=== PATIENT | male | born 1965 | race Caucasian/White ===

== ENCOUNTER 2020-06-03 08:31 | Outpatient (REF) | payer MEDICAID, SELFPAY | END 2020-06-03 08:32 | disposition home or self-care (01) | LOC: HO.LAB 08:31 | PROVIDERS: Visit Provider Internal Medicine | DX: Z20.828 Contact with and (suspected) exposure to other viral communicable diseases (principal) | CPT/HCPCS: C9803; U0003 ==

== ENCOUNTER 2020-11-20 07:56 | Emergency (ER) | payer MEDICAID, SELFPAY ==
--- NOTE | 2020-11-20 | ECG_ITS ---
Test Reason : SYNCOPE Blood Pressure : / mmHG Vent. Rate : 065 BPM Atrial Rate : 065 BPM P-R Int : 132 ms QRS Dur : 080 ms QT Int : 472 ms P-R-T Axes : 063 081 085 degrees QTc Int : 490 ms Normal sinus rhythm Marked T wave abnormality, consider anterior ischemia Prolonged QT Abnormal ECG When compared with ECG of 30-JAN-2020 13:49, ST no longer elevated in Anterior leads T wave amplitude has decreased in Inferior leads T wave inversion now evident in Anterior leads QT has lengthened Referred By: Xochitl Cohen Electronically Signed By:CHUYITA SON MD
[2020-11-20 08:07] VITALS: BP 145/87; BP 154/74; PULSE 69; PULSE 72; RESP 16; TEMP 36.9; O2SAT 97; BMI 19.0
[2020-11-20 08:13] LABS: Glucose, Whole Blood 79 mg/dL (60-115)
--- NOTE | 2020-11-20 08:13 | ED.GENADULT ---
HPI - General Adult General Chief complaint: General Medical Stated complaint: questionable consciousness Time Seen by Provider: 11/20/20 08:13 Source: patient and EMS Mode of arrival: EMS Limitations: other (patient refusing to answer) History of Present Illness HPI narrative: 55 y/o homeless male with unknown medical history presents to the ED via EMS after bystanders saw him fall with possible loss of consciousness. On EMS arrival, patient was awake and alert. He had no apparent injuries and had no complaints. On arrival to the ER he states he wants to leave. He provides a very limited history. He is soaking wet from the rain. He denies any pain. Spoke with Laney from patient's retirement at 10 am - she states he has been a long time resident of retirement and he has a history of schizophrenia and seizures. He often elopes his retirement during the weekend during the Spring and Summer, goes and uses crack cocaine and then comes back home Saturday or Saturday. He was last seen 11/18 at 9:30 am after he took his morning medications which include Dilantin 500 mg, Trileptal 150 mg BID and Haldol 15 mg QAM. Related Data Allergies Allergy/AdvReac Type Severity Reaction Status Date / Time No Known Allergies Allergy Mild NOT Verified 11/20/20 08:11 APPLICABLE Review of Systems Review of Systems: Yes Unobtainable due to mental condition and Unobtainable due to mental status FOR[facility]LY [facility] Past Medical History Medical History (Updated 11/20/20 @ 10:28 by DONTE Romero) No known health problems Social History Social History Smoking Status: Unknown if ever smoked Use of substances other than those prescribed or required for medical reasons: Unknown Advance Directives: No Advance Directives Information Provided: No Physical Exam Vital Signs: Vital Signs: Last Vital Signs Temp 98.5 F 11/20/20 08:07 Pulse 69 11/20/20 08:07 Resp 16 11/20/20 08:07 BP 154/74 H 11/20/20 08:07 Pulse Ox 97 11/20/20 08:07 Body Mass Index 19.0 Appearance: Alert. Oriented X2. Appears much older than stated age. Head: normocephalic, well healed scar to left temporal area Eyes: Pupils equal, round and reactive to light. EOMI, no nystagmus. ENT: Pharynx normal. Neck: Normal inspection. Neck supple. CVS: Normal heart rate and rhythm. Pulses normal. Respiratory: No respiratory distress. Breath sounds normal. Abdomen: Soft and nontender. +BS x4. Pelvis stable. Skin: Skin warm and dry. Normal skin color. Normal skin turgor. No rashes. Extremities: No lower extremity edema. Frail, thin. No signs of injury. Non-tender Neuro: Oriented X 2. Not fully cooperating with examination, spontaneously moves all 4 extremities. Refusing to answer most questions. Course Course Course Narrative: 55 y/o male presenting with altered mental status. Question of seizure. No signs of trauma. No obvious neuro deficits. Speech is clear, no smell of ETOH. Will get CT head, EKG, basic labs workup. Reevaluation(s) Reevaluation #1: Lactic acid 1.5, making tonic-clonic seizure less likely. His lab workup is unremarkable so far aside from mild leukocytosis, no signs of symptoms of infection at this time. Alk phos mildly elevated which appears to be chronic. Refusing CT head saying he just wants to go home. Reevaluation #2: Dilantin level critically low at 1.0 which is consistent with patient's known non-compliance over the weekend. He has a history of this several times in the past. He was given oral loading dose. He is stable for discharge back to retirement. Medical Decision Making Lab Data Result diagrams: 11/20/20 08:46 11/20/20 08:45 Labs: Lab Results 11/20/20 11/20/20 11/20/20 Range/Units 08:10 08:45 08:45 WBC (4.8-10.8) X10*3/uL RBC (4.60-5.80) X10*6/uL Hgb (14.0-18.0) g/dl Hct (42-52) % MCV (80-98) fL MCH (27.0-33.0) pg MCHC (31.0-36.0) g/dl RDW (11.0-16.0) % Plt Count (160-400) X10*3/uL MPV (9.4-12.4) fL Immature Gran % (Auto) (0.0-0.4) % Neut % (Auto) (45-73) % Lymph % (Auto) (20-40) % [place] % (Auto) (2-11) % Eos % (Auto) (0-4) % Baso % (Auto) (0-2) % Lymph # (Auto) (1.2-4.9) X10*3/uL [place] # (Auto) (0.1-1.2) X10*3/uL Eos # (Auto) (0.0-0.4) X10*3/uL Baso # (Auto) (0.0-0.2) X10*3/uL Abs Immat Gran (auto) (0.00-0.03) X10*3/uL Absolute Neuts (auto) (2.0-8.3) X10*3/uL Absolute Nucleated RBC (0.0-0.012) X10*3/uL Nucleated RBC % (auto) (0.0-0.2) /100WBC Hold Blue Top SEE NOTE Sodium 140 (135-145) mmol/L Potassium 4.4 (3.3-5.1) mmol/L Chloride 102 (96-108) mmol/L Carbon Dioxide 27 (22-29) mmol/L Anion Gap 15 (12-20) BUN 15 (9-16) mg/dL Creatinine 0.81 (0.5-1.4) mg/dL Estim Creat Clear Calc 65.0 Estimated GFR > 60 POC Glucose 79 (60-115) mg/dL Random Glucose 135 H (60-115) mg/dL Lactic Acid (0.5-2.0) mmol/L Calcium 9.6 (8.4-10.2) mg/dL Magnesium 2.4 (1.6-2.6) mg/dL Total Bilirubin 0.5 (0.0-1.0) mg/dL Direct Bilirubin 0.2 (0.0-0.5) mg/dL AST 21 (5-37) U/L ALT 32 (0-40) U/L Alkaline Phosphatase 168 H (39-117) U/L Total Protein 7.1 (6.5-8.0) g/dL Albumin 4.2 (3.5-5.0) g/dL Phenytoin (10.0-20.0) ug/mL Ethyl Alcohol mg/dL 11/20/20 11/20/20 11/20/20 Range/Units 08:45 08:45 08:45 WBC (4.8-10.8) X10*3/uL RBC (4.60-5.80) X10*6/uL Hgb (14.0-18.0) g/dl Hct (42-52) % MCV (80-98) fL MCH (27.0-33.0) pg MCHC (31.0-36.0) g/dl RDW (11.0-16.0) % Plt Count (160-400) X10*3/uL MPV (9.4-12.4) fL Immature Gran % (Auto) (0.0-0.4) % Neut % (Auto) (45-73) % Lymph % (Auto) (20-40) % [place] % (Auto) (2-11) % Eos % (Auto) (0-4) % Baso % (Auto) (0-2) % Lymph # (Auto) (1.2-4.9) X10*3/uL [place] # (Auto) (0.1-1.2) X10*3/uL Eos # (Auto) (0.0-0.4) X10*3/uL Baso # (Auto) (0.0-0.2) X10*3/uL Abs Immat Gran (auto) (0.00-0.03) X10*3/uL Absolute Neuts (auto) (2.0-8.3) X10*3/uL Absolute Nucleated RBC (0.0-0.012) X10*3/uL Nucleated RBC % (auto) (0.0-0.2) /100WBC Hold Blue Top Sodium (135-145) mmol/L Potassium (3.3-5.1) mmol/L Chloride (96-108) mmol/L Carbon Dioxide (22-29) mmol/L Anion Gap (12-20) BUN (9-16) mg/dL Creatinine (0.5-1.4) mg/dL Estim Creat Clear Calc Estimated GFR POC Glucose (60-115) mg/dL Random Glucose (60-115) mg/dL Lactic Acid 1.5 (0.5-2.0) mmol/L Calcium (8.4-10.2) mg/dL Magnesium (1.6-2.6) mg/dL Total Bilirubin (0.0-1.0) mg/dL Direct Bilirubin (0.0-0.5) mg/dL AST (5-37) U/L ALT (0-40) U/L Alkaline Phosphatase (39-117) U/L Total Protein (6.5-8.0) g/dL Albumin (3.5-5.0) g/dL Phenytoin 1.0 L* (10.0-20.0) ug/mL Ethyl Alcohol < 10 mg/dL 11/20/20 Range/Units 08:46 WBC 13.0 H (4.8-10.8) X10*3/uL RBC 5.10 (4.60-5.80) X10*6/uL Hgb 15.7 (14.0-18.0) g/dl Hct 47.1 (42-52) % MCV 92.4 (80-98) fL MCH 30.8 (27.0-33.0) pg MCHC 33.3 (31.0-36.0) g/dl RDW 13.7 (11.0-16.0) % Plt Count 443 H (160-400) X10*3/uL MPV 9.7 (9.4-12.4) fL Immature Gran % (Auto) 0.5 H (0.0-0.4) % Neut % (Auto) 81.3 H (45-73) % Lymph % (Auto) 10.1 L (20-40) % [place] % (Auto) 5.2 (2-11) % Eos % (Auto) 2.1 (0-4) % Baso % (Auto) 0.8 (0-2) % Lymph # (Auto) 1.3 (1.2-4.9) X10*3/uL [place] # (Auto) 0.7 (0.1-1.2) X10*3/uL Eos # (Auto) 0.3 (0.0-0.4) X10*3/uL Baso # (Auto) 0.1 (0.0-0.2) X10*3/uL Abs Immat Gran (auto) 0.07 H (0.00-0.03) X10*3/uL Absolute Neuts (auto) 10.6 H (2.0-8.3) X10*3/uL Absolute Nucleated RBC 0.000 (0.0-0.012) X10*3/uL Nucleated RBC % (auto) 0.0 (0.0-0.2) /100WBC Hold Blue Top Sodium (135-145) mmol/L Potassium (3.3-5.1) mmol/L Chloride (96-108) mmol/L Carbon Dioxide (22-29) mmol/L Anion Gap (12-20) BUN (9-16) mg/dL Creatinine (0.5-1.4) mg/dL Estim Creat Clear Calc Estimated GFR POC Glucose (60-115) mg/dL Random Glucose (60-115) mg/dL Lactic Acid (0.5-2.0) mmol/L Calcium (8.4-10.2) mg/dL Magnesium (1.6-2.6) mg/dL Total Bilirubin (0.0-1.0) mg/dL Direct Bilirubin (0.0-0.5) mg/dL AST (5-37) U/L ALT (0-40) U/L Alkaline Phosphatase (39-117) U/L Total Protein (6.5-8.0) g/dL Albumin (3.5-5.0) g/dL Phenytoin (10.0-20.0) ug/mL Ethyl Alcohol mg/dL Discharge Plan Discharge Clinical Impression: Noncompliance with medication regimen, Seizures Patient Disposition: Xfer SNF Transfer Details: senior living Instructions: Polysubstance Abuse (ED), Recurrent Seizures in Adults (ED) Additional Instructions: It is important that you take ALL of your medications as prescribed. You likely had a seizure today because you did not take your medications. DO NOT USE ILLICIT DRUGS, THIS INCLUDES CRACK COCAINE. Follow up with your doctor this week.
[2020-11-20 08:54] LABS: MANUAL DIFF FLAG NO
[2020-11-20 08:56] LABS: Basophils Absolute Auto 0.1 X10*3/uL (0.0-0.2); Basophils Percent Auto 0.8 % (0-2); Eosinophils Absolute Auto 0.3 X10*3/uL (0.0-0.4); Eosinophils Percent Auto 2.1 % (0-4); Hematocrit 47.1 % (42-52); Hemoglobin 15.7 g/dl (14.0-18.0); Imm Gran Abs Auto 0.07 X10*3/uL (0.00-0.03); Imm Gran Pct Auto 0.5 % (0.0-0.4); Lymphocytes Absolute Auto 1.3 X10*3/uL (1.2-4.9); Lymphocytes Percent Auto 10.1 % (20-40); Mean Corpuscular HGB Conc 33.3 g/dl (31.0-36.0); Mean Corpuscular Hemoglobin 30.8 pg (27.0-33.0); Mean Corpuscular Volume 92.4 fL (80-98); Mean Platelet Volume 9.7 fL (9.4-12.4); Monocytes Absolute Auto 0.7 X10*3/uL (0.1-1.2); Monocytes Percent Auto 5.2 % (2-11); Neutrophils Absolute Auto 10.6 X10*3/uL (2.0-8.3); Neutrophils Percent Auto 81.3 % (45-73); Platelet Count 443 X10*3/uL (160-400); Red Cell Distribution Width 13.7 % (11.0-16.0)
--- NOTE | 2020-11-20 09:00 | PC.NURSE ---
Pt arrives via ambulance, sl uncooperative but good agreeable to care with a lot of encouragement. Pt offers no history only replies leave me alone and I dont want anything PER EMS ? fall/?unconscious seen by bystanders. While in room pt noted shaking legs and arms and not verbally responding to this RN but able to track this RN during episode. UNK history as pt is poor historian. IV start to Left ac and blood obtained/sent. EKG completed. Off unit at this time for CT scan. Clothes in laundry as pt arrived with wet clothes. NSR on tele. Breathing effort normal. Skin lis, cool and dry. Pt appears to fall asleep easily with periods of outburst and agitation.
[2020-11-20 09:18] LABS: Lactic Acid 1.5 mmol/L (0.5-2.0)
[2020-11-20 09:24] LABS: Ethanol < 10 mg/dL
[2020-11-20 09:25] LABS: Alanine Aminotransferase 32 U/L (0-40); Albumin Level 4.2 g/dL (3.5-5.0); Alkaline Phosphatase 168 U/L (39-117); Anion Gap 15 (12-20); Aspartate Amino Transferase 21 U/L (5-37); Bilirubin Direct 0.2 mg/dL (0.0-0.5); Bilirubin Total 0.5 mg/dL (0.0-1.0); Blood Urea Nitrogen 15 mg/dL (9-16); Calcium 9.6 mg/dL (8.4-10.2); Carbon Dioxide 27 mmol/L (22-29); Chloride 102 mmol/L (96-108); Estimated Glomerular Filt Rate > 60; Glucose Random 135 mg/dL (60-115); Magnesium 2.4 mg/dL (1.6-2.6); Potassium 4.4 mmol/L (3.3-5.1); Sodium 140 mmol/L (135-145); Total Protein 7.1 g/dL (6.5-8.0)
--- NOTE | 2020-11-20 09:48 | PC.NURSE ---
This RN spoke to senior care staff Laney Carbajal who is now speaking to Xochitl KENT at this time. Staff reports pt does have history of seizures.
[2020-11-20] MEDS: Phenytoin Sodium Extended 100 MG CAPSULE 500 MG PO ×2 (10:11→10:32)
[2020-11-20] MEDS: OXcarbazepine 150 MG TABLET PO (10:11)
[2020-11-20] MEDS: HaloperidoL 5 MG TABLET 15 MG PO (10:32)
--- NOTE | 2020-11-20 10:39 | PC.NURSE ---
Pt now awake, agitated, continues to request to go home. Laney from [facility] called and will pick up worker pt. Aware of loading dose given and daily haldol dose. Pt now back to bed at this time.
== END 2020-11-20 11:25 | disposition skilled nursing facility (03) ==
PROVIDERS: Physician Assistant; Emergency Provider Emergency Medicine
DX: R56.9 Unspecified convulsions (principal); Z91.14 Patient's other noncompliance with medication regimen; F20.9 Schizophrenia, unspecified
CPT/HCPCS: 36415; 80048; 80076; 80185; 80320; 82947; 83605; 83735; 85025; 87040; 93005; 99284

== ENCOUNTER 2021-04-27 16:07 | Emergency (ER) | payer MEDICAID, SELFPAY ==
[2021-04-27 16:22] VITALS: BP 149/85; BP 157/82; PULSE 86; PULSE 94; RESP 18; TEMP 37.5; O2SAT 96; O2SAT 98; BMI 20.1
--- NOTE | 2021-04-27 16:34 | ED_ITS ---
HPI - Seizure General Chief Complaint: Seizure <DONTE Romero - Last Filed: 04/27/21 17:50> Stated Complaint: seizure <DONTE Romero - Last Filed: 04/27/21 17:50> Time Seen by Provider: 04/27/21 16:31 <DONTE Romero - Last Filed: 04/27/21 17:50> Source: patient, EMS, RN notes reviewed and old records reviewed <DONTE Romero - Last Filed: 04/27/21 17:50> Mode of arrival: EMS <DONTE Romero Last Filed: 04/27/21 17:50> Limitations: no limitations <DONTE Romero Last Filed: 04/27/21 17:50> History of Present Illness HPI Narrative: 55 y/o male with history of seizures, crack cocaine, and schizophrenia who presents to the ER via EMS with a witnessed seizure while at his senior care. His is uncooperative and cannot provide any history. Called and spoke with care home employee who witnessed the event. She reports after he ate dinner she heard Abhijit making loud weeping noises like he was crying. When she checked on his she reports he was awake but not responding to her. He kept making repetitive noises for about 1 minute. EMS was called and on their arrival he remained confused. He was verbal at that time but no recollection of the event. He thinks he took his Dilantin and Trileptal this morning. 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 He leaves the senior care every day and sometimes does not come back until 4 am. He occasionally misses doses of his meds when he does not return. <DONTE Romero - Last Filed: 04/27/21 17:50> MD complaint: seizure <DONTE Romero - Last Filed: 04/27/21 17:50> Onset (ago): minute(s) <DONTE Romero - Last Filed: 04/27/21 17:50> Description of Episode: post-event confusion and other (making strange repetative noises) <DONTE Romero Last Filed: 04/27/21 17:50> -: second(s) <DONTE Romero - Last Filed: 04/27/21 17:50> Witnessed: Yes - by Other <DONTE Romero - Last Filed: 04/27/21 17:50> Trauma: No <DONTE Romero - Last Filed: 04/27/21 17:50> Seizure History: Yes <DONTE Romero - Last Filed: 04/27/21 17:50> Place: Home <DONTE Romero - Last Filed: 04/27/21 17:50> Possible Precipitating Event: none <DONTE Romero - Last Filed: 04/27/21 17:50> Associated symptoms: denies other symptoms <DONTE Romero - Last Filed: 04/27/21 17:50> Treatments prior to arrival: none <DONTE Romero - Last Filed: 04/27/21 17:50> Related Data Allergies/Adverse Reactions: Allergies Allergy/AdvReac Type Severity Reaction Status Date / Time No Known Allergies Allergy Mild NOT Verified 11/20/20 08:11 APPLICABLE <DONTE Romero - Last Filed: 04/27/21 17:50> Review of Systems Review of Systems: uncoperative <DONTE Romero - Last Filed: 04/27/21 17:50> Yes Unobtainable due to mental condition and Unobtainable due to mental status <DONTE Romero - Last Filed: 04/27/21 17:50> [facility] Past Medical History Medical History: Medical History (Updated 04/27/21 @ 16:48 by DONTE Romero) No known health problems <DONTE Romero - Last Filed: 04/27/21 17:50> Social History Social History: Social History Alcohol intake: never Patient Tobacco Use Status: Never used Tobacco Use of substances other than those prescribed or required for medical reasons: Refusing to respond Advance Directives: No Advance Directives Information Provided: No <DONTE Romero - Last Filed: 04/27/21 17:50> Physical Exam Vital Signs: Vital Signs: Last Vital Signs Temp 99.5 F 04/27/21 16:22 Pulse 97 04/27/21 17:59 Resp 20 04/27/21 17:59 BP 117/69 04/27/21 17:59 Pulse Ox 99 04/27/21 17:59 Body Mass Index 20.1 <DONTE Romero - Last Filed: 04/27/21 17:50> Vital Signs: Last Vital Signs Temp 99.5 F 04/27/21 16:22 Pulse 97 04/27/21 17:59 Resp 20 04/27/21 17:59 BP 117/69 04/27/21 17:59 Pulse Ox 99 04/27/21 17:59 Body Mass Index 20.1 <Ari Mckeon MD - Last Filed: 04/27/21 18:53> Appearance: Alert, disheveled thin male, poor hygiene. Eyes: Pupils equal, round and reactive to light. ENT: Pharynx normal. Neck: Normal inspection. Neck supple. CVS: Normal heart rate and rhythm. Pulses normal. Respiratory: No respiratory distress. Breath sounds normal. Abdomen: Soft and nontender. +BS x4 Skin: Skin warm and dry. Normal skin color. Normal skin turgor. No rashes. Extremities: No lower extremity edema. Ambulates with a limp Neuro: Oriented X 2. Nonfocal. Moves all extremities, equal and symmetrical s trength throughout <DONTE Romero - Last Filed: 04/27/21 17:50> Course Course Course Narrative: 55 y/o male with known seizure disorder presenting with witnessed seizure at senior care. Not described as tonic-clonic. He is AAO but with poor memory. Will check basic labs and dilantin level. Hx noncompliance with mediations when he elopes from the senior care. <DONTE Romero - Last Filed: 04/27/21 17:50> Reevaluation(s) Reevaluation #1: Patient had a witnessed seizure with lip smacking, strange noises and some tonic clonic movements w/ rigidity. HR up to 120s, awake but not responding. He is protecting his airway at this time. IV Ativan & IV dilantin ordered. D/w Dr. Clarke. <DONTE Romero - Last Filed: 04/27/21 17:50> Time: 17:47 <DONTE Romero - Last Filed: 04/27/21 17:50> Reevaluation #2: Patient noncompliant to Dilantin substance abuse in for seizures workup showed Dilantin level of 8.7 urine tox on fentanyl cocaine marijuana positive plan to discharge patient back to senior care. Patient received 500 mg of Dilantin IV <Ari Mckeon MD - Last Filed: 04/27/21 18:53> Time: 18:52 <Ari Mckeon MD - Last Filed: 04/27/21 18:53> MDM - Seizure Lab Data Result diagrams: : 04/27/21 17:06 04/27/21 18:02 <DONTE Romero - Last Filed: 04/27/21 17:50> Labs: Lab Results 04/27/21 04/27/21 04/27/21 Range/Units 17:06 17:06 17:06 WBC 10.7 (4.8-10.8) X10*3/uL RBC 4.93 (4.60-5.80) X10*6/uL Hgb 15.8 (14.0-18.0) g/dl Hct 45.7 (42-52) % MCV 92.7 (80-98) fL MCH 32.0 (27.0-33.0) pg MCHC 34.6 (31.0-36.0) g/dl RDW 13.3 (11.0-16.0) % Plt Count 325 D (160-400) X10*3/uL MPV 9.6 (9.4-12.4) fL Immature Gran % (Auto) 0.3 (0.0-0.4) % Neut % (Auto) 78.6 H (45-73) % Lymph % (Auto) 14.0 L (20-40) % [place] % (Auto) 5.7 (2-11) % Eos % (Auto) 0.8 (0-4) % Baso % (Auto) 0.6 (0-2) % Lymph # (Auto) 1.5 (1.2-4.9) X10*3/uL [place] # (Auto) 0.6 (0.1-1.2) X10*3/uL Eos # (Auto) 0.1 (0.0-0.4) X10*3/uL Baso # (Auto) 0.1 (0.0-0.2) X10*3/uL Abs Immat Gran (auto) 0.03 (0.00-0.03) X10*3/uL Absolute Neuts (auto) 8.4 H (2.0-8.3) X10*3/uL Absolute Nucleated RBC 0.000 (0.0-0.012) X10*3/uL Nucleated RBC % (auto) 0.0 (0.0-0.2) /100WBC Sodium (135-145) mmol/L Potassium (3.3-5.1) mmol/L Chloride (96-108) mmol/L Carbon Dioxide (22-29) mmol/L Anion Gap (12-20) BUN (9-16) mg/dL Creatinine (0.5-1.4) mg/dL Estim Creat Clear Calc Estimated GFR Random Glucose (60-115) mg/dL Calcium (8.4-10.2) mg/dL Magnesium (1.6-2.6) mg/dL Total Bilirubin (0.0-1.0) mg/dL Direct Bilirubin (0.0-0.5) mg/dL AST (5-37) U/L ALT (0-40) U/L Alkaline Phosphatase (39-117) U/L Total Protein (6.5-8.0) g/dL Albumin (3.5-5.0) g/dL Urine Color Urine Appearance Urine pH (5.0-8.0) Ur Specific [place] (1.005-1.025) Urine Protein (NEG-TRACE) MG/DL Urine Glucose (UA) (NEG) MG/DL Urine Ketones (NEG) MG/DL Urine Blood (NEG) Urine Nitrite (NEG) Ur Leukocyte Esterase (NEG) Urine Opiates Screen (Not Detect) Urine Fentanyl Screen (Not Detect) Ur Barbiturates Screen (Not Detect) Phenytoin (10.0-20.0) ug/mL Ur Phencyclidine Scrn (Not Detect) Ur Amphetamines Screen (Not Detect) U Benzodiazepines Scrn (Not Detect) Urine Cocaine Screen (Not Detect) U Marijuana (THC) Screen (Not Detect) Ethyl Alcohol < 10 mg/dL COVID-19 (SUMMER) Negative (Negative) COVID-19 Clin Com See Note 09/30/21 09/30/21 09/30/21 Range/Units 17:06 17:12 17:12 WBC (4.8-10.8) X10*3/uL RBC (4.60-5.80) X10*6/uL Hgb (14.0-18.0) g/dl Hct (42-52) % MCV (80-98) fL MCH (27.0-33.0) pg MCHC (31.0-36.0) g/dl RDW (11.0-16.0) % Plt Count (160-400) X10*3/uL MPV (9.4-12.4) fL Immature Gran % (Auto) (0.0-0.4) % Neut % (Auto) (45-73) % Lymph % (Auto) (20-40) % [place] % (Auto) (2-11) % Eos % (Auto) (0-4) % Baso % (Auto) (0-2) % Lymph # (Auto) (1.2-4.9) X10*3/uL [place] # (Auto) (0.1-1.2) X10*3/uL Eos # (Auto) (0.0-0.4) X10*3/uL Baso # (Auto) (0.0-0.2) X10*3/uL Abs Immat Gran (auto) (0.00-0.03) X10*3/uL Absolute Neuts (auto) (2.0-8.3) X10*3/uL Absolute Nucleated RBC (0.0-0.012) X10*3/uL Nucleated RBC % (auto) (0.0-0.2) /100WBC Sodium (135-145) mmol/L Potassium (3.3-5.1) mmol/L Chloride (96-108) mmol/L Carbon Dioxide (22-29) mmol/L Anion Gap (12-20) BUN (9-16) mg/dL Creatinine (0.5-1.4) mg/dL Estim Creat Clear Calc Estimated GFR Random Glucose (60-115) mg/dL Calcium (8.4-10.2) mg/dL Magnesium (1.6-2.6) mg/dL Total Bilirubin (0.0-1.0) mg/dL Direct Bilirubin (0.0-0.5) mg/dL AST (5-37) U/L ALT (0-40) U/L Alkaline Phosphatase (39-117) U/L Total Protein (6.5-8.0) g/dL Albumin (3.5-5.0) g/dL Urine Color YELLOW Urine Appearance HAZY Urine pH 6.0 (5.0-8.0) Ur Specific [place] 1.025 (1.005-1.025) Urine Protein NEG (NEG-TRACE) MG/DL Urine Glucose (UA) NEG (NEG) MG/DL Urine Ketones NEG (NEG) MG/DL Urine Blood NEG (NEG) Urine Nitrite NEG (NEG) Ur Leukocyte Esterase NEG (NEG) Urine Opiates Screen Not Detected (Not Detect) Urine Fentanyl Screen POSITIVE H (Not Detect) Ur Barbiturates Screen Not Detected (Not Detect) Phenytoin 8.7 L (10.0-20.0) ug/mL Ur Phencyclidine Scrn Not Detected (Not Detect) Ur Amphetamines Screen Not Detected (Not Detect) U Benzodiazepines Scrn Not Detected (Not Detect) Urine Cocaine Screen POSITIVE H (Not Detect) U Marijuana (THC) Screen POSITIVE H (Not Detect) Ethyl Alcohol mg/dL COVID-19 (SUMMER) (Negative) COVID-19 Clin Com 04/27/21 Range/Units 18:02 WBC (4.8-10.8) X10*3/uL RBC (4.60-5.80) X10*6/uL Hgb (14.0-18.0) g/dl Hct (42-52) % MCV (80-98) fL MCH (27.0-33.0) pg MCHC (31.0-36.0) g/dl RDW (11.0-16.0) % Plt Count (160-400) X10*3/uL MPV (9.4-12.4) fL Immature Gran % (Auto) (0.0-0.4) % Neut % (Auto) (45-73) % Lymph % (Auto) (20-40) % [place] % (Auto) (2-11) % Eos % (Auto) (0-4) % Baso % (Auto) (0-2) % Lymph # (Auto) (1.2-4.9) X10*3/uL [place] # (Auto) (0.1-1.2) X10*3/uL Eos # (Auto) (0.0-0.4) X10*3/uL Baso # (Auto) (0.0-0.2) X10*3/uL Abs Immat Gran (auto) (0.00-0.03) X10*3/uL Absolute Neuts (auto) (2.0-8.3) X10*3/uL Absolute Nucleated RBC (0.0-0.012) X10*3/uL Nucleated RBC % (auto) (0.0-0.2) /100WBC Sodium 134 L (135-145) mmol/L Potassium 4.3 (3.3-5.1) mmol/L Chloride 101 (96-108) mmol/L Carbon Dioxide 26 (22-29) mmol/L Anion Gap 11 L (12-20) BUN 15 (9-16) mg/dL Creatinine 0.83 (0.5-1.4) mg/dL Estim Creat Clear Calc 71.8 Estimated GFR > 60 Random Glucose 100 (60-115) mg/dL Calcium 8.6 D (8.4-10.2) mg/dL Magnesium 1.9 (1.6-2.6) mg/dL Total Bilirubin 0.2 (0.0-1.0) mg/dL Direct Bilirubin < 0.2 (0.0-0.5) mg/dL AST 23 (5-37) U/L ALT 26 (0-40) U/L Alkaline Phosphatase 149 H (39-117) U/L Total Protein 6.5 (6.5-8.0) g/dL Albumin 3.9 (3.5-5.0) g/dL Urine Color Urine Appearance Urine pH (5.0-8.0) Ur Specific Commerce (1.005-1.025) Urine Protein (NEG-TRACE) MG/DL Urine Glucose (UA) (NEG) MG/DL Urine Ketones (NEG) MG/DL Urine Blood (NEG) Urine Nitrite (NEG) Ur Leukocyte Esterase (NEG) Urine Opiates Screen (Not Detect) Urine Fentanyl Screen (Not Detect) Ur Barbiturates Screen (Not Detect) Phenytoin (10.0-20.0) ug/mL Ur Phencyclidine Scrn (Not Detect) Ur Amphetamines Screen (Not Detect) U Benzodiazepines Scrn (Not Detect) Urine Cocaine Screen (Not Detect) U Marijuana (THC) Screen (Not Detect) Ethyl Alcohol mg/dL COVID-19 (SUMMER) (Negative) COVID-19 Clin Com <DONTE Romero - Last Filed: 04/27/21 17:50> Lab Results 04/27/21 04/27/21 04/27/21 Range/Units 17:06 17:06 17:06 WBC 10.7 (4.8-10.8) X10*3/uL RBC 4.93 (4.60-5.80) X10*6/uL Hgb 15.8 (14.0-18.0) g/dl Hct 45.7 (42-52) % MCV 92.7 (80-98) fL MCH 32.0 (27.0-33.0) pg MCHC 34.6 (31.0-36.0) g/dl RDW 13.3 (11.0-16.0) % Plt Count 325 D (160-400) X10*3/uL MPV 9.6 (9.4-12.4) fL Immature Gran % (Auto) 0.3 (0.0-0.4) % Neut % (Auto) 78.6 H (45-73) % Lymph % (Auto) 14.0 L (20-40) % [place] % (Auto) 5.7 (2-11) % Eos % (Auto) 0.8 (0-4) % Baso % (Auto) 0.6 (0-2) % Lymph # (Auto) 1.5 (1.2-4.9) X10*3/uL [place] # (Auto) 0.6 (0.1-1.2) X10*3/uL Eos # (Auto) 0.1 (0.0-0.4) X10*3/uL Baso # (Auto) 0.1 (0.0-0.2) X10*3/uL Abs Immat Gran (auto) 0.03 (0.00-0.03) X10*3/uL Absolute Neuts (auto) 8.4 H (2.0-8.3) X10*3/uL Absolute Nucleated RBC 0.000 (0.0-0.012) X10*3/uL Nucleated RBC % (auto) 0.0 (0.0-0.2) /100WBC Sodium (135-145) mmol/L Potassium (3.3-5.1) mmol/L Chloride (96-108) mmol/L Carbon Dioxide (22-29) mmol/L Anion Gap (12-20) BUN (9-16) mg/dL Creatinine (0.5-1.4) mg/dL Estim Creat Clear Calc Estimated GFR Random Glucose (60-115) mg/dL Calcium (8.4-10.2) mg/dL Magnesium (1.6-2.6) mg/dL Total Bilirubin (0.0-1.0) mg/dL Direct Bilirubin (0.0-0.5) mg/dL AST (5-37) U/L ALT (0-40) U/L Alkaline Phosphatase (39-117) U/L Total Protein (6.5-8.0) g/dL Albumin (3.5-5.0) g/dL Urine Color Urine Appearance Urine pH (5.0-8.0) Ur Specific [place] (1.005-1.025) Urine Protein (NEG-TRACE) MG/DL Urine Glucose (UA) (NEG) MG/DL Urine Ketones (NEG) MG/DL Urine Blood (NEG) Urine Nitrite (NEG) Ur Leukocyte Esterase (NEG) Urine Opiates Screen (Not Detect) Urine Fentanyl Screen (Not Detect) Ur Barbiturates Screen (Not Detect) Phenytoin (10.0-20.0) ug/mL Ur Phencyclidine Scrn (Not Detect) Ur Amphetamines Screen (Not Detect) U Benzodiazepines Scrn (Not Detect) Urine Cocaine Screen (Not Detect) U Marijuana (THC) Screen (Not Detect) Ethyl Alcohol < 10 mg/dL COVID-19 (SUMMER) Negative (Negative) COVID-19 Clin Com See Note 04/27/21 04/27/21 04/27/21 Range/Units 17:06 17:12 17:12 WBC (4.8-10.8) X10*3/uL RBC (4.60-5.80) X10*6/uL Hgb (14.0-18.0) g/dl Hct (42-52) % MCV (80-98) fL MCH (27.0-33.0) pg MCHC (31.0-36.0) g/dl RDW (11.0-16.0) % Plt Count (160-400) X10*3/uL MPV (9.4-12.4) fL Immature Gran % (Auto) (0.0-0.4) % Neut % (Auto) (45-73) % Lymph % (Auto) (20-40) % [place] % (Auto) (2-11) % Eos % (Auto) (0-4) % Baso % (Auto) (0-2) % Lymph # (Auto) (1.2-4.9) X10*3/uL [place] # (Auto) (0.1-1.2) X10*3/uL Eos # (Auto) (0.0-0.4) X10*3/uL Baso # (Auto) (0.0-0.2) X10*3/uL Abs Immat Gran (auto) (0.00-0.03) X10*3/uL Absolute Neuts (auto) (2.0-8.3) X10*3/uL Absolute Nucleated RBC (0.0-0.012) X10*3/uL Nucleated RBC % (auto) (0.0-0.2) /100WBC Sodium (135-145) mmol/L Potassium (3.3-5.1) mmol/L Chloride (96-108) mmol/L Carbon Dioxide (22-29) mmol/L Anion Gap (12-20) BUN (9-16) mg/dL Creatinine (0.5-1.4) mg/dL Estim Creat Clear Calc Estimated GFR Random Glucose (60-115) mg/dL Calcium (8.4-10.2) mg/dL Magnesium (1.6-2.6) mg/dL Total Bilirubin (0.0-1.0) mg/dL Direct Bilirubin (0.0-0.5) mg/dL AST (5-37) U/L ALT (0-40) U/L Alkaline Phosphatase (39-117) U/L Total Protein (6.5-8.0) g/dL Albumin (3.5-5.0) g/dL Urine Color YELLOW Urine Appearance HAZY Urine pH 6.0 (5.0-8.0) Ur Specific Commerce 1.025 (1.005-1.025) Urine Protein NEG (NEG-TRACE) MG/DL Urine Glucose (UA) NEG (NEG) MG/DL Urine Ketones NEG (NEG) MG/DL Urine Blood NEG (NEG) Urine Nitrite NEG (NEG) Ur Leukocyte Esterase NEG (NEG) Urine Opiates Screen Not Detected (Not Detect) Urine Fentanyl Screen POSITIVE H (Not Detect) Ur Barbiturates Screen Not Detected (Not Detect) Phenytoin 8.7 L (10.0-20.0) ug/mL Ur Phencyclidine Scrn Not Detected (Not Detect) Ur Amphetamines Screen Not Detected (Not Detect) U Benzodiazepines Scrn Not Detected (Not Detect) Urine Cocaine Screen POSITIVE H (Not Detect) U Marijuana (THC) Screen POSITIVE H (Not Detect) Ethyl Alcohol mg/dL COVID-19 (SUMMER) (Negative) COVID-19 Clin Com 04/27/21 Range/Units 18:02 WBC (4.8-10.8) X10*3/uL RBC (4.60-5.80) X10*6/uL Hgb (14.0-18.0) g/dl Hct (42-52) % MCV (80-98) fL MCH (27.0-33.0) pg MCHC (31.0-36.0) g/dl RDW (11.0-16.0) % Plt Count (160-400) X10*3/uL MPV (9.4-12.4) fL Immature Gran % (Auto) (0.0-0.4) % Neut % (Auto) (45-73) % Lymph % (Auto) (20-40) % [place] % (Auto) (2-11) % Eos % (Auto) (0-4) % Baso % (Auto) (0-2) % Lymph # (Auto) (1.2-4.9) X10*3/uL [place] # (Auto) (0.1-1.2) X10*3/uL Eos # (Auto) (0.0-0.4) X10*3/uL Baso # (Auto) (0.0-0.2) X10*3/uL Abs Immat Gran (auto) (0.00-0.03) X10*3/uL Absolute Neuts (auto) (2.0-8.3) X10*3/uL Absolute Nucleated RBC (0.0-0.012) X10*3/uL Nucleated RBC % (auto) (0.0-0.2) /100WBC Sodium 134 L (135-145) mmol/L Potassium 4.3 (3.3-5.1) mmol/L Chloride 101 (96-108) mmol/L Carbon Dioxide 26 (22-29) mmol/L Anion Gap 11 L (12-20) BUN 15 (9-16) mg/dL Creatinine 0.83 (0.5-1.4) mg/dL Estim Creat Clear Calc 71.8 Estimated GFR > 60 Random Glucose 100 (60-115) mg/dL Calcium 8.6 D (8.4-10.2) mg/dL Magnesium 1.9 (1.6-2.6) mg/dL Total Bilirubin 0.2 (0.0-1.0) mg/dL Direct Bilirubin < 0.2 (0.0-0.5) mg/dL AST 23 (5-37) U/L ALT 26 (0-40) U/L Alkaline Phosphatase 149 H (39-117) U/L Total Protein 6.5 (6.5-8.0) g/dL Albumin 3.9 (3.5-5.0) g/dL Urine Color Urine Appearance Urine pH (5.0-8.0) Ur Specific [place] (1.005-1.025) Urine Protein (NEG-TRACE) MG/DL Urine Glucose (UA) (NEG) MG/DL Urine Ketones (NEG) MG/DL Urine Blood (NEG) Urine Nitrite (NEG) Ur Leukocyte Esterase (NEG) Urine Opiates Screen (Not Detect) Urine Fentanyl Screen (Not Detect) Ur Barbiturates Screen (Not Detect) Phenytoin (10.0-20.0) ug/mL Ur Phencyclidine Scrn (Not Detect) Ur Amphetamines Screen (Not Detect) U Benzodiazepines Scrn (Not Detect) Urine Cocaine Screen (Not Detect) U Marijuana (THC) Screen (Not Detect) Ethyl Alcohol mg/dL COVID-19 (SUMMER) (Negative) COVID-19 Clin Com <Ari Anwer Linda, MD - Last Filed: 04/27/21 18:53> Critical Care Time Critical Care Time Critical Care Time: Yes <DONTE Romero - Last Filed: 04/27/21 17:50> Total Critical Care Time: 36 <DONTE Romero - Last Filed: 04/27/21 17:50> Attestation: I have personally provided critical care time exclusive of time spent on separately billable procedures. Time includes review of lab data, radiology results, treating acute seizure, and monitoring for potential decompensation. Intervention performed as documented. <DONTE Romero - Last Filed: 04/27/21 17:50> Discharge Plan Discharge Clinical Impression: Generalized seizure <DONTE Romero - Last Filed: 04/27/21 17:50>
[2021-04-27 17:13] LABS: Basophils Absolute Auto 0.1 X10*3/uL (0.0-0.2); Basophils Percent Auto 0.6 % (0-2); Eosinophils Absolute Auto 0.1 X10*3/uL (0.0-0.4); Eosinophils Percent Auto 0.8 % (0-4); Hematocrit 45.7 % (42-52); Hemoglobin 15.8 g/dl (14.0-18.0); Imm Gran Abs Auto 0.03 X10*3/uL (0.00-0.03); Imm Gran Pct Auto 0.3 % (0.0-0.4); Lymphocytes Absolute Auto 1.5 X10*3/uL (1.2-4.9); MANUAL DIFF FLAG NO; Mean Corpuscular HGB Conc 34.6 g/dl (31.0-36.0); Mean Corpuscular Volume 92.7 fL (80-98); Mean Platelet Volume 9.6 fL (9.4-12.4); Monocytes Absolute Auto 0.6 X10*3/uL (0.1-1.2); Monocytes Percent Auto 5.7 % (2-11); Neutrophils Absolute Auto 8.4 X10*3/uL (2.0-8.3); Neutrophils Percent Auto 78.6 % (45-73); Platelet Count 325 X10*3/uL (160-400); Red Blood Count 4.93 X10*6/uL (4.60-5.80); Red Cell Distribution Width 13.3 % (11.0-16.0); White Blood Count 10.7 X10*3/uL (4.8-10.8)
[2021-04-27 17:28] LABS: Appearance Urine HAZY; Color Urine YELLOW; Glucose Urine UA NEG (NEG); Leukocyte Esterase Urine NEG (NEG); Nitrite Urine NEG (NEG); Specific Gravity - Urine 1.025 (1.005-1.025); Urine Blood NEG (NEG); Urine Ketones NEG (NEG); Urine Protein NEG (NEG-TRACE)
[2021-04-27 17:43] LABS: Ethanol < 10 mg/dL
[2021-04-27 17:44] VITALS: BP 160/85; PULSE 102; RESP 22; O2SAT 99
[2021-04-27] MEDS: LORazepam 2 MG/ML VIAL IVPUSH (17:47)
[2021-04-27 17:50] LABS: Amphetamine Screen Urine Not Detected (Not Detect); Barbiturates, Urine Not Detected (Not Detect); Benzodiazepines Screen Urine Not Detected (Not Detect); Cannabinoid Screen Urine POSITIVE (Not Detect); Cocaine Screen Urine POSITIVE (Not Detect); Fentanyl, urine POSITIVE (Not Detect); Opiate Screen Urine Not Detected (Not Detect); Phencyclidine Screen Urine Not Detected (Not Detect)
[2021-04-27 17:51] LABS: COVID-19 Test Negative (Negative)
[2021-04-27 17:59] VITALS: BP 117/69; PULSE 97; RESP 20; O2SAT 99
[2021-04-27] MEDS: Phenytoin Sodium 100 MG/2 ML VIAL 300 MG IVPUSH (18:03)
[2021-04-27 18:04] LABS: Phenytoin Dilantin 8.7 ug/mL (10.0-20.0)
[2021-04-27 18:25] LABS: Alanine Aminotransferase 26 U/L (0-40); Albumin Level 3.9 g/dL (3.5-5.0); Alkaline Phosphatase 149 U/L (39-117); Anion Gap 11 (12-20); Aspartate Amino Transferase 23 U/L (5-37); Bilirubin Direct < 0.2 mg/dL (0.0-0.5); Bilirubin Total 0.2 mg/dL (0.0-1.0); Blood Urea Nitrogen 15 mg/dL (9-16); Calcium 8.6 mg/dL (8.4-10.2); Carbon Dioxide 26 mmol/L (22-29); Chloride 101 mmol/L (96-108); Creatinine Clr Calc Pharmacy 71.8; Estimated Glomerular Filt Rate > 60; Glucose Random 100 mg/dL (60-115); Magnesium 1.9 mg/dL (1.6-2.6); Potassium 4.3 mmol/L (3.3-5.1); Sodium 134 mmol/L (135-145); Total Protein 6.5 g/dL (6.5-8.0)
--- NOTE | 2021-04-27 19:04 | PC.NURSE ---
REPORT FROM SANDRINE AT 19:00. MD ALBARADO REPORTS THAT ONCE PT WAKES UP, HE IS READY FOR DISCHARGE. PT SLEEPING ON STRETCHER, GOOD RESPIRATORY RATE AND EFFORT. ONLY SZ ACTIVITY REPORTED FROM PREVIOUS RN WAS LIP SMACKING, PT RECEIVED ATIVAN.
--- NOTE | 2021-04-27 20:43 | PC.NURSE ---
PT AMBULATORY TO BATHROOM, UNSTEADY GAIT NORMAL FOR HIM. PT REQUESTED AND GIVEN COFFEE. PT FULLY AWAKE, RIDE ON WAY FROM [facility].
== END 2021-04-27 21:00 | disposition home or self-care (01) ==
PROVIDERS: Physician Assistant; Emergency Provider Internal Medicine
DX: R56.9 Unspecified convulsions (principal); F25.9 Schizoaffective disorder, unspecified; Z20.822 Contact with and (suspected) exposure to COVID-19; Z79.899 Other long term (current) drug therapy
CPT/HCPCS: 36415; 80048; 80076; 80185; 80307; 81003; 82077; 83735; 85025; 87635; 96374; 96375; 99284; 99291; J2060

== ENCOUNTER 2021-09-05 13:13 | Outpatient (REF) | payer MEDICAID, SELFPAY ==
[2021-09-05 13:39] LABS: MANUAL DIFF FLAG NO
[2021-09-05 14:42] LABS: Basophils Absolute Auto 0.1 X10*3/uL (0.0-0.2); Basophils Percent Auto 0.8 % (0-2); Eosinophils Absolute Auto 0.1 X10*3/uL (0.0-0.4); Eosinophils Percent Auto 1.6 % (0-4); Hemoglobin 13.9 g/dl (14.0-18.0); Imm Gran Abs Auto 0.03 X10*3/uL (0.00-0.03); Imm Gran Pct Auto 0.3 % (0.0-0.4); Lymphocytes Absolute Auto 1.9 X10*3/uL (1.2-4.9); Lymphocytes Percent Auto 21.7 % (20-40); Mean Corpuscular HGB Conc 33.1 g/dl (31.0-36.0); Mean Corpuscular Hemoglobin 31.7 pg (27.0-33.0); Mean Corpuscular Volume 95.7 fL (80.0-98.0); Mean Platelet Volume 10.4 fL (9.4-12.4); Monocytes Absolute Auto 0.9 X10*3/uL (0.1-1.2); Monocytes Percent Auto 10.1 % (2-11); Neutrophils Absolute Auto 5.7 x10*3/uL (2.0-8.3); Neutrophils Percent Auto 65.5 % (45-73); Platelet Count 300 X10*3/uL (160-400); Red Blood Count 4.39 X10*6/uL (4.60-5.80); Red Cell Distribution Width 13.5 % (11.0-16.0); White Blood Count 8.7 X10*3/uL (4.8-10.8)
[2021-09-05 15:13] LABS: Anion Gap 11 (12-20); Blood Urea Nitrogen 15 mg/dL (9-16); Carbon Dioxide 26 mmol/L (22-29); Chloride 106 mmol/L (96-108); Estimated Glomerular Filt Rate > 60; Glucose Random 77 mg/dL (60-115); Sodium 138 mmol/L (135-145)
[2021-09-05 15:37] LABS: Phenytoin Dilantin 19.4 ug/mL (10.0-20.0)
[2021-09-10 08:32] LABS: Oxcarbazepine 2.4 mcg/mL (8.0-35.0)
== END 2021-09-05 13:14 | disposition home or self-care (01) ==
LOC: HO.LAB 13:13
PROVIDERS: Visit Provider Psychiatry & Neurology Neurology
DX: G40.909 Epilepsy, unspecified, not intractable, without status epilepticus (principal)
CPT/HCPCS: 36415; 80048; 80185; 80339; 85025

== ENCOUNTER 2021-12-22 10:28 | Emergency (ER) | payer MEDICAID, SELFPAY ==
[2021-12-22 10:49] VITALS: BP 146/91; PULSE 91; RESP 16; TEMP 36.1; O2SAT 97; BMI 16.7
== END 2021-12-22 13:25 | disposition left against medical advice (07) ==
PROVIDERS: Emergency Provider Emergency Medicine
DX: M79.672 Pain in left foot (principal); L84 Corns and callosities
CPT/HCPCS: 99281

== ENCOUNTER 2022-04-13 08:16 | Emergency (ER) | payer MEDICAID, SELFPAY ==
--- NOTE | ~2022-04-13 | XR_ITS ---
EXAMINATION: XR RIBS, LEFT CLINICAL INFORMATION: History of fall and rib pain. COMPARISON: 01/24/2020 TECHNIQUE: 3 views of the left ribs. PA view of the chest. FINDINGS: Lungs are well expanded and clear. No pleural effusion or pneumothorax. Cardiac mediastinal silhouette has normal size and contour. Old, healed fracture of the mid third of the right clavicle. There appears to be an acute, nondisplaced fracture of the left lateral fifth rib. Equivocal finding of acute nondisplaced fracture of left lateral fourth rib. Old, healed fractures of left lateral seventh and eighth ribs. XR/XR ribs LT min 3V w CXR1V IMPRESSION: * No acute pulmonary disease. * Acute, nondisplaced fracture of left lateral fifth rib. Possible nondisplaced fracture of left lateral fourth rib. * Old healed fractures of left lateral seventh and eighth ribs. * Old healed fracture of the mid right clavicle.
[2022-04-13 08:20] VITALS: BP 155/78; PULSE 65; RESP 19; TEMP 36.6; O2SAT 96; BMI 18.3
--- NOTE | 2022-04-13 08:49 | ED_ITS ---
HPI - General Adult General Chief complaint: General Medical Stated complaint: possible broken bone/ upper L side ribs Time Seen by Provider: 04/13/22 08:35 Source: patient Mode of arrival: ambulatory Limitations: no limitations History of Present Illness HPI narrative: 56-year-old male who presents emergency department for evaluation of left-sided rib pain. Patient states that it was raining yesterday he was walking up stairs. The stairs were wet and slippery and he fell landing on his left chest. He denies any head injury. He states since the fall he has had a constant, left-sided chest pain. The pain is sharp, worse with movement worse with breathing and coughing. The pain is 8/10. He denied fever, chills, shortness of breath or dyspnea on exertion. He denies headache, neck pain COVID nausea, v omiting or abdominal pain. MD complaint: Left chest pain Onset (ago): day(s) (2) Location: chest Radiation: non-radiation Severity: severe Severity scale (1-10): 8 Quality: sharp Pain Consistency: constant Relieving factors: none Exacerbating factors: movement and other (Coughing, breathing) Treatments prior to arrival: none Related Data Previous Rx's Medication Instructions Recorded acetaminophen 500 mg tablet 500 mg PO Q6H PRN fever or pain 04/13/22 (Tylenol Extra Strength) #30 tabs ibuprofen 400 mg tablet 400 mg PO TID PRN fever or pain 04/13/22 #30 tabs Allergies Allergy/AdvReac Type Severity Reaction Status Date / Time No Known Allergies Allergy Mild NOT Verified 11/20/20 08:11 APPLICABLE Review of Systems Review of Systems: Yes all other systems are reviewed and are negative [facility] Past Medical History [facility] Narrative: Past medical history: Anemia. Past surgical history: None. Social history: Patient does smoke cigarettes, 1 pack per day times many years. Denies alcohol use. He smokes marijuana occasionally. Medical History (Updated 04/13/22 @ 09:57 by Saul Sosa MD) No known health problems Social History Social History Alcohol intake: never Patient Tobacco Use Status: Never used Tobacco Advance Directives: No Advance Directives Information Provided: No Physical Exam ED Vital Signs: Vital Signs - 24 hr 04/13/22 08:20 Temperature 98 F Pulse Rate 65 Respiratory Rate 19 Blood Pressure 155/78 H Pulse Oximetry 96 Oxygen Delivery Method Room Air BMI result Body Mass Index 18.3 Const Other: Awake, alert, male patient, does not appear to be in distress, is very thin with a BMI of 18.3 [facility] Head: Yes normal to inspection, Yes normocephalic and Yes atraumatic Ears: external ears normal General nose exam: Normal external nose present Face and sinus: Yes normal facial exam Mouth: Normal oral and palatal mucosa present Throat: Yes posterior oropharynx normal Eyes General: appearance normal, both eyes and all related structures Pupils: Equal, round and reactive pupils present Neck Neck: Yes normal visual inspection, Yes no lymphadenopathy, Yes trachea midline and Yes supple Chest Other: There is no ecchymosis or crepitus noted of the patient's left lateral chest wall, he does have very localize tenderness with palpation over the lateral 2nd 3rd and 4th ribs. Resp Effort & Inspection: normal respiratory effort and able to speak in complete sentences Auscultation: clear to auscultation bilaterally Cardio Rate: regular rate Rhythm: regular rhythm Heart sounds: S1 normal heart sound present, S2 normal heart sound present and no murmurs GI Inspection: Yes normal to inspection Palpation (GI): Soft to palpation, nontender and no guarding Auscultation: normal bowel sounds General: Yes no CVA tenderness Back/Spine/Pelvis Back: no CVA tenderness Skin General skin exam: no rashes or lesions noted Neuro Cranial nerves: Yes CN's II-XII intact bilaterally and Yes Equal, round and reactive pupils present Cognition (Neuro): normal cognition Motor exam (neuro): 5/5 motor strength present throughout Extrem General: Yes normal to inspection Psych Appearance: grossly normal Speech and movement: Normal speech and movement present Affect: normal affect Attitude: cooperative Course Course Course Narrative: 56-year-old male who presents emergency department for evaluation of injury to his left chest wall after falling on slippery stairs yesterday. Patient has tenderness with palpation of his left lateral chest wall with no ecchymosis or crepitus of the area. Patient's lung sounds are symmetric bilaterally. I did order a chest x-ray with left rib series, ibuprofen 600 mg orally and Tylenol 975 mg orally. 0953: Radiology evaluation: Radiology reading is as follows: I did discuss this finding with the patient. He was wrapped in a 6 in Donnell wrap inverted in a rib belt. IMPRESSION: *? No acute pulmonary disease. *? Acute, nondisplaced fracture of left lateral fifth rib. Possible nondisplaced fracture of left lateral fourth rib. *? Old healed fractures of left lateral seventh and eighth ribs. *? Old healed fracture of the mid right clavicle. Dictated By: Souleymane García MD He was prescribed ibuprofen 400 mg 3 times a day and acetaminophen 500 mg 3 times a day. He was given printed and verbal instructions and discharged home. Discharge Plan Discharge Clinical Impression: Fall Qualifiers: Encounter type: initial encounter Qualified Code(s): W19.XXXA - Unspecified fall, initial encounter Fracture, ribs Qualifiers: Encounter type: initial encounter Fracture type: closed Laterality: left Qualified Code(s): S22.42XA - Multiple fractures of ribs, left side, initial encounter for closed fracture Patient Disposition: Home, Self-Care Instructions: Rib Fracture (ED) Additional Instructions: You have 2 nondisplaced rib fractures on the left side of your chest, you broke a rib 4 and rib 5. Wear the Donnell wrap as needed for pain. If you think the Donnell wrap is not helping or is making your pace worse then you can remove it. Take ibuprofen 200 mg pills, 2 pills every 6 hours as needed for pain. Take Tylenol (acetaminophen) 500 mg pills, 1 pills every 4 to 6 hours as needed for pain. Follow-up with your doctor in 2 days. Please return to the emergency department if your symptoms get worse or if you develop any symptoms that are concerning to you. Follow the rib fracture instructions. Prescriptions: New acetaminophen [Tylenol Extra Strength] 500 mg tablet 500 mg PO Q6H PRN (Reason: fever or pain) Qty: 30 0RF ibuprofen 400 mg tablet 400 mg PO TID PRN (Reason: fever or pain) Qty: 30 0RF
[2022-04-13] MEDS: Ibuprofen 600 MG TABLET PO (09:14)
[2022-04-13] MEDS: Acetaminophen 325 MG TABLET 975 MG PO (09:14)
== END 2022-04-13 10:27 | disposition home or self-care (01) ==
PROVIDERS: Emergency Provider Emergency Medicine Emergency Medical Services
DX: S22.42XA Multiple fractures of ribs, left side, initial encounter for closed fracture (principal); W17.89XA Other fall from one level to another, initial encounter; Y93.89 Activity, other specified; Y92.018 Other place in single-family (private) house as the place of occurrence of the external cause; Y99.9 Unspecified external cause status
CPT/HCPCS: 71101; 99283

== ENCOUNTER 2022-05-13 13:04 | Emergency (ER) | payer MEDICAID, SELFPAY ==
[2022-05-13 13:06] VITALS: RESP 18; BMI 22.4
--- NOTE | 2022-05-13 15:09 | ED_ITS ---
HPI - Skin/Abscess/Foreign Bdy General Chief complaint: Skin/Abscess/Foreign Body Stated complaint: corn on bottom of feet diff walking Time Seen by Provider: 05/13/22 14:29 Source: patient Mode of arrival: ambulatory Limitations: no limitations History of Present Illness HPI narrative: This is a 56-year-old male who presents with a corn to the bottom of his foot which is causing pain with ambulation which he tells me he has for a while. Related Data Previous Rx's Medication Instructions Recorded acetaminophen 500 mg tablet 500 mg PO Q6H PRN fever or pain 04/13/22 (Tylenol Extra Strength) #30 tabs ibuprofen 400 mg tablet 400 mg PO TID PRN fever or pain 04/13/22 #30 tabs Allergies Allergy/AdvReac Type Severity Reaction Status Date / Time No Known Allergies Allergy Mild NOT Verified 11/20/20 08:11 APPLICABLE Review of Systems Review of Systems: Yes all other systems are reviewed and are negative Constitutional: Constitutional: Reports no additional constitutional complaints, Denies body ache(s), Denies chills, Denies fever(s), Denies headache(s) and Denies weakness Eyes: Eyes: Reports no additional eye complaints and Denies change in vision ENT: Reports system reviewed and no additional complaints, except as documented, Denies dizziness, Denies headache(s), Denies nasal congestion, Denies nasal discharge and Denies neck pain Cardiovascular: Cardiovascular: Reports no additional cardiovascular complaints, Denies chest pain, Denies leg edema and Denies dyspnea Respiratory: Respiratory: Reports no additional respiratory complaints, Denies cough and Denies dyspnea Gastrointestinal: Gastrointestinal: Reports no additional gastrointestinal complaints, Denies abdominal pain, Denies diarrhea, Denies nausea and Denies vomiting Genitourinary: Genitourinary: Denies urinary incontinence Musculoskeletal: Musculoskeletal: Reports no additional musculoskeletal complaints, Denies back pain, Denies arthralgias, Denies joint swelling, Denies neck pain, Denies numbness and Denies tingling Integumentary/Breasts: Skin/Breast: Reports system reviewed and no additional complaints, except as docu and Denies rash Neurologic: Reports system reviewed and no additional complaints, except as documented, Denies Abnormal speech present, Denies dizziness, Denies headache(s), Denies numbness, Denies tingling and Denies weakness PMFSH Past Medical History Attestation statement: The following information was validated with the patient. Source: old records reviewed and nursing notes reviewed Medical History No known health problems Social History Social History Alcohol intake: never Patient Tobacco Use Status: Never used Tobacco Advance Directives: No Advance Directives Information Provided: No Physical Exam Vital Signs: Vital Signs: Last Vital Signs Resp 18 05/13/22 13:06 BMI result Body Mass Index 22.4 Const: General: cooperative, healthy appearing, comfortable and no acute distress Orientation/consciousness: patient oriented x3 Limitations: no limitations HEENT: Head: Yes normal to inspection Ears: hearing grossly normal bilaterally General nose exam: Normal external nose present Face and sinus: Yes normal facial exam Mouth: Normal oral and palatal mucosa present Throat: Yes posterior oropharynx normal Eyes: General: appearance normal, both eyes and all related structures Pupils: Equal, round and reactive pupils present Neck: Neck: Yes normal visual inspection Chest: Chest palpation & inspection: normal inspection of the chest Resp: Effort & Inspection: normal respiratory effort Auscultation: clear to auscultation bilaterally Cardio: Rate: regular rate Rhythm: regular rhythm Peripheral pulses: Peripheral pulses 2+ throughout GI: Inspection: Yes normal to inspection Palpation (GI): Soft to palpation and nontender Auscultation: normal bowel sounds Back/Spine/Pelvis: Thoracic/Lumbar Spine: thoracic and lumbar spine normal to inspection Skin: General skin exam: no rashes or lesions noted Neuro: General: patient oriented x3, no focal motor deficits and normal sensation to monofilament Cranial nerves: Yes Equal, round and reactive pupils present Cognition (Neuro): normal cognition Speech: No Abnormal speech present Gait exam (Neuro): Normal gait present Motor exam (neuro): 5/5 motor strength present throughout Extrem: General: Yes normal to inspection Ankle/foot/toe images: 1. Pearcy to foot. No signs of infection MDM - Skin/Abscess/Foreign Bdy MDM Narrative Medical decision making narrative: 56-year-old male here with corn to the sole of the left foot which he has had for quite some time. No signs of infection. We reviewed using cushion at home, Motrin or Tylenol for pain and that he may follow-up with podiatry as desired for removal Medical Records Attestation: I reviewed the patient's medical records. Lab Data Attestation: I reviewed the patient's lab results. Discharge Plan Discharge Clinical Impression: Pearcy of foot Patient Disposition: Home, Self-Care Instructions: Sergei (ED) Additional Instructions: You have a corn on the bottom of your foot. We do not remove these in the emergency department You should use cushion or padding on the bottom of your foot to alleviate pain when walking Follow-up with podiatry for removal if desired. Prescriptions: No Action acetaminophen [Tylenol Extra Strength] 500 mg tablet 500 mg PO Q6H PRN (Reason: fever or pain) Qty: 30 0RF ibuprofen 400 mg tablet 400 mg PO TID PRN (Reason: fever or pain) Qty: 30 0RF Referrals: Jong Morris [Physician] - 10 days Interventions: ED Discharge Assessment Last Done: 05/13/22 15:28 Discharge Date/Time: 05/13/22 15:29
== END 2022-05-13 15:29 | disposition home or self-care (01) ==
PROVIDERS: Emergency Provider Emergency Medicine
DX: L84 Corns and callosities (principal)
CPT/HCPCS: 99282; 99283

== ENCOUNTER 2022-08-13 12:31 | Emergency (ER) | payer MEDICAID, SELFPAY ==
[2022-08-13 12:48] VITALS: RESP 18; BMI 23.6
--- NOTE | 2022-08-13 13:00 | ED_ITS ---
HPI - General Adult General Chief complaint: General Medical Stated complaint: FALL IN BR @ [facility],NOT COOP PER EMS Time Seen by Provider: 08/13/22 12:59 Source: patient and EMS Mode of arrival: EMS Limitations: other (Uncooperative) History of Present Illness HPI narrative: 57-year-old male who presents emergency department for evaluation of being found on a bathroom floor. I did review the triage note which was obtained from EMS. Patient was found of bathroom floor, he was on willing to explain if he fell or how he got there. Patient had no obvious deformities during the planning aide exam. His clothes are very wet and currently the weather is wet snow. Patient is fully dressed and wearing a winter jacket. Patient was unwilling to remove his clothes and he was not willing to cooperate with examination. Patient has had several emergency department visits in 2020 and 2021. He was also seen on 04/13/2022 for a fall that time he did have rib fractures. He was seen on 04/27/2021 for possible seizure at his long term, patient did have a witnessed tonic clonic seizure while he was in the emergency department. In that record and states that he is noncompliant with his seizure medications sec ondary to substance use disorder. He was also seen on 11/20/2020 for altered mental status and while he was in the emergency department he had a witnessed tonic clonic seizure. In that note his Dilantin level was 1.0, the patient was noncompliant with medications and also states that he may have been using crack cocaine. Related Data Previous Rx's Medication Instructions Recorded acetaminophen 500 mg tablet 500 mg PO Q6H PRN fever or pain 04/13/22 (Tylenol Extra Strength) #30 tabs ibuprofen 400 mg tablet 400 mg PO TID PRN fever or pain 04/13/22 #30 tabs Allergies Allergy/AdvReac Type Severity Reaction Status Date / Time No Known Allergies Allergy Mild NOT Verified 11/20/20 08:11 APPLICABLE Review of Systems Review of Systems: Yes Other (Unobtainable since the patient is uncooperative) [facility] Past Medical History [facility] Narrative: Past medical history: Seizure disorder, alcohol use disorder, cocaine use diso rder, anemia, rib fractures, noncompliance with medications Medical History No known health problems Social History Social History Alcohol intake: never Patient Tobacco Use Status: Never used Tobacco Advance Directives: No Advance Directives Information Provided: No Physical Exam ED Vital Signs: Vital Signs - 24 hr 08/13/22 12:48 Respiratory Rate 18 BMI result Body Mass Index 23.6 Patient refused vital signs General: The patient is awake, he is fully clothed and is wearing a winter jacket, his clothes are wet consistent with being outside in the wet snow that is falling today. In general, the patient was all his extremities, he will not answer questions and states that he wants to be left alone. Does not appear to be in respiratory distress. He does move all his extremities symmetrically. Medical Decision Making Medical Decision Making [facility] Narrative: 57-year-old male who is brought to emergency department by ambulance for being found on a bathroom floor, the patient is fully clothed and is wearing his winter coat, his clothes are wet suggests that he had been outside, the patient has had several presentations similar to this event in the past and was felt to be secondary to seizures. The patient does have a history of alcohol use disorder and cocaine use disorder and is noncompliant with his medications including his anti seizure medications. At the time my evaluation the patient is uncooperative is refusing care. My plan is to keep him in the emergency department to observe him and when he is more cooperative who will try to feed him and discharged back to his long term. 1555: Patient is awake alert and is requesting to be discharged home. He is still refusing evaluation therefore he be discharged home Differential Diagnosis Differential diagnosis includes but is not limited to seizure,, postictal, alcohol intoxication, cocaine intoxication, Discharge Plan Discharge Clinical Impression: Altered mental status, Seizure disorder, Polysubstance use disorder Patient Disposition: Home, Self-Care Additional Instructions: You refused any testing, but I suspect that you may have had a seizure today It is important that you take all of your medications as prescribed by your providers. Follow-up with your doctor in 2 days. Please return to the emergency department if your symptoms get worse or if you develop any symptoms that are concerning to you. Prescriptions: No Action acetaminophen [Tylenol Extra Strength] 500 mg tablet 500 mg PO Q6H PRN (Reason: fever or pain) Qty: 30 0RF ibuprofen 400 mg tablet 400 mg PO TID PRN (Reason: fever or pain) Qty: 30 0RF
== END 2022-08-13 16:25 | disposition home or self-care (01) ==
PROVIDERS: Emergency Provider Emergency Medicine Emergency Medical Services
DX: R41.82 Altered mental status, unspecified (principal); F19.99 Other psychoactive substance use, unspecified with unspecified psychoactive substance-induced disorder; G40.409 Other generalized epilepsy and epileptic syndromes, not intractable, without status epilepticus; Z91.14 Patient's other noncompliance with medication regimen
CPT/HCPCS: 99282; 99284

== ENCOUNTER 2022-08-16 12:25 | Emergency (ER) | payer MEDICAID, SELFPAY ==
[2022-08-16 12:30] VITALS: BP 120/80; PULSE 98; O2SAT 99
--- NOTE | 2022-08-16 12:39 | PC.NURSE ---
PT UNCOOPERATIVE AT THIS TIME. YELLING. SECURITY WITH PT
[2022-08-16 12:50] VITALS: BP 165/91; PULSE 99; RESP 22; TEMP 37.4; O2SAT 92; BMI 20.5
[2022-08-16 14:32] LABS: Amphetamine Screen Urine Not Detected (Not Detect); Barbiturates, Urine Not Detected (Not Detect); Benzodiazepines Screen Urine Not Detected (Not Detect); Cannabinoid Screen Urine POSITIVE (Not Detect); Cocaine Screen Urine POSITIVE (Not Detect); Fentanyl, urine Not Detected (Not Detect); Opiate Screen Urine Not Detected (Not Detect); Phencyclidine Screen Urine Not Detected (Not Detect)
--- NOTE | 2022-08-16 14:43 | PC.NURSE ---
PT OUT TO NURSE'S STATION. YELLED 'FUCK YOU' AND SPIT ON PLEXIGLASS
--- NOTE | 2022-08-16 16:57 | PC.NURSE ---
Patient came out wanting to talk to the the doctor, Alayna KENT spoke to him, he insisted she is not the doctor and sent her away. Patient came out shortly after she left and requested to speak to the doctor. Called security patient getting aggressive banging on soria, slammed the remote on floor, yelling why is he here !
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
[2022-08-16 19:33] LABS: MANUAL DIFF FLAG NO
[2022-08-16 19:35] LABS: Basophils Absolute Auto 0.1 X10*3/uL (0.0-0.2); Basophils Percent Auto 0.6 % (0-2); Eosinophils Absolute Auto 0.1 X10*3/uL (0.0-0.4); Eosinophils Percent Auto 1.1 % (0-4); Hematocrit 43.5 % (42.0-52.0); Imm Gran Abs Auto 0.06 X10*3/uL (0.00-0.03); Imm Gran Pct Auto 0.5 % (0.0-0.4); Lymphocytes Absolute Auto 2.3 X10*3/uL (1.2-4.9); Mean Corpuscular HGB Conc 34.5 g/dl (31.0-36.0); Mean Corpuscular Hemoglobin 31.1 pg (27.0-33.0); Mean Corpuscular Volume 90.2 fL (80.0-98.0); Mean Platelet Volume 9.6 fL (9.4-12.4); Monocytes Absolute Auto 0.9 X10*3/uL (0.1-1.2); Monocytes Percent Auto 7.3 % (2-11); Neutrophils Absolute Auto 9.2 x10*3/uL (2.0-8.3); Neutrophils Percent Auto 72.5 % (45-73); Platelet Count 335 X10*3/uL (160-400); Red Blood Count 4.82 X10*6/uL (4.60-5.80); Red Cell Distribution Width 13.2 % (11.0-16.0); White Blood Count 12.7 X10*3/uL (4.8-10.8)
[2022-08-16 19:39] LABS: Appearance Urine Clear; Color Urine Yellow; Glucose Urine UA Negative (Negative); Leukocyte Esterase Urine Negative (Negative); Nitrite Urine Negative (Negative); PH 7.5 (5.0-9.0); Specific Gravity - Urine 1.015 (1.005-1.025); Urine Blood Negative (Negative); Urine Ketones Negative (Negative); Urine Protein Negative (Neg-Trace)
[2022-08-16 19:51] LABS: Acetaminophen LAB < 17 mcg/mL (<30); Alanine Aminotransferase 32 U/L (0-40); Albumin Level 4.3 g/dL (3.5-5.0); Alkaline Phosphatase 138 U/L (39-117); Anion Gap 15 (12-20); Aspartate Amino Transferase 25 U/L (5-37); Bilirubin Direct < 0.2 mg/dL (0.0-0.5); Bilirubin Total 0.2 mg/dL (0.0-1.0); Blood Urea Nitrogen 21 mg/dL (9-16); Carbon Dioxide 24 mmol/L (22-29); Chloride 101 mmol/L (96-108); Creatinine Clr Calc Pharmacy 40.2; Estimated Glomerular Filt Rate 53; Ethanol < 10 mg/dL; Glucose Random 108 mg/dL (60-115); Magnesium 1.9 mg/dL (1.6-2.6); Phenytoin Dilantin 19.2 ug/mL (10.0-20.0); Potassium 4.8 mmol/L (3.3-5.1); Salicylate < 5.0 mg/dL (15-30); Sodium 135 mmol/L (135-145); Total Protein 6.9 g/dL (6.5-8.0)
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
--- NOTE | 2022-08-17 05:18 | PC.NURSE ---
Patient slept though the night, refused to sleep in his bed, behavior loud and disruptive at time but re-directable, med rec completed/pending provider's approval, patient is not crises patient however awaiting care team touch base assessment for discharge per provider, KATY, will continue to monitor.
[2022-08-17 05:47] VITALS: BP 137/91; PULSE 68; RESP 16; TEMP 37.1; O2SAT 99
--- NOTE | 2022-08-17 09:12 | PC.NURSE ---
Care team at bedside for reeval.
--- NOTE | 2022-08-17 10:37 | MHC.RECOVRN ---
This writer producer met w/ patient, patient laying in bed, awake to verbal stimuli. Patient reports smoking crack. Harm reduction reviewed, importance of eating more regularly and working on sleep habits. Reviewed signs and symptoms of overamping from stimulants. Patient verbalized understanding states, when I'm starting to feel that way i'm going to stop and use less . This writers contact information provided. 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 CM aware.
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
[2022-08-22 10:14] LABS: Haloperidol 2 ng/mL (5-15)
== END 2022-08-17 11:03 | disposition home or self-care (01) ==
PROVIDERS: Physician Assistant; Emergency Provider Internal Medicine
DX: F33.1 Major depressive disorder, recurrent, moderate (principal); F14.10 Cocaine abuse, uncomplicated; Z91.14 Patient's other noncompliance with medication regimen; Z79.899 Other long term (current) drug therapy
CPT/HCPCS: 36415; 80048; 80076; 80143; 80173; 80179; 80185; 80307; 81003; 82077; 82550; 83735; 85025; 87635; 99285

== ENCOUNTER 2023-10-18 09:57 | Emergency (ER) | payer MEDICAID, SELFPAY ==
[2023-10-18] MEDS: LORazepam 2 MG/ML VIAL IM (10:06)
[2023-10-18 10:15] VITALS: BP 122/74; PULSE 100; RESP 18; O2SAT 94; BMI 20.5
--- NOTE | 2023-10-18 10:37 | PC.NURSE ---
patient is uncooperative, will not allow vital signs/lab work. per report patient gets this way when he is post ictal, patient resp 18 equal and unlabord.
--- NOTE | 2023-10-18 10:39 | ED.SEIZURE ---
HPI - Seizure General Chief Complaint: Seizure Stated Complaint: SEIZURE Time Seen by Provider: 10/18/23 10:00 Source: patient and old records reviewed Mode of arrival: EMS Limitations: other (postictal) History of Present Illness HPI Narrative: 58 yo male hx of substance abuse, seizures does not take AEDs regularly witnessed 30 second [facility] seizure at jail no trauma was on couch. Postictal and combative with EMS. 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) Description of Episode: loss of consciousness Duration of episode: 30 -: second(s) Witnessed: Yes - by Bystander Trauma: No Seizure History: Yes Place: Home Possible Precipitating Event: medication Associated symptoms: denies other symptoms Treatments prior to arrival: none Related Data Home Medications Medication Instructions Recorded Confirmed Colace 100 mg PO DAILY PRN Constipation 08/16/22 08/16/22 folic acid 1 mg tablet 1 tab PO DAILY 08/16/22 08/16/22 haloperidol 10 mg tablet 1 tab PO QAM 08/16/22 08/16/22 haloperidol 5 mg tablet 1 tab PO QAM 08/16/22 08/16/22 omeprazole 20 mg capsule,delayed 1 cap PO DAILY PRN Acid Reflux 08/16/22 08/16/22 release oxcarbazepine 150 mg tablet 1 tab PO BID 08/16/22 08/16/22 phenytoin sodium extended 100 mg 5 cap PO QAM 08/16/22 08/16/22 capsule Allergies Allergy/AdvReac Type Severity Reaction Status Date / Time No Known Allergies Allergy Mild NOT Verified 11/20/20 08:11 APPLICABLE Review of Systems Review of Systems: ROS unable to be obtained due to postictal state [facility] Past Medical History Attestation statement: The following information was validated with the patient. Source: old records reviewed Medical History No known health problems Social History Social History Alcohol intake: never Patient Tobacco Use Status: Never used Tobacco Substance Use Type: Crack/Cocaine Physical Exam Vital Signs: Vital Signs: Last Vital Signs Temp 99.7 F 10/18/23 14:12 Pulse 84 10/18/23 14:12 Resp 20 10/18/23 14:12 BP 104/66 10/18/23 14:12 Pulse Ox 94 10/18/23 14:12 O2 Del Method Room Air 10/18/23 14:12 BMI result Body Mass Index 20.5 Appearance: Alert. postictal agitated mild acute distress. Eyes: Pupils equal, round and reactive to light. ENT: Pharynx normal. atraumatic Neck: Normal inspection. Neck supple. CVS: Normal heart rate and rhythm. Pulses normal. Respiratory: No respiratory distress. Breath sounds normal. Abdomen: Soft and non-tender. Skin: Skin warm and dry. Normal skin color. Normal skin turgor. Extremities: No lower extremity edema. No calf ttp Neuro: confused. No motor deficit. No sensory deficit. Course Course Course Narrative: observation started at 134pm still pending return to baseline and recovery from ativan Reevaluation(s) Reevaluation #1: improving eating anticipate DC soon after he eats awake alert and oriented Medications Administered Discontinued Medications Generic Name Dose Route Start Last Admin Trade Name Freq PRN Reason Stop Dose Admin Lorazepam 2 mg 10/18/23 10:06 10/18/23 10:06 Lorazepam 2 Mg/Ml Vial IM 10/18/23 10:07 2 mg STAT STA Administration Medical Decision Making Medical Decision Making [facility] Narrative: 58 yo male hx of substance abuse, seizures well known to us he is not compliant at this time he is postictal and agitated no trauma reported it was witnessed by jail staff he has no signs of head trauma will obtain basic labs and give IM ativan. Will observe until he is back to baseline. Differential Diagnosis Differential Diagnoses: The differential diagnosis associated with the presentation includes seizures, non compliance Admission/Observation Consideration of admission/observation: Escalation of care including admission/observation considered Lab Data [facility] Lab Attestation statement: I reviewed the patient's lab results. 10/18/23 12:19 10/18/23 12:19 Labs: Lab Results 10/18/23 10/18/23 Range/Units 12:11 12:19 WBC 9.7 (4.8-10.8) X10*3/uL RBC 4.65 (4.60-5.80) X10*6/uL Hgb 14.7 (14.0-18.0) g/dl Hct 42.1 (42.0-52.0) % MCV 90.5 (80.0-98.0) fL MCH 31.6 (27.0-33.0) pg MCHC 34.9 (31.0-36.0) g/dl RDW 13.1 (11.0-16.0) % Plt Count 258 (160-400) X10*3/uL MPV 9.7 (9.4-12.4) fL Immature Gran % (Auto) 0.4 (0.0-0.4) % Neut % (Auto) 77.2 H (45-73) % Lymph % (Auto) 14.6 L (20-40) % [place] % (Auto) 6.3 (2-11) % Eos % (Auto) 0.9 (0-4) % Baso % (Auto) 0.6 (0-2) % Lymph # (Auto) 1.4 (1.2-4.9) X10*3/uL [place] # (Auto) 0.6 (0.1-1.2) X10*3/uL Eos # (Auto) 0.1 (0.0-0.4) X10*3/uL Baso # (Auto) 0.1 (0.0-0.2) X10*3/uL Abs Immat Gran (auto) 0.04 H (0.00-0.03) X10*3/uL Absolute Neuts (auto) 7.5 (2.0-8.3) x10*3/uL Absolute Nucleated RBC 0.000 (0.0-0.012) X10*3/uL Nucleated RBC % (auto) 0.0 (0.0-0.2) /100WBC Sodium 136 (135-145) mmol/L Potassium 4.6 (3.3-5.1) mmol/L Chloride 105 (96-108) mmol/L Carbon Dioxide 24 (22-29) mmol/L Anion Gap 12 (12-20) BUN 26 H (9-16) mg/dL Creatinine 0.79 (0.5-1.4) mg/dL Estim Creat Clear Calc 69.4 Estimated GFR > 60 Random Glucose 110 (60-115) mg/dL Calcium 8.5 (8.4-10.2) mg/dL Magnesium 2.0 (1.6-2.6) mg/dL Total Bilirubin 0.3 (0.0-1.0) mg/dL Direct Bilirubin 0.1 (0.0-0.5) mg/dL AST 32 (5-37) U/L ALT 31 (0-40) U/L Alkaline Phosphatase 121 H (39-117) U/L Total Protein 6.1 L (6.5-8.0) g/dL Albumin 3.5 (3.5-5.0) g/dL Ethyl Alcohol < 10 mg/dL Influenza Type A (PCR) NEGATIVE (Negative) Influenza Type B (PCR) NEGATIVE (Negative) RSV RNA Qual (PCR) NEGATIVE (Negative) SARS-CoV-2 RNA (RT-PCR) NEGATIVE (Negative) Independent Historian Clinical information obtained from an independent historian. History obtained from or confirmed by: EMS External Record Review External record reviewed: Inpatient record and Outpatient record Discharge Plan Discharge Clinical Impression: Epileptic seizure Patient Disposition: Home, Self-Care Instructions: Epilepsy (ED) Additional Instructions: you need to take your seizure medications. return for any worsening symptoms, fevers, confusion, severe headaches or any other concerns. Prescriptions: No Action oxcarbazepine 150 mg tablet 1 tab PO BID haloperidol 5 mg tablet 1 tab PO QAM phenytoin sodium extended 100 mg capsule 5 cap PO QAM haloperidol 10 mg tablet 1 tab PO QAM omeprazole 20 mg capsule,delayed release(DR/EC) 1 cap PO DAILY PRN (Reason: Acid Reflux) folic acid 1 mg tablet 1 tab PO DAILY Colace 100 mg PO DAILY PRN (Reason: Constipation)
[2023-10-18 10:42] VITALS: BP 107/68; PULSE 92; RESP 18; TEMP 37.2; O2SAT 92
[2023-10-18 12:23] LABS: MANUAL DIFF FLAG NO
[2023-10-18 12:26] LABS: Basophils Absolute Auto 0.1 X10*3/uL (0.0-0.2); Basophils Percent Auto 0.6 % (0-2); Eosinophils Absolute Auto 0.1 X10*3/uL (0.0-0.4); Eosinophils Percent Auto 0.9 % (0-4); Hematocrit 42.1 % (42.0-52.0); Hemoglobin 14.7 g/dl (14.0-18.0); Imm Gran Abs Auto 0.04 X10*3/uL (0.00-0.03); Imm Gran Pct Auto 0.4 % (0.0-0.4); Lymphocytes Absolute Auto 1.4 X10*3/uL (1.2-4.9); Lymphocytes Percent Auto 14.6 % (20-40); Mean Corpuscular HGB Conc 34.9 g/dl (31.0-36.0); Mean Corpuscular Hemoglobin 31.6 pg (27.0-33.0); Mean Corpuscular Volume 90.5 fL (80.0-98.0); Mean Platelet Volume 9.7 fL (9.4-12.4); Monocytes Absolute Auto 0.6 X10*3/uL (0.1-1.2); Monocytes Percent Auto 6.3 % (2-11); Neutrophils Absolute Auto 7.5 x10*3/uL (2.0-8.3); Neutrophils Percent Auto 77.2 % (45-73); Platelet Count 258 X10*3/uL (160-400); Red Blood Count 4.65 X10*6/uL (4.60-5.80); Red Cell Distribution Width 13.1 % (11.0-16.0); White Blood Count 9.7 X10*3/uL (4.8-10.8)
[2023-10-18 12:50] LABS: Alanine Aminotransferase 31 U/L (0-40); Albumin Level 3.5 g/dL (3.5-5.0); Alkaline Phosphatase 121 U/L (39-117); Anion Gap 12 (12-20); Aspartate Amino Transferase 32 U/L (5-37); Bilirubin Direct 0.1 mg/dL (0.0-0.5); Bilirubin Total 0.3 mg/dL (0.0-1.0); Blood Urea Nitrogen 26 mg/dL (9-16); Calcium 8.5 mg/dL (8.4-10.2); Carbon Dioxide 24 mmol/L (22-29); Chloride 105 mmol/L (96-108); Creatinine Clr Calc Pharmacy 69.4; Estimated Glomerular Filt Rate > 60; Ethanol < 10 mg/dL; Glucose Random 110 mg/dL (60-115); Potassium 4.6 mmol/L (3.3-5.1); Sodium 136 mmol/L (135-145); Total Protein 6.1 g/dL (6.5-8.0)
[2023-10-18 13:21] LABS: Influenza A PCR NEGATIVE (Negative); Influenza B PCR NEGATIVE (Negative); Resp Syncy Virus RNA Qual PCR NEGATIVE (Negative); SARS COV2 PCR INHOUSE NEGATIVE (Negative)
[2023-10-18 13:55] VITALS: BP 120/68; PULSE 76; RESP 16; O2SAT 93
--- NOTE | 2023-10-18 13:56 | PC.NURSE ---
patient appears to be asleep, respirations equal and unlabored, skin dry and intact, VSS.
[2023-10-18 14:12] VITALS: BP 104/66; PULSE 84; RESP 20; TEMP 37.6; O2SAT 94
--- NOTE | 2023-10-18 15:43 | PC.NURSE ---
patient awake, eating sandwich, pudding and drinking apple juice.
--- NOTE | 2023-10-18 18:02 | PC.NURSE ---
patient d/c with group counselor/ ambulates with limp but steady gait
[2023-10-19 22:49] LABS: Phenytoin, Free/Unbound 0.9 mg/L (1.0-2.0)
[2023-10-23 09:18] LABS: Oxcarbazepine <1.0 mcg/mL (8.0-35.0)
== END 2023-10-18 18:02 | disposition home or self-care (01) ==
PROVIDERS: Emergency Provider Emergency Medicine
DX: G40.909 Epilepsy, unspecified, not intractable, without status epilepticus (principal); Z11.52 Encounter for screening for COVID-19; Z20.828 Contact with and (suspected) exposure to other viral communicable diseases
CPT/HCPCS: 0241U; 36415; 80048; 80076; 80186; 80307; 80339; 83735; 85025; 96372; 99283; 99284; J2060

== ENCOUNTER 2023-11-06 11:22 | Emergency (ER) | payer MEDICAID, SELFPAY ==
[2023-11-06 11:33] VITALS: BP 177/80; PULSE 88; O2SAT 96; BMI 19.7
--- NOTE | 2023-11-06 11:38 | PC.NURSE ---
pt refusing to be changed over/for vitals to be obtained. pt resting comfortably in stretched in no apparent distress. no sob/wob noted. respirations even and unlabored. seizure pads in place for safety precautions. plan of care ongoing.
[2023-11-06 11:39] VITALS: RESP 14
--- NOTE | 2023-11-06 13:06 | PC.NURSE ---
pt refusing for labs/urine to be obtained. ED provider notified/aware.
--- NOTE | 2023-11-06 15:15 | ED.GENADULT ---
HPI - General Adult General Chief complaint: Seizure Stated complaint: SZ,POST ICTAL, MISSED MED DOSE,DRUG USE PER EMS Time Seen by Provider: 11/06/23 12:18 Source: patient and EMS Mode of arrival: EMS History of Present Illness HPI narrative: 58-year-old male brought in by EMS with reportedly unwitnessed seizure, patient is missing for 2 days in missed Dilantin. Related Data Home Medications ?Medication ?Instructions ?Recorded ?Confirmed Colace 100 mg PO DAILY PRN Constipation 08/16/22 08/16/22 folic acid 1 mg tablet 1 tab PO DAILY 08/16/22 08/16/22 haloperidol 10 mg tablet 1 tab PO QAM 08/16/22 08/16/22 haloperidol 5 mg tablet 1 tab PO QAM 08/16/22 08/16/22 omeprazole 20 mg capsule,delayed 1 cap PO DAILY PRN Acid Reflux 08/16/22 08/16/22 release oxcarbazepine 150 mg tablet 1 tab PO BID 08/16/22 08/16/22 phenytoin sodium extended 100 mg 5 cap PO QAM 08/16/22 08/16/22 capsule Allergies Allergy/AdvReac Type Severity Reaction Status Date / Time No Known Allergies Allergy Mild NOT Verified 11/06/23 11:38 APPLICABLE Review of Systems Review of Systems: Pertinent positives and negatives as stated in HPI [facility] Past Medical History Source: nursing notes reviewed Medical History No known health problems Social History Social History Alcohol intake: never Patient Tobacco Use Status: Never used Tobacco Substance Use Type: Crack/Cocaine Advance Directives: No Physical Exam ED Vital Signs: Vital Signs - 24 hr 11/06/23 11:39 11/06/23 16:16 Temperature 0 F L Pulse Rate 0 L Respiratory Rate 14 0 L Blood Pressure 00/00 L Pulse Oximetry 0 L Oxygen Delivery Method Room Air BMI result Body Mass Index 19.7 VITAL SIGNS: Reviewed. GENERAL: Poor hygiene, in no acute distress. HEAD: Normocephalic/atraumatic EYES: PERRLA, EOMI LUNGS: Normal breath sounds. No adventitious sounds or accessory muscle use. CARDIOVASCULAR: Regular rate and rhythm without noted murmurs ABDOMEN: Soft, non-tender, non-distended with bowel sounds. MUSCULOSKELETAL: No tenderness, deformities, or effusions noted on gross inspection. EXTREMITIES: No cyanosis, clubbing or edema. SKIN: Inspection of the skin reveals no rashes NEUROLOGIC: Alert and oriented x 3. Strength and sensation to light touch were grossly intact x 4. Medical Decision Making Medical Decision Making MDM Narrative: 58-year-old male who is declining all investigations, no seizure activity noted here in the emergency room and patient wishes to leave. Patient otherwise discharge. Discharge Plan Discharge Clinical Impression: Epileptic seizure Patient Disposition: Home, Self-Care Instructions: Epilepsy (ED) Additional Instructions: 1. Please resume all home medications as prescribed. 2. Please follow-up with your primary care doctor. Prescriptions: No Action oxcarbazepine 150 mg tablet 1 tab PO BID haloperidol 5 mg tablet 1 tab PO QAM phenytoin sodium extended 100 mg capsule 5 cap PO QAM haloperidol 10 mg tablet 1 tab PO QAM omeprazole 20 mg capsule,delayed release(DR/EC) 1 cap PO DAILY PRN (Reason: Acid Reflux) folic acid 1 mg tablet 1 tab PO DAILY Colace 100 mg PO DAILY PRN (Reason: Constipation) Interventions: ED Discharge Assessment Last Done: 11/06/23 16:16 Discharge Date/Time: 11/06/23 16:17 Print Language: Persian
[2023-11-06 16:16] VITALS: BP 00/00; PULSE 0; RESP 0; TEMP -17.7; TEMP 0; O2SAT 0
--- NOTE | 2023-11-06 16:16 | PC.NURSE ---
pt refused for all care in ED. pt left w/o signing papers.
== END 2023-11-06 16:17 | disposition home or self-care (01) ==
PROVIDERS: Emergency Provider Student in an Organized Health Care Education/Training Program
DX: G40.909 Epilepsy, unspecified, not intractable, without status epilepticus (principal)
CPT/HCPCS: 99282

== ENCOUNTER 2023-11-10 11:00 | Emergency (ER) | payer MEDICAID, SELFPAY ==
--- NOTE | ~2023-11-10 | XR_ITS ---
EXAMINATION: XR SHOULDER, RIGHT CLINICAL INFORMATION: Pain COMPARISON: Previous x-ray from 2016 TECHNIQUE: 3 views of the right shoulder. FINDINGS: No acute fracture or dislocation. Old healed right clavicle fracture unchanged. There is severe arthritis at the glenohumeral joint with joint space narrowing and osteophyte formation. The acromioclavicular joint is normal. There are several calcifications in the soft tissues adjacent to the humeral neck measuring approximately 1 x 2 cm and adjacent to the proximal humeral shaft measuring 2 x 4 mm, both unchanged from 2016. XR/XR shoulder RT min 2V IMPRESSION: Severe arthritis at the glenohumeral joint. Old healed right clavicle fracture unchanged.
[2023-11-10 11:03] VITALS: BP 156/93; PULSE 94; RESP 16; TEMP 36.6; O2SAT 98; BMI 20.5
--- NOTE | 2023-11-10 11:03 | ED_ITS ---
HPI - Back Pain/Injury General Chief Complaint: General Medical Stated Complaint: Back pain Time Seen by Provider: 11/10/23 11:07 Source: patient Mode of arrival: ambulatory Limitations: no limitations History of Present Illness HPI Narrative: Patient is a 58-year-old male coming from a half-way who presents emergency department for evaluation of right posterior shoulder/scapular pain. Reports onset yesterday. When asked whether he had any injury he states he may have injured it while having a seizure, but does not recall. Pain is made worse with movement of the arm. Denies fevers, chills, neck pain, chest pain, shortness of breath, nausea, vomiting, ABD p[ain, numbnesso r tingling of the extremity. Related Data Home Medications ?Medication ?Instructions ?Recorded ?Confirmed Colace 100 mg PO DAILY PRN Constipation 08/16/22 08/16/22 folic acid 1 mg tablet 1 tab PO DAILY 08/16/22 08/16/22 haloperidol 10 mg tablet 1 tab PO QAM 08/16/22 08/16/22 haloperidol 5 mg tablet 1 tab PO QAM 08/16/22 08/16/22 omeprazole 20 mg capsule,delayed 1 cap PO DAILY PRN Acid Reflux 08/16/22 08/16/22 release oxcarbazepine 150 mg tablet 1 tab PO BID 08/16/22 08/16/22 phenytoin sodium extended 100 mg 5 cap PO QAM 08/16/22 08/16/22 capsule Allergies Allergy/AdvReac Type Severity Reaction Status Date / Time No Known Allergies Allergy Mild NOT Verified 11/10/23 11:04 APPLICABLE Review of Systems Review of Systems: Yes all other systems are reviewed and are negative [facility] Past Medical History Attestation statement: The following information was validated with the patient. Source: old records reviewed Medical History No known health problems Social History Social History Alcohol intake: never Patient Tobacco Use Status: Never used Tobacco Substance Use Type: Crack/Cocaine Advance Directives: No Advance Directives Information Provided: Yes Physical Exam Vital Signs: Vital Signs: Last Vital Signs Temp 98 F 11/10/23 11:03 Pulse 94 11/10/23 11:03 Resp 16 11/10/23 11:03 BP 156/93 H 11/10/23 11:03 Pulse Ox 98 11/10/23 11:03 O2 Del Method Room Air 11/10/23 11:03 BMI result Body Mass Index 20.5 Appearance: Alert.?Oriented to person, place and time. No acute distress.?Normal affect. Neck: Normal inspection.? Neck supple.?? CVS: Heart sounds normal. Normal heart rate and rhythm.? Pulses normal.?? Respiratory: No respiratory distress.? Lung sounds clear to auscultation bilaterally?? Abdomen: Soft and non-tender. Normoactive bowel sounds. ? Skin: Skin warm and dry.? Normal skin color.? Extremities: No lower extremity edema.? No calf ttp. Full AROM to right shoulder. TTP posterior ? Neuro: Moves all extremities spontaneously. Sensation intact bilaterally. Ambulates with normal steady gait. Medications Administered Discontinued Medications Generic Name Dose Route Start Last Admin Trade Name Freq PRN Reason Stop Dose Admin Acetaminophen 975 mg 11/10/23 11:07 11/10/23 11:19 Acetaminophen 325 Mg Tablet PO 11/10/23 11:08 975 mg ONCE ONE Administration Medical Decision Making Medical Decision Making [facility] Narrative: Patient is a 58-year-old male with past medical history of seizure disorder, polysubstance use disorder presenting to emergency department for evaluation of posterior right shoulder pain as per HPI. He is full AROM to the shoulder, though does have tenderness upon palpation. Expresses concern that he may have injured it or fallen onto it during a recent seizure. The extremity is neurovascularly intact distally. He has no accompanying symptoms. His abdominal examination is benign, I have a low suspicion for referred pain from cholecystitis or cholelithiasis. Has no associated chest pain to suggest ACS. No associated neck pain. Concern for fracture versus muscular pain. XR image was obtained and is without evidence of fracture dislocation, there is however notation of severe arthritic changes. Patient was made aware of this. Advised acetaminophen/ibuprofen for pain management. Worrisome signs and symptoms that would warrant re-evaluation. All questions answered. Stable for discharge Differential Diagnosis Differential Diagnoses: The differential diagnosis associated with the presentation includes (See narrative above) Independent Interpretation I performed an independent interpretation of an: Plain X-Ray (No fracture/ dislocation) Radiology Impression Discussion of test interpretation with radiology: I have reviewed the radiologist's reading. Radiologist Impression: XR/XR shoulder RT min 2V IMPRESSION: Severe arthritis at the glenohumeral joint. Old healed right clavicle fracture unchanged. Prescription Management I considered prescription management with: Pain Medication (Acetaminophen/ibuprofen) Discharge Plan Discharge Clinical Impression: Osteoarthritis Qualifiers: Osteoarthritis location: shoulder Laterality: right Patient Disposition: Home, Self-Care Instructions: Osteoarthritis (ED) Additional Instructions: You can take ibuprofen 200 mg, 3 tablets (600mg) every 6-8 hours as needed for pain, in addition to Tylenol 500 mg, 2 tablets (1,000mg) every 4-6 hours as needed for pain, but not to exceed 3 doses daily (3,000mg).? Follow-up with your primary care provider. Prescriptions: No Action oxcarbazepine 150 mg tablet 1 tab PO BID haloperidol 5 mg tablet 1 tab PO QAM phenytoin sodium extended 100 mg capsule 5 cap PO QAM haloperidol 10 mg tablet 1 tab PO QAM omeprazole 20 mg capsule,delayed release(DR/EC) 1 cap PO DAILY PRN (Reason: Acid Reflux) folic acid 1 mg tablet 1 tab PO DAILY Colace 100 mg PO DAILY PRN (Reason: Constipation) Referrals: Roya Horton MD [Primary Care Provider] - Print Language: Mongolian
[2023-11-10] MEDS: Acetaminophen 325 MG TABLET 975 MG PO (11:19)
[2023-11-10 12:17] VITALS: BP 149/74; PULSE 83; RESP 16; TEMP 36.6; O2SAT 97
--- NOTE | 2023-11-10 12:17 | PC.NURSE ---
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
== END 2023-11-10 12:18 | disposition home or self-care (01) ==
PROVIDERS: Emergency Provider Student in an Organized Health Care Education/Training Program; PCP Family Medicine
DX: M17.11 Unilateral primary osteoarthritis, right knee (principal); G40.909 Epilepsy, unspecified, not intractable, without status epilepticus
CPT/HCPCS: 73030; 99283

== ENCOUNTER 2024-04-10 13:34 | Emergency (ER) | payer MEDICAID, SELFPAY ==
[2024-04-10] MEDS: LORazepam 2 MG/ML VIAL IM (13:57)
[2024-04-10 14:00] VITALS: BP 170/104; BP 198/103; PULSE 118; PULSE 98; RESP 18; TEMP 37.6; O2SAT 96; O2SAT 98; BMI 20.5
[2024-04-10 14:13] VITALS: BP 196/113; PULSE 92; RESP 18; O2SAT 97
--- NOTE | 2024-04-10 14:15 | ED.SEIZURE ---
HPI - Seizure General Chief Complaint: Seizure Stated Complaint: combtive coming from care home Time Seen by Provider: 04/10/24 13:35 Source: EMS and old records reviewed Mode of arrival: EMS Limitations: other (postictal) History of Present Illness ED Provider: NIDIA HPI Narrative: 58 yo male with PMH of drug abuse, seizure disorder not compliant with medications left his care home for 3 days hx of same in past generally goes out and uses drugs came back today sitting in chair had GTC seizure in front of staff and then became his usual postictal and agitated. On arrival to the ED he is aggressive and upset. IM ativan 2mg ordered on arrival to ED given postictal state. Patient cannot provide history. 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) Description of Episode: loss of consciousness and tonic-clonic movement Witnessed: Yes - by Bystander Trauma: No Seizure History: Yes Possible Precipitating Event: drug use and other (has not taken his meds in 3 days) Associated symptoms: denies other symptoms Treatments prior to arrival: none Related Data Home Medications ?Medication ?Instructions ?Recorded ?Confirmed Colace 100 mg PO DAILY PRN Constipation 08/16/22 08/16/22 folic acid 1 mg tablet 1 tab PO DAILY 08/16/22 08/16/22 haloperidol 10 mg tablet 1 tab PO QAM 08/16/22 08/16/22 haloperidol 5 mg tablet 1 tab PO QAM 08/16/22 08/16/22 omeprazole 20 mg capsule,delayed 1 cap PO DAILY PRN Acid Reflux 08/16/22 08/16/22 release oxcarbazepine 150 mg tablet 1 tab PO BID 08/16/22 08/16/22 phenytoin sodium extended 100 mg 5 cap PO QAM 08/16/22 08/16/22 capsule Allergies Allergy/AdvReac Type Severity Reaction Status Date / Time No Known Allergies Allergy Mild NOT Verified 04/10/24 14:04 APPLICABLE Review of Systems Review of Systems: ROS unable to be obtained due to agitation and postictal PMFSH Past Medical History Source: old records reviewed Medical History Noncompliance with medication regimen Generalized seizure Polysubstance use disorder Social History Social History Alcohol intake: never Patient Tobacco Use Status: Never used Tobacco Smoked in Last 30 Days: No Substance Use Type: Crack/Cocaine Advance Directives: No Advance Directives Information Provided: No Physical Exam Vital Signs: Vital Signs: Last Vital Signs Temp 97.8 F 04/10/24 21:23 Pulse 70 04/10/24 21:23 Resp 20 04/10/24 21:23 BP 129/81 04/10/24 21:23 Pulse Ox 93 04/10/24 21:23 O2 Del Method Room Air 04/10/24 21:23 BMI result Body Mass Index 17.6 Appearance: Alert. Oriented to self and place, postictal angry mild acute distress. unkempt disheveled Eyes: Pupils equal, round and reactive to light. ENT: Pharynx normal. atraumatic Neck: Normal inspection. Neck supple. CVS: Normal heart rate and rhythm. Pulses normal. Respiratory: No respiratory distress. Breath sounds normal. Abdomen: Soft and nontender. Skin: Skin warm and dry. Normal skin color. Normal skin turgor. Extremities: No lower extremity edema. No calf ttp Neuro: Oriented X 2. No motor deficit. No sensory deficit. Course Course Course Narrative: postictal and agitated repeat IV ativan ordered 04/10/2024 at 22:47 hours I assumed care of this patient from my colleague, Dr. Casey at 16:00 hours. The patient was had no further seizures while he has been here in the emergency department. Patient's laboratory evaluation was significant for subtherapeutic phenytoin level of 3.9. CMP and CBC were otherwise unremarkable. Patient was given Dilantin (phenytoin) 400 mg IV over 30 minutes while on gambling monitor. The patient will be transferred back to his nursing facility. Medications Administered Discontinued Medications Generic Name Dose Route Start Last Admin Trade Name Freq PRN Reason Stop Dose Admin Sodium Chloride 1,000 mls @ 999 mls/hr 04/10/24 16:03 04/10/24 19:08 Ns IV 04/10/24 17:03 Infused .Q1H1M ONE Infusion Phenytoin Sodium 400 mg/ 108 mls @ 110 mls/hr 04/10/24 20:15 04/10/24 22:11 Sodium Chloride IV 04/10/24 21:13 Infused ONCE ONE Infusion Lorazepam 2 mg 04/10/24 13:38 04/10/24 13:57 Lorazepam 2 Mg/Ml Vial IM 04/10/24 13:39 2 mg STAT STA Administration Lorazepam 2 mg 04/10/24 14:59 04/10/24 15:09 Lorazepam 2 Mg/Ml Vial IM 04/10/24 15:00 Not Given STAT STA Lorazepam 2 mg 04/10/24 15:00 04/10/24 15:10 Lorazepam 2 Mg/Ml Vial IVPUSH 04/10/24 15:01 2 mg STAT STA Administration Ondansetron HCl 4 mg 04/10/24 15:00 04/10/24 15:11 Ondansetron Hcl 4 Mg/2 Ml Vial IVPUSH 04/10/24 15:01 4 mg ONCE ONE Administration Medical Decision Making Medical Decision Making [facility] Narrative: 58 yo male with PMH of drug abuse, seizure disorder not compliant with medications here with c/o seizure after not taking his medications for 3 days after leaving care home. At this time on arrival postictal and angry will give IM ativan and obtain labs he has hx of the same in past. No head injury noted and it was witnessed by staff. Differential Diagnosis Differential Diagnoses: The differential diagnosis associated with the presentation includes seizure, noncompliance Admission/Observation Consideration of admission/observation: Escalation of care including admission/observation considered signed out to Dr. Sosa pending work up and clearance. Lab Data [facility] Lab Attestation statement: I reviewed the patient's lab results. 04/10/24 15:29 04/10/24 15:29 Labs: Lab Results 04/10/24 04/10/24 Range/Units 15:29 15:29 WBC 13.1 H (4.8-10.8) X10*3/uL RBC 4.63 (4.60-5.80) X10*6/uL Hgb 14.9 (14.0-18.0) g/dl Hct 41.6 L (42.0-52.0) % MCV 89.8 (80.0-98.0) fL MCH 32.2 (27.0-33.0) pg MCHC 35.8 (31.0-36.0) g/dl RDW 13.0 (11.0-16.0) % Plt Count 278 (160-400) X10*3/uL MPV 9.6 (9.4-12.4) fL Immature Gran % (Auto) 0.3 (0.0-0.4) % Neut % (Auto) 84.3 H (45-73) % Lymph % (Auto) 8.3 L (20-40) % [place] % (Auto) 6.4 (2-11) % Eos % (Auto) 0.2 (0-4) % Baso % (Auto) 0.5 (0-2) % Lymph # (Auto) 1.1 L (1.2-4.9) X10*3/uL [place] # (Auto) 0.8 (0.1-1.2) X10*3/uL Eos # (Auto) 0.0 (0.0-0.4) X10*3/uL Baso # (Auto) 0.1 (0.0-0.2) X10*3/uL Abs Immat Gran (auto) 0.04 H (0.00-0.03) X10*3/uL Absolute Neuts (auto) 11.1 H (2.0-8.3) x10*3/uL Absolute Nucleated RBC 0.000 (0.0-0.012) X10*3/uL Nucleated RBC % (auto) 0.0 (0.0-0.2) /100WBC Sodium 133 L (135-145) mmol/L Potassium 4.1 (3.3-5.1) mmol/L Chloride 99 (96-108) mmol/L Carbon Dioxide 28 (22-29) mmol/L Anion Gap 10 L (12-20) BUN 17 H (9-16) mg/dL Creatinine 0.71 (0.5-1.4) mg/dL Estim Creat Clear Calc 77.3 Estimated GFR > 60 Random Glucose 89 (60-115) mg/dL Calcium 9.1 D (8.4-10.2) mg/dL Magnesium 1.9 (1.6-2.6) mg/dL Total Bilirubin 0.3 (0.0-1.0) mg/dL Direct Bilirubin 0.1 (0.0-0.5) mg/dL AST 28 (5-37) U/L ALT 38 (0-40) U/L Alkaline Phosphatase 120 H (39-117) U/L Total Protein 6.7 (6.5-8.0) g/dL Albumin 4.0 (3.5-5.0) g/dL Phenytoin 3.9 L* (10.0-20.0) ug/mL Ethyl Alcohol < 10 Cancelled mg/dL Independent Historian Clinical information obtained from an independent historian. History obtained from or confirmed by: EMS External Record Review External record reviewed: Inpatient record Critical Care Time Critical Care Time Critical Care Time: Yes Total Critical Care Time: 60 Attestation: repeat IV ativan for postictal state, review of records, IVF x 2L I attest to this time spent taking care of the patient Discharge Plan Discharge Clinical Impression: Generalized seizure, Subtherapeutic serum dilantin level Patient Disposition: Home, Self-Care Instructions: Recurrent Seizures in Adults (ED) Additional Instructions: Your blood work did reveal a subtherapeutic Dilantin (phenytoin) level of 3.9. The therapeutic range is 10-20. It is very important that you take this medication as prescribed by your providers You lorazepam 2 mg IM x 2 and Ativan 2 mg IV x1 dose, Zofran 4 mg IV. Your were given Dilantin (phenytoin) 400 mg IV here in the emergency department to get your Dilantin into a therapeutic range. Take your normal dose of Dilantin (phenytoin) tomorrow as scheduled. Follow-up with your doctor in 2 days. Please return to the emergency department if your symptoms get worse or if you develop any symptoms that are concerning to you. Prescriptions: No Action oxcarbazepine 150 mg tablet 1 tab PO BID haloperidol 5 mg tablet 1 tab PO QAM phenytoin sodium extended 100 mg capsule 5 cap PO QAM haloperidol 10 mg tablet 1 tab PO QAM omeprazole 20 mg capsule,delayed release(DR/EC) 1 cap PO DAILY PRN (Reason: Acid Reflux) folic acid 1 mg tablet 1 tab PO DAILY Colace 100 mg PO DAILY PRN (Reason: Constipation) Print Language: Liberian
--- NOTE | 2024-04-10 14:15 | PC.NURSE ---
refusingto undress at the moment. will attempt after patient calms
[2024-04-10 15:07] VITALS: BP 140/77; PULSE 77; RESP 18; O2SAT 99
--- NOTE | 2024-04-10 15:08 | PC.NURSE ---
continues to be diff to manage, drooling, clibing out of bed on all fours. repositioned in bed and calming after ativan. no sz activity noted
[2024-04-10] MEDS: LORazepam 2 MG/ML VIAL IVPUSH (15:10)
[2024-04-10] MEDS: ondansetron HCL 4 MG/2 ML VIAL IVPUSH (15:11)
[2024-04-10 15:36] LABS: Basophils Absolute Auto 0.1 X10*3/uL (0.0-0.2); Basophils Percent Auto 0.5 % (0-2); Eosinophils Percent Auto 0.2 % (0-4); Hematocrit 41.6 % (42.0-52.0); Hemoglobin 14.9 g/dl (14.0-18.0); Imm Gran Abs Auto 0.04 X10*3/uL (0.00-0.03); Imm Gran Pct Auto 0.3 % (0.0-0.4); Lymphocytes Absolute Auto 1.1 X10*3/uL (1.2-4.9); Lymphocytes Percent Auto 8.3 % (20-40); MANUAL DIFF FLAG NO; Mean Corpuscular HGB Conc 35.8 g/dl (31.0-36.0); Mean Corpuscular Hemoglobin 32.2 pg (27.0-33.0); Mean Corpuscular Volume 89.8 fL (80.0-98.0); Mean Platelet Volume 9.6 fL (9.4-12.4); Monocytes Absolute Auto 0.8 X10*3/uL (0.1-1.2); Monocytes Percent Auto 6.4 % (2-11); Neutrophils Absolute Auto 11.1 x10*3/uL (2.0-8.3); Neutrophils Percent Auto 84.3 % (45-73); Platelet Count 278 X10*3/uL (160-400); Red Blood Count 4.63 X10*6/uL (4.60-5.80); White Blood Count 13.1 X10*3/uL (4.8-10.8)
[2024-04-10 16:05] LABS: Alanine Aminotransferase 38 U/L (0-40); Alkaline Phosphatase 120 U/L (39-117); Anion Gap 10 (12-20); Aspartate Amino Transferase 28 U/L (5-37); Bilirubin Direct 0.1 mg/dL (0.0-0.5); Bilirubin Total 0.3 mg/dL (0.0-1.0); Blood Urea Nitrogen 17 mg/dL (9-16); Calcium 9.1 mg/dL (8.4-10.2); Carbon Dioxide 28 mmol/L (22-29); Chloride 99 mmol/L (96-108); Creatinine Clr Calc Pharmacy 77.3; Estimated Glomerular Filt Rate > 60; Ethanol < 10 mg/dL; Glucose Random 89 mg/dL (60-115); Magnesium 1.9 mg/dL (1.6-2.6); Potassium 4.1 mmol/L (3.3-5.1); Sodium 133 mmol/L (135-145); Total Protein 6.7 g/dL (6.5-8.0)
[2024-04-10] MEDS: 0.9 % Sodium Chloride 1,000 ML 999 ML IV (16:43)
[2024-04-10 16:58] LABS: Phenytoin Dilantin 3.9 ug/mL (10.0-20.0)
[2024-04-10 18:20] VITALS: BP 174/111; PULSE 70; RESP 16; TEMP 37.3; O2SAT 97
--- NOTE | 2024-04-10 19:08 | PC.NURSE ---
Addendum entered by Maricel Tony 04/10/24 20:07: previous staff notified pt unsteady gait and attempts to get oob. placed in hospital bed with bed alarm on. pt became agitated upon transferring, requested to use urinal, urinal given however pt peed on floor. assisted back to bed. seizure precautions in place. pt on continous heart, o2 and bp monitoring. awaiting further orders. Original Note: assumed care of pt at this time upon entering room ivf infused unsure of end time.
[2024-04-10 20:06] VITALS: BMI 17.6
--- NOTE | 2024-04-10 20:10 | PC.NURSE ---
per iv dilantin ordered pharmacy called to inquire about administration. per pharmacy to hold off on administration at this time and will notify and RN.
--- NOTE | 2024-04-10 21:17 | PC.NURSE ---
iv dilantin infusing per mar. pt used urinal assisted back to bed. bed alarm on.
[2024-04-10 21:23] VITALS: BP 129/81; PULSE 70; RESP 20; TEMP 36.6; O2SAT 93
--- NOTE | 2024-04-10 22:12 | PC.NURSE ---
pt ripped out iv. dilantin infused as per richard wasted approx 50mg of medication aware.
--- NOTE | 2024-04-10 22:55 | PC.NURSE ---
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 pt calmed down and resting in bed, po ativan not given MD aware. no seizure activity during stay.
[2024-04-10 23:13] VITALS: BP 129/81; PULSE 70; RESP 20; TEMP 36.6; O2SAT 93
== END 2024-04-10 23:13 | disposition home or self-care (01) ==
PROVIDERS: Emergency Medicine; Emergency Provider Emergency Medicine Emergency Medical Services; PCP Family Medicine
DX: G40.409 Other generalized epilepsy and epileptic syndromes, not intractable, without status epilepticus (principal); Z91.148 Patient's other noncompliance with medication regimen for other reason; R45.1 Restlessness and agitation; F19.10 Other psychoactive substance abuse, uncomplicated
CPT/HCPCS: 36415; 80048; 80076; 80185; 80307; 83735; 85025; 96361; 96365; 96372; 96375; 99284; 99285; J1165; J2060; J2405

== ENCOUNTER 2024-06-26 11:33 | Emergency (ER) | payer MEDICAID, SELFPAY ==
--- NOTE | 2024-06-26 11:42 | ED_ITS ---
HPI - Fall General Stated Complaint: seizure Time Seen by Provider: 06/26/24 11:39 Source: patient and EMS Mode of arrival: EMS Limitations: no limitations History of Present Illness ED Provider: NIDIA MARTINEZ Narrative: 59 yo male with PMH of drug abuse, seizures on dilantin, GERD, mood disorder who EMS brought in as a seizure but they noted no trauma, not postictal with EMS so they questioned a seizure. He states he didn't have a seizure he tripped and fell no headstrike or LOC but then staff told him to stay on the ground and get checked out. He is normally agitated and drooling after his seizures which he is not right now. He denies CP/SOB, dizziness, n/v/d. 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) Fall from: standing Fall witnessed: no Place fall occurred: home Loss of consciousness: none Prolonged down time: no Symptoms prior to fall: none Context: tripped/slipped Severity: mild Associated symptoms (after fall): denies Related Data Home Medications ?Medication ?Instructions ?Recorded ?Confirmed Colace 100 mg PO DAILY PRN Constipation 08/16/22 08/16/22 folic acid 1 mg tablet 1 tab PO DAILY 08/16/22 08/16/22 haloperidol 10 mg tablet 1 tab PO QAM 08/16/22 08/16/22 haloperidol 5 mg tablet 1 tab PO QAM 08/16/22 08/16/22 omeprazole 20 mg capsule,delayed 1 cap PO DAILY PRN Acid Reflux 08/16/22 08/16/22 release oxcarbazepine 150 mg tablet 1 tab PO BID 08/16/22 08/16/22 phenytoin sodium extended 100 mg 5 cap PO QAM 08/16/22 08/16/22 capsule Allergies Allergy/AdvReac Type Severity Reaction Status Date / Time No Known Allergies Allergy Mild NOT Verified 06/26/24 11:50 APPLICABLE Review of Systems Review of Systems: Constitutional : No Fever, No Chills, No Fatigue ENT/Mouth : No sore throat, No Rhinorrhea Eyes: No Eye Pain, No Swelling, No Redness Cardiovascular : No Chest Pain, No SOB, No Dyspnea on Exertion Respiratory : No Cough, No Sputum Gastrointestinal : No Nausea, No Vomiting, No Diarrhea, No abdominal Pain Genitourinary : No Dysuria, No Urinary Frequency, No Hematuria, Musculoskeletal : No joint pain, No Myalgias, No Joint Swelling Skin : No Skin Lesions, No rash Neuro : No Weakness, No Numbness, No Dizziness, no Headache Psych : No Anxiety/Panic, No Depression Heme/Lymph: No Bruising, No Bleeding,No Lymphadenopathy Endocrine : No Polyuria, No Polydipsia All other systems reviewed and are negative [facility] Past Medical History Attestation statement: The following information was validated with the patient. Source: old records reviewed Medical History Noncompliance with medication regimen Generalized seizure Polysubstance use disorder Social History Social History Alcohol intake: never Patient Tobacco Use Status: Never used Tobacco Substance Use Type: Crack/Cocaine Physical Exam Vital Signs: Appearance: Alert. Oriented X3. No acute distress. Eyes: Pupils equal, round and reactive to light. ENT: Pharynx normal. atraumatic, no tongue biting Neck: Normal inspection. Neck supple. CVS: Normal heart rate and rhythm. Pulses normal. Respiratory: No respiratory distress. Breath sounds normal. Abdomen: Soft and nontender. no incontinence Skin: Skin warm and dry. Normal skin color. Normal skin turgor. Extremities: No lower extremity edema. No calf ttp Neuro: Oriented X 3. No motor deficit. No sensory deficit. Medical Decision Making Medical Decision Making [facility] Narrative: 59 yo male with PMH of drug abuse, seizures on dilantin, GERD, mood disorder well known to us I have cared for him multiple times after his seizures he is us ally tired, agitated, and drooling. He has none of that today. He states he was told he had to come here. I see no head trauma, he is GCS 15. He states the staff told him he had to come and he adamantly denies seizure, illness, trauma. He does not want to be here. EMS also note he is not postical. Differential Diagnosis Differential Diagnoses: The differential diagnosis associated with the presentation includes fall Admission/Observation Consideration of admission/observation: Escalation of care including admission/observation considered does not want work up wants ride home GCS 15 Independent Historian Clinical information obtained from an independent historian. History obtained from or confirmed by: EMS External Record Review External record reviewed: Inpatient record and Outpatient record Discharge Plan Discharge Clinical Impression: Fall Patient Disposition: Home, Self-Care Instructions: Fall Prevention (ED) Additional Instructions: return for any worsening symptoms or concerns continue your medications Prescriptions: No Action oxcarbazepine 150 mg tablet 1 tab PO BID haloperidol 5 mg tablet 1 tab PO QAM phenytoin sodium extended 100 mg capsule 5 cap PO QAM haloperidol 10 mg tablet 1 tab PO QAM omeprazole 20 mg capsule,delayed release(DR/EC) 1 cap PO DAILY PRN (Reason: Acid Reflux) folic acid 1 mg tablet 1 tab PO DAILY Colace 100 mg PO DAILY PRN (Reason: Constipation) Print Language: Guatemalan
[2024-06-26 11:49] VITALS: BP 160/95; BP 171/101; PULSE 65; PULSE 75; RESP 20; TEMP 36.9; O2SAT 95; BMI 17.2
[2024-06-26 12:08] VITALS: BP 160/95; PULSE 65; RESP 20; TEMP 36.9; O2SAT 95
== END 2024-06-26 12:10 | disposition home or self-care (01) ==
LOC: HO.ED 12:03
PROVIDERS: Emergency Provider Emergency Medicine
DX: S09.90XA Unspecified injury of head, initial encounter (principal); R56.9 Unspecified convulsions; W01.0XXA Fall on same level from slipping, tripping and stumbling without subsequent striking against object, initial encounter; Y93.89 Activity, other specified; Y92.89 Other specified places as the place of occurrence of the external cause; Y99.8 Other external cause status; Z79.899 Other long term (current) drug therapy
CPT/HCPCS: 99282

== ENCOUNTER 2024-08-24 04:07 | Emergency (ER) | payer MEDICAID, SELFPAY ==
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
[2024-08-24 04:27] VITALS: BP 160/90; PULSE 61; O2SAT 93
[2024-08-24 04:35] VITALS: BP 181/83; PULSE 60; RESP 15; TEMP 36.6; O2SAT 94; BMI 20.5
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
[2024-08-24] MEDS: Bacitracin Oint 0.9 GM PACKET 1 APPL TOPICAL (05:55)
[2024-08-24] MEDS: Lidocaine HCl 1%/Epi 1:100,000 10 ML VIAL INFILTRATI (05:55)
[2024-08-24 06:33] VITALS: BP 176/86; PULSE 54; RESP 17; TEMP 36.2; O2SAT 93
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
--- NOTE | 2024-08-24 07:33 | PC.NURSE ---
left eye dilated pupil fixed and round. and right is reactive and round.
--- NOTE | 2024-08-24 09:28 | MHC.CM.ED ---
Received case management consult from Dr Finley. Patient came to the ER and found to have a lens detachment. Dr Finley attempted to transfer patient to [facility] ER. Eye doctor did not feel transfer was necessary and recommended follow up with Dr Eason's office outpatient. Spoke with [facility]. They can see patient at 11am. Spoke with patient's guardian, Stephanie Chawla, via telephone at [phone]. Stephanie aware and agreeable to transfer and treatment at [facility]. Dr Finley is concerned about patient not cooperating at appointment and requesting someone from senior living be with patient. T/W spoke with Cristhian of senior living via telephone at [phone]. He will pick patient up from ER at 1030am and bring him to the appointment. Patient, Maranda NAVARRO and Dr Finley aware. Continue to monitor for d/c needs.
[2024-08-24 10:41] VITALS: BP 162/82; PULSE 70; RESP 16; TEMP 37.6; O2SAT 93
== END 2024-08-24 11:15 | disposition home or self-care (01) ==
PROVIDERS: Emergency Provider Emergency Medicine; PCP Family Medicine
DX: S01.81XA Laceration without foreign body of other part of head, initial encounter (principal); S05.8X2A Other injuries of left eye and orbit, initial encounter; Y00.XXXA Assault by blunt object, initial encounter; H27.112 Subluxation of lens, left eye; F19.10 Other psychoactive substance abuse, uncomplicated; F17.210 Nicotine dependence, cigarettes, uncomplicated; Y93.9 Activity, unspecified; Y92.9 Unspecified place or not applicable; Y99.9 Unspecified external cause status
CPT/HCPCS: 12013; 70450; 70486; 72125; 99284; 99285; J2004

== ENCOUNTER → 2024-08-24 04:25 | Outpatient (BNV) | payer MEDICAID, SELFPAY | PROVIDERS: Emergency Provider Internal Medicine; PCP Family Medicine; Visit Provider Radiology Diagnostic Radiology | DX: M47.892 Other spondylosis, cervical region (principal); T85.22XA Displacement of intraocular lens, initial encounter; H05.222 Edema of left orbit | CPT/HCPCS: 70450; 70486; 72125 ==

== ENCOUNTER 2024-09-17 11:00 | Inpatient (IN) | payer MEDICAID, SELFPAY ==
--- NOTE | ~2024-09-17 | XR_ITS ---
EXAMINATION: XR CHEST CLINICAL INFORMATION: ?pneumonia, white count COMPARISON: April 13, 2022. TECHNIQUE: 2 views of the chest were obtained. FINDINGS: There is an irregular shaped opacity left upper hemithorax resulting in lung volume loss. There is a meniscal shaped opacity in the left lower hemithorax. No pneumothorax. Cardiomediastinal silhouette size is normal. The right lung is aerated. Multilevel thoracic stenosis. Old traumatic deformity, right clavicle and likely right humeral head and neck. XR/XR chest 2V IMPRESSION: Acute airspace disease versus neoplasm, left upper lung lobe with a left-sided pleural effusion, moderate volume versus pleural thickening. Left phrenic paralysis versus paresis. Electronically signed by: Kash Tinsley MD 09/18/2024 08:08 AM OFELIA
--- NOTE | ~2024-09-17 | US_ITS ---
EXAMINATION: US ABDOMEN LIMITED CLINICAL INFORMATION: Jaundice. Abdominal pain. Nausea and vomiting. Hyperbilirubinemia.. COMPARISON: None available. TECHNIQUE: Real-time imaging of the right upper quadrant abdominal viscera. FINDINGS: PANCREAS: No peripancreatic fluid collections. Questionable punctate calcifications. LIVER: Liver measures 16 cm. There is a 1.6 cm hyperechoic lesion in the periphery of the left hepatic lobe. No intrahepatic biliary ductal dilatation. Main portal vein is patent with normal hepatopedal flow direction. GALLBLADDER: Contracted./Absent COMMON BILE DUCT: 5 mm.. FREE FLUID: None. US/US abdomen limited IMPRESSION: No biliary ductal dilatation. Hepatomegaly, mild. Probable hemangioma, left hepatic lobe. No ascites. Electronically signed by: Kash Tinsley MD 09/17/2024 02:30 PM OFELIA
--- NOTE | ~2024-09-17 | CT_ITS ---
EXAMINATION: CT HEAD WITHOUT CONTRAST (STROKE PROTOCOL) CLINICAL INFORMATION: Stroke protocol. Blown left pupil. COMPARISON: August 24, 2024. TECHNIQUE: Contiguous axial imaging was performed from the skull base to vertex without intravenous administration of contrast. This CT examination was performed using dose optimization techniques as appropriate, variously including the following: *Automated exposure control *Adjustment of mA and/or kV according to patient size (this includes techniques or standardized protocols for targeted exams where dose is matched to indication/reason for exam; i.e. extremities or head) *Use of iterative reconstruction technique DLP: 552 mGy centimeter. FINDINGS: No acute intracranial hemorrhage, mass effect, midline shift, hydrocephalus or herniation. King-white matter differentiation is normal. Bilateral multifocal patchy deep periventricular white matter hypodensities involving centrum semiovale and thorne radiata. Posterior cranial fossa contents demonstrated no acute intracranial hemorrhage or mass effect. Sellar/suprasellar region demonstrated a bulky appearance of the chiasm/prechiasmatic segment right optic nerve. Craniocervical junction is intact. The intraocular lens is an independent portion of the posterior aspect of the left eyeball. The right lens is in normal position. Old traumatic deformity of the left and to a lesser extent right lamina papyracea with the extraconal herniated fat and no gross entrapment. Mucosal thickening and secretions in the left maxillary sinus. Mucosal thickening right maxillary sinus. For pneumatization of the mastoid air cells. Tympanic cavities are aerated. Old traumatic deformity in the nasal bones and the left second metacarpal. Focal sobeida hole left temporal parietal bone. CT/CT head for STROKE IMPRESSION: No acute intracranial hemorrhage. Dislodged intraocular lens, left eyeball. Old traumatic deformities, lamina papyracea both orbits and nasal bones. This critical result was discussed with emergency physician assistant professor of art . Mayte Leiva at 1256 hours on 09/17/2024. It was ascertained that the content and urgency of the report was understood at the time of direct communication. Electronically signed by: Kash Tinsley MD 09/17/2024 01:08 PM OFELIA
--- NOTE | ~2024-09-17 | CT_ITS ---
EXAMINATION: CT ABDOMEN AND PELVIS WITHOUT CONTRAST CLINICAL INFORMATION: Jaundice, elevated white count. COMPARISON: None available. TECHNIQUE: Multidetector volumetric imaging was performed from the superior aspect of the liver through the pubic symphysis. Sagittal and coronal reformatted images were obtained on the technologist's workstation. This CT examination was performed using dose optimization techniques as appropriate, variously including the following: *Automated exposure control *Adjustment of mA and/or kV according to patient size (this includes techniques or standardized protocols for targeted exams where dose is matched to indication/reason for exam; i.e. extremities or head) *Use of iterative reconstruction technique FINDINGS: Attempted CTA canceled after IV malfunction. Contrast enhancement is an excretory phase, limiting evaluation of solid viscera and bowel. This is especially significant in the light of mild anasarca, limiting discrimination between soft tissue and fluid. In addition there is motion artifact in the mid aspect of the scan, further limiting evaluation. LUNG BASES: On the localizer sequence for the CTA, and on the tissue technician, there is dense consolidation in the left upper lobe. There are no effusions. Heart size is normal. There is emphysema. LIVER, GALLBLADDER, AND BILIARY TREE: The unenhanced liver is normal in size, shape, and attenuation. No focal hepatic lesion or definitive biliary ductal dilatation is present. The gallbladder is not well seen. The common bile duct is normal in caliber. PANCREAS: Unremarkable. SPLEEN: Unenhanced spleen is normal. ADRENAL GLANDS: There is left hyperplasia. The right is normal. KIDNEYS AND URETERS: Excretory phase of contrast enhancement, limiting evaluation. Normal shape and size. No gross masses. No hydronephrosis. Ureters are nondilated. BLADDER: Distended, with layering contrast. No focal abnormality. GASTROINTESTINAL TRACT: No acute bowel pathology evident. Limited evaluation. Moderate fecal residue seen throughout the colon. Small bowel is nondilated. There is mild edema is seen throughout the small bowel mesentery likely related to anasarca. No gross ascites. ABDOMINAL WALL: No significant hernia is appreciated. LYMPH NODES: None enlarged. VASCULAR: Mild atheromatous vascular calcification. No aneurysm. PELVIC VISCERA: Unremarkable. OSSEOUS STRUCTURES: No acute abnormality. No fractures. Mild right convex thoracolumbar scoliosis. Healed fracture of the left iliac wing. Grade 2 spondylolisthesis L5 on S1. CT/CT abdomen pelvis wo IV con IMPRESSION: 1. Limited examination due to excretory phase of contrast enhancement. This significantly limits evaluation of solid viscera and bowel. Exam also limited by motion artifact in the mid aspect. 2. On the localizer sequence for the attempted CTA, and on the tissue technician, there is left upper lobe opacity and consolidation consistent with lobar pneumonia. Given the appearance on the localizer image, associated tumor is not excluded in the left upper lobe. Recommend follow-up imaging after treatment. 3. There is grossly no liver abnormality or biliary dilatation. Gallbladder is not seen. 4. There is mild diffuse anasarca. 5. Distention of the urinary bladder, which otherwise appears normal. 6. Grade 2 spondylolisthesis L5 on S1. Electronically signed by: Leo Rosales MD 09/17/2024 02:17 PM OFELIA
--- NOTE | ~2024-09-17 | CT_ITS ---
CLINICAL HISTORY: persistent wbc r o obstructive pna tumor CT chest with and without contrast Comparison: None Findings: Severe consolidation of the left upper lobe with relative sparing of the lingula. With superior cystic changes and/or bronchiectasis. Differential considerations include pneumonia, postobstructive pneumonia, cavitary pneumonia. Atypical infection is not excluded given these findings. Additional bilateral ground-glass of the both lungs nonspecific and may be due to mild edema or pneumonitis. No pneumothorax or pleural effusion. Left pre-vascular adenopathy measures 1.2 cm short axis (image number 22 of series 3) vascular calcifications noted including coronary arteries. Small pericardial effusion. Imaged upper abdomen is unremarkable. Mild left lateral rib fractures appear old chronic. Fusion of the sternum and manubrium in the lower thoracic vertebrae. Degenerative changes include imaged right shoulder and spine. Old ossicles are old fragments about the partially imaged right shoulder. IMPRESSION: Masslike consolidation in the left upper lobe concerning for pneumonia and postobstructive pneumonia. Lucent centered tissue sampling or additional diagnostics given concern for lung neoplasm. This document has been electronically signed by: Lb Mesa MD on 09/21/2024 20:39:52
--- NOTE | 2024-09-17 11:16 | ED_ITS ---
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 biliary ductal dilatation. Main portal vein is patent with normal hepatopedal flow direction. GALLBLADDER: Contracted./Absent COMMON BILE DUCT: 5 mm.. FREE FLUID: None. US/US abdomen limited IMPRESSION: No biliary ductal dilatation. Hepatomegaly, mild. Probable hemangioma, left hepatic lobe. No ascites. Electronically signed by: Kash Tinsley MD 09/17/2024 02:30 PM EST RP Procedure(s): CT head for STROKE Accession Number(s): [id number] cc: [facility]; Mayte Katz~ Report Number: [id number]: Total DLP = 552.00 mGy-cm EXAMINATION: CT HEAD WITHOUT CONTRAST (STROKE PROTOCOL) CLINICAL INFORMATION: Stroke protocol. Blown left pupil. COMPARISON: August 24, 2024. TECHNIQUE: Contiguous axial imaging was performed from the skull base to vertex without intravenous administration of contrast. This CT examination was performed using dose optimization techniques as appropriate, variously including the following: *Automated exposure control *Adjustment of mA and/or kV according to patient size (this includes techniques or standardized protocols for targeted exams where dose is matched to indication/reason for exam; i.e. extremities or head) *Use of iterative reconstruction technique DLP: 552 mGy centimeter. FINDINGS: No acute intracranial hemorrhage, mass effect, midline shift, hydrocephalus or herniation. King-white matter differentiation is normal. Bilateral multifocal patchy deep periventricular white matter hypodensities involving centrum semiovale and thorne radiata. Posterior cranial fossa contents demonstrated no acute intracranial hemorrhage or mass effect. Sellar/suprasellar region demonstrated a bulky appearance of the chiasm/prechiasmatic segment right optic nerve. Craniocervical junction is intact. The intraocular lens is an independent portion of the posterior aspect of the left eyeball. The right lens is in normal position. Old traumatic deformity of the left and to a lesser extent right lamina papyracea with the extraconal herniated fat and no gross entrapment. Mucosal thickening and secretions in the left maxillary sinus. Mucosal thickening right maxillary sinus. For pneumatization of the mastoid air cells. Tympanic cavities are aerated. Old traumatic deformity in the nasal bones and the left second metacarpal. Focal sobeida hole left temporal parietal bone. CT/CT head for STROKE IMPRESSION: No acute intracranial hemorrhage. Dislodged intraocular lens, left eyeball. Old traumatic deformities, lamina papyracea both orbits and nasal bones. This critical result was discussed with emergency physician scheduling assistant . Mayte Leiva at 1256 hours on 09/17/2024. It was ascertained that the content and urgency of the report was understood at the time of direct communication. Electronically signed by: Kash Tinsley MD 09/17/2024 01:08 PM [facility] Procedure(s): XR chest 2V Accession Number(s): [id number] cc: [facility]; Mayte Katz~ EXAMINATION: XR CHEST CLINICAL INFORMATION: ?pneumonia, white count COMPARISON: April 13, 2022. TECHNIQUE: 2 views of the chest were obtained. FINDINGS: There is an irregular shaped opacity left upper hemithorax resulting in lung volume loss. There is a meniscal shaped opacity in the left lower hemithorax. No pneumothorax. Cardiomediastinal silhouette size is normal. The right lung is aerated. Multilevel thoracic stenosis. Old traumatic deformity, right clavicle and likely right humeral head and neck. XR/XR chest 2V IMPRESSION: Acute airspace disease versus neoplasm, left upper lung lobe with a left-sided pleural effusion, moderate volume versus pleural thickening. Left phrenic paralysis versus paresis. Electronically signed by: Kash Tinsley MD 09/18/2024 08:08 AM EST Social Determinants Patient?s care significantly limited by Social Determinants of Health including: Other Social Determinant of Health Discharge Plan Discharge Clinical Impression: Hepatic lesion, Jaundice, Aspiration pneumonia, Hyponatremia Patient Disposition: Admitted As Inpatient
[2024-09-17 11:27] VITALS: BP 100/68; BP 107/61; PULSE 95; PULSE 98; RESP 14; TEMP 36.6; O2SAT 97; O2SAT 98; BMI 17.2
--- NOTE | 2024-09-17 11:37 | PC.NURSE ---
Pt refusing to state any complaints stating that [facility]D is not telling the truth, pt is not stating coherent sentences, refusing to answer questions. Pt changed over, secuirty at bedside to go through belongings and parafernalia removed. Belongings now in SP#3. Pt on monitor at this time. Call porter within reach, provider at bedside
[2024-09-17 12:08] LABS: MANUAL DIFF FLAG NO
[2024-09-17 12:11] LABS: Basophils Absolute Auto 0.1 X10*3/uL (0.0-0.2); Basophils Percent Auto 0.4 % (0-2); Eosinophils Percent Auto 0.1 % (0-4); Hematocrit 30.1 % (42.0-52.0); Imm Gran Abs Auto 0.87 X10*3/uL (0.00-0.03); Imm Gran Pct Auto 4.3 % (0.0-0.4); Lymphocytes Absolute Auto 1.5 X10*3/uL (1.2-4.9); Lymphocytes Percent Auto 7.2 % (20-40); Mean Corpuscular HGB Conc 36.5 g/dl (31.0-36.0); Mean Corpuscular Hemoglobin 31.1 pg (27.0-33.0); Mean Platelet Volume 10.3 fL (9.4-12.4); Monocytes Absolute Auto 1.4 X10*3/uL (0.1-1.2); Monocytes Percent Auto 6.8 % (2-11); Neutrophils Absolute Auto 16.4 x10*3/uL (2.0-8.3); Neutrophils Percent Auto 81.2 % (45-73); Platelet Count 540 X10*3/uL (160-400); Red Blood Count 3.54 X10*6/uL (4.60-5.80); Red Cell Distribution Width 13.8 % (11.0-16.0); White Blood Count 20.2 X10*3/uL (4.8-10.8)
[2024-09-17 12:24] LABS: Ethanol < 10 mg/dL
[2024-09-17 12:28] LABS: Alanine Aminotransferase 39 U/L (0-40); Albumin Level 2.4 g/dL (3.5-5.0); Alkaline Phosphatase 193 U/L (39-117); Anion Gap 11 (12-20); Aspartate Amino Transferase 48 U/L (5-37); Bilirubin Total 3.8 mg/dL (0.0-1.0); Blood Urea Nitrogen 15 mg/dL (9-16); Calcium 7.9 mg/dL (8.4-10.2); Carbon Dioxide 20 mmol/L (22-29); Chloride 100 mmol/L (96-108); Creatinine Clr Calc Pharmacy 95.6; Estimated Glomerular Filt Rate > 60; Glucose Random 121 mg/dL (60-115); Lipase 14 U/L (8-78); Magnesium 1.8 mg/dL (1.6-2.6); Potassium 3.6 mmol/L (3.3-5.1); Sodium 127 mmol/L (135-145); Total Protein 5.8 g/dL (6.5-8.0)
--- NOTE | 2024-09-17 12:37 | ECG_ITS ---
Test Reason : STROKE PROTOCOL Blood Pressure : */* mmHG Vent. Rate : 82 BPM Atrial Rate : 82 BPM P-R Int : 152 ms QRS Dur : 90 ms QT Int : 384 ms P-R-T Axes : 84 87 84 degrees QTcB Int : 448 ms Normal sinus rhythm Early repolarization Normal ECG When compared with ECG of 20-Nov-2020 08:28, T wave inversion no longer evident in Anterior leads Referred By: Mayte Katz Electronically Signed By: DANISHA SWEET
[2024-09-17 12:47] LABS: Influenza A PCR NEGATIVE (Negative); Influenza B PCR NEGATIVE (Negative); Resp Syncy Virus RNA Qual PCR NEGATIVE (Negative); SARS COV2 PCR INHOUSE NEGATIVE (Negative)
--- OUTSIDE RECORDS SUMMARY | 2024-09-17 13:18 | XMS_ITS | Encounter Summary ---
Author Organization [employer] Address [address] [facility] [address] [place] [address] Care Team Providers Care Helicopter Technician Name Role Phone Mary Perrin MD Primary Care Provider + Reason for Visit * Reason Comments Med Refill Encounter Details Date Type Department Care Team ([facility] st Contact Info) Description 07/24/2023 Refill [facility] MED & PEDS [address] [place] [address] La Bower MD [address] [place] [address] Seizure disorder (CMS/HCC) Social History Tobacco Use Types Packs/Day Years Used Date Smoking Tobacco: Every Day Cigarettes Smokeless Tobacco: Never Alcohol Use Standard Drinks/Week Comments Never 0 (1 standard drink = 0.6 oz pur e alcohol) Housing Stability Answer Date Recorded What is your housing situation today? I have ashli estrada 05/22/[address] you li ve. Do you have problems with any of the following? None of the above 05/22/2023 Food Insecurity Answer Date Recorded Within the past 12 months, y ou worried that your food would run out before you got money to buy more: Never True 05/22/2023 Within the past 12 months,th e food you bought just didn't last and you didn't have enough money to get more: Never True Transportation Answer Date Recorded In the past 12 months, has l ack of transportation kept you from medical appts, meetings, work or from getting things needed for daily living? No 05/22/2023 Utilities Answer Date Recorded In the past 12 months, has t he electric, gas, oil or water company threatened to shut off services in your home? No 05/22/2023 Depression Answer Date Recorded Patient Health Questionnaire-2 Score 0 09/14/2022 Sex and Gender Information Value Date Recorded Sex Assigned at Male 05/28/2022 10:16 AM EDT Legal Sex Male 10:16 AM EDT Gender Identity Male 05/28/2022 10:16 AM EDT Sexual Orientation Choose not to disclose 2021 10:16 AM EDT documented as of this encounter Plan of Treatment Not on file documented as of this encounter Visit Diagnoses Diagnosis Seizure disorder (CMS/HCC) Unspecified epilepsy without mention of intractable epilepsy documented in this encounter Care Teams Helicopter Technician Relationship Specialty Start Date End Date Mary Perrin MD [address] [place] [phone] PCP - General Family Medicine 04/07/18 documented as of this encounter
--- OUTSIDE RECORDS SUMMARY | 2024-09-17 13:18 | XMS_ITS | Encounter Summary ---
Author Organization [employer] Address [address] [facility] 7t [place] [address] Care Team Providers Care Manager Program Management Name Role Phone Mary Perrin MD Primary Care Provider + Reason for Visit * Reason Comments Care Coordination CM/CHW outreach Encounter Details Date Type Department Care Team (Latest Contact Info) Description 08/25/2024 Patient Outreach [facility] MEDICINE [address] [place] [address] Mary Perrin MD [address] [place] [address] Care Coordination (CM/CHW outreach) Social History Tobacco Use Types Packs/Day Years Used Date Smoking Tobacco: Every Day Cigarettes Smokeless Tobacco: Never Alcohol Use Standard Drinks/Week Comments Never 0 (1 standard drink = 0.6 oz pur e alcohol) Housing Stability Answer Date Recorded What is your housing situation today? I have ashli estrada 02/03/[address] you li ve. Do you have problems with any of the following? None of the above 02/03/2024 Food Insecurity Answer Date Recorded Within the past 12 months, y ou worried that your food would run out before you got money to buy more: Never True 02/03/2024 Within the past 12 months,th e food you bought just didn't last and you didn't have enough money to get more: Never True 02/2024 Transportation Answer Date Recorded In the past 12 months, has l ack of transportation kept you from medical appts, meetings, work or from getting things needed for daily living? No 02/03/2024 Utilities Answer Date Recorded In the past 12 months, has t he electric, gas, oil or water company threatened to shut off services in your home? No 02/03/2024 Depression Answer Date Recorded Patient Health Questionnaire-2 Score 0 09/14/2022 Internet Access Answer Date Recorded Internet Access Q1 Yes 03/30/2024 Internet Access Q2 Not on file 03/30/2024 Sex and Gender Information Value Date Recorded Sex Assigned at Male 05/28/2022 10:16 AM EDT Legal Sex Male 10:16 AM EDT Gender Identity Male 05/28/2022 10:16 AM EDT Sexual Orientation Choose not to disclose 2021 10:16 AM EDT documented as of this encounter Progress Notes * Mariana Rothman - 08/25/2024 8:58 AM EST CHW Mariana Rothman, placed outbound call to patient in regards to offer Adult Complex Care Program and SDOH services. No answer at this time. CHW LVM introducing herself from [facility] CMDepartment with CHW's name, department and direct contact number requesting call back. Will re-attempt to contact within 5 days. and address not confirmed. documented in this encounter Plan of Treatment Not on file documented as of this encounter Visit Diagnoses Not on filedocumented in this encounter Care Teams Manager Program Management Relationship Specialty Start Date End Date Mary Perrin MD [address] [place] [phone] PCP - General Family Medicine 04/07/18 documented as of this encounter
--- OUTSIDE RECORDS SUMMARY | 2024-09-17 13:18 | XMS_ITS | Encounter Summary ---
Author Organization [employer] Address [address] [facility] 7[address] [place] [address] Care Team Providers Care Central Supply Clerk Name Role Phone Mary Perrin MD Primary Care Provider + Reason for Visit * Reason Comments Med Refill Encounter Details Date Type Department Care Team ([facility] st Contact Info) Description 09/13/2023 Refill [facility] CHC MED & PEDS [address] [place] [address] La Bower MD [address] [place] [address] Seizure disorder (CMS/HCC) Social History Tobacco Use [...] epilepsy documented in this encounter Care Teams Central Supply Clerk Relationship Specialty Start Date End Date Mary Perrin MD [address] [place] [id number] PCP - General Family Medicine 04/07/18 documented as of this encounter
--- OUTSIDE RECORDS SUMMARY | 2024-09-17 13:18 | XMS_ITS | Encounter Summary ---
Author Organization [employer] Address [address] [facility] [address] [place] [address] Care Team Providers Care Retail Support Specialist Name Role Phone Mary Perrin MD Primary Care Provider + Reason for Visit * Reason Onset Date Comments Care Management 08/25/2024 [facility]- chart revi ew Encounter Details Date Type Department Care Team ([facility] st Contact Info) Description 08/25/2024 Telephone [facility] MEDICINE [address] [place] [address] Alejandro Navarro RN [address] [place] [address] Care Management ([facility]- chart review) Social History Tobacco Use Types Packs/Day Years [...] AM EDT documented as of this encounter Miscellaneous Notes * Telephone Encounter - Alejandro Navarro RN - 08/25/2024 8:05 AM EST JONE Navarro RN, performed chart review, in anticipation of initial assessment with patient, as patient has stratified for C3 Adult Complex Care through the ADT feed. History significant for seizure disorder, chronic cough, elevated BP reading, GERD, hip pain, underweight, cocaine dependence, s chizophrenia, tobacco dependence syndrome, and visual impairment. Specialists include Orthopedic Surgery, Podiatry, [facility] Dental, and [facility] Optometry. ED visits within the last 12 months include [facility] ED 08/24/24. Last appointment in PCP office on 02/10/24. Patient no showed f/u with PCP on 08/18/24. Patient also no showed visit with [facility] Optometry on 06/29/24. No future appointments scheduled at this time. documented in this encounter Plan of Treatment Not on file documented as of this encounter Visit Diagnoses Not on filedocumented in this encounter Care Teams Retail Support Specialist Relationship Specialty Start Date End Date Mary Perrin MD [address] [place] [id number] PCP - General Family Medicine 04/07/18 documented as of this encounter
--- OUTSIDE RECORDS SUMMARY | 2024-09-17 13:18 | XMS_ITS | Clinical Summary ---
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 being provided for informational/ educational purposes only.) 09/14/2022 11:1 1 AM EST 09/14/2022 11:12 AM EST Narrative [facility] - 09/19/2022 11:02 PM EST FASTING:UNKNOWN COLLECTION KIT GIVEN TO PATIENT. PATIENT ADVISED TO RETURN. FASTING: UNKNOWN us Mary Perrin MD LAB BLOOD ORDERABLES Fin al Result [facility] [address] [facility], [facility], [place] [address] [facility] [place] [employer] [address] [facility], ([address]) [place] [address] * HIV-1/2 Antigen and Antibodies, Fourth Generation, with Reflexes (09/14/2022 11:11 AM EST) HIV Antigen/Antibody, 4th Generation NON-REAC TIVE NON-REAC TIVE [facility] [place] [employer] Comment: HIV-1 antigen and HIV-1/HIV-2 antibodies were not detected. There is no laboratory evidence of HIV infection. PLEASE NOTE: This information has been disclosed to you from records whose confidentiality may be protected by state law. ??If your state requires such protection, then the state law prohibits you from making any further disclosure of the information without the specific written consent of the person to whom it pertains, or as otherwise permitted by law. A general authorization for the release of medical or other information is NOT sufficient for this purpose. ?? For additional information please refer to http://education.Transifex/faq/SIZ093 (This link is being provided for informational/ educational purposes only.) The performance of this assay has not been clinically validated in patients less than 2 years old. Blood Venous blood specimen / Unknown 09/14/2022 11:11 AM EST 09/14/2022 11:12 AM EST Narrative [facility] - 09/19/2022 11:02 PM EST FASTING:UNKNOWN COLLECTION KIT GIVEN TO PATIENT. PATIENT ADVISED TO RETURN. FASTING: UNKNOWN Mary Perrin MD LAB BLOOD ORDERABLES Fin al Result [facility] [address], [place] [address] [facility] [address] [facility], ([address]) [place] [address] from Last 3 Months or Most Recently Relevant to Health Maintenance [facility] STAND ADULT Care Teams Gerentological Physiotherapist Relationship Specialty Start Date End Date Mary Perrin MD [address] [place] [phone] PCP - General Family Medicine 04/07/18
--- OUTSIDE RECORDS SUMMARY | 2024-09-17 13:18 | XMS_ITS | Encounter Summary ---
Author Organization [employer] Address [address] [facility] 7t [place] [address] Care Team Providers Care Senior Service Aide Name Role Phone Mary Perrin MD Primary Care Provider + Encounter Details Date Type Department Care Team (Latest Contact Info) Description 05/22/2023 Research Encounter [facility] [address] [place] [address] Mary Perrin MD [address] [place] [address] ERRONEOUS ENCOUNTER--DISREGARD Social History Tobacco Use Types Packs/Day Years [...] as of this encounter Visit Diagnoses Diagnosis ERRONEOUS ENCOUNTER--DISREGARD documented in this encounter Care Teams Senior Service Aide Relationship Specialty Start Date End Date Mary Perrin MD [address] [place] [address] PCP - General Family Medicine 04/07/18 documented as of this encounter
--- OUTSIDE RECORDS SUMMARY | 2024-09-17 13:18 | XMS_ITS | Encounter Summary ---
Author Organization [employer] Address [address] [facility] 7t [place] [address] Care Team Providers Care Tire Duster Name Role Phone Mary Perrin MD Primary Care Provider + Encounter Details Date Type Department Care Team ([facility] Contact Info) Description 09/17/2024 Orders Only [facility] External Provider, [facility] Social History Tobacco Use Types Packs/Day Years [...] on file documented as of this encounter Procedures Procedure Name Priority Date/Time Associated Diagnosis Comments CT HEAD STROKE WO CONTRAST Routine 09/17/2024 12:37 PM EST documented in this encounter Results * CT Head Stroke w/o Contrast (09/17/2024 12:37 PM EST) Anatomical Region Laterality Modality Computed Tomogra phy 09/17/2024 12:3 7 PM EST Narrative 09/17/2024 1:11 PM EST ? [facility] ?[address] ?[place] [address] ? CT Scan Report ? Signed ? Patient: Adriana,Abhijit ?MR#: [id number] ? : 1965 ?Acct:[id number] ? Age/Sex: 59 / M ?ADM Date: 09/17/24 ? Loc: HO.ED ? Attending Dr: ? Ordering Physician: Mayte Katz ?? Date of Service: 09/17/24 ?? Procedure(s): CT head for STROKE ?? Accession Number(s): [id number] ? cc: [facility]; Mayte Katz ? Report Number: ?? [id number]: Total DLP = ??552.00 mGy-cm ?? EXAMINATION: [...] critical result was discussed with emergency physician acute care assistant . ?? Mayte Leiva at 1256 hours on 09/17/2024. It was ascertained that the ?? content and urgency of the report was understood at the time of direct ?? communication. ? Electronically signed by: ??Kash Tinsley MD ??09/17/2024 01:08 PM ?? EST RP ? Dictated By: ?Kash Rutledge MD ? Signed By: ?<Electronically signed by Kash Vigil MD in OV> ? 09/17/24 1308 ? DD/ 1237 ? TD/TT: 09/17/24 1252 ? Home School Teacher: ? Procedure Note Andrew, Image - 09/17/2024 [place] [address] [place] [address] CT Scan Report Signed Patient: Abhijit WrightMR#: [id number] : 1965Acct:[id number] Age/Sex: 59 / MADM Date: 09/17/24 Loc: HO.ED Attending Dr: Ordering Physician: Mayte Katz Date of Service: 09/17/24 Procedure(s): CT head for STROKE Accession Number(s): [id number] cc: [facility]; Mayte Katz Report Number: [id number]: Total DLP = 552.00 mGy-cm EXAMINATION: CT [...] critical result was discussed with emergency physician acute care assistant . Mayte Leiva at 1256 hours on 09/17/2024. It was ascertained that the content and urgency of the report was understood at the time of direct communication. Electronically signed by: Kash Tinsley MD 09/17/2024 01:08 PM [facility] Dictated By: Kash Rutledge MD Signed By: <Electronically signed by Kash Vigil MDin OV> 09/17/24 1308 DD/ 1237 TD/TT: 09/17/24 1252 Home School Teacher: [facility] External Provider IMG CT PROCEDURES Final Result documented in this encounter Visit Diagnoses Not on filedocumented in this encounter Care Teams Tire Duster Relationship Specialty Start Date End Date Mary Perrin MD [address] [place] [address] PCP - General Family Medicine 04/07/18 documented as of this encounter
--- OUTSIDE RECORDS SUMMARY | 2024-09-17 13:18 | XMS_ITS | Encounter Summary ---
Author Organization [employer] Address 75 [facility] 7t [place] [address] Care Team Providers Care Production Weigher Name Role Phone Mary Perrin MD Primary Care Provider + Reason for Visit * Reason Comments Care Coordination CM/CHW outreach Encounter Details Date Type Department Care Team (Latest Contact Info) Description 09/01/2024 Patient Outreach [facility] MEDICINE [address] [place] [address] Mary Perrin MD [address] [place] [address] Care Coordination (CM/CHW outreach) Social History Tobacco [...] encounter Progress Notes * Mariana Rothman - 09/01/2024 3:09 PM EST CHW Mariana Rothman called patient to introduce Adult Complex Care Program. Patient's name, and Address was confirmed. Program information was provided to the patient. Patient declined to participate in program. Provided patient with direct contact information for future reference. Patient states he lives in a snf and has a coordinator that helps with medical needs. documented in this encounter Plan of Treatment Not on file documented as of this encounter Visit Diagnoses Not on filedocumented in this encounter Care Teams Production Weigher Relationship Specialty Start Date End Date Mary Perrin MD [address] [place] [address] PCP - General Family Medicine 04/07/18 documented as of this encounter
--- OUTSIDE RECORDS SUMMARY | 2024-09-17 13:18 | XMS_ITS | Encounter Summary ---
Author Organization [employer] Address 75 [facility] 7t [place] [address] Care Team Providers Care Cooking Teacher Name Role Phone Mary Perrin MD Primary Care Provider + Reason for Visit * Reason Comments Care Coordination CM/CHW outreach Encounter Details Date Type Department Care Team (Latest Contact Info) Description 08/27/2024 Patient Outreach [facility] MEDICINE [address] [place] [address] Mary Perrin MD [address] [place] [address] Care Coordination (CM/CHW outreach) Social History Tobacco [...] encounter Progress Notes * Mariana Rothman - 08/27/2024 8:50 AM EST CHW Mariana Rothman placed call to patient to introduce Complex CM program, spoke to patient's selvage machine operator Orval who stated he was not with the patient at the moment but will have the patient call me toschedule an assessment. If no call back will reattempt within 5 days. documented in this encounter Plan of Treatment Not on file documented as of this encounter Visit Diagnoses Not on filedocumented in this encounter Care Teams Cooking Teacher Relationship Specialty Start Date End Date Mary Perrin MD [address] [place] [address] PCP - General Family Medicine 04/07/18 documented as of this encounter
--- OUTSIDE RECORDS SUMMARY | 2024-09-17 13:18 | XMS_ITS | Encounter Summary ---
Author Organization [employer] Address [address] [facility] 7t [place] [address] Care Team Providers Care Finance Controller Name Role Phone Mary Perrin MD Primary Care Provider + Reason for Visit * Reason Onset Date Comments Nurse Triage 09/16/2024 Encounter Details Date Type Department Care Team ([facility] st Contact Info) Description 09/16/2024 Telephone [facility] MEDICINE [address] [place] [address] Mary Perrin MD [address] [place] [address] Nurse Triage Social History Tobacco Use Types Packs/Day Years [...] encounter Miscellaneous Notes * Telephone Encounter - Monik Delatorre RN - 09/16/2024 4:33 PM EST Triage call to [facility]. Yara, staff member, answered call. Pt is looking very pale, is vomiting at night time and sleeping most of day. Poor liquid intake and very lethargic. Pt is sounding like out of breath while talking and SOB while at rest. Unknown how many times vomited because Pt has atowel at bedside and usually vomits at night time. Unknown if fever Pt will not allow thermometer to be used. Pt has not been compliant with encouraged liquids. Staff is advised to bring Pt to ED forevaluation and then call for follow up when needed. Staff agrees with disposition. Protocol Used: Weakness (Generalized) and Fatigue (Adult) Protocol-Based Disposition: Go to ED/UCC Now (or to Office with PCP Approval) Positive Triage Questions: * Moderate weakness or fatigue from poor fluid intake with no improvement after 2 hours of rest andfluids * Drinking very little and dehydration suspected (e.g., no urine > 12 hours, very dry mouth, very lightheaded) * Patient sounds very sick or weak to the triager * All higher-acuity triage questions were negative * Telephone Encounter - aKvya Abelino - 09/16/2024 3:54 PM EST Symptoms: Lethargic (Tired), Vomiting, Breathing Trouble Outcome: Schedule an urgent appointment (within 1 hour) or talk to a nurse or provider soon Reason: Caller denied all higher acuity questions The caller accepted this outcome. documented in this encounter Plan of Treatment Not on file documented as of this encounter Visit Diagnoses Not on filedocumented in this encounter Care Teams Finance Controller Relationship Specialty Start Date End Date Mary Perrin MD [address] [place] [phone] PCP - General Family Medicine 04/07/18 documented as of this encounter
--- OUTSIDE RECORDS SUMMARY | 2024-09-17 13:19 | XMS_ITS | Encounter Summary ---
Author Organization [employer] Address 75 [facility] 7t [place] [address] Care Team Providers Care Consulting Sales Executive Name Role Phone Mary Perrin MD Primary Care Provider + Encounter Details Date Type Department Care Team ([facility] st Contact Info) Description 10/23/2023 Telephone [facility] MEDICINE [address] [place] [address] Mary Perrin MD [address] [place] [address] Social History Tobacco Use Types Packs/Day Years [...] on filedocumented in this encounter Care Teams Consulting Sales Executive Relationship Specialty Start Date End Date Mary Perrin MD [address] [place] [phone] PCP - General Family Medicine 04/07/18 documented as of this encounter
--- OUTSIDE RECORDS SUMMARY | 2024-09-17 13:19 | XMS_ITS | Clinical Summary ---
Author Organization [address] [facility] Address [address] [place] [address] Phone Care Team Providers Care Drop Board Man Name Role Phone Maxine Rodas [facility] Primary Care Provider [phone] Allergies No known active allergies Medications acetaminophen (TYLENOL 8 HOUR) 650 mg 8 hr tablet Take by mouth. Do not crush, chew, or split. Active diclofenac (VOLTAREN) 75 mg EC tablet Take 1 tablet (75 mg total) by mouth 2 (two) times a day. Do not crush, chew, or split. Active docusate sodium (COLACE) 100 mg capsule Take 1 capsule (100 mg total) by mouth 2 (two) times a day. Active folic acid (FOLVITE) 1 mg tablet Take 1 tablet (1 mg total) by mouth 1 (one) time each day. Active haloperidoL (HALDOL) 10 mg tablet Take 1 tablet (10 mg total) by mouth 4 (four) times a day. Active haloperidoL (HALDOL) 5 mg tablet Take 1 tablet (5 mg total) by mouth 4 (four) times a day. Active omeprazole (PriLOSEC) [address] capsule Take 1 capsule (20 mg total) by mouth 1 (one) time each day. Do not crush or chew. Active OXcarbazepine (TRILEPTAL) 300 mg tablet Take 1 tablet (300 mg total) by mouth 2 (two) times a day. Active phenytoin (DILANTIN) 100 mg ER capsule Take 1 capsule (100 mg total) by mouth 3 (three) times a day. Active Social History Tobacco Use Types Packs/Day Years Used Date Smoking Tobacco: Never Assessed Sex and Gender Information Value Date Recorded Sex Assigned at Not on file Legal Sex Male 4:39 AM EST Gender Identity Not on file Sexual Orientation Not on file Plan of Treatment Upcoming Encounters Date Type Department Care Team (Late st Contact Info) Description 09/22/2024 1:15 PM EST Consult Orthopedic Surgery [facility] [place] [address] [phone] Chidi Jurado, DPM [address] [address] Health Maintenance Due Date Last Done Comments DTaP,Tdap,and Td Vaccines (1 - Tdap) 1985 Hepatitis B Vaccines (1 of 3 - 19+ 3-dose series) 1985 Pneumococcal Vaccine: 50+ Ye ars (1 of 1 - PCV) 2016 Zoster Vaccines (1 of 2) 2016 COVID-19 Vaccine ( - 2023-2 5 season) 2024 Influenza Vaccine (#1) 2024 Cholesterol Screening (Lipid Panel) 07/20/2024 Colorectal Cancer Screening: Colonoscopy 07/20/2024 Depression Screening 07/20/2024 HIV Screening 07/20/2024 Hepatitis C Screening 07/20/2024 Social Influencers of Health Screening 07/20/2024 HIB Vaccines Aged Out No longer eligi ble based on patient's age to complete this topic HPV Vaccines Aged Out No longer eligi ble based on patient's age to complete this topic Hepatitis A Vaccines Aged Out No long er eligible based on patient's age to complete this topic IPV Vaccines Aged Out No longer eligi ble based on patient's age to complete this topic MMR Vaccines Aged Out No longer eligi ble based on patient's age to complete this topic Meningococcal ACWY Vaccine Aged Out N o longer eligible based on patient's age to complete this topic Meningococcal B Vacine Aged Out No lo nger eligible based on patient's age to complete this topic Pneumococcal Vaccine: Pediat rics (0 to 5 Years) and At-Risk Patients (6 to 64 Years) Aged Out No longer eligible b ased on patient's age to complete this topic RSV Immunization Patients Un kellie 20 months Aged Out No longer eligible b ased on patient's age to complete this topic Varicella Vaccines Aged Out No longer eligible based on patient's age to complete this topic Insurance MEDICAID - [place] Care Teams Drop Board Man Relationship Specialty Start Date End Date Maxine Rod[place] [address] [place] [address] PCP - General Family Medicine 07/20/24
[2024-09-17 13:27] LABS: Glucose, Whole Blood 93 mg/dL (60-115)
[2024-09-17 14:31] LABS: Troponin-I High Sensitivity < 2.7 ng/L (<3.5-35.0)
[2024-09-17 15:06] LABS: INTERNATIONAL NORM RATIO 1.2 (0.9-1.1); Prothrombin Time 14.3 SEC (10.9-12.4)
[2024-09-17 15:08] LABS: Partial Thromboplastin Time 26.4 SEC (26.0-36.8)
[2024-09-17 15:20] LABS: Stroke Lab Use COMPLETE
--- NOTE | 2024-09-17 15:23 | PC.NURSE ---
Addendum entered by Corinna Calix RN 09/17/24 15:25: This RN also spoke with case management from [facility], they are requesting a PSAR to be done as they feel the pt needs a higher level of care at this time. PA aware, once medically cleared will continue to assess for careteam Original Note: Back documentation, multiple nurses attempted IV placement for CT, ot had an infiltration of the cpntrast dye during CT. PA aware, Stroke protocol canceled prior to this, no need for CT with contrast needed. Unable to obtain another IV for IVF, PA made aware, at this time there is not a plan in place for going forward to do with IV and IVF. Awaiting further orders from PA. Pt given to another RN, this RN is aware of plan at this time.
[2024-09-17 15:38] LABS: Appearance Urine Clear; Color Urine Dark Yellow; Glucose Urine UA 100 mg/dL (Negative); Leukocyte Esterase Urine Negative (Negative); Nitrite Urine Negative (Negative); PH 5.5 (5.0-9.0); Specific Gravity - Urine >= 1.030 (1.005-1.025); Urine Blood Negative (Negative); Urine Ketones Negative (Negative); Urine Protein Trace mg/dL (Neg-Trace)
[2024-09-17 15:44] LABS: Amphetamine Screen Urine Not Detected (Not Detect); Barbiturates, Urine Not Detected (Not Detect); Benzodiazepines Screen Urine Not Detected (Not Detect); Buprenorphine Scr Not Detected (Not Detect); Cannabinoid Screen Urine Not Detected (Not Detect); Cocaine Screen Urine POSITIVE (Not Detect); Fentanyl, urine Not Detected (Not Detect); Methadone Screen, Urine Not Detected (Not Detect); Opiate Screen Urine Not Detected (Not Detect); Oxycodone Screen Urine Not Detected (Not Detect); Phencyclidine Screen Urine Not Detected (Not Detect)
--- NOTE | 2024-09-17 16:34 | PM.CNNEP ---
History of Present Illness Reason for Consult Consult date: 09/17/24 Chief Complaint Chief complaint: N/V/D History of Present Illness Narrative: 59 year old male with pmhx significant for drug abuse, seizures on dilantin, GERD, mood disorder presents to the ED today from senior living today for evaluation of N/V/D and abdominal pain x days. Per senior living staff, patient has been complaining of abdominal pain, N/V/D for multiple days. He has been refusing [facility]. Due to refusal of care, they contacted EMS for patient to be further evaluated in ED. On arrival to ED, he is clearly jaundiced with scleral icterus which senior living states is new. Patient has a hx of drug abuse and hep B. He is not compliant with medications. He has the authority to leave his senior living during the day and it is suspected that he uses drugs while out. He was found with crack pipe on arrival to ED. Na was 127 h/o Chronic hyponatremia Review of Systems Review of Systems Yes Unobtainable due to mental status PMFSH Past Medical History Medical History Noncompliance with medication regimen Generalized seizure Polysubstance use disorder Social History Social History Unable to assess alcohol history related to: Refusing to respond Alcohol intake: never Patient Tobacco Use Status: Never used Tobacco Smoked in Last 30 Days: Yes Use of substances other than those prescribed or required for medical reasons: Yes Substance Use Type: Marijuana Substance Use Frequency: Chronic Longstanding Last Used Substance: Just Prior to Admission Any prior treatment program specific to substance use: No Advance Directives: Yes Advance Directives on File: Yes Advance Directives Date on File: 08/24/24 Meds Allergies Allergy/AdvReac Type Severity Reaction Status Date / Time No Known Allergies Allergy Mild NOT Verified 09/17/24 11:32 APPLICABLE Home Medications ?Medication ?Instructions ?Recorded ?Confirmed ?Last Taken ?Type Colace 100 mg PO DAILY PRN Constipation 08/16/22 08/16/22 Unknown History folic acid 1 mg tablet 1 tab PO DAILY 08/16/22 08/16/22 Unknown History haloperidol 10 mg tablet 1 tab PO QAM 08/16/22 08/16/22 Unknown History haloperidol 5 mg tablet 1 tab PO QAM 08/16/22 08/16/22 Unknown History omeprazole 20 mg capsule,delayed 1 cap PO DAILY PRN Acid Reflux 08/16/22 08/16/22 Unknown History release oxcarbazepine 150 mg tablet 1 tab PO BID 08/16/22 08/16/22 Unknown History phenytoin sodium extended 100 mg 5 cap PO QAM 08/16/22 08/16/22 Unknown History capsule Physical Exam Vital Signs: Last Vital Signs Temp 98 F 09/17/24 11:27 Pulse 95 09/17/24 11:27 Resp 14 09/17/24 11:27 BP 107/61 09/17/24 11:27 Pulse Ox 98 09/17/24 11:27 O2 Del Method Room Air 09/17/24 11:27 BMI result Body Mass Index 17.2 Awake. Comfortable. Cachectic Neck is supple. Mucosa moist. Lungs bilateral scattered rhonchi. Heart S1-S2 heard no gallop. Abdomen soft. Extremities no edema. No involuntary movements. No myoclonus. Results Lab Results 09/17/24 12:03 09/17/24 12:03 Lab results: Chemistry 09/17/24 12:03 Sodium 127 L Potassium 3.6 Carbon Dioxide 20 L BUN 15 Creatinine 0.54 Calcium 7.9 L D Hematology 09/17/24 12:03 WBC 20.2 H Hgb 11.0 L D Plt Count 540 H D Urinalysis 09/17/24 15:29 Urine Color Dark Yellow Urine Appearance Clear Urine pH 5.5 Ur Specific Louise >= 1.030 H Urine Protein Trace Urine Glucose (UA) 100 H Urine Ketones Negative Urine Blood Negative Urine Nitrite Negative Ur Leukocyte Esterase Negative Assessment and Plan (1) Hyponatremia: Status: Acute Plan Hyponatremia due to decreased free water excretion High urine concentration is suggestive of hypovolemia vs inappropriate ADH release carbamazepine could decrease free water clearance Nausea/Vomiting can be a stimuli for non osmotic ADH release leading to decrease free water clearance Suggest IV hydration with NS at 75 cc/hr x 1 L Goal to correct Na at a rate of 0.5 to 1 mmol/hr or 8-10 mmol per 24 hrs No need for 3% NaCl Monitoe serum sodium ` 4 hrs Shall follow along Procedures Date of Service Date of Service: 09/17/24
[2024-09-17] MEDS: 0.9 % Sodium Chloride 1,000 ML 500 ML IV (17:21)
[2024-09-17 17:49] LABS: Osmolality Urine 548 mosm/kg (373-1093)
[2024-09-17 17:59] LABS: Creatinine Urine 65.46 mg/dL; Sodium Urine Random < 20.0 mmol/L
[2024-09-17] MEDS: cefTRIAXone sodium 1 GM VIAL IVPUSH (19:18)
[2024-09-17] MEDS: Azithromycin 500 MG in 0.9 % Sodium Chloride 250 ML 125 MG IV (19:18)
--- NOTE | 2024-09-17 20:42 | PC.NURSE ---
this rn assumed care of pt, pt resting in stretcher, no acute distress noted. per provider, okay to give antibiotics without blood cultures.
--- NOTE | 2024-09-17 21:25 | P.HPHOSP_ITS ---
History of Present Illness Date of Service: 09/17/24 Chief Complaint: Nausea, vomitting and jaundice The patient is a 59-year-old male with a history of schizophrenia, hepatitis B, seizures (on Dilantin and Oxcarbazepine), and polysubstance use (reports marijuana use only, denies alcohol use).He resides in a alf, where it has been reported that he has been experiencing abdominal pain, nausea, and diarrhea for several days while also refusing care from [facility] and being non-compliant with medications. ED Findings: * LFTs: Elevated, AST 48, ALT 39, and Tbili 3.8, direct bili 3, with new-onset jaundice. * Ultrasound: Mild hepatomegaly and hemangioma of the left hepatic lobe. * CT Abdomen/Pelvis: No gross liver or biliary abnormalities, but left upper lobe pneumonia was noted. * WBC: 20K. * Sodiume 127 Treatment in ED: Ceftriaxone and Azithromycin were started for pneumonia. Review of Systems 2 Review of Systems: Gen: no fever Resp: no sob, + cough CV: no chest, no RODRIGUEZ, no leg edema GI: + n/v, no abd pain Neuro: some confusion Yes all other systems are reviewed and are negative [facility] Medical History Noncompliance with medication regimen Generalized seizure Polysubstance use disorder Social History Housing: Other Housing Other:: [facility] Unable to assess alcohol history related to: Refusing to respond Alcohol intake: never Patient Tobacco Use Status: Current everyday Tobacco user Tobacco use type: Cigarette Cigarettes Per Day: 5 Substance Use Type: Marijuana Advance Directives Date on File: 08/24/24 service: No Meds Allergies Allergy/AdvReac Type Severity Reaction Status Date / Time No Known Allergies Allergy Mild NOT Verified 09/17/24 11:32 APPLICABLE Home Medications ?Medication ?Instructions ?Recorded ?Confirmed ?Last Taken ?Type Colace 100 mg PO DAILY PRN Constipation 08/16/22 09/18/24 09/17/24 09:00 History folic acid 1 mg tablet 1 tab PO DAILY 08/16/22 09/18/24 09/17/24 09:00 History haloperidol 10 mg tablet 10 mg PO DAILY 0109/18/24 09/17/24 09:00 History haloperidol 5 mg tablet 5 mg PO DAILY 08/16/22 09/18/24 09/17/24 09:00 History omeprazole 20 mg capsule,delayed 1 cap PO DAILY PRN Acid Reflux 08/16/22 09/18/24 09/17/24 09:00 History release oxcarbazepine 150 mg tablet 150 mg PO BID 08/16/22 09/18/24 09/17/24 09:00 History phenytoin sodium extended 100 mg 500 mg PO DAILY 08/16/22 09/18/24 09/17/24 09:00 History capsule acetaminophen 325 mg tablet 650 mg PO Q4H PRN Pain 09/18/24 09/18/24 09/17/24 09:00 History albuterol sulfate 90 mcg/actuation 1 inh inhalation QID PRN Wheezing 09/18/24 09/18/24 09/17/24 09:00 History aerosol inhaler aripiprazole 10 mg tablet 10 mg PO DAILY 09/18/24 09/18/24 09/17/24 09:00 History Physical Exam 2 Vital Signs and Narrative: Vital Signs: Last Vital Signs Temp 98 F 09/17/24 11:27 Pulse 95 09/17/24 11:27 Resp 14 09/17/24 11:27 BP 107/61 09/17/24 11:27 Pulse Ox 98 09/17/24 11:27 O2 Del Method Room Air 09/17/24 11:27 BMI result Body Mass Index 17.2 General: oriented to self, place. No distress, emaciated HEENT: mild scleara icteris Resp: CTA bilateral CVS: S1,S2,RRR GI: +BS, NT, no distention Skin: No rash Neuro: motor grossly intact Psych: appropriate affect Results Labs 09/19/24 06:23 09/19/24 06:22 Labs: Laboratory Results - last 24 hr 09/17/24 09/17/24 09/17/24 12:02 12:03 13:24 MCV 85.0 MCH 31.1 MCHC 36.5 H RDW 13.8 Plt Count 540 H D MPV 10.3 Immature Gran % (Auto) 4.3 H Neut % (Auto) 81.2 H Lymph % (Auto) 7.2 L [place] % (Auto) 6.8 Eos % (Auto) 0.1 Baso % (Auto) 0.4 Lymph # (Auto) 1.5 [place] # (Auto) 1.4 H Eos # (Auto) 0.0 Baso # (Auto) 0.1 Abs Immat Gran (auto) 0.87 H Absolute Neuts (auto) 16.4 H Absolute Nucleated RBC 0.000 Nucleated RBC % (auto) 0.0 PT INR APTT Anion Gap 11 L Estim Creat Clear Calc 95.6 Estimated GFR > 60 POC Glucose 93 Random Glucose 121 H Calcium 7.9 L D Magnesium 1.8 Total Bilirubin 3.8 H Direct Bilirubin 3.0 H AST 48 H ALT 39 Alkaline Phosphatase 193 H Total Protein 5.8 L Albumin 2.4 L Lipase 14 Urine Color Urine Appearance Urine pH Ur Specific [place] Urine Protein Urine Glucose (UA) Urine Ketones Urine Blood Urine Nitrite Ur Leukocyte Esterase Urine Osmolality Ur Random Sodium Urine Creatinine Urine Opiates Screen Ur Buprenorphine Scrn Ur Oxycodone Screen Urine Methadone Screen Urine Fentanyl Screen Ur Barbiturates Screen Ur Phencyclidine Scrn Ur Amphetamines Screen U Benzodiazepines Scrn Urine Cocaine Screen U Marijuana (THC) Screen Ethyl Alcohol < 10 Influenza Type A (PCR) NEGATIVE Influenza Type B (PCR) NEGATIVE RSV RNA Qual (PCR) NEGATIVE SARS-CoV-2 RNA (RT-PCR) NEGATIVE 09/17/24 09/17/24 09/17/24 14:55 15:29 17:33 MCV MCH MCHC RDW Plt Count MPV Immature Gran % (Auto) Neut % (Auto) Lymph % (Auto) [place] % (Auto) Eos % (Auto) Baso % (Auto) Lymph # (Auto) [place] # (Auto) Eos # (Auto) Baso # (Auto) Abs Immat Gran (auto) Absolute Neuts (auto) Absolute Nucleated RBC Nucleated RBC % (auto) PT 14.3 H INR 1.2 H APTT 26.4 Anion Gap Estim Creat Clear Calc Estimated GFR POC Glucose Random Glucose Calcium Magnesium Total Bilirubin Direct Bilirubin AST ALT Alkaline Phosphatase Total Protein Albumin Lipase Urine Color Dark Yellow Urine Appearance Clear Urine pH 5.5 Ur Specific [place] >= 1.030 H Urine Protein Trace Urine Glucose (UA) 100 H Urine Ketones Negative Urine Blood Negative Urine Nitrite Negative Ur Leukocyte Esterase Negative Urine Osmolality 548 Ur Random Sodium < 20.0 Urine Creatinine 65.46 Urine Opiates Screen Not Detected Ur Buprenorphine Scrn Not Detected Ur Oxycodone Screen Not Detected Urine Methadone Screen Not Detected Urine Fentanyl Screen Not Detected Ur Barbiturates Screen Not Detected Ur Phencyclidine Scrn Not Detected Ur Amphetamines Screen Not Detected U Benzodiazepines Scrn Not Detected Urine Cocaine Screen POSITIVE H U Marijuana (THC) Screen Not Detected Ethyl Alcohol Influenza Type A (PCR) Influenza Type B (PCR) RSV RNA Qual (PCR) SARS-CoV-2 RNA (RT-PCR) Imaging Radiologist's Impressions: Impressions Head CT 09/17/24 12:37 IMPRESSION: No acute intracranial hemorrhage. Dislodged intraocular lens, left eyeball. Old traumatic deformities, lamina papyracea both orbits and nasal bones. This critical result was discussed with emergency physician human resources assistant manager . Mayte Leiva at 1256 hours on 09/17/2024. It was ascertained that the content and urgency of the report was understood at the time of direct communication. Electronically signed by: Kash Tinsley MD 09/17/2024 01:08 PM EST RP Abdomen/Pelvis CT 09/17/24 12:51 IMPRESSION: 1. Limited examination due to excretory phase of contrast enhancement. This significantly limits evaluation of solid viscera and bowel. Exam also limited by motion artifact in the mid aspect. 2. On the localizer sequence for the attempted CTA, and on the boring mill operator for metal, there is left upper lobe opacity and consolidation consistent with lobar pneumonia. Given the appearance on the localizer image, associated tumor is not excluded in the left upper lobe. Recommend follow-up imaging after treatment. 3. There is grossly no liver abnormality or biliary dilatation. Gallbladder is not seen. 4. There is mild diffuse anasarca. 5. Distention of the urinary bladder, which otherwise appears normal. 6. Grade 2 spondylolisthesis L5 on S1. Electronically signed by: Leo Rosales MD 09/17/2024 02:17 PM EST RP Abdomen Ultrasound 09/17/24 13:49 IMPRESSION: No biliary ductal dilatation. Hepatomegaly, mild. Probable hemangioma, left hepatic lobe. No ascites. Electronically signed by: Kash Tinsley MD 09/17/2024 02:30 PM EST RP Assessment and Plan (1) Jaundice: Status: Acute Plan 59-year-old male with a history of schizophrenia, hepatitis B, seizures (on Dilantin and Oxcarbazepine), and polysubstance use (reports marijuana use only, denies alcohol use) presenting with new-onset jaundice and pneumonia. painless Jaundice etiology not known, could be med (dilatin and trileptal) viral hep serology follow LFTS MRCP if not improving and consider gi consult Pneumonia, concern of aspiration give n/v given Ceftriaxone and azithro in ED add Zosyn for aspiration pneumonia follow WBC Hyponatremia 127, mild Hydration and repeat Ed consulted Nephro Mild metabolic acidosis, likely starvation relatged IV and repeat in am Seizure disorder not sure if taking dilantin and trileptal--both metabolized in liver check dilatin level, ammonia level suggest adding Keppra, safe for liver diseae and consider Neuro consult h/o shcizophrenia resume meds once med rec confirmed. DVT prophylaxis: Lovenox Quality Stroke Does the patient have a stroke diagnosis?: No VTE Prior VTE?: No VTE Risk Level:: Medical - moderate - high VTE Device Contraindication: Treatment Not Indicated VTE Drug Contraindication: N/A - Med Ordered
--- NOTE | 2024-09-17 21:26 | PC.NURSE ---
hospitalist at bedside speaking with pt, pt not offering any information to provider at this time, pt continues to place blanket over head.
[2024-09-17 22:35] VITALS: BP 123/65; PULSE 94; RESP 20; TEMP 37.2; O2SAT 99
[2024-09-17] MEDS: Acetaminophen 325 MG TABLET 650 MG PO (22:37)
[2024-09-17] MEDS: levETIRAcetam 500 MG TABLET PO (22:37)
[2024-09-17] MEDS: Lactated Ringers 1,000 ML 100 ML IVCONT (22:37)
[2024-09-17] MEDS: Piperacillin Sodium/Tazobactam 4.5 GM in 0.9 % Sodium Chloride 100 ML IV (22:41)
--- NOTE | 2024-09-17 23:06 | PC.NURSE ---
pt medicated per mar, tolerated whole well with water, vss.
[2024-09-17 23:39] LABS: Ammonia 46 umol/L (13-55)
[2024-09-17 23:46] LABS: Phenytoin Dilantin 1.9 ug/mL (10.0-20.0)
[2024-09-18 01:24] VITALS: BP 116/53; PULSE 84; RESP 20; TEMP 36.6; O2SAT 98
[2024-09-18 04:35] VITALS: BP 109/64; PULSE 67; RESP 14; TEMP 36.7; O2SAT 96
[2024-09-18 05:06] LABS: Osmolality, Serum 271 mosm/kg (281-305)
[2024-09-18 05:08] LABS: Alanine Aminotransferase 36 U/L (0-40); Albumin Level 2.2 g/dL (3.5-5.0); Alkaline Phosphatase 203 U/L (39-117); Anion Gap 13 (12-20); Aspartate Amino Transferase 44 U/L (5-37); Bilirubin Direct 2.4 mg/dL (0.0-0.5); Blood Urea Nitrogen 12 mg/dL (9-16); Calcium 7.9 mg/dL (8.4-10.2); Carbon Dioxide 18 mmol/L (22-29); Chloride 104 mmol/L (96-108); Creatinine Clr Calc Pharmacy 112.3; Estimated Glomerular Filt Rate > 60; Glucose Random 96 mg/dL (60-115); Potassium 3.8 mmol/L (3.3-5.1); Sodium 131 mmol/L (135-145); Total Protein 5.5 g/dL (6.5-8.0)
[2024-09-18] MEDS: Piperacillin Sodium/Tazobactam 4.5 GM in 0.9 % Sodium Chloride 100 ML IV ×3 (05:26→17:12)
[2024-09-18 08:18] LABS: HBS Num1 344.53 mIU/mL (0-7.99); HBc Num1 0.11 S/CO (0.00-0.79); HBsAGNum1 0.33 S/CO (0.00-0.99); Hepatitis A Antibody IgM 0.12 Index (0-0.79); Hepatitis B Core Antibody Nonreactive (Nonreactive); Hepatitis B Surface Antigen Negative (Negative); ~HepC Num1 0.05 S/CO (0.00-0.79); ~Hepatitis A Antibody IgM Nonreactive (Nonreactive); ~Hepatitis B Surface Antibody REACTIVE (Nonreactive); ~Hepatitis C Antibody Nonreactive (Nonreactive)
[2024-09-18] MEDS: Lactated Ringers 1,000 ML 100 ML IVCONT ×2 (08:27→21:31)
--- NOTE | 2024-09-18 09:08 | PC.NURSE ---
[facility] [phone]
[2024-09-18] MEDS: ondansetron HCL 4 MG/2 ML VIAL IVPUSH (09:37)
[2024-09-18] MEDS: levETIRAcetam 500 MG TABLET PO ×2 (10:31→21:32)
--- NOTE | 2024-09-18 12:23 | PHA.MEDREC ---
Pharmacy Consult ? Medication Reconciliation Pharmacy has completed the medication reconciliation. Utilized med list and made contact with retirement in order to confirm doses and last admin time. They states he is still taking Aripiprazole as well as Haloperidol.
--- NOTE | 2024-09-18 13:40 | HO.PM.IMPN ---
Subjective Subjective Date of Service: 09/18/24 Interval History: Being followed for jaundice/aspiration pneumonia Patient denies abdominal pain, denies shortness of breath, complaining of cough occasionally productive of yellow phlegm, denies fever, no chills. Smokes half pack per day. Review of Systems All other system are reviewed and are negative Physical Exam Vital Signs: Vital Signs: Last Vital Signs Temp 98.1 F 09/18/24 04:35 Pulse 67 09/18/24 04:35 Resp 14 09/18/24 04:35 BP 109/64 09/18/24 04:35 Pulse Ox 96 09/18/24 04:35 O2 Del Method Room Air 09/18/24 04:35 BMI result Body Mass Index 17.2 Const: Other: General resting comfortably, in no acute distress, emaciated. Icteric sclera Neck no JVD. CVS regular rate rhythm, Respiratory lungs coarse breath sounds, diminished, no respiratory distress Gastrointestinal abdomen soft, non tender, bowel sounds audible Extremities no edema. Neuro non focal . Skin no rash Appropriate affect Objective Data Active Medications Acetaminophen (Acetaminophen 325 Mg Tablet) 650 mg PO Q6H PRN PRN Reason: Pain, Mild 1-3,fever,headache Last Admin: 09/17/24 22:37 Dose: 650 mg Documented By: SEAN Al Hydroxide/Mg Hydroxide (Magnesium Hydrox/Alum Hydrox 30 Ml Oral.Susp) 30 ml PO Q4H PRN PRN Reason: Heartburn Calcium Carbonate (Calcium Carbonate 750 Mg Tab.Chew) 750 mg PO Q4H PRN PRN Reason: Heartburn Enoxaparin Sodium (Enoxaparin Sodium 40 Mg/0.4 Ml Syringe) 40 mg SUBCUT Q24H [facility] Last Admin: 09/17/24 22:37 Dose: Not Given Documented By: SEAN Non-Admin Reason: Patient Refused Lactated Ringer's (Lr) 1,000 mls @ 100 mls/hr IVCONT .Q10H [facility] Last Admin: 09/18/24 08:27 Dose: 100 mls/hr Documented By: JULIO Piperacillin Sod/Tazobactam (Sod 4.5 gm/ Sodium Chloride) 100 mls @ 200 mls/hr IV Q6H [facility] Last Admin: 09/18/24 10:31 Dose: 200 mls/hr Documented By: JULIO Levetiracetam (Levetiracetam 500 Mg Tablet) 500 mg PO BID [facility] Last Admin: 09/18/24 10:31 Dose: 500 mg Documented By: JULIO Magnesium Hydroxide (Milk Of Magnesia 30 Ml Oral.Susp) 30 ml PO DAILY PRN PRN Reason: Constipation Melatonin (Melatonin 3 Mg Tablet) 6 mg PO BEDTIME PRN PRN Reason: Insomnia Ondansetron HCl (Ondansetron Hcl 4 Mg/2 Ml Vial) 4 mg IVPUSH Q8H PRN PRN Reason: Nausea and Vomiting Last Admin: 09/18/24 09:37 Dose: 4 mg Documented By: JULIO Sodium Chloride (0.9 % Sodium Chloride Flush 3 Ml Syringe) [facility] Last Admin: 09/18/24 07:05 Dose: Not Given Documented By: JULIO Non-Admin Reason: Previously Administered Labs 09/17/24 12:03 09/18/24 04:36 Labs: Laboratory Results - last 24 hr 09/17/24 09/17/24 09/17/24 14:55 15:29 17:33 PT 14.3 H INR 1.2 H APTT 26.4 Anion Gap Estim Creat Clear Calc Estimated GFR Random Glucose Osmolality Calcium Total Bilirubin Direct Bilirubin AST ALT Alkaline Phosphatase Ammonia Total Protein Albumin Urine Color Dark Yellow Urine Appearance Clear Urine pH 5.5 Ur Specific [place] >= 1.030 H Urine Protein Trace Urine Glucose (UA) 100 H Urine Ketones Negative Urine Blood Negative Urine Nitrite Negative Ur Leukocyte Esterase Negative Urine Osmolality 548 Ur Random Sodium < 20.0 Urine Creatinine 65.46 Urine Opiates Screen Not Detected Ur Buprenorphine Scrn Not Detected Ur Oxycodone Screen Not Detected Urine Methadone Screen Not Detected Urine Fentanyl Screen Not Detected Ur Barbiturates Screen Not Detected Phenytoin Ur Phencyclidine Scrn Not Detected Ur Amphetamines Screen Not Detected U Benzodiazepines Scrn Not Detected Urine Cocaine Screen POSITIVE H U Marijuana (THC) Screen Not Detected Hepatitis A IgM Ab Hep Bs Antigen Hep Bs Antibody Hep B Core Total Ab Hepatitis C Ab (EIA) 09/17/24 09/17/24 09/18/24 19:12 23:25 04:36 PT INR APTT Anion Gap 13 Estim Creat Clear Calc 112.3 Estimated GFR > 60 Random Glucose 96 Osmolality 271 L Calcium 7.9 L Total Bilirubin 3.0 H Direct Bilirubin 2.4 H AST 44 H ALT 36 Alkaline Phosphatase 203 H Ammonia 46 Total Protein 5.5 L Albumin 2.2 L Urine Color Urine Appearance Urine pH Ur Specific [place] Urine Protein Urine Glucose (UA) Urine Ketones Urine Blood Urine Nitrite Ur Leukocyte Esterase Urine Osmolality Ur Random Sodium Urine Creatinine Urine Opiates Screen Ur Buprenorphine Scrn Ur Oxycodone Screen Urine Methadone Screen Urine Fentanyl Screen Ur Barbiturates Screen Phenytoin 1.9 L* Ur Phencyclidine Scrn Ur Amphetamines Screen U Benzodiazepines Scrn Urine Cocaine Screen U Marijuana (THC) Screen Hepatitis A IgM Ab Nonreactive Hep Bs Antigen Negative Hep Bs Antibody REACTIVE Hep B Core Total Ab Nonreactive Hepatitis C Ab (EIA) Nonreactive Assessment and Plan (1) Hyponatremia: Status: Acute (2) Aspiration pneumonia: Status: Acute (3) Hyponatremia: Status: Acute (4) Jaundice: Status: Acute Plan 59-year-old male with a history of schizophrenia, hepatitis B, seizures (on Dilantin and Oxcarbazepine), and polysubstance use (reports marijuana use only, denies alcohol use) presenting with new-onset jaundice and pneumonia. Painless Jaundice etiology not known, could be med related on Dilantin) viral hep serology nonreactive Total bili improved from 3.8-3.0, direct bili 3 to 2.4 stable AST and ALT, Abdominal ultrasound showed no biliary ductal dilatation, mild hepatomegaly, probable left hepatic lobe hemangioma CT abdomen and pelvis showed mild diffuse anasarca, gallbladder is not seen no liver abnormality or biliary dilatation follow LFTS GI consult Pneumonia, concern of aspiration give n/v s/p iv Ceftriaxone and azithro in ED on iv Zosyn started on 09/17 for aspiration pneumonia/check strep pneumo and Legionella AG follow WBC Chronic Hyponatremia 127, improved to 131 Serum osmolality low 271 Seen by nephrology they recommend 1 L of normal saline 75 cc/hours, monitor serum sodium Haldol can cause hyponatremia will avoid over correcting Mild metabolic acidosis, likely starvation related Normal renal function and blood sugar, no diarrhea Follow labs Tobacco use disorder counseling done nicotine patch 14 mg transdermal daily Seizure disorder On Dilantin and oxcarbazepine Phenytoin level 1.9/ Seizure precautions h/o shcizophrenia On Haldol, and Abilify Cocaine use U tox positive for cocaine [id number] protein calorie malnutrition Added supplements DVT prophylaxis: Lovenox Quality Stroke Does the patient have a stroke diagnosis?: No VTE Prior VTE?: No VTE Risk Level:: Medical - moderate - high VTE Device Contraindication: Treatment Not Indicated VTE Drug Contraindication: N/A - Med Ordered
[2024-09-18 14:57] VITALS: BP 126/77; PULSE 79; RESP 14; TEMP 37.1; O2SAT 100
--- NOTE | 2024-09-18 15:06 | PM.GICN ---
History of Present Illness Data of Consult Service Date: 09/18/24 Requesting physician: Ruben Bhakta Primary Care Provider: Kesha MARTINEZ Reason for consult: elevated LFTs 59 YM with schizophrenia, hepatitis B, seizures (on Dilantin and Oxcarbazepine), and polysubstance use (reports marijuana use only, denies alcohol use) seen at [facility] on 09/17/24 with abdominal pain, nausea and diarrhea.. Pt resides in a fpc, where it has been reported that he has been experiencing abdominal pain, nausea, and diarrhea for several days while also refusing care from [facility] and being non-compliant with medications. Patient denies abdominal pain, heartburn, dysphagia, shortness of breath, diarrhea, constipation, fever, chills or recent change in appetite or wt. He complains of cough occasionally productive of yellow phlegm. Pt admits to smoking weed (when he is able to buy it) and smoking half pack per day x several years and denies ETOH abuse. Pt denies past or family hx of liver disease or FH of colon polyps or GI malignancy ED Findings: LFTs: Elevated, AST 48, ALT 39, and Tbili 3.8, direct bili 3, with new-onset jaundice. WBC: 20K. Sodiume 127 Hepatitis serologies negative except immunity to Hep B. Treatment in ED: Ceftriaxone and Azithromycin were started for pneumonia. 09/17/[address] SCAN SHOWED: 1. Limited examination due to excretory phase of contrast enhancement. This significantly limits evaluation of solid viscera and bowel. Exam also limited by motion artifact in the mid aspect. 2. On the localizer sequence for the attempted CTA, and on the dietitian therapeutic, there is left upper lobe opacity and consolidation consistent with lobar pneumonia. Given the appearance on the localizer image, associated tumor is not excluded in the left upper lobe. Recommend follow-up imaging after treatment. 3. There is grossly no liver abnormality or biliary dilatation. Gallbladder is not seen. 4. There is mild diffuse anasarca. 5. Distention of the urinary bladder, which otherwise appears normal. 6. Grade 2 spondylolisthesis L5 on S1. 09/17/24 ABD US SHOWED: No biliary ductal dilatation. Hepatomegaly, mild. Probable hemangioma, left hepatic lobe. No ascites. Review of Systems Review of Systems: Yes all other systems are reviewed and are negative PMFSH Past Medical History Medical History Noncompliance with medication regimen Generalized seizure Polysubstance use disorder Social History Social History Housing: Other Housing Other:: [facility] fpc. Unable to assess alcohol history related to: Refusing to respond Alcohol intake: never Patient Tobacco Use Status: Current everyday Tobacco user Tobacco use type: Cigarette Cigarettes Per Day: 5 Substance Use Type: Marijuana Advance Directives Date on File: 08/24/24 service: No Meds Allergies Allergy/AdvReac Type Severity Reaction Status Date / Time No Known Allergies Allergy Mild NOT Verified 09/17/24 11:32 APPLICABLE Active Medications: Current Medications Acetaminophen (Acetaminophen 325 Mg Tablet) 650 mg PO Q6H PRN PRN Reason: Pain, Mild 1-3,fever,headache Last Admin: 09/17/24 22:37 Dose: 650 mg Al Hydroxide/Mg Hydroxide (Magnesium Hydrox/Alum Hydrox 30 Ml Oral.Susp) 30 ml PO Q4H PRN PRN Reason: Heartburn Albuterol Sulfate (Albuterol Sulfate 90 Mcg 8 Gm Inhaler) 1 puff INHALE QID PRN PRN Reason: Wheezing Aripiprazole (Aripiprazole 10 Mg Tablet) 10 mg PO DAILY MARYANNE Calcium Carbonate (Calcium Carbonate 750 Mg Tab.Chew) 750 mg PO Q4H PRN PRN Reason: Heartburn Docusate Sodium (Docusate Sodium 100 Mg Capsule) 100 mg PO DAILY PRN PRN Reason: Constipation Enoxaparin Sodium (Enoxaparin Sodium 40 Mg/0.4 Ml Syringe) 40 mg SUBCUT Q24H [facility] Last Admin: 09/17/24 22:37 Dose: Not Given Folic Acid (Folic Acid 1 Mg Tablet) 1 mg PO DAILY [facility] Haloperidol (Haloperidol 5 Mg Tablet) 10 mg PO DAILY MARYANNE Haloperidol (Haloperidol 5 Mg Tablet) 5 mg PO DAILY [facility] Lactated Ringer's (Lr) 1,000 mls @ 100 mls/hr IVCONT .Q10H [facility] Last Admin: 09/18/24 08:27 Dose: 100 mls/hr Piperacillin Sod/Tazobactam (Sod 4.5 gm/ Sodium Chloride) 100 mls @ 200 mls/hr IV Q6H [facility] Last Infusion: 09/18/24 14:12 Dose: Infused Levetiracetam (Levetiracetam 500 Mg Tablet) 500 mg PO BID [facility] Last Admin: 09/18/24 10:31 Dose: 500 mg Magnesium Hydroxide (Milk Of Magnesia 30 Ml Oral.Susp) 30 ml PO DAILY PRN PRN Reason: Constipation Melatonin (Melatonin 3 Mg Tablet) 6 mg PO BEDTIME PRN PRN Reason: Insomnia Nicotine (Nicotine 14 Mg Patch.Td24) 14 mg TRANSDERMA DAILY MARYANNE Omeprazole (Omeprazole 20 Mg Capsule.Dr) 20 mg PO DAILY PRN PRN Reason: Acid Reflux Ondansetron HCl (Ondansetron Hcl 4 Mg/2 Ml Vial) 4 mg IVPUSH Q8H PRN PRN Reason: Nausea and Vomiting Last Admin: 09/18/24 09:37 Dose: 4 mg Oxcarbazepine (Oxcarbazepine 150 Mg Tablet) 150 mg PO BID [facility] Phenytoin Sodium (Phenytoin Sodium Extended 100 Mg Capsule) 500 mg PO DAILY [facility] Sodium Chloride (0.9 % Sodium Chloride Flush 3 Ml Syringe) 3 ml IVFLUSH QSHIFT [facility] Last Admin: 09/18/24 07:05 Dose: Not Given Home Medications ?Medication ?Instructions ?Recorded ?Confirmed ?Last Taken ?Type Colace 100 mg PO DAILY PRN Constipation 08/16/22 09/18/24 09/17/24 09:00 History folic acid 1 mg tablet 1 tab PO DAILY 08/16/22 09/18/24 09/17/24 09:00 History haloperidol 10 mg tablet 10 mg PO DAILY 08/16/22 09/18/24 09/17/24 09:00 History haloperidol 5 mg tablet 5 mg PO DAILY 08/16/22 09/18/24 09/17/24 09:00 History omeprazole 20 mg capsule,delayed 1 cap PO DAILY PRN Acid Reflux 08/16/22 09/18/24 09/17/24 09:00 History release oxcarbazepine 150 mg tablet 150 mg PO BID 08/16/22 09/18/24 09/17/24 09:00 History phenytoin sodium extended 100 mg 500 mg PO DAILY 08/16/22 09/18/24 09/17/24 09:00 History capsule acetaminophen 325 mg tablet 650 mg PO Q4H PRN Pain 09/18/24 09/18/24 09/17/24 09:00 History albuterol sulfate 90 mcg/actuation 1 inh inhalation QID PRN Wheezing 09/18/24 09/18/24 09/17/24 09:00 History aerosol inhaler aripiprazole 10 mg tablet 10 mg PO DAILY 09/18/24 09/18/24 09/17/24 09:00 History Physical Exam Vital Signs: Vital Signs: Last Vital Signs Temp 98.8 F 09/18/24 14:57 Pulse 79 09/18/24 14:57 Resp 14 09/18/24 14:57 BP 126/77 09/18/24 14:57 Pulse Ox 100 09/18/24 14:57 O2 Del Method Room Air 09/18/24 14:57 BMI result Body Mass Index 17.2 Const: General: no acute distress Nutritional Appearance: average body habitus and underweight Orientation/consciousness: patient oriented x3 Limitations: no limitations HEENT: Head: Yes normal to inspection Ears: hearing grossly normal bilaterally Eyes: Sclerae: scleral abnormal (jaundice) Pupils: Equal, round and reactive pupils present Neck: Neck: Yes normal visual inspection Chest: Chest palpation & inspection: normal inspection of the chest Resp: Effort & Inspection: normal respiratory effort Auscultation: clear to auscultation bilaterally Cardio: Palpation: normal PMI Rate: regular rate Rhythm: regular rhythm Heart sounds: S1 normal heart sound present, S2 normal heart sound present and no murmurs GI: Palpation (GI): Soft to palpation, nontender and No hepatosplenomegaly present Auscultation: normal bowel sounds Rectal Exam - Male: Yes deferred Skin: General skin exam: no rashes or lesions noted Neuro: General: patient oriented x3, gait normal and moves all extremities Cranial nerves: Yes Equal, round and reactive pupils present Psych: Appearance: grossly normal Mental Status: mental status grossly normal Results Labs 09/19/24 06:23 09/19/24 06:22 Labs: BMP 09/18/24 04:36 Sodium 131 L Potassium 3.8 Chloride 104 Carbon Dioxide 18 L BUN 12 Creatinine 0.46 L Calcium 7.9 L Liver Function 09/18/24 Range/Units 04:36 Total Bilirubin 3.0 H (0.0-1.0) mg/dL Direct Bilirubin 2.4 H (0.0-0.5) mg/dL AST 44 H (5-37) U/L ALT 36 (0-40) U/L Alkaline Phosphatase 203 H (39-117) U/L Albumin 2.2 L (3.5-5.0) g/dL Urine 09/17/24 Range/Units 15:29 Urine Color Dark Yellow Urine Appearance Clear Urine pH 5.5 (5.0-9.0) Ur Specific [place] >= 1.030 H (1.005-1.025) Urine Protein Trace (Neg-Trace) mg/dL Urine Glucose (UA) 100 H (Negative) mg/dL Assessment and Plan (1) Jaundice: Status: Acute (2) Hepatic lesion: Status: Acute Plan 59 YM with schizophrenia, hepatitis B, seizures (on Dilantin and Oxcarbazepine), and polysubstance use (reports marijuana use only, denies alcohol use) admiutted to [facility] on 09/17/24 with abdominal pain, nausea and diarrhea.. Pt denies ETOH abuse. Labs showed elevated LFTs, AST 48, ALT 39, and Tbili 3.8, direct bili 3, WBC: 20K, Sodium 127 Hepatitis serologies negative except immunity to Hep B. Possible hemangioma in left hepatic lobe on US Elevated LFTs can be associated with Mycoplasma or legionella pneumonia, CMV or EBV infection and expected to improve with resolution of pneumonia. FU LFTs show improvement. RECOMMENDATIONS: 1. Agree with IV antibiotics and PO PPI 2. CMV and EBV serologies - added to am labs 3. Triple phase CT scan to rule out HCC 4. Consider checking for HIV infection Procedures Date of Service Date of Service: 09/19/24
[2024-09-18 15:22] VITALS: BP 112/64; PULSE 82; RESP 16; TEMP 36.9; O2SAT 94
[2024-09-18] MEDS: Phenytoin Sodium Extended 100 MG CAPSULE 500 MG PO (15:23)
--- NOTE | 2024-09-18 16:21 | MHC.CM.PN ---
CM CALLED [facility]ARDIAN, NIGHAT GONSALES [phone] SHE CONFIRMS PT LIVES IN A [facility] IN [facility] CONTACT NUMBERS: [phone] AND [phone] CM ATTEMPTED TO CONTACT STAFF FOR MORE INFORMATION ABOUT PT, HOWEVER CALL WENT TO MESSAGE LEFT REQUESTING THEY EMAIL ANY REQUIRED PAPERWORK TO T/W A RETURN CALL WAS ALSO REQUESTED DCP: RETURN TO [facility]IOR [facility] STAFF TO TRANSPORT
[2024-09-18 16:24] VITALS: BP 130/71; PULSE 77; TEMP 36.9; O2SAT 96
[2024-09-18 19:25] VITALS: BP 97/55; PULSE 98; RESP 20; TEMP 36.6; O2SAT 96
[2024-09-18] MEDS: Enoxaparin Sodium 40 MG/0.4 ML SYRINGE SUBCUT (21:32)
[2024-09-18] MEDS: OXcarbazepine 150 MG TABLET PO (21:32)
[2024-09-19] MEDS: Piperacillin Sodium/Tazobactam 4.5 GM in 0.9 % Sodium Chloride 100 ML IV ×5 (00:08→22:14)
[2024-09-19 02:14] VITALS: BP 103/58; PULSE 82; RESP 18; TEMP 37.1; O2SAT 93
[2024-09-19] MEDS: guaiFENesin 100 MG/5 ML 5 ML LIQUID PO (02:35)
[2024-09-19 06:59] LABS: Hematocrit 30.7 % (42.0-52.0); Hemoglobin 10.8 g/dl (14.0-18.0); Mean Corpuscular HGB Conc 35.2 g/dl (31.0-36.0); Mean Corpuscular Hemoglobin 30.7 pg (27.0-33.0); Mean Corpuscular Volume 87.2 fL (80.0-98.0); Mean Platelet Volume 10.8 fL (9.4-12.4); Platelet Count 583 X10*3/uL (160-400); Red Blood Count 3.52 X10*6/uL (4.60-5.80); Red Cell Distribution Width 14.5 % (11.0-16.0); White Blood Count 20.8 X10*3/uL (4.8-10.8)
[2024-09-19 07:16] VITALS: BP 124/75; PULSE 74; RESP 18; TEMP 36.6; O2SAT 96
[2024-09-19 07:19] LABS: Alanine Aminotransferase 23 U/L (0-40); Alkaline Phosphatase 171 U/L (39-117); Anion Gap 12 (12-20); Aspartate Amino Transferase 39 U/L (5-37); Bilirubin Direct 1.5 mg/dL (0.0-0.5); Bilirubin Total 2.4 mg/dL (0.0-1.0); Blood Urea Nitrogen 8 mg/dL (9-16); Calcium 7.8 mg/dL (8.4-10.2); Carbon Dioxide 21 mmol/L (22-29); Chloride 105 mmol/L (96-108); Creatinine Clr Calc Pharmacy 95.6; Estimated Glomerular Filt Rate > 60; Glucose Random 87 mg/dL (60-115); Potassium 4.4 mmol/L (3.3-5.1); Sodium 134 mmol/L (135-145); Total Protein 5.3 g/dL (6.5-8.0)
[2024-09-19] MEDS: Lactated Ringers 1,000 ML 100 ML IVCONT ×2 (08:30→17:36)
[2024-09-19] MEDS: HaloperidoL 5 MG TABLET PO (08:30)
[2024-09-19] MEDS: OXcarbazepine 150 MG TABLET PO ×2 (08:30→22:13)
[2024-09-19] MEDS: ARIPiprazole 10 MG TABLET PO (08:30)
[2024-09-19] MEDS: HaloperidoL 5 MG TABLET 10 MG PO (08:30)
[2024-09-19] MEDS: Folic Acid 1 MG TABLET PO (08:30)
[2024-09-19] MEDS: levETIRAcetam 500 MG TABLET PO (08:30)
[2024-09-19] MEDS: Phenytoin Sodium Extended 100 MG CAPSULE 500 MG PO (08:30)
--- NOTE | 2024-09-19 09:07 | P.PNIM_ITS ---
Subjective Subjective Date of Service: 09/19/24 Interval History: Being followed for pneumonia and jaundice Offers no acute complaints but noted to be coughing intermittently, no fevers, no chills, no acute events overnight, tolerating diet no nausea, no vomiting or diarrhea. Review of Systems All other system reviewed and are negative Physical Exam 2 Vital Signs: Vital Signs: Last Vital Signs Temp 97.9 F 09/19/24 07:16 Pulse 74 09/19/24 07:16 Resp 18 09/19/24 07:16 BP 124/75 09/19/24 07:16 Pulse Ox 96 09/19/24 07:16 O2 Del Method Room Air 09/19/24 07:16 BMI result Body Mass Index 17.2 Const: Other: General resting comfortably, in no acute distress, emaciated. Icteric sclera Neck no JVD. CVS regular rate rhythm, Respiratory lungs coarse breath sounds at bases, diminished, no respiratory distress, no crackles no wheeze Gastrointestinal abdomen soft, non tender, bowel sounds audible Extremities no edema. Neuro non focal . Skin no rash Appropriate affect Objective Data Active Medications Acetaminophen (Acetaminophen 325 Mg Tablet) 650 mg PO Q6H PRN PRN Reason: Pain, Mild 1-3,fever,headache Last Admin: 09/17/24 22:37 Dose: 650 mg Documented By: SEAN Al Hydroxide/Mg Hydroxide (Magnesium Hydrox/Alum Hydrox 30 Ml Oral.Susp) 30 ml PO Q4H PRN PRN Reason: Heartburn Albuterol Sulfate (Albuterol Sulfate 90 Mcg 8 Gm Inhaler) 1 puff INHALE QID PRN PRN Reason: Wheezing Aripiprazole (Aripiprazole 10 Mg Tablet) 10 mg PO DAILY [facility] Last Admin: 09/19/24 08:30 Dose: 10 mg Documented By: TITOFAShae Calcium Carbonate (Calcium Carbonate 750 Mg Tab.Chew) 750 mg PO Q4H PRN PRN Reason: Heartburn Docusate Sodium (Docusate Sodium 100 Mg Capsule) 100 mg PO DAILY PRN PRN Reason: Constipation Enoxaparin Sodium (Enoxaparin Sodium 40 Mg/0.4 Ml Syringe) 40 mg SUBCUT Q24H [facility] Last Admin: 09/18/24 21:32 Dose: 40 mg Documented By: GIOVANY Folic Acid (Folic Acid 1 Mg Tablet) 1 mg PO DAILY [facility] Last Admin: 09/19/24 08:30 Dose: 1 mg Documented By: YUMIKO Guaifenesin (Guaifenesin 100 Mg/5 Ml 5 Ml Liquid) 5 ml PO Q4H PRN PRN Reason: Cough Last Admin: 09/19/24 02:35 Dose: 5 ml Documented By: GIOVANY Haloperidol (Haloperidol 5 Mg Tablet) 10 mg PO DAILY [facility] Last Admin: 09/19/24 08:30 Dose: 10 mg Documented By: YUMIKO Haloperidol (Haloperidol 5 Mg Tablet) 5 mg PO DAILY [facility] Last Admin: 09/19/24 08:30 Dose: 5 mg Documented By: YUMIKO Lactated Ringer's (Lr) 1,000 mls @ 100 mls/hr IVCONT .Q10H [facility] Last Admin: 09/19/24 08:30 Dose: 100 mls/hr Documented By: YUMIKO Piperacillin Sod/Tazobactam (Sod 4.5 gm/ Sodium Chloride) 100 mls @ 200 mls/hr IV Q6H [facility] Last Infusion: 09/19/24 05:34 Dose: Infused Documented By: GIOVANY Levetiracetam (Levetiracetam 500 Mg Tablet) 500 mg PO BID [facility] Last Admin: 09/19/24 08:30 Dose: 500 mg Documented By: YUMIKO Magnesium Hydroxide (Milk Of Magnesia 30 Ml Oral.Susp) 30 ml PO DAILY PRN PRN Reason: Constipation Melatonin (Melatonin 3 Mg Tablet) 6 mg PO BEDTIME PRN PRN Reason: Insomnia Nicotine (Nicotine 14 Mg Patch.Td24) 14 mg TRANSDERMA DAILY [facility] Last Admin: 09/19/24 08:30 Dose: Not Given Documented By: YUMIKO Non-Admin Reason: Patient Refused Omeprazole (Omeprazole 20 Mg Capsule.Dr) 20 mg PO DAILY PRN PRN Reason: Acid Reflux Ondansetron HCl (Ondansetron Hcl 4 Mg/2 Ml Vial) 4 mg IVPUSH Q8H PRN PRN Reason: Nausea and Vomiting Last Admin: 09/18/24 09:37 Dose: 4 mg Documented By: JULIO Oxcarbazepine (Oxcarbazepine 150 Mg Tablet) 150 mg PO BID [facility] Last Admin: 09/19/24 08:30 Dose: 150 mg Documented By: YUMIKO Phenytoin Sodium (Phenytoin Sodium Extended 100 Mg Capsule) 500 mg PO DAILY [facility] Last Admin: 09/19/24 08:30 Dose: 500 mg Documented By: YUMIKO Sodium Chloride (0.9 % Sodium Chloride Flush 3 Ml Syringe) 3 ml IVFLUSH QSHIFT [facility] Last Admin: 09/19/24 07:23 Dose: Not Given Documented By: YUMIKO Non-Admin Reason: Previously Administered Labs 09/19/24 06:23 09/19/24 06:22 Labs: Laboratory Results - last 24 hr 09/19/24 09/19/24 06:22 06:23 MCV 87.2 MCH 30.7 MCHC 35.2 RDW 14.5 Plt Count 583 H MPV 10.8 Absolute Nucleated RBC 0.000 Nucleated RBC % (auto) 0.0 Anion Gap 12 Estim Creat Clear Calc 95.6 Estimated GFR > 60 Random Glucose 87 Calcium 7.8 L Total Bilirubin 2.4 H Direct Bilirubin 1.5 H AST 39 H ALT 23 Alkaline Phosphatase 171 H Total Protein 5.3 L Albumin 2.0 L Assessment and Plan (1) Hyponatremia: Status: Acute (2) Aspiration pneumonia: Status: Acute (3) Hyponatremia: Status: Acute (4) Jaundice: Status: Acute (5) Hepatic lesion: Status: Acute Plan 59-year-old male with a history of schizophrenia, hepatitis B, seizures (on Dilantin and Oxcarbazepine), and polysubstance use (reports marijuana use only, denies alcohol use) presenting with new-onset jaundice and pneumonia. Painless Jaundice etiology not known, 9could be med related on Dilantin) versus due to pneumonia viral hep serology nonreactive Total bili improved from 3.8-3.0-2.4, direct bili 3 to 2.4-1.5, stable AST and ALT, Abdominal ultrasound showed no biliary ductal dilatation, mild hepatomegaly, probable left hepatic lobe hemangioma CT abdomen and pelvis showed mild diffuse anasarca, gallbladder is not seen, no liver abnormality or biliary dilatation follow LFTS, Legionella/strep pneumo antigen ordered Seen by GI Dr. Herr she agrees with IV antibiotic, she added CMV and EBV serologies Pneumonia, concern of aspiration given n/v s/p iv Ceftriaxone and azithro in ED on iv Zosyn started on 09/17 for aspiration pneumonia/check strep pneumo and Legionella AG follow WBC Chronic Hyponatremia 127, improved to 134 Serum osmolality low 271 Seen by nephrology they recommend normal saline 75 cc/hours x 1 liter, monitor serum sodium Will DC IV fluids Haldol can cause hyponatremia, will avoid over correcting Mild metabolic acidosis, likely starvation related Normal renal function and blood sugar, no diarrhea Bicarb improving Tobacco use disorder counseling done, nicotine patch 14 mg transdermal daily Seizure disorder On oxcarbazepine Phenytoin level 1.9/likely not taking it at home, will DC Dilantin started on Keppra, continue Seizure precautions h/o shcizophrenia On Haldol, and Abilify Cocaine use U tox positive for cocaine, addiction consult [id number] protein calorie malnutrition Added supplements DVT prophylaxis: Lovenox Quality Stroke Does the patient have a stroke diagnosis?: No VTE Prior VTE?: No VTE Risk Level:: Medical - moderate - high VTE Device Contraindication: Treatment Not Indicated VTE Drug Contraindication: N/A - Med Ordered
--- NOTE | 2024-09-19 10:45 | MHC.CLN ---
NUTRITION DIET=REGULAR. NUTRITIONAL SUPPLEMENT IN PLACE-ENSURE TID (1050 KCALS, 60 G PROTEIN). PATIENT IS UNDER WEIGHT WITH BMI=17.2. REVIEW OF WEIGHT HX SHOWS NO SIGNIFICANT WEIGHT CHANGE X 10 MONTHS. FOLLOW FOR PO INTAKE AND DIET TOLERANCE. COMPLETE NUTRITION ASSESSMENT TO FOLLOW.
--- NOTE | 2024-09-19 12:57 | MHC.RECOVRN ---
T/W attempted to meet with pt. following a consult request received for cocaine use. Pt presented as confused and tired and just kept responding I am trying to figure what is going on . T/W unable to participate in a addiction/recovery conversation with pt. at this time. Will re attempt tomorrow. Gave report to nurse Unger
[2024-09-19 14:00] VITALS: BP 109/64; PULSE 86; RESP 18; TEMP 36.3; O2SAT 97
[2024-09-19 21:37] VITALS: BP 92/54; PULSE 83; RESP 16; TEMP 36.9; O2SAT 94
[2024-09-19] MEDS: levETIRAcetam 250 MG TABLET PO (22:13)
[2024-09-19] MEDS: Enoxaparin Sodium 40 MG/0.4 ML SYRINGE SUBCUT (22:13)
[2024-09-20 03:46] VITALS: BP 116/84; PULSE 82; RESP 20; TEMP 36.9; O2SAT 98
[2024-09-20] MEDS: Piperacillin Sodium/Tazobactam 4.5 GM in 0.9 % Sodium Chloride 100 ML IV ×4 (04:45→21:58)
[2024-09-20 06:43] LABS: Hematocrit 29.1 % (42.0-52.0); Hemoglobin 10.4 g/dl (14.0-18.0); Mean Corpuscular HGB Conc 35.7 g/dl (31.0-36.0); Mean Corpuscular Hemoglobin 31.2 pg (27.0-33.0); Mean Corpuscular Volume 87.4 fL (80.0-98.0); Mean Platelet Volume 10.1 fL (9.4-12.4); Platelet Count 641 X10*3/uL (160-400); Red Blood Count 3.33 X10*6/uL (4.60-5.80); Red Cell Distribution Width 14.2 % (11.0-16.0); White Blood Count 19.3 X10*3/uL (4.8-10.8)
[2024-09-20 07:04] LABS: Alanine Aminotransferase 21 U/L (0-40); Albumin Level 2.1 g/dL (3.5-5.0); Alkaline Phosphatase 149 U/L (39-117); Anion Gap 11 (12-20); Aspartate Amino Transferase 39 U/L (5-37); Bilirubin Direct 1.4 mg/dL (0.0-0.5); Bilirubin Total 1.9 mg/dL (0.0-1.0); Blood Urea Nitrogen 8 mg/dL (9-16); Calcium 7.9 mg/dL (8.4-10.2); Carbon Dioxide 25 mmol/L (22-29); Chloride 105 mmol/L (96-108); Creatinine Clr Calc Pharmacy 97.4; Estimated Glomerular Filt Rate > 60; Glucose Random 88 mg/dL (60-115); Potassium 4.4 mmol/L (3.3-5.1); Sodium 137 mmol/L (135-145); Total Protein 5.2 g/dL (6.5-8.0)
[2024-09-20 07:10] VITALS: BP 128/72; PULSE 84; RESP 18; TEMP 36.5; O2SAT 96
[2024-09-20] MEDS: Folic Acid 1 MG TABLET PO (07:59)
[2024-09-20] MEDS: HaloperidoL 5 MG TABLET PO (07:59)
[2024-09-20] MEDS: OXcarbazepine 150 MG TABLET PO ×2 (07:59→21:57)
[2024-09-20] MEDS: HaloperidoL 5 MG TABLET 10 MG PO (07:59)
[2024-09-20] MEDS: levETIRAcetam 250 MG TABLET PO ×2 (07:59→21:58)
[2024-09-20] MEDS: 0.9 % Sodium Chloride Flush 3 ML SYRINGE IVFLUSH ×3 (08:00→21:58)
[2024-09-20] MEDS: ARIPiprazole 10 MG TABLET PO (08:00)
--- NOTE | 2024-09-20 11:40 | MHC.RECOVRN ---
T/W attempted to meet with pt. in - to offer support r/t cocaine use. Pt denied any use and declined visit. He did accept harm reduction resources left.
--- NOTE | 2024-09-20 13:14 | P.PNIM_ITS ---
Subjective Subjective Date of Service: 09/20/24 Interval History: Offers no acute complaints, denies fever, no chills noted to have productive cough of thick yellow phlegm, no overnight acute issues. Review of Systems All other system reviewed and are negative. Physical Exam 2 Vital Signs: Vital Signs: Last Vital Signs Temp 97.7 F 09/20/24 07:10 Pulse 84 09/20/24 07:10 Resp 18 09/20/24 07:10 BP 128/72 09/20/24 07:10 Pulse Ox 96 09/20/24 07:10 O2 Del Method Room Air 09/20/24 07:10 BMI result Body Mass Index 17.2 Const: Other: General resting comfortably, in no acute distress, emaciated. Icteric sclera Neck no JVD. CVS regular rate rhythm, Respiratory lungs coarse breath sounds at bases, diminished, no respiratory distress, no crackles no wheeze Gastrointestinal abdomen soft, non tender, bowel sounds audible Extremities no edema. Neuro non focal . Skin no rash Appropriate affect Objective Data Active Medications Acetaminophen (Acetaminophen 325 Mg Tablet) 650 mg PO Q6H PRN PRN Reason: Pain, Mild 1-3,fever,headache Last Admin: 09/17/24 22:37 Dose: 650 mg Documented By: SEAN Al Hydroxide/Mg Hydroxide (Magnesium Hydrox/Alum Hydrox 30 Ml Oral.Susp) 30 ml PO Q4H PRN PRN Reason: Heartburn Albuterol Sulfate (Albuterol Sulfate 90 Mcg 8 Gm Inhaler) 1 puff INHALE QID PRN PRN Reason: Wheezing Aripiprazole (Aripiprazole 10 Mg Tablet) 10 mg PO DAILY [facility] Last Admin: 09/20/24 08:00 Dose: 10 mg Documented By: MARY Calcium Carbonate (Calcium Carbonate 750 Mg Tab.Chew) 750 mg PO Q4H PRN PRN Reason: Heartburn Docusate Sodium (Docusate Sodium 100 Mg Capsule) 100 mg PO DAILY PRN PRN Reason: Constipation Enoxaparin Sodium (Enoxaparin Sodium 40 Mg/0.4 Ml Syringe) 40 mg SUBCUT Q24H [facility] Last Admin: 09/19/24 22:13 Dose: 40 mg Documented By: JACKY Folic Acid (Folic Acid 1 Mg Tablet) 1 mg PO DAILY [facility] Last Admin: 09/20/24 07:59 Dose: 1 mg Documented By: MARY Guaifenesin (Guaifenesin 100 Mg/5 Ml 5 Ml Liquid) 5 ml PO Q4H PRN PRN Reason: Cough Last Admin: 09/19/24 02:35 Dose: 5 ml Documented By: GIOVANY Haloperidol (Haloperidol 5 Mg Tablet) 10 mg PO DAILY [facility] Last Admin: 09/20/24 07:59 Dose: 10 mg Documented By: MARY Haloperidol (Haloperidol 5 Mg Tablet) 5 mg PO DAILY [facility] Last Admin: 09/20/24 07:59 Dose: 5 mg Documented By: MARY Piperacillin Sod/Tazobactam (Sod 4.5 gm/ Sodium Chloride) 100 mls @ 200 mls/hr IV Q6H [facility] Last Infusion: 09/20/24 12:44 Dose: Infused Documented By: MARY Levetiracetam (Levetiracetam 250 Mg Tablet) 250 mg PO BID [facility] Last Admin: 09/20/24 07:59 Dose: 250 mg Documented By: MARY Magnesium Hydroxide (Milk Of Magnesia 30 Ml Oral.Susp) 30 ml PO DAILY PRN PRN Reason: Constipation Melatonin (Melatonin 3 Mg Tablet) 6 mg PO BEDTIME PRN PRN Reason: Insomnia Nicotine (Nicotine 14 Mg Patch.Td24) 14 mg TRANSDERMA DAILY [facility] Last Admin: 09/20/24 08:01 Dose: Not Given Documented By: MARY Non-Admin Reason: Patient Refused Omeprazole (Omeprazole 20 Mg Capsule.Dr) 20 mg PO DAILY PRN PRN Reason: Acid Reflux Ondansetron HCl (Ondansetron Hcl 4 Mg/2 Ml Vial) 4 mg IVPUSH Q8H PRN PRN Reason: Nausea and Vomiting Last Admin: 09/18/24 09:37 Dose: 4 mg Documented By: JULIO Oxcarbazepine (Oxcarbazepine 150 Mg Tablet) 150 mg PO BID [facility] Last Admin: 09/20/24 07:59 Dose: 150 mg Documented By: MARY Sodium Chloride (0.9 % Sodium Chloride Flush 3 Ml Syringe) 3 ml IVFLUSH QSHIFT [facility] Last Admin: 09/20/24 08:00 Dose: 3 ml Documented By: MARY Labs 09/20/24 06:06 09/20/24 06:06 Labs: Laboratory Results - last 24 hr 09/20/24 06:06 MCV 87.4 MCH 31.2 MCHC 35.7 RDW 14.2 Plt Count 641 H MPV 10.1 Absolute Nucleated RBC 0.000 Nucleated RBC % (auto) 0.0 Anion Gap 11 L Estim Creat Clear Calc 97.4 Estimated GFR > 60 Random Glucose 88 Calcium 7.9 L Total Bilirubin 1.9 H Direct Bilirubin 1.4 H AST 39 H ALT 21 Alkaline Phosphatase 149 H Total Protein 5.2 L Albumin 2.1 L Assessment and Plan (1) Hyponatremia: Status: Acute (2) Aspiration pneumonia: Status: Acute (3) Jaundice: Status: Acute (4) Hepatic lesion: Status: Acute Plan 59-year-old male with a history of schizophrenia, hepatitis B, seizures (on Dilantin and Oxcarbazepine), and polysubstance use (reports marijuana use only, denies alcohol use) presenting with new-onset jaundice and pneumonia. Painless Jaundice etiology not known, could be med related on Dilantin versus due to pneumonia viral hep serology nonreactive Total bili improved from 3.8-3.0-2.4- 1.9, direct bili 3 to 2.4-1.4, stable AST and ALT, Abdominal ultrasound showed no biliary ductal dilatation, mild hepatomegaly, probable left hepatic lobe hemangioma CT abdomen and pelvis showed mild diffuse anasarca, gallbladder is not seen, no liver abnormality or biliary dilatation Legionella/strep pneumo antigen , cmv and EBV serologies pending Seen by GI Dr. Herr she agrees with IV antibiotic Pneumonia, concern of aspiration given n/v s/p iv Ceftriaxone and azithro in ED on iv Zosyn started on 09/17 for aspiration pneumonia/ strep pneumo and Legionella AG pending WBC remains elevated, gradually trending down, blood cultures not obtained Clinically improving add scheduled cough medication Chronic Hyponatremia 127, improved to 137 Serum osmolality low 271 Treated with IV fluid Mild metabolic acidosis, likely starvation related Normal renal function and blood sugar, no diarrhea Bicarb normalized Tobacco use disorder counseling done, nicotine patch 14 mg transdermal daily Seizure disorder On oxcarbazepine Phenytoin level 1.9/likely not taking it at home, will DC Dilantin started on Keppra, to 50 mg b.i.d. continue Seizure precautions h/o shcizophrenia On Haldol, and Abilify Cocaine use U tox positive for cocaine, addiction consult [id number]-ic-kakkwa protein calorie malnutrition Continue supplements DVT prophylaxis: Lovenox Quality Stroke Does the patient have a stroke diagnosis?: No VTE Prior VTE?: No VTE Risk Level:: Medical - moderate - high VTE Device Contraindication: Treatment Not Indicated VTE Drug Contraindication: N/A - Med Ordered
[2024-09-20 14:00] VITALS: BP 124/64; PULSE 78; RESP 18; TEMP 36.7; O2SAT 96
[2024-09-20] MEDS: guaiFENesin 200 MG/10 ML 10 ML LIQUID PO ×2 (15:15→21:57)
[2024-09-20] MEDS: Enoxaparin Sodium 40 MG/0.4 ML SYRINGE SUBCUT (21:57)
[2024-09-20 22:00] VITALS: BP 147/71; PULSE 76; RESP 16; TEMP 36.3; O2SAT 98
[2024-09-21 05:11] VITALS: BP 142/81; PULSE 73; RESP 16; TEMP 36.4; O2SAT 94
[2024-09-21] MEDS: Piperacillin Sodium/Tazobactam 4.5 GM in 0.9 % Sodium Chloride 100 ML IV ×2 (05:44→11:32)
[2024-09-21 07:44] VITALS: BP 115/67; PULSE 79; RESP 18; TEMP 36.6; O2SAT 96
[2024-09-21] MEDS: 0.9 % Sodium Chloride Flush 3 ML SYRINGE IVFLUSH ×3 (08:38→20:46)
[2024-09-21] MEDS: levETIRAcetam 250 MG TABLET PO ×2 (08:39→20:46)
[2024-09-21] MEDS: OXcarbazepine 150 MG TABLET PO ×2 (08:39→20:46)
[2024-09-21] MEDS: Nicotine 14 MG PATCH.TD24 TRANSDERMA (08:39)
[2024-09-21] MEDS: guaiFENesin 200 MG/10 ML 10 ML LIQUID PO ×2 (08:39→15:32)
[2024-09-21] MEDS: HaloperidoL 5 MG TABLET PO (08:39)
[2024-09-21] MEDS: HaloperidoL 5 MG TABLET 10 MG PO (08:39)
[2024-09-21] MEDS: ARIPiprazole 10 MG TABLET PO (08:40)
[2024-09-21] MEDS: Folic Acid 1 MG TABLET PO (08:40)
[2024-09-21 10:31] LABS: Hematocrit 35.9 % (42.0-52.0); Hemoglobin 12.3 g/dl (14.0-18.0); Mean Corpuscular HGB Conc 34.3 g/dl (31.0-36.0); Mean Corpuscular Hemoglobin 30.6 pg (27.0-33.0); Mean Corpuscular Volume 89.3 fL (80.0-98.0); Mean Platelet Volume 9.7 fL (9.4-12.4); Platelet Count 745 X10*3/uL (160-400); Red Blood Count 4.02 X10*6/uL (4.60-5.80); Red Cell Distribution Width 14.4 % (11.0-16.0); White Blood Count 20.2 X10*3/uL (4.8-10.8)
[2024-09-21 10:50] VITALS: BMI 17.2
--- NOTE | 2024-09-21 10:59 | MHC.CLN ---
F/U REGULAR DIET. ADDED ENSURE TID TO PROMOTE NUTRITIONAL INTAKE. SUPPLEMENT PROVIDES 1050 KCALS, 60 G PROTEIN. CURRENT PO VARIABLE 25-100%. QUALIFIES SEVERELY MALNOURISHED IN THE CONTEXT OF CHRONIC ILLNESS. CONTINUE CURRENT DIET AND SUPPLEMENT. ENCOURAGE PO INTAKE ABLE. SEE CLINICAL NUTRITION ASSESSMENT 09/21/24.
[2024-09-21] MEDS: levoFLOXacin 750 MG TABLET PO (12:46)
[2024-09-21 13:08] LABS: Alanine Aminotransferase 33 U/L (0-40); Albumin Level 2.6 g/dL (3.5-5.0); Aspartate Amino Transferase 44 U/L (5-37); Bilirubin Direct 1.4 mg/dL (0.0-0.5); Total Protein 6.5 g/dL (6.5-8.0)
[2024-09-21 13:47] LABS: Alkaline Phosphatase 188 U/L (39-117)
[2024-09-21 14:38] LABS: CMV DNA PCR Qn Source BLOOD; CMV DNA Qn PCR NOT DETECTED Log IU/mL (NOT DETECTED); CMV DNA Qn Real Time PCR NOT DETECTED (NOT DETECTED)
--- NOTE | 2024-09-21 15:18 | P.PNIM_ITS ---
Subjective Subjective Date of Service: 09/21/24 Interval History: Offers no acute complaints, noted to have congested cough, no fevers, no chills, no acute events overnight Wishes to be discharged home Review of Systems All other system reviewed and are negative Physical Exam 2 Vital Signs: Vital Signs: Last Vital Signs Temp 97.9 F 09/21/24 07:44 Pulse 79 09/21/24 07:44 Resp 18 09/21/24 07:44 BP 115/67 09/21/24 07:44 Pulse Ox 96 09/21/24 07:44 O2 Del Method Room Air 09/21/24 07:44 BMI result Body Mass Index 17.2 Const: Other: General resting comfortably, in no acute distress, emaciated. Icteric sclera Left pupil greater than right Neck no JVD. CVS regular rate rhythm, Respiratory lungs coarse breath sounds at bases, diminished, no respiratory distress, no crackles no wheeze Gastrointestinal abdomen soft, non tender, bowel sounds audible Extremities no edema. Neuro non focal . Skin no rash Appropriate affect Objective Data Active Medications Acetaminophen (Acetaminophen 325 Mg Tablet) 650 mg PO Q6H PRN PRN Reason: Pain, Mild 1-3,fever,headache Last Admin: 09/17/24 22:37 Dose: 650 mg Documented By: SEAN Al Hydroxide/Mg Hydroxide (Magnesium Hydrox/Alum Hydrox 30 Ml Oral.Susp) 30 ml PO Q4H PRN PRN Reason: Heartburn Albuterol Sulfate (Albuterol Sulfate 90 Mcg 8 Gm Inhaler) 1 puff INHALE QID PRN PRN Reason: Wheezing Aripiprazole (Aripiprazole 10 Mg Tablet) 10 mg PO DAILY COUNT [facility] Last Admin: 09/21/24 08:40 Dose: 10 mg Documented By: BULMARO Calcium Carbonate (Calcium Carbonate 750 Mg Tab.Chew) 750 mg PO Q4H PRN PRN Reason: Heartburn Docusate Sodium (Docusate Sodium 100 Mg Capsule) 100 mg PO DAILY PRN PRN Reason: Constipation Enoxaparin Sodium (Enoxaparin Sodium 40 Mg/0.4 Ml Syringe) 40 mg SUBCUT Q24H COUNT [facility]CLUD[facility] Last Admin: 09/20/24 21:57 Dose: 40 mg Documented By: JACKY Folic Acid (Folic Acid 1 Mg Tablet) 1 mg PO DAILY COUNT [facility] Last Admin: 09/21/24 08:40 Dose: 1 mg Documented By: BULMARO Guaifenesin (Guaifenesin 200 Mg/10 Ml 10 Ml Liquid) 10 ml PO TID COUNT [facility]CLUD[facility] Last Admin: 09/21/24 08:39 Dose: 10 ml Documented By: BULMARO Haloperidol (Haloperidol 5 Mg Tablet) 10 mg PO DAILY COUNT [facility] Last Admin: 09/21/24 08:39 Dose: 10 mg Documented By: BULMARO Haloperidol (Haloperidol 5 Mg Tablet) 5 mg PO DAILY COUNT [facility] Last Admin: 09/21/24 08:39 Dose: 5 mg Documented By: BULMARO Levetiracetam (Levetiracetam 250 Mg Tablet) 250 mg PO BID COUNT [facility] Last Admin: 09/21/24 08:39 Dose: 250 mg Documented By: BULMARO Levofloxacin (Levofloxacin 750 Mg Tablet) 750 mg PO Q24H COUNT [facility]CLUD[facility] Last Admin: 09/21/24 12:46 Dose: 750 mg Documented By: BULMARO Magnesium Hydroxide (Milk Of Magnesia 30 Ml Oral.Susp) 30 ml PO DAILY PRN PRN Reason: Constipation Melatonin (Melatonin 3 Mg Tablet) 6 mg PO BEDTIME PRN PRN Reason: Insomnia Nicotine (Nicotine 14 Mg Patch.Td24) 14 mg TRANSDERMA DAILY COUNT [facility]CLUD[facility] Last Admin: 09/21/24 08:39 Dose: 14 mg Documented By: BULMARO Omeprazole (Omeprazole 20 Mg Capsule.Dr) 20 mg PO DAILY PRN PRN Reason: Acid Reflux Ondansetron HCl (Ondansetron Hcl 4 Mg/2 Ml Vial) 4 mg IVPUSH Q8H PRN PRN Reason: Nausea and Vomiting Last Admin: 09/18/24 09:37 Dose: 4 mg Documented By: JULIO Oxcarbazepine (Oxcarbazepine 150 Mg Tablet) 150 mg PO BID COUNT [facility] Last Admin: 09/21/24 08:39 Dose: 150 mg Documented By: BULMARO Sodium Chloride (0.9 % Sodium Chloride Flush 3 Ml Syringe) 3 ml IVFLUSH QSHIFT COUNT [facility]CLUD[facility] Last Admin: 09/21/24 08:38 Dose: 3 ml Documented By: BULMARO Labs 09/21/24 09:29 09/20/24 06:06 Labs: Laboratory Results - last 24 hr 09/19/24 09/21/24 06:22 09:29 MCV 89.3 MCH 30.6 MCHC 34.3 RDW 14.4 Plt Count 745 H MPV 9.7 Absolute Nucleated RBC 0.000 Nucleated RBC % (auto) 0.0 Total Bilirubin 2.0 H Direct Bilirubin 1.4 H AST 44 H ALT 33 Alkaline Phosphatase 188 H Total Protein 6.5 Albumin 2.6 L CMV Specimen Source BLOOD CMV Qnt PCR IU/mL NOT DETECTED CMV Qnt PCR log IU/mL NOT DETECTED Assessment and Plan (1) Hyponatremia: Status: Acute (2) Aspiration pneumonia: Status: Acute (3) Hyponatremia: Status: Acute (4) Jaundice: Status: Acute Plan 59-year-old male with a history of schizophrenia, hepatitis B, seizures (on Dilantin and Oxcarbazepine), and polysubstance use (reports marijuana use only, denies alcohol use) presenting with new-onset jaundice and pneumonia. Painless Jaundice etiology not known, could be med related on Dilantin versus due to pneumonia viral hep serology nonreactive Total bili improved from 3.8-3.0-2.4- 1.9, direct bili 3 to 2.4-1.4, stable AST and ALT, Abdominal ultrasound showed no biliary ductal dilatation, mild hepatomegaly, probable left hepatic lobe hemangioma CT abdomen and pelvis showed mild diffuse anasarca, gallbladder is not seen, no liver abnormality or biliary dilatation Legionella/strep pneumo antigen , and EBV serologies pending Seen by GI Dr. Herr she agrees with IV antibiotic Pneumonia, concern of aspiration given n/v on iv Zosyn started on 09/17 for aspiration pneumonia/ strep pneumo and Legionella AG pending, will DC IV Zosyn and place on Levaquin 750 Q 24 hours WBC remains elevated, blood cultures not obtained Clinically improving , continue cough medication Due to persistent leukocytosis will obtain CT chest to rule out obstructive pneumonia/tumor Chronic Hyponatremia 127, improved to 137 Serum osmolality low 271 Treated with IV fluid Mild metabolic acidosis, likely starvation related Normal renal function and blood sugar, no diarrhea Bicarb normalized Tobacco use disorder counseling done, nicotine patch 14 mg transdermal daily Seizure disorder On oxcarbazepine Phenytoin level 1.9/likely not taking it at home, will DC Dilantin started on Keppra 250 mg b.i.d. continue Seizure precautions h/o shcizophrenia On Haldol, and Abilify Cocaine use U tox positive for cocaine, seen by recovery team patient denied any use and declined visit, he did accept harm reduction resources given [id number] protein calorie malnutrition Continue supplements DVT prophylaxis: Lovenox Quality Stroke Does the patient have a stroke diagnosis?: No VTE Prior VTE?: No VTE Risk Level:: Medical - moderate - high VTE Device Contraindication: Treatment Not Indicated VTE Drug Contraindication: N/A - Med Ordered
[2024-09-21 15:20] VITALS: BP 139/85; PULSE 89; RESP 17; TEMP 36.3; O2SAT 96
[2024-09-21 19:17] VITALS: BP 123/67; PULSE 92; RESP 18; TEMP 37.1; O2SAT 97
[2024-09-21] MEDS: iohexoL 350 MG/ML 100 ML INFUS..BTL 65 ML IV (19:50)
--- NOTE | 2024-09-21 20:59 | PC.NURSE ---
Result of CT of chest reported to .
[2024-09-21] MEDS: Enoxaparin Sodium 40 MG/0.4 ML SYRINGE SUBCUT (22:28)
[2024-09-22 03:05] VITALS: BP 124/77; PULSE 86; RESP 20; TEMP 36.6; O2SAT 97
[2024-09-22 06:09] LABS: Strep Pneumo Ag urine Not Detected (Not Detected)
[2024-09-22 06:30] LABS: Hematocrit 32.1 % (42.0-52.0); Hemoglobin 11.2 g/dl (14.0-18.0); Mean Corpuscular HGB Conc 34.9 g/dl (31.0-36.0); Mean Corpuscular Hemoglobin 30.5 pg (27.0-33.0); Mean Corpuscular Volume 87.5 fL (80.0-98.0); Mean Platelet Volume 9.1 fL (9.4-12.4); Platelet Count 821 X10*3/uL (160-400); Red Blood Count 3.67 X10*6/uL (4.60-5.80); Red Cell Distribution Width 14.5 % (11.0-16.0)
[2024-09-22 06:49] LABS: Alanine Aminotransferase 33 U/L (0-40); Albumin Level 2.5 g/dL (3.5-5.0); Alkaline Phosphatase 178 U/L (39-117); Anion Gap 13 (12-20); Aspartate Amino Transferase 42 U/L (5-37); Bilirubin Direct 1.3 mg/dL (0.0-0.5); Bilirubin Total 1.7 mg/dL (0.0-1.0); Blood Urea Nitrogen 13 mg/dL (9-16); Calcium 8.6 mg/dL (8.4-10.2); Carbon Dioxide 24 mmol/L (22-29); Chloride 103 mmol/L (96-108); Estimated Glomerular Filt Rate > 60; Glucose Random 91 mg/dL (60-115); Potassium 4.5 mmol/L (3.3-5.1); Sodium 135 mmol/L (135-145); Total Protein 6.3 g/dL (6.5-8.0)
[2024-09-22 07:08] VITALS: BP 101/63; PULSE 94; RESP 18; TEMP 36.4; O2SAT 96
[2024-09-22 07:27] LABS: Legionella Ag Urine Not Detected (Not Detected)
[2024-09-22 07:32] LABS: Glucose, Whole Blood 145 mg/dL (60-115)
[2024-09-22] MEDS: 0.9 % Sodium Chloride Flush 3 ML SYRINGE IVFLUSH (09:15)
[2024-09-22] MEDS: levETIRAcetam 250 MG TABLET PO (09:16)
[2024-09-22] MEDS: OXcarbazepine 150 MG TABLET PO (09:16)
[2024-09-22] MEDS: HaloperidoL 5 MG TABLET PO (09:16)
[2024-09-22] MEDS: Folic Acid 1 MG TABLET PO (09:16)
[2024-09-22] MEDS: ARIPiprazole 10 MG TABLET PO (09:16)
[2024-09-22] MEDS: HaloperidoL 5 MG TABLET 10 MG PO (09:16)
--- NOTE | 2024-09-22 11:03 | PM.CNPUL ---
History of Present Illness History of Present Illness Consult date: 09/22/24 Chief complaint: Pneumonia, abnormal CT chest Narrative: 59-year-old gentleman 30+ pack-year smoker with underlying history of schizophrenia, hepatitis-B, seizure disorder, and polysubstance abuse admitted on 09/17/2024 with nausea, diarrhea, and abdominal pain. On ER evaluation patient with leukocytosis elevated bilirubin, jaundice, and CT chest showing left upper lobe consolidation with possible early abscess formation. Patient started on empiric antibiotics and admitted to medicine service. Review of Systems Constitutional: Constitutional: Denies daytime sleepiness, Denies excessive sweating, Denies fatigue, Denies fever(s), Denies lethargy, Denies malaise, Denies night sweats, Denies snoring and Denies weight loss Eyes: Eyes: Denies blurry vision and Denies itchy eyes ENT: Denies nasal congestion, Denies post nasal drip, Denies sinus pain, Denies sinus pressure and Denies other ( Thrush) Cardiovascular: Cardiovascular: Denies chest pain, Denies pedal edema, Denies dyspnea, Denies orthopnea and Denies paroxysmal nocturnal dyspnea Respiratory: Respiratory: Denies cough, Denies hemoptysis, Denies excessive phlegm production, Denies dyspnea, Denies snoring and Denies wheezing Gastrointestinal: Gastrointestinal: Denies abdominal pain and Denies heartburn Musculoskeletal: Musculoskeletal: Denies myalgias, Denies arthralgias and Denies joint swelling Integumentary/Breasts: Skin/Breast: Denies rash Neurologic: Denies memory loss and Denies seizure-like activity Psychiatric: Psychiatric: Denies abnormal sleep pattern, Denies anxiety and Denies memory loss Endocrine: Endocrine: Denies excessive sweating, Denies fatigue and Denies heat intolerance Hematologic/Lymphatic: Hematologic/Lymphatic: Denies easy bruising Allergic/Immunologic: Allergic/Immunologic: Denies itchy eyes, Denies seasonal rhinorrhea and Denies wheezing PMFSH Past Medical History Medical History Noncompliance with medication regimen Generalized seizure Polysubstance use disorder Social History Social History Housing: Other Housing Other:: [facility]. Unable to assess alcohol history related to: Refusing to respond Alcohol intake: never Patient Tobacco Use Status: Current everyday Tobacco user Tobacco use type: Cigarette Cigarettes Per Day: 5 Substance Use Type: Marijuana Advance Directives Date on File: 08/24/24 service: No Meds Allergies Allergy/AdvReac Type Severity Reaction Status Date / Time No Known Allergies Allergy Mild NOT Verified 09/17/24 11:32 APPLICABLE Active Medications: Current Medications Acetaminophen (Acetaminophen 325 Mg Tablet) 650 mg PO Q6H PRN PRN Reason: Pain, Mild 1-3,fever,headache Last Admin: 09/17/24 22:37 Dose: 650 mg Al Hydroxide/Mg Hydroxide (Magnesium Hydrox/Alum Hydrox 30 Ml Oral.Susp) 30 ml PO Q4H PRN PRN Reason: Heartburn Albuterol Sulfate (Albuterol Sulfate 90 Mcg 8 Gm Inhaler) 1 puff INHALE QID PRN PRN Reason: Wheezing Aripiprazole (Aripiprazole 10 Mg Tablet) 10 mg PO DAILY [facility] Last Admin: 09/22/24 09:16 Dose: 10 mg Calcium Carbonate (Calcium Carbonate 750 Mg Tab.Chew) 750 mg PO Q4H PRN PRN Reason: Heartburn Docusate Sodium (Docusate Sodium 100 Mg Capsule) 100 mg PO DAILY PRN PRN Reason: Constipation Enoxaparin Sodium (Enoxaparin Sodium 40 Mg/0.4 Ml Syringe) 40 mg SUBCUT Q24H [facility] Last Admin: 09/21/24 22:28 Dose: 40 mg Folic Acid (Folic Acid 1 Mg Tablet) 1 mg PO DAILY [facility] Last Admin: 09/22/24 09:16 Dose: 1 mg Guaifenesin (Guaifenesin 200 Mg/10 Ml 10 Ml Liquid) 10 ml PO TID [facility] Last Admin: 09/22/24 09:22 Dose: Not Given Haloperidol (Haloperidol 5 Mg Tablet) 10 mg PO DAILY [facility] Last Admin: 09/22/24 09:16 Dose: 10 mg Haloperidol (Haloperidol 5 Mg Tablet) 5 mg PO DAILY [facility] Last Admin: 09/22/24 09:16 Dose: 5 mg Levetiracetam (Levetiracetam 250 Mg Tablet) 250 mg PO BID [facility] Last Admin: 09/22/24 09:16 Dose: 250 mg Levofloxacin (Levofloxacin 750 Mg Tablet) 750 mg PO Q24H [facility] Last Admin: 09/21/24 12:46 Dose: 750 mg Magnesium Hydroxide (Milk Of Magnesia 30 Ml Oral.Susp) 30 ml PO DAILY PRN PRN Reason: Constipation Melatonin (Melatonin 3 Mg Tablet) 6 mg PO BEDTIME PRN PRN Reason: Insomnia Nicotine (Nicotine 14 Mg Patch.Td24) 14 mg TRANSDERMA DAILY [facility] Last Admin: 09/22/24 09:16 Dose: Not Given Omeprazole (Omeprazole 20 Mg Capsule.Dr) 20 mg PO DAILY PRN PRN Reason: Acid Reflux Ondansetron HCl (Ondansetron Hcl 4 Mg/2 Ml Vial) 4 mg IVPUSH Q8H PRN PRN Reason: Nausea and Vomiting Last Admin: 09/18/24 09:37 Dose: 4 mg Oxcarbazepine (Oxcarbazepine 150 Mg Tablet) 150 mg PO BID [facility] Last Admin: 09/22/24 09:16 Dose: 150 mg Sodium Chloride (0.9 % Sodium Chloride Flush 3 Ml Syringe) 3 ml IVFLUSH QSHIFT [facility] Last Admin: 09/22/24 09:15 Dose: 3 ml Home Medications ?Medication ?Instructions ?Recorded ?Confirmed ?Last Taken ?Type Colace 100 mg PO DAILY PRN Constipation 08/16/22 09/18/24 09/17/24 09:00 History folic acid 1 mg tablet 1 tab PO DAILY 08/16/22 09/18/24 09/17/24 09:00 History haloperidol 10 mg tablet 10 mg PO DAILY 08/16/22 09/18/24 09/17/24 09:00 History haloperidol 5 mg tablet 5 mg PO DAILY 08/16/22 09/18/24 09/17/24 09:00 History omeprazole 20 mg capsule,delayed 1 cap PO DAILY PRN Acid Reflux 08/16/22 09/18/24 09/17/24 09:00 History release oxcarbazepine 150 mg tablet 150 mg PO BID 08/16/22 09/18/24 09/17/24 09:00 History phenytoin sodium extended 100 mg 500 mg PO DAILY 08/16/22 09/18/24 09/17/24 09:00 History capsule acetaminophen 325 mg tablet 650 mg PO Q4H PRN Pain 09/18/24 09/18/24 09/17/24 09:00 History albuterol sulfate 90 mcg/actuation 1 inh inhalation QID PRN Wheezing 09/18/24 09/18/24 09/17/24 09:00 History aerosol inhaler aripiprazole 10 mg tablet 10 mg PO DAILY 09/18/24 09/18/24 09/17/24 09:00 History Physical Exam Vital Signs: Vital Signs: Last Vital Signs Temp 97.6 F 09/22/24 07:08 Pulse 94 09/22/24 07:08 Resp 18 09/22/24 07:08 BP 101/63 09/22/24 07:08 Pulse Ox 96 09/22/24 07:08 O2 Del Method Room Air 09/22/24 07:08 BMI result Body Mass Index 17.2 Const: General: lethargic (Arousable) Nutritional Appearance: not obese Orientation/consciousness: lethargic (Arousable) and Other orientation findings ( oriented) HEENT: Head: Yes atraumatic Eyes: General: appearance normal, both eyes and all related structures Sclerae: sclerae normal EOM: EOMs intact bilaterally Neck: Neck: Yes supple Lymphatic: no lymphadenopathy noted Resp: Effort & Inspection: normal respiratory effort and no use of accessory muscles Auscultation: clear to auscultation bilaterally Cardio: Rate: regular rate Rhythm: regular rhythm Heart sounds: no gallops, no murmurs and no rubs Skin: General skin exam: other ( warm) Extrem: General: No clubbing, No cyanosis and No edema Results Laboratory Findings 09/22/24 06:21 09/22/24 06:21 ABG, PT/INR, D-dimer: PT/INR, D-dimer PT 14.3 SEC (10.9-12.4) H 09/17/24 14:55 INR 1.2 (0.9-1.1) H 09/17/24 14:55 Abnormal lab findings: Abnormal Labs 09/17/24 09/17/24 09/17/24 12:03 14:55 15:29 WBC 20.2 H RBC 3.54 L D Hgb 11.0 L D Hct 30.1 L D MCHC 36.5 H Plt Count 540 H D MPV Immature Gran % (Auto) 4.3 H Neut % (Auto) 81.2 H Lymph % (Auto) 7.2 L [place] # (Auto) 1.4 H Abs Immat Gran (auto) 0.87 H Absolute Neuts (auto) 16.4 H PT 14.3 H INR 1.2 H Sodium 127 L Carbon Dioxide 20 L Anion Gap 11 L BUN Creatinine POC Glucose Random Glucose 121 H Osmolality Calcium 7.9 L D Total Bilirubin 3.8 H Direct Bilirubin 3.0 H AST 48 H Alkaline Phosphatase 193 H Total Protein 5.8 L Albumin 2.4 L Ur Specific [place] >= 1.030 H Urine Glucose (UA) 100 H Phenytoin Urine Cocaine Screen POSITIVE H EBV Nuclear Antigen Ab 09/17/24 09/18/24 09/19/24 23:25 04:36 06:22 WBC RBC Hgb Hct MCHC Plt Count MPV Immature Gran % (Auto) Neut % (Auto) Lymph % (Auto) [place] # (Auto) Abs Immat Gran (auto) Absolute Neuts (auto) PT INR Sodium 131 L 134 L Carbon Dioxide 18 L 21 L Anion Gap BUN 8 L Creatinine 0.46 L POC Glucose Random Glucose Osmolality 271 L Calcium 7.9 L 7.8 L Total Bilirubin 3.0 H 2.4 H Direct Bilirubin 2.4 H 1.5 H AST 44 H 39 H Alkaline Phosphatase 203 H 171 H Total Protein 5.5 L 5.3 L Albumin 2.2 L 2.0 L Ur Specific [place] Urine Glucose (UA) Phenytoin 1.9 L* Urine Cocaine Screen EBV Nuclear Antigen Ab 09/19/24 09/20/24 09/21/24 06:23 06:06 09:29 WBC 20.8 H 19.3 H 20.2 H RBC 3.52 L 3.33 L 4.02 L D Hgb 10.8 L 10.4 L 12.3 L Hct 30.7 L 29.1 L 35.9 L D MCHC Plt Count 583 H 641 H 745 H MPV Immature Gran % (Auto) Neut % (Auto) Lymph % (Auto) [place] # (Auto) Abs Immat Gran (auto) Absolute Neuts (auto) PT INR Sodium Carbon Dioxide Anion Gap 11 L BUN 8 L Creatinine POC Glucose Random Glucose Osmolality Calcium 7.9 L Total Bilirubin 1.9 H 2.0 H Direct Bilirubin 1.4 H 1.4 H AST 39 H 44 H Alkaline Phosphatase 149 H 188 H Total Protein 5.2 L Albumin 2.1 L 2.6 L Ur Specific [place] Urine Glucose (UA) Phenytoin Urine Cocaine Screen EBV Nuclear Antigen Ab 77.70 H 09/22/24 09/22/24 06:21 07:26 WBC 22.0 H RBC 3.67 L Hgb 11.2 L Hct 32.1 L MCHC Plt Count 821 H MPV 9.1 L Immature Gran % (Auto) Neut % (Auto) Lymph % (Auto) [place] # (Auto) Abs Immat Gran (auto) Absolute Neuts (auto) PT INR Sodium Carbon Dioxide Anion Gap BUN Creatinine POC Glucose 145 H Random Glucose Osmolality Calcium Total Bilirubin 1.7 H Direct Bilirubin 1.3 H AST 42 H Alkaline Phosphatase 178 H Total Protein 6.3 L Albumin 2.5 L Ur Specific [place] Urine Glucose (UA) Phenytoin Urine Cocaine Screen EBV Nuclear Antigen Ab Assessment and Plan (1) Pneumonia: Status: Acute (2) Abnormal CT scan, chest: Status: Acute (3) Pulmonary abscess: Status: Acute Plan Impression: 59-year-old gentleman admitted with what now with possible early abscess formation, though malignant process is not completely ruled out. Recommendation: Patient was require treatment for pulmonary abscess with four-week of Augmentin, CT chest thereafter, and follow-up with pulmonary office for subsequent evaluation. Procedures Date of Service Date of Service: 09/22/24
--- NOTE | 2024-09-22 11:23 | P.CDIM_ITS ---
PROVIDER RESPONSE TEXT: To clarify, the appropriate diagnosis supported by the clinical indicators: Severe protein calorie malnutrition QUERY TEXT: PHYSICIAN'S DOCUMENTATION REQUEST Date of Query: 09/22/2024 08:47 AM EST Patient Name: Abhijit Wright Admit Date: 09/18/2024 Dear Ruben Bhakta MD, A review of the medical record indicates additional documentation may be needed. Please review below and update the documentation accordingly. Documentation includes the diagnosis of malnutrition. Additional clinical indicators from the record include: Per Clinical Nutrition Assessment 09/21/24: severe depletion of body fat and muscle mass noted regular diet, added Ensure TID to promote nutritional intake qualifies as severely malnourished in the context of chronic illness Per Hospitalist Progress note 09/21/24: emaciated moderate to severe protein calorie malnutrition If possible, please provide additional specificity regarding the severity of the malnutrition using t he above information: Moderate protein calorie malnutrition Severe protein calorie malnutrition Other (explain) Clinically unable to determine (explain) Thank you, Di Singh RN Use of terms such as suspected, likely, concern for, or probable (associated with a specific diagnosi s that is being evaluated, monitored, or treated as if it exists) are acceptable and can be coded in the inpatient se tting, when documented at the time of discharge. Please use your independent medical judgment in providing your response. THIS QUERY IS PART OF THE PERMANENT MEDICAL RECORD
--- NOTE | 2024-09-22 11:24 | P.DS_ITS ---
DS: Providers Provider Date of Service: 09/22/24 Date of admission: 09/17/24 22:05 Date of discharge: 09/22/24 Primary care physician: Kesha Pedraza Consults: 09/18/24 14:16 Consult to Gastroenterology Routine Consulting Provider: Fadumo Herr Reason for consultation: elevated lfts Has provider been notified: No 09/19/24 09:34 Addiction Medicine Routine Consulting Provider: Addiction Covering Reason for consultation: cocaine use Has provider been notified: No 09/22/24 07:42 Consult to Pulmonology Routine Consulting Provider: [facility] Pulmonology [facility] Reason for consultation: left upper lobe mass Has provider been notified: No DS: Diagnosis Discharge Diagnosis (1) Pneumonia: Status: Acute (2) Abnormal CT scan, chest: Status: Acute (3) Pulmonary abscess: Status: Acute DS: Summary Hospital Course Hospital Course: History of presenting illness: Date of Service: 09/17/24 Chief Complaint: Nausea, vomitting and jaundice The patient is a 59-year-old male with a history of schizophrenia, hepatitis B, seizures (on Dilantin and Oxcarbazepine), and polysubstance use (reports marijuana use only, denies alcohol use).He resides in a halfway, where it has been reported that he has been experiencing abdominal pain, nausea, and diarrhea for several days while also refusing care from [facility] and being non-compliant with medications. ED Findings: * LFTs: Elevated, AST 48, ALT 39, and Tbili 3.8, direct bili 3, with new-onset jaundice. * Ultrasound: Mild hepatomegaly and hemangioma of the left hepatic lobe. * CT Abdomen/Pelvis: No gross liver or biliary abnormalities, but left upper lo be pneumonia was noted. * WBC: 20K. * Sodiume 127 Treatment in ED: Ceftriaxone and Azithromycin were started for pneumonia. Hospital course: 59-year-old male with a history of schizophrenia, hepatitis B, seizures (on Dilantin and Oxcarbazepine), and polysubstance use (reports marijuana use only, denies alcohol use) presenting with new-onset jaundice and pneumonia. Painless Jaundice etiology not known, could be med related on Dilantin versus due to infection, viral hep serology nonreactive, Total bili improved from 3.8-3.0-2.4- 1.9, direct bili 3 to 2.4-1.4, stable AST and ALT, Abdominal ultrasound showed no biliary ductal dilatation, mild hepatomegaly, probable left hepatic lobe hemangioma,CT abdomen and pelvis showed mild diffuse anasarca, gallbladder not seen, no liver abnormality or biliary dilatation, Legionella/strep pneumo antigen , and CMV serologies negative , EBV antigen antibody positive suggestive of history of infection, seen by smog technician Dr. Herr she agrees with treatment for infection and no further intervention, since jaundice has improved . Left upper lobe Pneumonia/pulmonary abscess, although malignant process not completely ruled out, patient initially treated with IV Zosyn, cough medication, he clinically improved, WBC remains elevated , therefore CT chest with and without contrast obtained that showed left upper lung mass likely pna with early abscess, can not rule out malignancy , therefore seen by child life assistant they recommend 4 weeks of by mouth Augmentin and outpatient follow-up with pulmonology for repeat CT chest for follow-up, strep pneumo ,Legionella AG , CMV ag/ab negative, EBV Ag/antibody positive, he is hemodynamically stable and discharged home on Augmentin 875 mg b.i.d. for 28 days. Chronic Hyponatremia 127, seen by Nephrology, noted to have high urine concentration suggestive of hypovolemia vs due to inappropriate ADH release, received IV fluids, sodium normalized. Mild metabolic acidosis, likely starvation related, Normal renal function and blood sugar, no diarrhea noted,Bicarb normalized. Tobacco use disorder counseling done, nicotine patch 14 mg transdermal daily recommended. Seizure disorder On oxcarbazepine, Phenytoin level 1.9/likely not taking it at home, Dilantin stopped due to hepatotoxicity ,started on Keppra 250 mg b.i.d. continue Seizure precautions and outpatient PCP follow-up h/o shcizophrenia continue Haldol, and Abilify Cocaine use disorder, U tox positive for cocaine, seen by recovery team, patient denied any use and declined visit, he did accept harm reduction resources given. Severe protein calorie malnutrition, Continue ensure supplements 3 times a day. Time Attestation Discharge Coordination Time (in mins): 40 Quality: Safe Use of Opioids Does Pt have an Active Cancer Diagnosis on the Problem List?: No Quality: Stroke Does the patient have a stroke diagnosis?: No Physical Exam Vital Signs: Vital Signs: Last Vital Signs Temp 97.6 F 09/22/24 07:08 Pulse 94 09/22/24 07:08 Resp 18 09/22/24 07:08 BP 101/63 09/22/24 07:08 Pulse Ox 96 09/22/24 07:08 O2 Del Method Room Air 09/22/24 07:08 BMI result Body Mass Index 17.2 Const: Other: General resting comfortably, in no acute distress, emaciated. anicteric sclera Left pupil greater than right Neck no JVD. CVS regular rate rhythm, Respiratory lungs clear, diminished, no respiratory distress, no crackles no wheeze Gastrointestinal abdomen soft, non tender, bowel sounds audible. Extremities no edema. Neuro non focal . Skin no rash Appropriate affect DS: Data Data Completed and Pending Labs on day of discharge: Laboratory Results - last 24 hr 09/18/24 09/18/24 09/19/24 15:36 15:37 06:22 WBC RBC Hgb Hct MCV MCH MCHC RDW Plt Count MPV Absolute Nucleated RBC Nucleated RBC % (auto) Sodium Potassium Chloride Carbon Dioxide Anion Gap BUN Creatinine Estim Creat Clear Calc Estimated GFR POC Glucose Random Glucose Calcium Total Bilirubin Direct Bilirubin AST ALT Alkaline Phosphatase Total Protein Albumin CMV Specimen Source BLOOD CMV Qnt PCR IU/mL NOT DETECTED CMV Qnt PCR log IU/mL NOT DETECTED EBV Nuclear Antigen Ab Ur L.pneumophila Ag Not Detected Ur Strep pneumoniae Ag Not Detected 09/19/24 09/21/24 09/22/24 06:23 09:29 06:21 WBC 22.0 H RBC 3.67 L Hgb 11.2 L Hct 32.1 L MCV 87.5 MCH 30.5 MCHC 34.9 RDW 14.5 Plt Count 821 H MPV 9.1 L Absolute Nucleated RBC 0.000 Nucleated RBC % (auto) 0.0 Sodium 135 Potassium 4.5 Chloride 103 Carbon Dioxide 24 Anion Gap 13 BUN 13 Creatinine 0.58 Estim Creat Clear Calc 89.0 Estimated GFR > 60 POC Glucose Random Glucose 91 Calcium 8.6 D Total Bilirubin 2.0 H 1.7 H Direct Bilirubin 1.4 H 1.3 H AST 44 H 42 H ALT 33 33 Alkaline Phosphatase 188 H 178 H Total Protein 6.5 6.3 L Albumin 2.6 L 2.5 L CMV Specimen Source CMV Qnt PCR IU/mL CMV Qnt PCR log IU/mL EBV Nuclear Antigen Ab 77.70 H Ur L.pneumophila Ag Ur Strep pneumoniae Ag 02/25/25 07:26 WBC RBC Hgb Hct MCV MCH MCHC RDW Plt Count MPV Absolute Nucleated RBC Nucleated RBC % (auto) Sodium Potassium Chloride Carbon Dioxide Anion Gap BUN Creatinine Estim Creat Clear Calc Estimated GFR POC Glucose 145 H Random Glucose Calcium Total Bilirubin Direct Bilirubin AST ALT Alkaline Phosphatase Total Protein Albumin CMV Specimen Source CMV Qnt PCR IU/mL CMV Qnt PCR log IU/mL EBV Nuclear Antigen Ab Ur L.pneumophila Ag Ur Strep pneumoniae Ag Discharge Plan Discharge Anticipated Discharge Date/Time: 09/22/24 11:02 Patient Disposition: Home, Self-Care Discharge Diagnosis: Pneumonia/lung abscess left upper lobe Chronic hyponatremia Jaundice Referrals: Kesha Pedraza [Primary Care Provider] - 1 Week Discharge Medications: New nicotine 14 mg/24 hr Patch 24 Hour 14 mg transdermal DAILY Qty: 30 0RF guaifenesin 100 mg/5 mL Liquid 200 mg PO TID Qty: 473 0RF levetiracetam [Keppra] 250 mg tablet 250 mg PO BID Qty: 180 0RF amoxicillin-pot clavulanate 875-125 mg tablet 1 tab PO BID Qty: 56 0RF Continued oxcarbazepine 150 mg tablet 150 mg PO BID haloperidol 5 mg tablet 5 mg PO DAILY haloperidol 10 mg tablet 10 mg PO DAILY omeprazole 20 mg capsule,delayed release(DR/EC) 1 cap PO DAILY PRN (Reason: Acid Reflux) folic acid 1 mg tablet 1 tab PO DAILY Colace 100 mg PO DAILY PRN (Reason: Constipation) acetaminophen 325 mg Tablet 650 mg PO Q4H PRN (Reason: Pain) albuterol sulfate 90 mcg/actuation Hfa Aerosol Inhaler 1 inh INHALATION QID PRN (Reason: Wheezing) aripiprazole 10 mg tablet 10 mg PO DAILY Discontinued phenytoin sodium extended 100 mg capsule 500 mg PO DAILY Discharge Orders: Discharge Order (Routine); Ordered 09/22/24 Ordered By: Ruben Bhakta Diet: ensure tid Activity on Discharge: As tolerated Stand Alone Forms: Patient Portal Discharge page Print Language: Italian Other Ambulatory Orders: Complete Blood Count no Diff (Routine) Timeframe: 1 Week Facility: [facility] - Location: Laboratory Ordered By: Ruben Bhakta Liver Panel (Routine) Timeframe: 1 Week Facility: [facility] - Location: Laboratory Ordered By: Ruben Bhakta Care Plan Goals: Severe malnutrition take ensure 1 can t.i.d. Left lung abscess take Augmentin 1 tablet twice daily for 28 days/take cough medicine x 3--4 days and than as needed Jaundice improving likely due to infection/dilantin Dilantin discontinued due to risk for liver toxicity instead placed on Keppra 250 mg 1 tablet twice daily Health Concerns: Tobacco use disorder, use nicotine patch 14 mg daily Plan of Treatment: Follow-up with child life assistant Dr. Nina in 3-4 weeks call for appointment to follow-up on lung infection Follow-up with primary care physician call for appointment. Assessment: As above Discharge Date/Time: 09/22/24 13:51
[2024-09-22] MEDS: levoFLOXacin 750 MG TABLET PO (11:44)
--- NOTE | 2024-09-22 11:54 | MHC.CM.PN ---
DP: PT HAS BEEN MEDICALLY CLEARED FOR DC BACK TO [facility] TODAY, NO SERVICES. [facility] ST[facility] WILL BE HERE TO P/U AT 1:30PM.
[2024-09-22 13:44] VITALS: BP 115/68; PULSE 118; RESP 14; TEMP 36.8; O2SAT 96
--- NOTE | 2024-09-23 10:19 | PC.NURSE ---
Viki Robbins called, requesting methadone last dose letter, no methadone given per chart review.
[2024-10-03 19:04] LABS: Cortisol, Free 2.63 mcg/dL
== END 2024-09-22 13:51 | disposition home or self-care (01) | DRG 137 ==
LOC: HO.ED 19:32 → HO.EDOVER 22:17 → HO.S3 09-18 13:39
PROVIDERS: Internal Medicine Gastroenterology; Internal Medicine Hypertension Specialist; Physician Assistant Medical; Admitting Provider Internal Medicine; Emergency Provider Emergency Medicine; PCP Nurse Practitioner; Visit Provider Hospitalist
DX: J69.0 Pneumonitis due to inhalation of food and vomit (principal); J85.2 Abscess of lung without pneumonia; E43 Unspecified severe protein-calorie malnutrition; E87.20 Acidosis, unspecified; C34.12 Malignant neoplasm of upper lobe, left bronchus or lung; E87.1 Hypo-osmolality and hyponatremia; R17 Unspecified jaundice; T42.0X5A Adverse effect of hydantoin derivatives, initial encounter; F14.90 Cocaine use, unspecified, uncomplicated; F17.210 Nicotine dependence, cigarettes, uncomplicated; Z71.6 Tobacco abuse counseling; G40.909 Epilepsy, unspecified, not intractable, without status epilepticus; F20.9 Schizophrenia, unspecified; Z68.1 Body mass index [BMI] 19.9 or less, adult; D18.03 Hemangioma of intra-abdominal structures; F19.90 Other psychoactive substance use, unspecified, uncomplicated; Z20.822 Contact with and (suspected) exposure to COVID-19; Z86.19 Personal history of other infectious and parasitic diseases; Z79.899 Other long term (current) drug therapy
CPT/HCPCS: 0241U; 36415; 70450; 71046; 71270; 74176; 76705; 80048; 80053; 80076; 80185; 80307; 81003; 82140; 82248; 82530; 82570; 82947; 83690; 83735; 83930; 83935; 84300; 84484; 85025; 85027; 85610; 85730; 86664; 86704; 86706; 86709; 86803; 87340; 87449; 87497; 87899; 93005; 99285; J0456; J0696; J1650; J2405; J2543; J7120; Q9967

== ENCOUNTER → 2024-09-17 12:16 | Outpatient (BNV) | payer MEDICAID, SELFPAY | PROVIDERS: Emergency Provider Emergency Medicine; Visit Provider Internal Medicine Hypertension Specialist | DX: E87.1 Hypo-osmolality and hyponatremia (principal) | CPT/HCPCS: 99223 ==

== ENCOUNTER → 2024-09-17 12:37 | Outpatient (BNV) | payer MEDICAID, SELFPAY | PROVIDERS: Emergency Provider Emergency Medicine; Visit Provider Radiology Diagnostic Radiology | DX: J18.9 Pneumonia, unspecified organism (principal) | CPT/HCPCS: 70450; 71046; 74176; 76705 ==

== ENCOUNTER → 2024-09-17 12:37 | Outpatient (BNV) | payer MEDICAID, SELFPAY | PROVIDERS: Emergency Provider Emergency Medicine; Visit Provider Internal Medicine | DX: I63.9 Cerebral infarction, unspecified (principal) | CPT/HCPCS: 93010 ==

== ENCOUNTER 2024-09-17 22:05 | Outpatient (BNV) | payer MEDICAID, SELFPAY | END 2024-09-21 19:38 | PROVIDERS: Admitting Provider Internal Medicine; Emergency Provider Emergency Medicine; PCP Nurse Practitioner; Visit Provider Radiology Neuroradiology | DX: J18.8 Other pneumonia, unspecified organism (principal); R91.8 Other nonspecific abnormal finding of lung field | CPT/HCPCS: 71270 ==

== ENCOUNTER → 2024-09-17 22:05 | Outpatient (BNV) | payer MEDICAID, SELFPAY | PROVIDERS: Admitting Provider Internal Medicine; Emergency Provider Emergency Medicine; PCP Nurse Practitioner; Visit Provider Hospitalist | DX: J18.9 Pneumonia, unspecified organism (principal); R93.89 Abnormal findings on diagnostic imaging of other specified body structures; J85.2 Abscess of lung without pneumonia | CPT/HCPCS: 99233; 99239 ==

== ENCOUNTER → 2024-09-17 22:05 | Outpatient (BNV) | payer MEDICAID, SELFPAY | PROVIDERS: Admitting Provider Internal Medicine; Emergency Provider Emergency Medicine; PCP Nurse Practitioner; Visit Provider Internal Medicine Gastroenterology | DX: K76.9 Liver disease, unspecified (principal) | CPT/HCPCS: 99222 ==

== ENCOUNTER → 2024-09-17 22:05 | Outpatient (BNV) | payer MEDICAID, SELFPAY | PROVIDERS: Admitting Provider Internal Medicine; Emergency Provider Emergency Medicine; PCP Nurse Practitioner; Visit Provider Internal Medicine Pulmonary Disease | DX: J18.9 Pneumonia, unspecified organism (principal); R93.89 Abnormal findings on diagnostic imaging of other specified body structures; J85.2 Abscess of lung without pneumonia | CPT/HCPCS: 99222 ==

== ENCOUNTER 2024-09-29 10:39 | Outpatient (REF) | payer MEDICAID, SELFPAY ==
[2024-09-29 11:09] LABS: Hematocrit 36.2 % (42.0-52.0); Hemoglobin 12.3 g/dl (14.0-18.0); Mean Corpuscular Hemoglobin 30.4 pg (27.0-33.0); Mean Corpuscular Volume 89.4 fL (80.0-98.0); Platelet Count 614 X10*3/uL (160-400); Red Blood Count 4.05 X10*6/uL (4.60-5.80); Red Cell Distribution Width 14.3 % (11.0-16.0); White Blood Count 15.3 X10*3/uL (4.8-10.8)
[2024-09-29 11:38] LABS: Alanine Aminotransferase 31 U/L (0-40); Alkaline Phosphatase 150 U/L (39-117); Aspartate Amino Transferase 26 U/L (5-37); Bilirubin Direct 0.9 mg/dL (0.0-0.5); Bilirubin Total 1.3 mg/dL (0.0-1.0); Total Protein 7.3 g/dL (6.5-8.0)
--- OUTSIDE RECORDS SUMMARY | 2024-09-29 13:01 | XMS_ITS | Encounter Summary ---
Author Organization [employer] Address [address] [place] [address] Care Team Providers Care Heel Seat Trimmer Name Role Phone Mary Perrin MD Primary Care Provider + Reason for Visit * Reason Comments Care Coordination CM/CHW outreach Encounter Details Date Type Department Care Team (Latest Contact Info) Description 09/01/2024 Patient Outreach [facility] [address] [place] [address] Mary Perrin MD [address] [place] [address] Care Coordination (CM/CHW outreach) Social History Tobacco [...] reference. Patient states he lives in a [facility] and has a coordinator that helps with medical needs. documented in this encounter Plan of Treatment Not on file documented as of this encounter Visit Diagnoses Not on filedocumented in this encounter Care Teams Heel Seat Trimmer Relationship Specialty Start Date End Date Mary Perrin MD [address] [place] [id number] PCP - General Family Medicine 04/07/18 documented as of this encounter
--- OUTSIDE RECORDS SUMMARY | 2024-09-29 13:01 | XMS_ITS | Clinical Summary ---
Author Organization [employer] Address [address] [place] [address] [address] [place] [address] Care Team Providers Care Brake Rider Name Role Phone Mary Perrin MD Primary [...] 4 Active acetaminophen (Tylenol) 500 MG tabletIndication s:[place] of foot take 2 tablet by oral [...] live At foster home, [facility] [place] 06/29/2022 Assessment & Plan (02/10/2024 2:22 PM EDT): - missed appoitment with sleep manager, gave information to r/s appointment - advised [...] - he continues to live in a nursing home with meds administered through [facility], he is a [facility]rias of the [facility] Assessment & Plan (12/13/2022 1:31 PM EDT): [...] pt will try to sleep at his nursing home daily - f/u with Dr. Flor - discussed [facility] pt importance of avoiding drug use -Agreed [...] Encounters Date Type Department Care Team Description 09/29/2024 Orders Only GENERIC EXTERNAL DATA DEPARTMENT Provider, Generic External Data 09/17/2024 Orders Only [facility] External Provider, [facility] 09/16/2024 Telephone [facility] [address] [place] [phone] Mary Perrin MD Nurse Triage 09/01/2024 Patient Outreach [facility] [address] [place] [phone] Mary Perrin MD Care Coordination (CM/CHW outreach) 08/27/2024 Patient Outreach [facility] [address] [place] [phone] Mary Perrin MD Care Coordination (CM/CHW outreach) 08/25/2024 Patient Outreach [address] [phone] Mary Perrin MD Care Coordination (CM/CHW outreach) 08/25/[address] [phone] Alejandro Navarro RN Care Management (C3CM- chart review) 08/06/2024 Patient Outreach [address] [phone] Mary Perrin MD Pre-visit Planning ([facility] screening completed on 02/02/2025) from Last 3 Months Immunizations Name Administration [...] Procedure Name Priority Date/Time Associated Diagnosis Comments HEPATIC FUNCTION PANEL Routine 10:57 AM EST CBC Routine 09/29/2024 10:[address] CHEST W AND WO CONTRAST Routine 09/21/2024 8:39 PM EST SODIUM W/O CREATININE, RANDOM URINE Routine 09/17/2024 5:33 PM EST CREATININE, RANDOM URINE Routine 09/17/2024 5:33 PM EST OSMOLALITY (U) Routine 09/17/2024 5:33 PM EST XR CHEST 2 VIEWS Routine 09/17/2024 3:57 PM EST DRUG MONITOR, PANEL 1, SCREEN, URINE Routine 09/17/2024 3:29 PM EST URINALYSIS WITH REFLEX MICROSCOPIC Routine 09/17/2024 3:29 PM EST APTT Routine 09/17/2024 2:55 PM EST PROTHROMBIN TIME-INR Routine 09/17/2024 2:55 PM EST US ABDOMEN LIMITED Routine 09/17/2024 1: 49 PM EST GLUCOSE, WHOLE BLOOD Routine 09/17/2024 1:[address] ABDOMEN PELVIS WO CONTRAST Routine 09/17/2024 12:[address] HEAD STROKE WO CONTRAST Routine 09/17/2024 12:37 PM EST HIGH SENSITIVITY TROPONIN I Routine 09/17/2024 12:03 PM EST BILIRUBIN, DIRECT Routine 09/17/2024 12: [...] Recently Relevant to Health Maintenance Results * (ABNORMAL) CBC (09/29/2024 10:57 AM EST) White Blood Count 15.3(H) 4.8 - 10.8 X10*3/uL [facility] Red Blood Count 4.05(L) 4.60 - 5.80 X10*6/uL [facility] Hemoglobin 12.3(L) 14.0 - 18.0 g/dl [facility] Hematocrit 36.2(L) 42.0 - 52.0 % [facility] Mean Corpuscular Volume 89.4 80.0 - 98.0 fL [facility] Mean Corpuscular Hemoglobin 30.4 27.0 - 33.0 pg [facility] Mean Corpuscular HGB Conc 34.0 31.0 - 36.0 g/dl [facility] Red Cell Distribution Width 14.3 11.0 - 16.0 % [facility] Platelet Count 614(H) 160 - 400 X10*3/uL [facility] Mean Platelet Volume 9.0(L) 9.4 - 12.4 fL [facility] NRBC Pct Auto 0.0 0.0 - 0.2 /100WBC [facility] NRBC Abs Auto 0.000 0.0 - 0.012 X10*3/uL [facility] 09/29/2024 10:5 7 AM EST 09/29/2024 11:05 AM EST us Generic External Data Provider LAB BLOOD ORDERAB LES Final Result Performing Organization Address [facility]/ZIP Co de Phone Number [facility] [address] [place] [phone] * (ABNORMAL) Hepatic Function Panel (09/29/2024 10:57 AM EST) Bilirubin, Total 1.3(H) 0.0 - 1.0 mg/dL [facility] Bilirubin, Direct 0.9(H) 0.0 - 0.5 mg/dL [facility] Aspartate Amino Transferase 26 5 - 37 U/L [facility] Alanine Aminotransferase 31 0 - 40 U/L [facility] Total Protein 7.3 6.5 - 8.0 g/dL [facility] Albumin Level 3.0(L) 3.5 - 5.0 g/dL [facility] Alkaline Phosphatase 150(H) 39 - 117 U/L [facility] 09/29/2024 10:5 7 AM EST 09/29/2024 11:05 AM EST us Generic External Data Provider LAB BLOOD ORDERAB LES Final Result Performing Organization Address City/[facility]/ZIP Co de Phone Number [facility] [address] [place] [address] [place] [phone] * CT Chest w/ and w/o Contrast (09/21/2024 8:39 PM EST) Anatomical Region Laterality Modality Body, Chest Computed Tomogra phy 09/21/2024 8:39 PM EST Narrative 09/21/2024 8:42 PM EST ? [facility] ?[address] ?[place] [address] ? CT Scan Report ? Signed with Addenda ? Patient: Leticiaie,Abhijit ?MR#: [id number] ? : 1965 ?Acct:[id number] ? Age/Sex: 59 / M ?ADM Date: 09/17/24 ? Loc: HO.S3 ?368-1 ? Attending Dr: Ruben Bhakta MD ? Ordering Physician: Ruben Bhakta MD ?? Date of Service: 09/21/24 ?? Procedure(s): CT chest wo/w IV con ?? Accession Number(s): [id number] ? cc: Kesha Pedraza; Ruben Bhakta MD ? Report Number: ?? [id number]: Total DLP = ??370.00 mGy-cm ?ADDENDUM ?? This document has been electronically signed by: Lb Mesa MD on ?? 09/21/2024 20:39:52 ? ADDENDUM: ?? This report was discussed with Bernadette Cottrell RN on Sep 21, 2024 ?? 20:52:00 EST. ? This document has been electronically signed by: Lupe Shankar on ?? 09/21/2024 20:53:29 ? Addendum Dictated By: ?Lb Mesa MD ? Addendum Signed By: ? <Electronically signed by Lb Mesa MD in OV> ? 09/21/242053 ?? Addendum Cosigned By: ? DD/ ? TD/TT: 09/21/24 ? 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 CT chest with and without contrast ? Comparison: None ? Findings: ?? Severe consolidation of the left upper lobe with relative sparing of the ?? lingula. With superior cystic changes and/or bronchiectasis. Differential ?? considerations include pneumonia, postobstructive pneumonia, cavitary ?? pneumonia. Atypical infection is not excluded given these findings. ?? Additional bilateral ground-glass of the both lungs nonspecific and may be ?? due to mild edema or pneumonitis. No pneumothorax or pleural effusion. ?? Left pre-vascular adenopathy measures 1.2 cm short axis (image number 22 ?? of series 3) vascular calcifications noted including coronary arteries. ?? Small pericardial effusion. ?? Imaged upper abdomen is unremarkable. Mild left lateral rib fractures ?? appear old chronic. Fusion of the sternum and manubrium in the lower ?? thoracic vertebrae. Degenerative changes include imaged right shoulder and ?? spine. Old ossicles are old fragments about the partially imaged right ?? shoulder. ? IMPRESSION: ?? Masslike consolidation in the left upper lobe concerning for pneumonia and ?? postobstructive pneumonia. Lucent centered tissue sampling or additional ?? diagnostics given concern for lung neoplasm. ? This document has been electronically signed by: Lb Mesa MD on ?? 09/21/2024 20:39:52 ? Dictated By: ?Lb Mesa MD ? Signed By: ?<Electronically signed by Lb Mesa MD in OV> ? 09/21/242040 ? DD/ 38 ? TD/TT: 09/21/242038 ? Osteopathic Medicine Teacher: ? Procedure Note [place], Image - 09/21/[address] [place] [address] [address] Scan Report Signed with Emilie Patient: Theresa Wright#: [id number] : 1965Acct:[id number] Age/Sex: 59 / MADM Date: 09/17/24 Loc: HO.S3 368-[address]: Ruben Bhakta MD Ordering Physician: Ruben Bhakta MD Date of Service: 09/21/24 Procedure(s): CT chest wo/w IV con Accession Number(s): [id number] cc: Kesha Pedraza; Ruben Bhakta MD Report Number: [id number]: Total DLP = 370.00 mGy-cm ADDENDUM This document has been electronically signed by: Lb Mesa MD on 09/21/2024 20:39:52 ADDENDUM: This report was discussed with Bernadette Cottrell, MELANIE on Sep 21, 2024 20:52:00 EST. 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 With superior cystic changes and/or bronchiectasis. Differential considerations include pneumonia, postobstructive pneumonia, cavitary pneumonia. Atypical infection is not excluded given these findings. Additional bilateral ground-glass of the both lungs nonspecific and may be due to mild edema or pneumonitis. No pneumothorax or pleural effusion. Left pre-vascular adenopathy measures 1.2 cm short axis (image number 22 of series 3) vascular calcifications noted including coronary arteries. Small pericardial effusion. Imaged upper abdomen is unremarkable. Mild left lateral rib fractures appear old chronic. Fusion of the sternum and manubrium in the lower thoracic vertebrae. Degenerative changes include imaged right shoulder and spine. Old ossicles are old fragments about the partially imaged right shoulder. IMPRESSION: Masslike consolidation in the left upper lobe concerning for pneumonia and postobstructive pneumonia. Lucent centered tissue sampling or additional diagnostics given concern for lung neoplasm. This document has been electronically signed by: Lb Mesa MD on 09/21/2024 20:39:52 Dictated By: Lb Mesa MD Signed By: <Electronically signed by Lb Mesa MD in OV> 09/21/242040 DD/ 38 TD/TT: 09/21/242038 Osteopathic Medicine Teacher: [facility] External Provider IMG CT PROCEDURES Edited Result - Final * Sodium Without creatinine, Random Urine (09/17/2024 5:33 PM EST) Sodium Urine Random <20.0 mmol/L [facility] 09/17/2024 5:33 PM EST 09/17/2024 5:36 PM EST Generic External Data Provider LAB BLOOD ORDERAB LES Final Result [facility] [address] [place] [address] [phone] * Osmolality, Urine (09/17/2024 5:33 PM EST) OSMOLALITY URINE 548 373 - 1,093 mosm/kg [facility] 09/17/2024 5:33 PM EST 09/17/2024 5:36 PM EST us Generic External Data Provider LAB URINE ORDERAB LES Final Result Performing Organization Address [facility] de Phone Number [facility] [address] [place] [address] [phone] * Creatinine, Random Urine (09/17/2024 5:33 PM EST) Creatinine, Urine 65.46 mg/dL [facility] 09/17/2024 5:33 PM EST 09/17/2024 5:36 PM EST Generic External Data Provider LAB URINE ORDERAB LES Final Result Performing Organization Address [facility] de Phone Number [facility] [address] [place] [address] [phone] * XR Chest 2 Views (09/17/2024 3:57 PM EST) Anatomical Region Laterality Modality Chest Radiographic Meron ging 09/17/2024 3:57 PM EST Narrative 09/18/2024 8:10 AM EST ? [facility] ?[address] ?[place] [address] ?XRay Report ? Signed ? Patient: Leticiaie,Abhijit ?MR#: [id number] ? : 1965 ?Acct:[id number] ? Age/Sex: 59 / M ?ADM Date: 02/20/25 ? Loc: HO.[place] ?MEDSURG-11 ? Attending Dr: Ruben Bhakta MD ? Ordering Physician: Mayte Katz ?? Date of Service: 09/17/24 ?? Procedure(s): XR chest 2V ?? Accession Number(s): [id number] ? cc: [facility]; Mayte Katz ? EXAMINATION: ?? XR CHEST ? CLINICAL INFORMATION: ?? ?pneumonia, white count ? COMPARISON: ?? April 13, 2022. ? TECHNIQUE: ?? 2 views of the chest were obtained. ? FINDINGS: ?? There is an irregular shaped opacity left upper hemithorax resulting in ?? lung volume loss. ?? There is a meniscal shaped opacity in the left lower hemithorax. ?? No pneumothorax. ?? Cardiomediastinal silhouette size is normal. The right lung is aerated. ?? Multilevel thoracic stenosis. ?? Old traumatic deformity, right clavicle and likely right humeral head ?? and neck. ? XR/XR chest 2V ?? IMPRESSION: ?? Acute airspace disease versus neoplasm, left upper lung lobe with a ?? left-sided pleural effusion, moderate volume versus pleural thickening. ?? Left phrenic paralysis versus paresis. ? Electronically signed by: ??Kash Tinsley MD ??09/18/2024 08:08 AM ?? EST RP ? Dictated By: ?Kash Rutledge MD ? Signed By: ?<Electronically signed by Kash Vigil MD in OV> ? 09/18/24 0808 ? DD/ 1557 ? TD/TT: 09/17/24 1629 ? Osteopathic Medicine Teacher: ? Procedure Note Andrew, Image - 09/18/2024 [place] [address] XRay Report Signed Patient: Theresa Wright#: [id number] : 1965Acct:[id number] Age/Sex: 59 / MADM Date: 09/17/24 Loc: [place] [address]: Ruben Bhakta MD Ordering Physician: Mayte Katz Date of Service: 09/17/24 Procedure(s): XR chest 2V Accession Number(s): [id number] cc: [facility]; Mayte Katz EXAMINATION: XR CHEST CLINICAL INFORMATION: ?pneumonia, white count COMPARISON: April 13, 2022. TECHNIQUE: 2 views of the chest were obtained. FINDINGS: There is an irregular shaped opacity left upper hemithorax resulting in lung volume loss. There is a meniscal shaped opacity in the left lower hemithorax. No pneumothorax. Cardiomediastinal silhouette size is normal. The right lung is aerated. Multilevel thoracic stenosis. Old traumatic deformity, right clavicle and likely right humeral head and neck. XR/XR chest 2V IMPRESSION: Acute airspace disease versus neoplasm, left upper lung lobe with a left-sided pleural effusion, moderate volume versus pleural thickening. Left phrenic paralysis versus paresis. Electronically signed by: Kash Tinsley MD 09/18/2024 08:08 AM EST RP Dictated By: Kash Rutledge MD Signed By: <Electronically signed by Kash Vigil MDin OV> 09/18/24 0808 DD/ 1557 TD/TT: 09/17/24 1629 Osteopathic Medicine Teacher: [facility] External Provider IMG XR PROCEDURES Final Result * (ABNORMAL) Drug Monitoring, Panel 1, Screen, Urine (09/17/2024 3:29 PM EST) Opiate Screen Urine Not Detected Not Detect [facility] Comment:Opiate cut-off is 30 0 ng/mL.Positive results are unconfirmed and should not be used fornon-medical purposes. Barbiturates, Urine Not Detected Not Detect [facility] Comment:Barbiturate cut-off is 200 ng/mL.Positive results are unconfirmed and should not be used fornon-medical purposes. Phencyclidine Screen Urine Not Detected Not Detect [facility] Comment:Phencyclidine cut-of f is 25 ng/mL.Positive results are unconfirmed and should not be used fornon-medical purposes. Amphetamine Screen Urine Not Detected Not Detect [facility] Comment:Amphetamine cut-off is 1000 ng/mL.Positive results are unconfirmed and should not be used fornon-medical purposes. Benzodiazepines Screen Urine Not Detected Not Detect [facility] Comment:Benzodiazepine cut-o ff is 200 ng/mL.Positive results are unconfirmed and should not be used fornon-medical purposes. Cocaine Screen Urine POSITIVE(A) Not Detect [facility] Comment:Cocaine cut-off is 3 00 ng/mL.Positive results are unconfirmed and should not be used fornon-medical purposes. Cannabinoid Screen Urine Not Detected Not Detect [facility] Comment:Cannabinoid cut-off is 50 ng/mL.Positive results are unconfirmed and should not be used fornon-medical purposes. Methadone Screen, Urine Not Detected Not Detect ng/mL [facility] Comment:Methadone cut-off is 300 ng/mL.Positive results are unconfirmed and should not be used fornon-medical purposes. FENTANYL URINE Not Detected Not Detect [facility] Comment:Fentanyl cut-off is 1 ng/mL.Positive results are unconfirmed and should not be used fornon-medical purposes. Oxycodone Urine Screen Not Detected Not Detect ng/mL [facility] Comment:Oxycodone cut-off is 100 ng/mL.Positive results are unconfirmed and should not be used fornon-medical purposes. Buprenorphine Screen Not Detected Not Detect ng/mL [facility] Comment:Buprenorphine cut-of f is 5 ng/mL.Positive results are unconfirmed and should not be used fornon-medical purposes. 09/17/2024 3:29 PM EST 09/17/2024 3:32 PM EST us Generic External Data Provider LAB URINE ORDERAB LES Final Result [facility] [address] [place] [phone] * (ABNORMAL) Urinalysis w/reflex microscopic (09/17/2024 3:29 PM EST) Color Urine Dark Yellow [facility] Appearance Urine Clear [facility] PH 5.5 5.0 - 9.0 [facility] Glucose Urine UA 100(A) Negative mg/dL [facility] Urine Blood Negative Negative [facility] Specific [place] - Urine >=1.030(H) 1.005 - 1.025 [facility] Urine Protein Trace Neg-Trace mg/dL [facility] Urine Ketones Negative Negative mg/dL [facility] Nitrite Urine Negative Negative [facility] Leukocyte Esterase Urine Negative Negative [facility] 09/17/2024 3:29 PM EST 09/17/2024 3:32 PM EST Narrative [facility] - 09/17/2024 3:40 PM EST [id number], Clean Catch Generic External Data Provider LAB URINE ORDERAB LES Final Result Performing Organization Address [facility]/ZIP Co de Phone Number [facility] [address] [place] [phone] * Partial Thromboplastin Time, Activated (APTT) (09/17/2024 2:55 PM EST) Partial Thromboplastin Time 26.4 26.0 - 36.8 SEC [facility] Comment:For information rega rding the monitoring of direct thrombininhibitors, please refer to Pharmacy. 09/17/2024 2:55 PM EST 09/17/2024 2:56 PM EST us Generic External Data Provider LAB BLOOD ORDERAB LES Final Result Performing Organization Address [facility]/ZIP Co de Phone Number [facility] [address] [place] [phone] * (ABNORMAL) Prothrombin Time-INR (09/17/2024 2:55 PM EST) Prothrombin Time 14.3(H) 10.9 - 12.4 SEC [facility] INTERNATIONAL NORM RATIO 1.2(H) 0.9 - 1.1 [facility] Comment:INTERNATIONAL NORMAL IZED RATIO (INR) REFERENCE RANGES Reference RangeFor patients not on anticoagulant therapy: 0.9 - 1.1INR ranges for oral anticoagulanttherapy:For prevention and treatment of venous thrombosis and pulmonary embolism: 2.0 - 3.0For acute myocardial infarction with aspirin therapy: 2.0 - 3.0For acute myocardial infarction without aspirin therapy: 3.0 - 4.0For patients with mechanical prosthetic heart valves: 2.5 - 3.5 09/17/2024 2:55 PM EST 09/17/2024 2:56 PM EST us Generic External Data Provider LAB BLOOD ORDERAB LES Final Result [facility] [address] [place] [address] [phone] * US Abdomen Limited (09/17/2024 1:49 PM EST) Anatomical Region Laterality Modality Abdomen Ultrasound 09/17/2024 1:49 PM EST Narrative 09/17/2024 2:33 PM EST ? [facility] ?[address] ?[place] [address] ? Ultrasound Report ? Signed ? Patient: Abhijit Wright ?MR#: [id number] ? : 1965 ?Acct:[id number] ? Age/Sex: 59 / M ?ADM Date: 09/17/24 ? Loc: HO.ED ? Attending Dr: ? Ordering Physician: Mayte Katz ?? Date of Service: 09/17/24 ?? Procedure(s): US abdomen limited ?? Accession Number(s): [id number] ? cc: [facility]; Mayte Katz ? EXAMINATION: ?? US ABDOMEN LIMITED ? CLINICAL INFORMATION: ?? Jaundice. Abdominal pain. Nausea and vomiting. Hyperbilirubinemia.. ? COMPARISON: ?? None available. ? TECHNIQUE: ?? Real-time imaging of the right upper quadrant abdominal viscera. ? FINDINGS: ? PANCREAS: No peripancreatic fluid collections. Questionable punctate ?? calcifications. ? LIVER: ?? Liver measures 16 cm. There is a 1.6 cm hyperechoic lesion in the ?? periphery of the left hepatic lobe. ?? No intrahepatic biliary ductal dilatation. Main portal vein is patent ?? with normal hepatopedal flow direction. ? GALLBLADDER: Contracted./Absent ? COMMON BILE DUCT: 5 mm.. ? FREE FLUID: None. ? US/US abdomen limited ?? IMPRESSION: ?? No biliary ductal dilatation. ?? Hepatomegaly, mild. ?? Probable hemangioma, left hepatic lobe. ?? No ascites. ? Electronically signed by: ??Kash Tinsley MD ??09/17/2024 02:30 PM ?? EST RP ? Dictated By: ?Kash Rutledge MD ? Signed By: ?<Electronically signed by Kash Vigil MD in OV> ? 09/17/24 1430 ? DD/ 1349 ? TD/TT: 09/17/24 1402 ? Osteopathic Medicine Teacher: ? Procedure Note Donotpadmainterpreter, Image - 09/17/2024 [place] [address] Ultrasound Report Signed Patient: Theresa Wright#: [id number] : 1965Acct:[id number] Age/Sex: 59 / MADM Date: 09/17/24 Loc: HO.ED Attending Dr: Ordering Physician: Mayte Katz Date of Service: 09/17/24 Procedure(s): US abdomen limited Accession Number(s): [id number] cc: [facility]; Mayte Katz EXAMINATION: US ABDOMEN LIMITED CLINICAL INFORMATION: Jaundice. Abdominal pain. Nausea and vomiting. Hyperbilirubinemia.. COMPARISON: None available. TECHNIQUE: Real-time imaging of the right upper quadrant abdominal viscera. FINDINGS: PANCREAS: No peripancreatic fluid collections. Questionable punctate calcifications. LIVER: Liver measures 16 cm. There is a 1.6 cm hyperechoic lesion in the periphery of the left hepatic lobe. No intrahepatic biliary ductal dilatation. Main portal vein is patent with normal hepatopedal flow direction. GALLBLADDER: Contracted./Absent COMMON BILE DUCT: 5 mm.. FREE FLUID: None. US/US abdomen limited IMPRESSION: No biliary ductal dilatation. Hepatomegaly, mild. Probable hemangioma, left hepatic lobe. No ascites. Electronically signed by: Kash Tinsley MD 09/17/2024 02:30 PM [facility] Dictated By: Kash Rutledge MD Signed By: <Electronically signed by Kash Vigil MDin OV> 09/17/24 1430 DD/ 1349 TD/TT: 09/17/24 1402 Osteopathic Medicine Teacher: us [facility] External Provider IMG US PROCEDURES Final Result * Glucose, Whole Blood (09/17/2024 1:24 PM EST) Glucose, Whole Blood 93 60 - 115 mg/dL [facility] Comment:METER #: [id number] 09/17/2024 1:24 PM EST 09/17/2024 1:27 PM EST us Generic External Data Provider LAB BLOOD ORDERAB LES Final Result Performing Organization Address [facility]/State/[facility] Co de Phone Number [facility] [address] [place] [address] [phone] * CT Abdomen Pelvis w/o Contrast (09/17/2024 12:51 PM EST) Anatomical Region Laterality Modality Body, Pelvis, Abdomen Computed T omography 09/17/2024 12:5 1 PM EST Narrative 09/17/2024 2:20 PM EST ? [facility] ?[address] ?[place] [address] ? CT Scan Report ? Signed ? Patient: Adriana,Abhijit ?MR#: [id number] ? : 1965 ?Acct:[id number] ? Age/Sex: 59 / M ?ADM Date: 09/17/ ? Loc: HO.ED ? Attending Dr: ? Ordering Physician: Mayte Katz ?? Date of Service: 09/17/24 ?? Procedure(s): CT abdomen pelvis wo IV con ?? Accession Number(s): [id number] ? cc: [facility]; Mayte Katz ? Report Number: ?? [id number]: Total DLP = ??240.00 mGy-cm ?? EXAMINATION: ?? CT ABDOMEN AND PELVIS WITHOUT CONTRAST ? CLINICAL INFORMATION: ?? Jaundice, elevated white count. ? COMPARISON: ?? None available. ? TECHNIQUE: ?? Multidetector volumetric imaging was performed from the superior aspect ?? of the liver through the pubic symphysis. Sagittal and coronal ?? reformatted images were obtained on the technologist's workstation. ? This CT examination was performed using dose optimization techniques as ?? appropriate, variously including the following: ?? *Automated exposure control ?? *Adjustment of mA and/or kV according to patient size (this includes ?? techniques or standardized protocols for targeted exams where dose is ?? matched to indication/reason for exam; i.e. extremities or head) ?? *Use of iterative reconstruction technique ? FINDINGS: ?? Attempted CTA canceled after IV malfunction. Contrast enhancement is an ?? excretory phase, limiting evaluation of solid viscera and bowel. This ?? is especially significant in the light of mild anasarca, limiting ?? discrimination between soft tissue and fluid. In addition there is ?? motion artifact in the mid aspect of the scan, further limiting ?? evaluation. ? LUNG BASES: On the localizer sequence for the CTA, and on the rn cardiovascular icu, ?? there is dense consolidation in the left upper lobe. ??There are no ?? effusions. Heart size is normal. There is emphysema. ? LIVER, GALLBLADDER, AND BILIARY TREE: The unenhanced liver is normal in ?? size, shape, and attenuation. No focal hepatic lesion or definitive ?? biliary ductal dilatation is present. The gallbladder is not well seen. ?? The common bile duct is normal in caliber. ? PANCREAS: Unremarkable. ? SPLEEN: Unenhanced spleen is normal. ? ADRENAL GLANDS: There is left hyperplasia. The right is normal. ? KIDNEYS AND URETERS: Excretory phase of contrast enhancement, limiting ?? evaluation. Normal shape and size. No gross masses. No hydronephrosis. ?? Ureters are nondilated. ? BLADDER: Distended, with layering contrast. No focal abnormality. ? GASTROINTESTINAL TRACT: ?? No acute bowel pathology evident. Limited evaluation. Moderate fecal ?? residue seen throughout the colon. ?? Small bowel is nondilated. There is mild edema is seen throughout the ?? small bowel mesentery likely related to anasarca. No gross ascites. ? ABDOMINAL WALL: No significant hernia is appreciated. ? LYMPH NODES: None enlarged. ? VASCULAR: Mild atheromatous vascular calcification. No aneurysm. ? PELVIC VISCERA: Unremarkable. ? OSSEOUS STRUCTURES: No acute abnormality. No fractures. Mild right ?? convex thoracolumbar scoliosis. Healed fracture of the left iliac wing. ?? Grade 2 spondylolisthesis L5 on S1. ? CT/CT abdomen pelvis wo IV con ?? IMPRESSION: ?? 1. Limited examination due to excretory phase of contrast enhancement. ?? This significantly limits evaluation of solid viscera and bowel. Exam ?? also limited by motion artifact in the mid aspect. ?? 2. On the localizer sequence for the attempted CTA, and on the rn cardiovascular icu, ?? there is left upper lobe opacity and consolidation consistent with ?? lobar pneumonia. Given the appearance on the localizer image, ?? associated tumor is not excluded in the left upper lobe. Recommend ?? follow-up imaging after treatment. ?? 3. There is grossly no liver abnormality or biliary dilatation. ?? Gallbladder is not seen. ?? 4. There is mild diffuse anasarca. ?? 5. Distention of the urinary bladder, which otherwise appears normal. ?? 6. Grade 2 spondylolisthesis L5 on S1. ? Electronically signed by: ??Leo Rosales MD ??09/17/2024 02:17 PM EST RP ?? Workstation: [id number] ? Dictated By: ?Leo Rosales MD ? Signed By: ?<Electronically signed by Leo Rosales MD in OV> ?09/17/24 1417 ? DD/ 1251 ? TD/TT: 09/17/24 1359 ? Osteopathic Medicine Teacher: ? Procedure Note Mateus Morales - 09/17/[address] [address] [address] Scan Report Signed Patient: Abhijit rWight#: [id number] : 1965Acct:[id number] Age/Sex: 59 / MADM Date: 09/17/24 Loc: HO.ED Attending Dr: Ordering Physician: Mayte Katz Date of Service: 09/17/24 Procedure(s): CT abdomen pelvis wo IV con Accession Number(s): [id number] cc: [facility]; Mayte Katz Report Number: [id number]: Total DLP = 240.00 mGy-cm EXAMINATION: CT ABDOMEN AND PELVIS WITHOUT CONTRAST CLINICAL INFORMATION: Jaundice, elevated white count. COMPARISON: None available. TECHNIQUE: Multidetector volumetric imaging was performed from the superior aspect of the liver through the pubic symphysis. Sagittal and coronal reformatted images were obtained on the technologist's workstation. This CT examination was performed using dose optimization techniques as appropriate, variously including the following: *Automated exposure control *Adjustment of mA and/or kV according to patient size (this includes techniques or standardized protocols for targeted exams where dose is matched to indication/reason for exam; i.e. extremities or head) *Use of iterative reconstruction technique FINDINGS: Attempted CTA canceled after IV malfunction. Contrast enhancement is an excretory phase, limiting evaluation of solid viscera and bowel. This is especially significant in the light of mild anasarca, limiting discrimination between soft tissue and fluid. In addition there is motion artifact in the mid aspect of the scan, further limiting evaluation. LUNG BASES: On the localizer sequence for the CTA, and on the rn cardiovascular icu, there is dense consolidation in the left upper lobe. There are no effusions. Heart size is normal. There is emphysema. LIVER, GALLBLADDER, AND BILIARY TREE: The unenhanced liver is normal in size, shape, and attenuation. No focal hepatic lesion or definitive biliary ductal dilatation is present. The gallbladder is not well seen. The common bile duct is normal in caliber. PANCREAS: Unremarkable. SPLEEN: Unenhanced spleen is normal. ADRENAL GLANDS: There is left hyperplasia. The right is normal. KIDNEYS AND URETERS: Excretory phase of contrast enhancement, limiting evaluation. Normal shape and size. No gross masses. No hydronephrosis. Ureters are nondilated. BLADDER: Distended, with layering contrast. No focal abnormality. GASTROINTESTINAL TRACT: No acute bowel pathology evident. Limited evaluation. Moderate fecal residue seen throughout the colon. Small bowel is nondilated. There is mild edema is seen throughout the small bowel mesentery likely related to anasarca. No gross ascites. ABDOMINAL WALL: No significant hernia is appreciated. LYMPH NODES: None enlarged. VASCULAR: Mild atheromatous vascular calcification. No aneurysm. PELVIC VISCERA: Unremarkable. OSSEOUS STRUCTURES: No acute abnormality. No fractures. Mild right convex thoracolumbar scoliosis. Healed fracture of the left iliac wing. Grade 2 spondylolisthesis L5 on S1. CT/CT abdomen pelvis wo IV con IMPRESSION: 1. Limited examination due to excretory phase of contrast enhancement. This significantly limits evaluation of solid viscera and bowel. Exam also limited by motion artifact in the mid aspect. 2. On the localizer sequence for the attempted CTA, and on the rn cardiovascular icu, there is left upper lobe opacity and consolidation consistent with lobar pneumonia. Given the appearance on the localizer image, associated tumor is not excluded in the left upper lobe. Recommend follow-up imaging after treatment. 3. There is grossly no liver abnormality or biliary dilatation. Gallbladder is not seen. 4. There is mild diffuse anasarca. 5. Distention of the urinary bladder, which otherwise appears normal. 6. Grade 2 spondylolisthesis L5 on S1. Electronically signed by: Leo Rosales MD 09/17/2024 02:17 PM EST Dictated By: Leo Rosales MD Signed By: <Electronically signed by Leo Rosales MD in OV> 09/17/24 1417 DD/ 1251 TD/TT: 09/17/24 1359 Osteopathic Medicine Teacher: [facility] External Provider IMG CT PROCEDURES Final Result * CT Head Stroke w/o Contrast (09/17/2024 12:37 PM EST) Anatomical Region Laterality Modality Computed Tomogra phy 09/17/2024 12:3 7 PM EST Narrative 09/17/2024 1:11 PM EST ? [facility] ?[address] ?[place] [address] ? CT Scan Report ? Signed ? Patient: Rivie,Abhijit ?MR#: [id number] ? : 1965 ?Acct:[id number] ? Age/Sex: 59 / M ?ADM Date: 02/20/25 ? Loc: HO.ED ? Attending Dr: ? Ordering Physician: Mayte Katz ?? Date of Service: 09/17/24 ?? Procedure(s): CT head for STROKE ?? Accession Number(s): [id number] ? cc: [facility]; Mayte Katz ? Report Number: ?? [id number]: Total DLP = ??552.00 mGy-cm ?? EXAMINATION: [...] critical result was discussed with emergency physician transportation assistant . ?? Mayte Leiva at 1256 hours on 09/17/2024. It was ascertained that the ?? content and urgency of the report was understood at the time of direct ?? communication. ? Electronically signed by: ??Kash Tinsley MD ??09/17/2024 01:08 PM ?? EST ? Dictated By: ?Kash Rutledge MD ? Signed By: ?<Electronically signed by Kash Vigil MD in OV> ? 09/17/24 1308 ? DD/ 1237 ? TD/TT: 09/17/24 1252 ? Osteopathic Medicine Teacher: ? Procedure Note Mateus Morales - 09/17/[address] [place] [address] [address] Scan Report Signed Patient: Theresa Wright#: [id number] : 1965Acct:[id number] Age/Sex: 59 / MADM Date: 09/17/24 Loc: HO.ED Attending Dr: Ordering Physician: Mayte Katz Date of Service: 09/17/24 Procedure(s): CT head for STROKE Accession Number(s): [id number] cc: [facility]; Mayte Katz Report Number: [id number]: Total DLP = 552.00 mGy-cm EXAMINATION: CT [...] critical result was discussed with emergency physician transportation assistant Sejal Leiva at 1256 hours on 09/17/2024. It was ascertained that the content and urgency of the report was understood at the time of direct communication. Electronically signed by: Kash Tinsley MD 09/17/2024 01:08 PM EST Dictated By: Kash Rutledge MD Signed By: <Electronically signed by Kash Vigil MDin OV> 09/17/24 1308 DD/ 1237 TD/TT: 09/17/24 1252 Osteopathic Medicine Teacher: [facility] External Provider IMG CT PROCEDURES Final Result * High Sensitivity Troponin I (09/17/2024 12:03 PM EST) TROPONIN I HIGH SENSITIVITY <2.7 <3.5 - 35.0 ng/L [facility] Comment:The [place]man high sens itivity Troponin-I results should beused in conjunction with other diagnostic information suchas ECG, clinical observations and information, and patientsymptoms to aid in the diagnosis of AR. 09/17/2024 12:0 3 PM EST 09/17/2024 2:03 PM EST Generic External Data Provider LAB BLOOD ORDERAB LES Final Result Performing Organization Address [facility] Co de Phone Number [facility] [address] [place] [phone] * Magnesium (09/17/2024 12:03 PM EST) Magnesium 1.8 1.6 - 2.6 mg/dL [facility] 09/17/2024 12:0 3 PM EST 09/17/2024 12:06 PM EST Generic External Data Provider LAB BLOOD ORDERAB LES Final Result Performing Organization Address [facility] Phone Number [facility] [address] [place] [phone] * Lipase (09/17/2024 12:03 PM EST) Lipase 14 8 - 78 U/L [facility] 09/17/2024 12:0 3 PM EST 09/17/2024 12:06 PM EST Generic External Data Provider LAB BLOOD ORDERAB LES Final Result Performing Organization Address [facility] Phone Number [facility] [address] [place] [phone] * (ABNORMAL) Bilirubin, Direct (09/17/2024 12:03 PM EST) Bilirubin, Direct 3.0(H) 0.0 - 0.5 mg/dL [facility] Comment:Slight Icterus. 09/17/2024 12:0 3 PM EST 09/17/2024 12:06 PM EST us Generic External Data Provider LAB BLOOD ORDERAB LES Final Result [facility] [address] [place] [phone] * (ABNORMAL) Comprehensive Metabolic Panel (09/17/2024 12:03 PM EST) Sodium 127(L) 135 - 145 mmol/L [facility] Potassium 3.6 3.3 - 5.1 mmol/L [facility] Chloride 100 96 - 108 mmol/L [facility] Carbon Dioxide 20(L) 22 - 29 mmol/L [facility] Anion Gap 11(L) 12 - 20 [facility] Urea Nitrogen (BUN) 15 9 - 16 mg/dL [facility] Creatinine, Serum 0.54 0.5 - 1.4 mg/dL [facility] Creatinine Clr Calc Pharmacy 95.6 [facility] Comment:eGFR (calculated fro m the MDRD study equation) and eCrCl(calculated from the Cockcroft-Gault equation) are based ondifferent parameters and may not yield comparable results.If eCrCl result is absurd, please check patient'sheight/weight. Estimated Glomerular Filt Rate >60 [facility] Comment:Chronic Kidney Disea se: Estimated GFR < 60 mL/min/1.30l7Lsbpcj Kidney Disease: Estimated GFR < 15 mL/min/1.73m2 Glucose 121(H) 60 - 115 mg/dL [facility] Calcium 7.9(L) 8.4 - 10.2 mg/dL [facility] Bilirubin, Total 3.8(H) 0.0 - 1.0 mg/dL [facility] Comment:Slight Icterus. Aspartate Amino Transferase 48(H) 5 - 37 U/L [facility] Alanine Aminotransferase 39 0 - 40 U/L [facility] Total Protein 5.8(L) 6.5 - 8.0 g/dL [facility] Albumin Level 2.4(L) 3.5 - 5.0 g/dL [facility] Alkaline Phosphatase 193(H) 39 - 117 U/L [facility] 09/17/2024 12:0 3 PM EST 09/17/2024 12:06 PM EST Generic External Data Provider LAB BLOOD ORDERAB LES Final Result Performing Organization Address [facility] Co de Phone Number [facility] [address] [place] [phone] * Ethanol (09/17/2024 12:02 PM EST) ETHANOL (MG/DL) IN SER/PLAS <10 mg/dL [facility] Comment:Serum/plasma ethanol results are to be used formedical/treatment purposes only. 09/17/2024 12:0 2 PM EST 09/17/2024 12:06 PM EST Generic External Data Provider LAB BLOOD ORDERAB LES Final Result Performing Organization Address [facility] Phone Number [facility] [address] [place] [phone] * SARS-CoV-2 RNA, Influenza A/B, and RSV RNA, Ql NAAT (09/17/2024 12:02 PM EST) Pathologist [facility] Influenza A PCR NEGATIVE Negative [facility] Influenza B PCR NEGATIVE Negative [facility] Resp Syncy Virus RNA Qual PCR NEGATIVE Negative [facility] SARS COV2 PCR NEGATIVE Negative [facility] Comment:All test results mus t [...] use by authorized laboratories.Testing performed on the The [email or web address] GeneXpert utilizingreal-time RT-PCR.All SARS CoV2 and positive influenza A/B results arereported to [facility] 09/17/2024 12:0 2 PM EST 09/17/2024 12:06 PM EST us Generic External Data Provider LAB MICROBIOLOGY - GENERAL ORDERABLES Final Result [facility] [address] [place] [phone] * (ABNORMAL) Lipid Panel with Reflex to Direct LDL (09/14/2022 11:11 AM EST) Cholesterol, Total 217(H) <200 mg/dL [facility] [place] for; to (do) Centers HDL Cholesterol 105 > OR = 40 mg/dL [facility] [place] for; to (do) Centers Triglycerides 74 <150 mg/dL [facility] [place] for; to (do) Centers LDL Cholesterol 96 mg/dL (calc) [facility] [place] for; to (do) Centers Comment: Reference range: <100 Desirable range <100 mg/dL for primary prevention; ?? <70 mg/dL for patients with CHD or diabetic patients with > or = 2 CHD risk factors. LDL-C is now calculated using the Jovan-Escobar calculation, which is a validated novel method providing better accuracy than the Friedewald equation in the estimation of LDL-C. Jovan SS et al. KRISHNA. 2013;310(19): 0474-1316 (http://education.MetaLogics.Adore Me/faq/ZOF574) Chol/HDLC Ratio 2.1 <5.0 (calc) [facility] [place] for; to (do) Centers Non-HDL Cholesterol 112 <130 mg/dL (calc) [facility] [place] for; to (do) Centers Comment: For patients with diabetes plus 1 [...] BLOOD ORDERABLES Fin al Result [facility] [address] [facility], [address], [place] [address] [facility] [place] [employer] [address] [facility], (Nl2) [place] [address] * (ABNORMAL) Hepatitis Panel, General (09/14/2022 11:11 AM EST) Hepatitis A Antibody Total REACTIVE( A) NON-REACT BARAK [facility] [place] for; to (do) Centers Comment: For additional information, please refer to http://[employer] Inc[employer]faq/HDE807 (This link is being provided for informational/ educational purposes only.) Hepatitis B Surface Antibody QL REACTIVE( A) NON-REACT [employer] [place] for; to (do) Centers Hepatitis B Surface Ag NON-REACT BARAK NON-REACT BARAK [facility] [place] for; to (do) Centers Hepatitis B Core Antibody Total NON-REACT BARAK NON-REACT [facility] [place] [employer] Hepatitis C Antibody NON-REACT BARAK NON-REACT BARAK [facility] [place] [employer] Index 0.02 <1.00 [facility] [place] for; to (do) Centers Comment: HCV antibody was non-reactive. There is no laboratory evidence of HCV infection. In most cases, no further action is required. However, if recent HCV exposure is suspected, a test for HCV RNA (test code 10903) is suggested. For additional information please refer to http://[employer] Inc[employer]faq/IHU37w4 (This link is being provided for informational/ educational purposes only.) 09/14/2022 11:1 1 AM EST 09/14/2022 11:12 AM EST Narrative [facility] - 09/19/2022 11:02 PM EST FASTING:UNKNOWN COLLECTION KIT GIVEN TO PATIENT. PATIENT ADVISED TO RETURN. FASTING: UNKNOWN us Mary Perrin MD LAB BLOOD ORDERABLES Fin al Result [facility] [address] [place] [address], [place] [address] [facility] [place] [employer] [address] [place] [address], (Nl2) [place] [address] * HIV-1/2 Antigen and Antibodies, Fourth Generation, with Reflexes (09/14/2022 11:11 AM EST) HIV Antigen/Antibody, 4th Generation NON-REAC TIVE NON-REAC TIVE [facility] [place] for; to (do) Centers Comment: HIV-1 antigen and HIV-1/HIV-2 antibodies were [...] ?? For additional information please refer to http://education.nSolutions, Inc./faq/OWT052 (This link is being provided for informational/ [...] MD LAB BLOOD ORDERABLES Fin al Result [facility] [address] [place] [address], [place] [address] [facility] [place] for; to (do) Centers [address] [place] [address], (Nl2) [place] [address] from Last 3 Months or Most Recently Relevant to Health Maintenance [place] [facility] ST[facility] ADULT Care Teams Brake Rider Relationship Specialty Start Date End Date Mary Perrin MD [address] [place] [phone] PCP - General Family Medicine 04/07/18
--- OUTSIDE RECORDS SUMMARY | 2024-09-29 13:01 | XMS_ITS | Encounter Summary ---
Author Organization [employer] Address [address] [facility] 7[address] [place] [address] Care Team Providers Care Companion Caregiver Name Role Phone Mary Perrin MD Primary Care Provider + Reason for Visit * Reason Onset Date Comments Nurse Triage 09/16/2024 Encounter Details Date Type Department Care Team ([facility] st Contact Info) Description 09/16/2024 Telephone [facility] [address] [place] [address] Mary Perrin MD [address] [place] [address] Nurse Triage Social History Tobacco Use Types [...] encounter Miscellaneous Notes * Telephone Encounter - Jacqueline Zuñiga RN - 09/25/2024 10:01 AM EST TC placed to pt to ensure pt has scheduled a follow up appointment with pulmonology. Individual answered the phone from [facility]. RN asked that they have the pt call office back. Individual agreed to inform pt to call office back. ----- Message from Kesha Pedraza sent at 09/24/2024 1:13 PM EST ----- Hi! Please call this patient to ensure he has a scheduled appointment with Pulm in 3-4 weeks to follow-up on the lung infection. Thanks * Telephone Encounter - Monik Delatorre RN - 09/16/2024 4:33 PM EST Triage call to [facility]. Yara, staff member, answered call. Pt is [...] questions were negative * Telephone Encounter - Kavya Roca - 09/16/2024 3:54 PM EST Symptoms: Lethargic [...] on filedocumented in this encounter Care Teams Companion Caregiver Relationship Specialty Start Date End Date Mary Perrin MD [address] [place] [phone] PCP - General Family Medicine 04/07/18 documented as of this encounter
--- OUTSIDE RECORDS SUMMARY | 2024-09-29 13:01 | XMS_ITS | Encounter Summary ---
Author Organization [employer] Address [address] [facility] 7t [place] [address] Care Team Providers Care Client Director Name Role Phone Mary Perrin MD Primary Care Provider + Reason for Visit * Reason Comments Med Refill Encounter Details Date Type Department Care Team ([facility] st Contact Info) Description 09/13/2023 Refill [facility] P[facility] [address] [place] [address] La Bower MD [address] [place] [address] Seizure disorder (CMS/HCC) Social History Tobacco Use [...] epilepsy documented in this encounter Care Teams Client Director Relationship Specialty Start Date End Date Mary Perrin MD [address] [place] [phone] PCP - General Family Medicine 04/07/18 documented as of this encounter
--- OUTSIDE RECORDS SUMMARY | 2024-09-29 13:01 | XMS_ITS | Encounter Summary ---
Author Organization [employer] Address [address] [facility] 7t [place] [address] Care Team Providers Care Kiln Mechanic Name Role Phone Mary Perrin MD Primary Care Provider + Encounter Details Date Type Department Care Team (Latest Contact Info) Description 05/22/2023 Research Encounter [facility] [address] [place] [address] Mary Perrin MD [address] [place] [address] ERRONEOUS ENCOUNTER--DISREGARD Social History Tobacco Use Types [...] ENCOUNTER--DISREGARD documented in this encounter Care Teams Kiln Mechanic Relationship Specialty Start Date End Date Mary Perrin MD [address] [place] [phone] PCP - General Family Medicine 04/07/18 documented as of this encounter
--- OUTSIDE RECORDS SUMMARY | 2024-09-29 13:01 | XMS_ITS | Encounter Summary ---
Author Organization [employer] Address [address] [facility] 7t [place] [address] Care Team Providers Care Cognos Bi Administrator Name Role Phone Mary Perrin MD Primary Care Provider + Reason for Visit * Reason Comments Med Refill Encounter Details Date Type Department Care Team ([facility] st Contact Info) Description 07/24/2023 Refill [facility] PEDS [address] [place] [address] La Bower MD [address] [place] [address] Seizure disorder (CMS/HCC) Social History Tobacco Use [...] epilepsy documented in this encounter Care Teams Cognos Bi Administrator Relationship Specialty Start Date End Date Mary Perrin MD [address] [place] [phone] PCP - General Family Medicine 04/07/18 documented as of this encounter
--- OUTSIDE RECORDS SUMMARY | 2024-09-29 13:01 | XMS_ITS | Encounter Summary ---
Author Organization [employer] Address [address] [facility] 7t [place] [address] Care Team Providers Care Varnishing Unit Tool Setter Name Role Phone Mary Perrin MD Primary Care Provider + Encounter Details Date Type Department Care Team ([facility] st Contact Info) Description 10/23/2023 Telephone [facility] [address] [place] [address] Mary Perrin MD [address] [place] [address] Social History Tobacco Use Types Packs/Day Years [...] on filedocumented in this encounter Care Teams Varnishing Unit Tool Setter Relationship Specialty Start Date End Date Mary Perrin MD [address] [place] [phone] PCP - General Family Medicine 04/07/18 documented as of this encounter
--- OUTSIDE RECORDS SUMMARY | 2024-09-29 13:01 | XMS_ITS | Encounter Summary ---
Author Organization [employer] Address [address] [facility] [address] [place] [address] Care Team Providers Care Fitness Technician Name Role Phone Mary Perrin MD Primary Care Provider + Encounter Details Date Type Department Care Team ([facility] Contact Info) Description 09/29/2024 Orders Only GENERIC EXTERNAL DATA DEPARTMENT Provider, Generic External Data Social History Tobacco Use Types Packs/Day Years [...] Procedure Name Priority Date/Time Associated Diagnosis Comments CBC Routine 09/29/2024 10:57 AM EST HEPATIC FUNCTION PANEL Routine 09/29/2024 10:57 AM EST documented in this encounter Results * (ABNORMAL) Hepatic Function Panel (09/29/2024 10:57 AM EST) Bilirubin, Total 1.3(H) 0.0 - 1.0 mg/dL [facility] Bilirubin, Direct 0.9(H) 0.0 - 0.5 mg/dL [facility] Aspartate Amino Transferase 26 5 - 37 U/L [facility] Alanine Aminotransferase 31 0 - 40 U/L [facility] Total Protein 7.3 6.5 - 8.0 g/dL [facility] Albumin Level 3.0(L) 3.5 - 5.0 g/dL [facility] Alkaline Phosphatase 150(H) 39 - 117 U/L [facility] 09/29/2024 10:5 7 AM EST 09/29/2024 11:05 AM EST us Generic External Data Provider LAB BLOOD ORDERAB LES Final Result [facility] [address] [place] [address] [phone] * (ABNORMAL) CBC (09/29/2024 10:57 AM EST) White Blood Count 15.3(H) 4.8 - 10.8 X10*3/uL [facility] Red Blood Count 4.05(L) 4.60 - 5.80 X10*6/uL [facility] Hemoglobin 12.3(L) 14.0 - 18.0 g/dl [facility] Hematocrit 36.2(L) 42.0 - 52.0 % [facility] Mean Corpuscular Volume 89.4 80.0 - 98.0 fL [facility] Mean Corpuscular Hemoglobin 30.4 27.0 - 33.0 pg [facility] Mean Corpuscular HGB Conc 34.0 31.0 - 36.0 g/dl [facility] Red Cell Distribution Width 14.3 11.0 - 16.0 % [facility] Platelet Count 614(H) 160 - 400 X10*3/uL [facility] Mean Platelet Volume 9.0(L) 9.4 - 12.4 fL [facility] NRBC Pct Auto 0.0 0.0 - 0.2 /100WBC [facility] NRBC Abs Auto 0.000 0.0 - 0.012 X10*3/uL [facility] 09/29/2024 10:5 7 AM EST 09/29/2024 11:05 AM EST us Generic External Data Provider LAB BLOOD ORDERAB LES Final Result Performing Organization Address City/State/[facility] Co de Phone Number [facility] [address] [place] [phone] documented in this encounter Visit Diagnoses Not on filedocumented in this encounter Care Teams Fitness Technician Relationship Specialty Start Date End Date Mary Perrin MD [address] [place] [phone] PCP - General Family Medicine 04/07/18 documented as of this encounter
--- OUTSIDE RECORDS SUMMARY | 2024-09-29 13:01 | XMS_ITS | Clinical Summary ---
Author Organization [address] [facility] Address [address] [place] [address] Phone Care Team Providers Care Control Chemist Name Role Phone Maxine Rodas [facility] Primary Care Provider [phone] Allergies No known active allergies Medications acetaminophen [...] Care Team (Late st Contact Info) Description 11/12/2024 9:00 AM EDT Consult Orthopedic Surgery - [place] [address] [facility] [address] [place] [phone] Chidi Jurado, DPM [address] [address] Health Maintenance Due Date Last Done Comments [...] topic Insurance MEDICAID - [place] Care Teams Control Chemist Relationship Specialty Start Date End Date Maxine Rodas [place] [phone] PCP - General Family Medicine 07/20/24
--- OUTSIDE RECORDS SUMMARY | 2024-09-29 13:01 | XMS_ITS | Encounter Summary ---
Author Organization [employer] Address [address] [facility] 7t [place] [address] Care Team Providers Care Aeroplane Pilot Name Role Phone Mary Perrin MD Primary Care Provider + Encounter Details Date Type Department Care Team ([facility] Contact Info) Description 09/17/2024 Orders Only [facility] External Provider, [facility] Social History Tobacco Use Types Packs/Day Years [...] Name Priority Date/Time Associated Diagnosis Comments CT CHEST W AND WO CONTRAST Routine 09/21/2024 8:39 PM EST SODIUM W/O CREATININE, RANDOM URINE Routine 09/17/2024 5:33 PM EST OSMOLALITY (U) Routine 09/17/2024 5:33 PM EST CREATININE, RANDOM URINE Routine 09/17/2024 5:33 PM EST XR CHEST [...] TROPONIN I Routine 09/17/2024 12:03 PM EST documented in this encounter Results * CT Chest w/ and w/o Contrast (09/21/2024 8:39 PM EST) Anatomical Region Laterality Modality Body, Chest Computed Tomogra phy 09/21/2024 8:39 PM EST Narrative 09/21/2024 8:42 PM EST ? [facility] ?[address] ?[place] [address] ? CT Scan Report ? Signed with Addenda ? Patient: Rivie,Abhijit ?MR#: [id number] ? : 1965 ?Acct:[id number] ? Age/Sex: 59 / M ?ADM Date: 09/17/24 ? Loc: HO.S3 ?368-1 ? Attending Dr: Ruben Bhakta MD ? Ordering Physician: Ruben Bhakta MD ?? Date of Service: 09/21/24 ?? Procedure(s): CT chest wo/w IV con ?? Accession Number(s): [id number] ? cc: Kesha Pedraza; Ruben Bhakta MD ? Report Number: ?? [id number]: Total DLP = ??370.00 mGy-cm ?ADDENDUM ?? [...] ? DD/ 38 ? TD/TT: 09/21/242038 ? [employer]st: ? Procedure Note Andrew, Image - 09/21/[address] [place] [address] [address] Scan Report Signed with Emilie Patient: Theresa Wright#: [id number] : 1965Acct:[id number] Age/Sex: 59 / MADM Date: 09/17/24 Loc: .S3 368-[address]: Ruben Bhakta MD Ordering Physician: Ruben Bhakta MD Date of Service: 09/21/24 Procedure(s): CT chest wo/w IV con Accession Number(s): [id number] cc: Kesha Pedraza; Ruben Bhakta MD Report Number: [id number]: Total DLP = 370.00 mGy-cm ADDENDUM This document has been electronically signed by: Lb Mesa MD on 09/21/2024 20:39:52 ADDENDUM: This report was discussed with Bernadette Cottrell RN on Sep 21, 2024 20:52:00 EST. This [...] in OV> 09/21/242040 DD/ 38 TD/TT: 09/21/242038 [employer]: [facility] External Provider IMG CT PROCEDURES Edited Result - Final * Sodium Without creatinine, Random Urine (09/17/2024 5:33 PM EST) Sodium Urine Random <20.0 mmol/L [facility] 09/17/2024 5:33 PM EST 09/17/2024 5:36 PM EST Generic External Data Provider LAB BLOOD ORDERAB LES Final Result [facility] [address] [place] [phone] * Creatinine, Random Urine (09/17/2024 5:33 PM EST) Creatinine, Urine 65.46 mg/dL [facility] 09/17/2024 5:33 PM EST 09/17/2024 5:36 PM EST Generic External Data Provider LAB URINE ORDERAB LES Final Result Performing Organization Address [facility] de Phone Number [facility] [address] [place] [phone] * Osmolality, Urine (09/17/2024 5:33 PM EST) Pathologist [facility] OSMOLALITY URINE 548 373 - 1,093 mosm/kg [facility] 09/17/2024 5:33 PM EST 09/17/2024 5:36 PM EST Generic External Data Provider LAB URINE ORDERAB LES Final Result Performing Organization Address [facility] de Phone Number [facility] [address] [place] [phone] * XR Chest 2 Views (09/17/2024 3:57 PM EST) Anatomical Region Laterality Modality Chest Radiographic Meron ging 09/17/2024 3:57 PM EST Narrative 09/18/2024 8:10 AM EST ? [facility] ?[address] ?[place] [address] ?XRay Report ? Signed ? Patient: Rivie,Abhijit ?MR#: [id number] ? : 1965 ?Acct:[id number] ? Age/Sex: 59 / M ?ADM Date: 02/20/25 ? Loc: HO.[place] ?MEDSURG-11 ? Attending Dr: Ruben Bhakta MD ? Ordering Physician: Mayte Katz ?? Date of Service: 09/17/24 ?? Procedure(s): XR chest 2V ?? Accession Number(s): [id number] ? cc: [facility]; Mayte Katz ? EXAMINATION: ?? XR CHEST [...] Tinsley MD ??09/18/2024 08:08 AM ?? EST ? Dictated By: ?Kash Rutledge MD ? Signed By: ?<Electronically signed by Kash Vigil MD in OV> ? 09/18/24 0808 ? DD/ 1557 ? TD/TT: 09/17/24 1629 ? [employer]st: ? Procedure Note Mateus Morales - 09/18/2024 [place] [address] XRay Report Signed Patient: Theresa Wright#: [id number] : 1965Acct:[id number] Age/Sex: 59 / MADM Date: 09/17/24 [facility]: Ruben Bhakta MD Ordering Physician: Mayte Katz Date of Service: 09/17/24 Procedure(s): XR chest 2V Accession Number(s): [id number] cc: [facility]; Mayte Katz EXAMINATION: XR CHEST CLINICAL INFORMATION: [...] 09/18/24 0808 DD/ 1557 TD/TT: 09/17/24 1629 [employer]st: [facility] External Provider IMG XR PROCEDURES Final Result * (ABNORMAL) Drug Monitoring, Panel 1, Screen, Urine (09/17/2024 3:29 PM EST) Opiate Screen Urine Not Detected Not Detect [facility] Comment:Opiate cut-off is 30 0 ng/mL.Positive results are unconfirmed and should not be used fornon-medical purposes. Barbiturates, Urine Not Detected Not Detect [facility] Comment:Barbiturate cut-off is 200 ng/mL.Positive results are unconfirmed and should not be used fornon-medical purposes. Phencyclidine Screen Urine Not Detected Not Detect [facility] Comment:Phencyclidine cut-of f is 25 ng/mL.Positive results are unconfirmed and should not be used fornon-medical purposes. Amphetamine Screen Urine Not Detected Not Detect [facility] Comment:Amphetamine cut-off is 1000 ng/mL.Positive results are unconfirmed and should not be used fornon-medical purposes. Benzodiazepines Screen Urine Not Detected Not Detect [facility] Comment:Benzodiazepine cut-o ff is 200 ng/mL.Positive results are unconfirmed and should not be used fornon-medical purposes. Cocaine Screen Urine POSITIVE(A) Not Detect [facility] Comment:Cocaine cut-off is 3 00 ng/mL.Positive results are unconfirmed and should not be used fornon-medical purposes. Cannabinoid Screen Urine Not Detected Not Detect [facility] Comment:Cannabinoid cut-off is 50 ng/mL.Positive results are unconfirmed and should not be used fornon-medical purposes. Methadone Screen, Urine Not Detected Not Detect ng/mL [facility] Comment:Methadone cut-off is 300 ng/mL.Positive results are unconfirmed and should not be used fornon-medical purposes. FENTANYL URINE Not Detected Not Detect [facility] Comment:Fentanyl cut-off is 1 ng/mL.Positive results are unconfirmed and should not be used fornon-medical purposes. Oxycodone Urine Screen Not Detected Not Detect ng/mL [facility] Comment:Oxycodone cut-off is 100 ng/mL.Positive results are unconfirmed and should not be used fornon-medical purposes. Buprenorphine Screen Not Detected Not Detect ng/mL [facility] Comment:Buprenorphine cut-of f is 5 ng/mL.Positive results are unconfirmed and should not be used fornon-medical purposes. 09/17/2024 3:29 PM EST 09/17/2024 3:32 PM EST us Generic External Data Provider LAB URINE ORDERAB LES Final Result [facility] [address] [place] [phone] * (ABNORMAL) Urinalysis w/reflex microscopic (09/17/2024 3:29 PM EST) Color Urine Dark Yellow [facility] Appearance Urine Clear [facility] PH 5.5 5.0 - 9.0 [facility] Glucose Urine UA 100(A) Negative mg/dL [facility] Urine Blood Negative Negative [facility] Specific Howes - Urine >=1.030(H) 1.005 - 1.025 [facility] Urine Protein Trace Neg-Trace mg/dL [facility] Urine Ketones Negative Negative mg/dL [facility] Nitrite Urine Negative Negative [facility] Leukocyte Esterase Urine Negative Negative [facility] 09/17/2024 3:29 PM EST 09/17/2024 3:32 PM EST Narrative [facility] - 09/17/2024 3:40 PM EST [id number], Clean Catch Generic External Data Provider LAB URINE ORDERAB LES Final Result Performing Organization Address [facility] Co de Phone Number [facility] [address] [place] [phone] * Partial Thromboplastin Time, Activated (APTT) (09/17/2024 2:55 PM EST) Partial Thromboplastin Time 26.4 26.0 - 36.8 SEC [facility] Comment:For information rega rding the monitoring of direct thrombininhibitors, please refer to Pharmacy. 09/17/2024 2:55 PM EST 09/17/2024 2:56 PM EST Generic External Data Provider LAB BLOOD ORDERAB LES Final Result Performing Organization Address [facility] Co de Phone Number [facility] [address] [place] [phone] * (ABNORMAL) Prothrombin Time-INR (09/17/2024 2:55 PM EST) Prothrombin Time 14.3(H) 10.9 - 12.4 SEC [facility] INTERNATIONAL NORM RATIO 1.2(H) 0.9 - 1.1 [facility] Comment:INTERNATIONAL NORMAL IZED RATIO (INR) REFERENCE [...] Provider LAB BLOOD ORDERAB LES Final Result [facility] [address] [place] [phone] * US Abdomen Limited (09/17/2024 1:49 PM EST) Anatomical Region Laterality Modality Abdomen Ultrasound 09/17/2024 1:49 PM EST Narrative 09/17/2024 2:33 PM EST ? [facility] ?[address] ?[place] [address] ? Ultrasound Report ? Signed ? Patient: Adriana,Abhijit ?MR#: [id number] ? : 1965 ?Acct:[id number] ? Age/Sex: 59 / M ?ADM Date: 09/17/24 ? Loc: HO.ED ? Attending Dr: ? Ordering Physician: Mayte Katz ?? Date of Service: 09/17/24 ?? Procedure(s): US abdomen limited ?? Accession Number(s): [id number] ? cc: [facility]; Mayte Katz ? EXAMINATION: ?? US ABDOMEN [...] DD/ 1349 ? TD/TT: 09/17/24 1402 ? [employer] Analyst: ? Procedure Note Donotuseinterpreter, Image - 09/17/2024 [place] [address] Ultrasound Report Signed Patient: Theresa Wright#: [id number] : 1965Acct:[id number] Age/Sex: 59 / MADM Date: 09/17/24 Loc: HO.ED Attending Dr: Ordering Physician: Mayte Katz Date of Service: 09/17/24 Procedure(s): US abdomen limited Accession Number(s): [id number] cc: [facility]; Mayte Katz EXAMINATION: US ABDOMEN LIMITED CLINICAL [...] by: Kash Tinsley MD 09/17/2024 02:30 PM [facility] Dictated By: Kash Rutledge MD Signed By: <Electronically signed by Kash Vigil MDin OV> 09/17/24 1430 DD/ 1349 TD/TT: 09/17/24 1402 [employer]st: us [facility] External Provider IMG US PROCEDURES Final Result * Glucose, Whole Blood (09/17/2024 1:24 PM EST) Glucose, Whole Blood 93 60 - 115 mg/dL [facility] Comment:METER #: [id number] 09/17/2024 1:24 PM EST 09/17/2024 1:27 PM EST us Generic External Data Provider LAB BLOOD ORDERAB LES Final Result Performing Organization Address [facility]/State/[facility] Co de Phone Number [facility] [address] [place] [phone] * CT Abdomen Pelvis w/o Contrast (09/17/2024 12:51 PM EST) Anatomical Region Laterality Modality Body, Pelvis, Abdomen Computed T omography 09/17/2024 12:5 1 PM EST Narrative 09/17/2024 2:20 PM EST ? [facility] ?[address] ?[place] [address] ? CT Scan Report ? Signed ? Patient: Rivie,Abhijit ?MR#: [id number] ? : 1965 ?Acct:[id number] ? Age/Sex: 59 / M ?ADM Date: 09/17/24 ? Loc: HO.ED ? Attending Dr: ? Ordering Physician: Mayte Katz ?? Date of Service: 09/17/24 ?? Procedure(s): CT abdomen pelvis wo IV con ?? Accession Number(s): [id number] ? cc: [facility]; Mayte Katz ? Report Number: ?? [id number]: Total DLP = ??240.00 mGy-cm ?? EXAMINATION: [...] sequence for the CTA, and on the vegetable tester, ?? there is dense consolidation in the [...] for the attempted CTA, and on the vegetable tester, ?? there is left upper lobe opacity [...] ??09/17/2024 02:17 PM EST RP ?? Workstation: [id number] ? Dictated By: ?Leo Rosales MD ? Signed By: ?<Electronically signed by Leo Rosales MD in OV> ?09/17/24 1417 ? DD/ 1251 ? TD/TT: 09/17/24 1359 ? [employer]st: ? Procedure Note Mateus Morales - 09/17/[address] [address] [address] Scan Report Signed Patient: Theresa Wright#: [id number] : 1965Acct:[id number] Age/Sex: 59 / MADM Date: 09/17/24 Loc: HO.ED Attending Dr: Ordering Physician: Mayte Katz Date of Service: 09/17/24 Procedure(s): CT abdomen pelvis wo IV con Accession Number(s): [id number] cc: [facility]; Mayte Katz Report Number: [id number]: Total DLP = 240.00 mGy-cm EXAMINATION: CT [...] sequence for the CTA, and on the vegetable tester, there is dense consolidation in the left [...] for the attempted CTA, and on the vegetable tester, there is left upper lobe opacity and [...] 09/17/24 1417 DD/ 1251 TD/TT: 09/17/24 1359 [employer] Analyst: [facility] External Provider IMG CT PROCEDURES Final Result * CT Head Stroke w/o Contrast (09/17/2024 12:37 PM EST) Anatomical Region Laterality Modality Computed Tomogra phy 09/17/2024 12:3 7 PM EST Narrative 09/17/2024 1:11 PM EST ? [facility] ?[address] ?[place] [address] ? CT Scan Report ? Signed ? Patient: Rivie,Abhijit ?MR#: [id number] ? : 1965 ?Acct:[id number] ? Age/Sex: 59 / M ?ADM Date: 02/20/25 ? Loc: HO.ED ? Attending Dr: ? Ordering Physician: Mayte Katz ?? Date of Service: 09/17/24 ?? Procedure(s): CT head for STROKE ?? Accession Number(s): [id number] ? cc: [facility]; Mayte Katz ? Report Number: ?? [id number]: Total DLP = ??552.00 mGy-cm ?? EXAMINATION: [...] critical result was discussed with emergency physician care assistant . ?? Mayte Leiva at [...] DD/ 1237 ? TD/TT: 09/17/24 1252 ? [employer] Analyst: ? Procedure Note Andrew, Image - 09/17/[address] [place] [address] [address] Scan Report Signed Patient: Abhijit WrightMR#: [id number] : 1965Acct:[id number] Age/Sex: 59 / MADM Date: 09/17/24 Loc: HO.ED Attending Dr: Ordering Physician: Mayte Katz Date of Service: 09/17/24 Procedure(s): CT head for STROKE Accession Number(s): [id number] cc: [facility]; Mayte Katz Report Number: [id number]: Total DLP = 552.00 mGy-cm EXAMINATION: CT [...] critical result was discussed with emergency physician care assistant Sejal Leiva at 1256 hours on 09/17/2024. It was ascertained that the content and urgency of the report was understood at the time of direct communication. Electronically signed by: Kash Tinsley MD 09/17/2024 01:08 PM EST Dictated By: Kash Rutledge MD Signed By: <Electronically signed by Kash Vigil MDin OV> 09/17/24 1308 DD/ 1237 TD/TT: 09/17/24 1252 [employer]st: us [facility] External Provider IMG CT PROCEDURES Final Result * High Sensitivity Troponin I (09/17/2024 12:03 PM EST) TROPONIN I HIGH SENSITIVITY <2.7 <3.5 - 35.0 ng/L [facility] Comment:The [place] high sens itivity Troponin-I results should beused in conjunction with other diagnostic information suchas ECG, clinical observations and information, and patientsymptoms to aid in the diagnosis of SD. 09/17/2024 12:0 3 PM EST 09/17/2024 2:03 PM EST us Generic External Data Provider LAB BLOOD ORDERAB LES Final Result Performing Organization Address City/State/[facility] Co de Phone Number [facility] [address] [place] [phone] documented in this encounter Visit Diagnoses Not on filedocumented in this encounter Care Teams Aeroplane Pilot Relationship Specialty Start Date End Date Mary Perrin MD [address] [place] [phone] PCP - General Family Medicine 04/07/18 documented as of this encounter
== END 2024-09-29 10:40 | disposition home or self-care (01) ==
LOC: HO.LAB 10:39
PROVIDERS: PCP Nurse Practitioner; Visit Provider Hospitalist
DX: J85.2 Abscess of lung without pneumonia (principal); R17 Unspecified jaundice
CPT/HCPCS: 36415; 80076; 85027

== ENCOUNTER 2024-11-09 16:23 | Inpatient (IN) | payer MEDICAID, SELFPAY ==
--- NOTE | 2024-11-09 | EEG_ITS ---
FINDINGS: Waking background activity consists of a moderate voltage 6 to 7 Hz diffuse theta. Photic stimulation and hyperventilation were omitted. The patient was poorly cooperative with the test. No focal or paroxysmal features are identified. IMPRESSION: This is an abnormal EEG due to diffuse background slowing consistent with diffuse encephalopathic process. No focal abnormalities and no seizure discharges were seen. MD JIGAR Olivo/LJ / [id number]
--- NOTE | ~2024-11-09 | CT_ITS ---
CLINICAL HISTORY: fever of unknown source CT abdomen and pelvis with contrast Comparison: US/SR - US ABDOMEN LIMITED - 09/17/24 13:[address]/DC/SR - CT ABDOMEN PELVIS WO IV CON - 09/17/24 12:51 EST Findings: The lung bases are clear. The gallbladder and solid organs are within normal limits. No renal stones. No bowel obstruction, pneumoperitoneum, or pneumatosis. Pelvic contents unremarkable. Normal appendix. There are chronic bilateral pars defects at L5 with 1.5 cm of anterolisthesis of L5 on S1. No acute fracture. Chronic deformity of the left iliac crest. There is a 2.8 x 1.6 x 1.7 cm walled-off fluid collection within the soft tissues posterior to the sacrococcygeal junction in the midline. There is infiltration of adjacent soft tissues. No underlying osteomyelitis. No soft tissue gas. IMPRESSION: 1. There is a 2.8 cm abscess within the soft tissues posterior to the sacrococcygeal junction. 2. No acute abdominal disease. This document has been electronically signed by: Shazia Krueger MD on 11/09/2024 20:53:30
--- NOTE | ~2024-11-09 | CT_ITS ---
CLINICAL HISTORY: AMS CT head without contrast Comparison: CT/FL/SR - CT HEAD FOR STROKE - 09/17/24 12:47 EST Findings: No intracranial mass, midline shift, hydrocephalus, or acute hemorrhage. Obop-pl-fzeiuufw secretions are identified within the left maxillary sinus. Minimal mucosal thickening identified within the remainder of the paranasal sinuses. The bilateral mastoid air cells appear clear. Dislocation of the lens at the left globe redemonstrated. No acute skull fracture. Probable old left parietal sobeida hole, unchanged. Impression: 1. No acute intracranial abnormality. No acute intracranial hemorrhage. This document has been electronically signed by: Kendrick Burr MD on 11/09/2024 22:44:41
--- NOTE | ~2024-11-09 | CT_ITS ---
CLINICAL HISTORY: fever, hx lung abcess CT chest with contrast Comparison: CT - CT CHEST W IV CON - 11/09/24 19:30 EDT Findings: The heart size is normal. The visualized thyroid and mediastinum are unremarkable. There is ground-glass opacity and an area of central consolidation within the left upper lobe, significantly improved since the prior study. There is left upper lobe volume loss, new since the prior study. There are small foci of cavitation at the left lung apex with significant improvement. There are ground-glass opacities within the posterior aspect of the right upper lobe. There is an 8 mm nodular focus within the posterior aspect of the right lower lobe, new since the prior study. There is a 4 mm left lower lobe nodule without change. There is heterogeneous lucency involving the bilateral lungs compatible with areas of air trapping. Findings at the level of the abdomen are reported separately. No acute fractures. IMPRESSION: 1. Residual left upper lobe infiltrate, considerably improved since the prior study. This may represent residual active infection and/or scarring. 2. There is a new area of infiltrate or atelectasis within the right upper lobe. 3. There is a new 8 mm nodular focus within the right lower lobe. This could represent atelectasis, an area of developing infiltrate within the right lower lobe or a true pulmonary nodule. Recommend CT follow-up to confirm resolution. This document has been electronically signed by: Shazia Krueger MD on 11/09/2024 20:54:28
--- NOTE | ~2024-11-09 | CT_ITS ---
EXAMINATION: CT fluoroscopy-guided sacrococcygeal abscess aspiration. Clinical indication: Sacrococcygeal midline abscess. COMPARISON: CT chest 11/09/2024. TECHNIQUE: Patient was unable to give consent. The Guardian was called but there was no response. Origin consent was obtained by Dr. Vences and Dr. Dc Paris . Patient was placed in left lateral decubitus view and preliminary CT imaging through the posterior sacrum/coccygeal junction was performed. Midline abscess abnormality was identified on preliminary CT imaging. The area was marked, cleaned and draped in usual sterile manner. 1% lidocaine was injected at puncture site. A 20-gauge needle attached a syringe was advanced from the marked site to the posterior surface of sacrum/coccygeal junction. A to pass aspiration was performed and fluid collected was sent and purple-red tubes culture and sensitivity. No immediate results well labeled. Postprocedure simple bandage was applied at puncture site. No conscious sedation utilized. Patient targeted procedure extremely well. Findings/ CT/CT guided aspiration impression: Successful fluoroscopy-guided sacrococcygeal abscess aspiration performed. Fluid collected was sent to lab for culture and sensitivity, Gram stain. Dose area product: 65 mGy/cm. Electronically signed by: Que Samson MD 11/10/2024 04:21 PM EDT
[2024-11-09 16:41] VITALS: BP 132/78; BP 145/87; PULSE 106; RESP 20; TEMP 38.9; O2SAT 94; O2SAT 99; BMI 16.7
[2024-11-09] MEDS: diazePAM 10 MG/2 ML CARTRIDGE 5 MG IM (17:47)
--- NOTE | 2024-11-09 17:52 | ED_ITS ---
HPI - Seizure General Chief Complaint: Seizure Stated Complaint: witnessed sz from Time Seen by Provider: 11/09/24 17:09 Source: EMS Mode of arrival: EMS Limitations: other History of Present Illness ED Provider: Dr. Shari Linares HPI Narrative: Patient comes to the emergency room via ambulance from a residential. According to the residential staff, the reported to the EMS that patient had an absence seizure that lasted for more than 1 minute. On arrival, patient is uncooperative, refusing vitals. Patient's seems to be postictal. Seizure History: Yes Related Data Home Medications ?Medication ?Instructions ?Recorded ?Confirmed Colace 100 mg PO DAILY PRN Constipation 08/16/22 09/18/24 folic acid 1 mg tablet 1 tab PO DAILY 08/16/22 09/18/24 haloperidol 10 mg tablet 10 mg PO DAILY 08/16/22 09/18/24 haloperidol 5 mg tablet 5 mg PO DAILY 08/16/22 09/18/24 omeprazole 20 mg capsule,delayed 1 cap PO DAILY PRN Acid Reflux 08/16/22 09/18/24 release oxcarbazepine 150 mg tablet 150 mg PO BID 08/16/22 09/18/24 acetaminophen 325 mg tablet 650 mg PO Q4H PRN Pain 09/18/24 09/18/24 albuterol sulfate 90 mcg/actuation 1 inh inhalation QID PRN Wheezing 09/18/24 09/18/24 aerosol inhaler aripiprazole 10 mg tablet 10 mg PO DAILY 09/18/24 09/18/24 Previous Rx's ?Medication ?Instructions ?Recorded amoxicillin 875 mg-potassium 1 tab PO BID #56 tabs 09/22/24 clavulanate 125 mg tablet guaifenesin 100 mg/5 mL oral liquid 200 mg (10 mL) PO TID #473 mL 09/22/24 levetiracetam 250 mg tablet 250 mg PO BID #180 tabs 09/22/24 (Keppra) nicotine 14 mg/24 hr daily 14 mg transdermal DAILY #30 ea 09/22/24 transdermal patch Allergies Allergy/AdvReac Type Severity Reaction Status Date / Time No Known Allergies Allergy Mild NOT Verified 11/09/24 16:46 APPLICABLE Review of Systems 2 Review of Systems: Yes Unobtainable due to mental status PMFSH Past Medical History Medical History Noncompliance with medication regimen Generalized seizure Polysubstance use disorder Social History Social History Housing: Other Housing Other:: [facility] residential. Unable to assess alcohol history related to: Refusing to respond Alcohol intake: never Patient Tobacco Use Status: Current everyday Tobacco user Tobacco use type: Cigarette Cigarettes Per Day: 5 Substance Use Type: Marijuana Advance Directives: Yes Advance Directives on File: Yes Advance Directives Date on File: 08/24/24 Do you have a plan to hurt others: No Plan service: No Physical Exam 2 Vital Signs: Vital Signs: Last Vital Signs Temp 100.9 F H 11/09/24 20:04 Pulse 71 11/09/24 20:04 Resp 16 11/09/24 20:04 BP 119/77 11/09/24 20:04 Pulse Ox 96 11/09/24 20:04 O2 Del Method Room Air 11/09/24 20:04 BMI result Body Mass Index 16.7 Const: Other: Appearance: Alert. Seems postictal? Eyes: Pupils equal, round and reactive to light. ENT: Pharynx normal. Neck: Normal inspection. Neck supple. No lymph nodes noted. No crepitus CVS: Normal heart rate and rhythm. Pulses normal. Normal S1 and S2 Respiratory: No respiratory distress. Breath sounds normal. No Wheezing. No rales Abdomen: Soft and nontender. No rigidity. No distention. Skin: Skin warm and dry. Normal skin color. Normal skin turgor. Extremities: No lower extremity edema. No Lacerations. No Rash Neuro: Moving all extremities. Psych: Uncooperative, postictal? Course Course Course Narrative: It was noted the patient was sent with a an updated list of medications. We will contact the facility to make sure that they are giving him his medications based on his last recent discharge list of medications. Patient should be on ox carbamazepine and Keppra. Patient is known to be noncompliant with his medications. Patient is on a [facility] order for psychiatric medications Patient a bit aggressive, combative. Unclear if patient is postictal. Patient got out of bed, sudden in a chair and had an absence seizure lasting for about a minute. Patient was taken back to bed. Patient was given IM diazepam, we currently have a shortage of Ativan. All of patient's labs and imaging pending. Patient will be given IV Keppra once we establish IV. I reviewed patient's past medical history. Patient was discharged from this hospital a bit under 2 months ago. Patient had a lung abscess. Patient currently has a fever of 102.0. We will obtain CT scans. Patient's blood pressure 145/87, receiving IV fluids, empiric antibiotics. Medications Administered Discontinued Medications Generic Name Dose Route Start Last Admin Trade Name Freq PRN Reason Stop Dose Admin Diazepam 5 mg 11/09/24 17:40 11/09/24 17:47 Diazepam 10 Mg/2 Ml Cartridge IM 11/09/24 17:41 5 mg STAT STA Administration Levetiracetam 1,500 mg in 100 mls @ 400 mls/hr 11/09/24 17:22 11/09/24 18:50 Keppra IV 11/09/24 17:36 Infused ONCE ONE Infusion Acetaminophen 1,000 mg in 100 mls @ 400 mls/hr 11/09/24 17:41 11/09/24 18:57 Ofirmev IV 11/09/24 17:55 Infused ONCE ONE Infusion Piperacillin Sod/Tazobactam 50 mls @ 100 mls/hr 11/09/24 17:55 11/09/24 19:10 Sod 3.375 gm/ Sodium Chloride IV 11/09/24 18:24 Infused ONCE ONE Infusion Sodium Chloride 1,000 mls @ 999 mls/hr 11/09/24 17:55 11/09/24 18:17 Ns IVCONT 11/09/24 18:55 999 mls/hr .Q1H1M ONE Administration Sodium Chloride 2,000 mls @ 999 mls/hr 11/09/24 18:00 11/09/24 19:16 Ns IVCONT 11/09/24 20:00 999 mls/hr .Q2H1M ONE Administration Iohexol 100 ml 11/09/24 19:37 11/09/24 19:37 Iohexol 350 Mg/Ml 100 Ml Infus..Btl IV 11/09/24 19:38 85 ml ONCE ONE Administration Medical Decision Making Medical Decision Making MDM Narrative: My interpretation of labs: Patient's white blood cell count 14, at baseline for the patient. Normal chemistry, normal lactic acid, ETOH negative. Serology negative for flu RSV and COVID. Chest the shows a new right upper lobe infiltrate, healing left upper lobe abscess however there may be still residual infection versus active infection. Patient received IV fluids, Zosyn Patient had to be given 5 mg IM of Valium to be able to get labs IV line and medications. Here in the emergency room, patient has had couple of absence like seizures. Not tonic-clonic. Patient known to be noncompliant with his medications. After IM Valium patient's seems to be doing better. No longer having seizures. Fever decreasing. Patient has not had any episodes of hypotension, sepsis not suspected. I discussed the above-mentioned with Dr. Cortes, patient being admitted Differential Diagnosis Differential Diagnoses: The differential diagnosis associated with the presentation includes (Seizures, pneumonia, viral URI) Admission/Observation Consideration of admission/observation: Escalation of care including admission/observation considered Consult Healthcare Provider Management of the patient was discussed with: Hospitalist Lab Data MDM Lab Attestation statement: I reviewed the patient's lab results. 11/09/24 18:33 11/09/24 18:33 Labs: Lab Results 11/09/24 Range/Units 18:33 WBC 13.7 H (4.8-10.8) X10*3/uL RBC 4.45 L (4.60-5.80) X10*6/uL Hgb 13.5 L (14.0-18.0) g/dl Hct 39.7 L (42.0-52.0) % MCV 89.2 (80.0-98.0) fL MCH 30.3 (27.0-33.0) pg MCHC 34.0 (31.0-36.0) g/dl RDW 14.7 (11.0-16.0) % Plt Count 340 D (160-400) X10*3/uL MPV 9.6 (9.4-12.4) fL Immature Gran % (Auto) 0.3 (0.0-0.4) % Neut % (Auto) 82.1 H (45-73) % Lymph % (Auto) 10.4 L (20-40) % [place] % (Auto) 6.4 (2-11) % Eos % (Auto) 0.4 (0-4) % Baso % (Auto) 0.4 (0-2) % Lymph # (Auto) 1.4 (1.2-4.9) X10*3/uL [place] # (Auto) 0.9 (0.1-1.2) X10*3/uL Eos # (Auto) 0.1 (0.0-0.4) X10*3/uL Baso # (Auto) 0.1 (0.0-0.2) X10*3/uL Abs Immat Gran (auto) 0.04 H (0.00-0.03) X10*3/uL Absolute Neuts (auto) 11.3 H (2.0-8.3) x10*3/uL Absolute Nucleated RBC 0.000 (0.0-0.012) X10*3/uL Nucleated RBC % (auto) 0.0 (0.0-0.2) /100WBC PT 11.8 (10.9-12.4) SEC INR 1.0 (0.9-1.1) Sodium 135 (135-145) mmol/L Potassium 4.2 (3.3-5.1) mmol/L Chloride 104 (96-108) mmol/L Carbon Dioxide 25 (22-29) mmol/L Anion Gap 10 L (12-20) BUN 18 H (9-16) mg/dL Creatinine 0.66 (0.5-1.4) mg/dL Estim Creat Clear Calc 69.3 Estimated GFR > 60 Random Glucose 82 (60-115) mg/dL Lactic Acid 1.0 (0.5-2.0) mmol/L Calcium 9.4 D (8.4-10.2) mg/dL Magnesium 2.1 (1.6-2.6) mg/dL Total Bilirubin 0.8 (0.0-1.0) mg/dL Direct Bilirubin 0.4 (0.0-0.5) mg/dL AST 98 H (5-37) U/L ALT 135 H (0-40) U/L Alkaline Phosphatase 119 H (39-117) U/L Total Creatine Kinase 94 (38-174) U/L Total Protein 7.1 (6.5-8.0) g/dL Albumin 4.1 (3.5-5.0) g/dL Ethyl Alcohol < 10 mg/dL Influenza Type A (PCR) NEGATIVE (Negative) Influenza Type B (PCR) NEGATIVE (Negative) RSV RNA Qual (PCR) NEGATIVE (Negative) SARS-CoV-2 RNA (RT-PCR) NEGATIVE (Negative) Independent Interpretation I performed an independent interpretation of an: CT Scan Radiology Impression Discussion of test interpretation with radiology: I have reviewed the radiologist's reading. Radiologist Impression: The heart size is normal. The visualized thyroid and mediastinum are unremarkable. There is ground-glass opacity and an area of central consolidation within the left upper lobe, significantly improved since the prior study. There is left upper lobe volume loss, new since the prior study. There are small foci of cavitation at the left lung apex with significant improvement. There are ground-glass opacities within the posterior aspect of the right upper lobe. There is an 8 mm nodular focus within the posterior aspect of the right lower lobe, new since the prior study. There is a 4 mm left lower lobe nodule without change. There is heterogeneous lucency involving the bilateral lungs compatible with areas of air trapping. Findings at the level of the abdomen are reported separately. No acute fractures. IMPRESSION: 1. Residual left upper lobe infiltrate, considerably improved since the prior study. This may represent residual active infection and/or scarring. 2. There is a new area of infiltrate or atelectasis within the right upper lobe. 3. There is a new 8 mm nodular focus within the right lower lobe. This could represent atelectasis, an area of developing infiltrate within the right lower lobe or a true pulmonary nodule. Recommend CT follow-up to confirm resolution. Independent Historian Clinical information obtained from an independent historian. History obtained from or confirmed by: EMS Critical Care Time Critical Care Time Critical Care Time: Yes Total Critical Care Time: 60 Attestation: I have personally provided critical care time. Time includes review of lab data, radiology results, discussion with consultants, and monitoring for potential decompensation. Intervention performed as documented. Discharge Plan Discharge Clinical Impression: Seizures, Pneumonia Patient Disposition: Admitted As Inpatient Prescriptions: No Action oxcarbazepine 150 mg tablet 150 mg PO BID haloperidol 5 mg tablet 5 mg PO DAILY haloperidol 10 mg tablet 10 mg PO DAILY omeprazole 20 mg capsule,delayed release(DR/EC) 1 cap PO DAILY PRN (Reason: Acid Reflux) folic acid 1 mg tablet 1 tab PO DAILY Colace 100 mg PO DAILY PRN (Reason: Constipation) acetaminophen 325 mg Tablet 650 mg PO Q4H PRN (Reason: Pain) albuterol sulfate 90 mcg/actuation Hfa Aerosol Inhaler 1 inh INHALATION QID PRN (Reason: Wheezing) aripiprazole 10 mg tablet 10 mg PO DAILY nicotine 14 mg/24 hr Patch 24 Hour 14 mg transdermal DAILY Qty: 30 0RF guaifenesin 100 mg/5 mL Liquid 200 mg PO TID Qty: 473 0RF levetiracetam [Keppra] 250 mg tablet 250 mg PO BID Qty: 180 0RF amoxicillin-pot clavulanate 875-125 mg tablet 1 tab PO BID Qty: 56 0RF Print Language: Unable To Collect
[2024-11-09] MEDS: levETIRAcetam in NaCl (iso-os) 1,500 MG/100 ML PIGGYBACK 400 MG IV (18:16)
[2024-11-09] MEDS: 0.9 % Sodium Chloride 1,000 ML 999 ML IVCONT (18:17)
--- OUTSIDE RECORDS SUMMARY | 2024-11-09 18:37 | XMS_ITS | Encounter Summary ---
Author Organization [employer] Address [address] [facility] [address] [facility] [place] [address] Care Team Providers Care Education Consultant Name Role Phone Mary Perrin MD Primary Care Provider + Reason for Visit * Reason Comments Med Refill Encounter Details Date Type Department Care Team ([facility] st Contact Info) Description 07/24/2023 Refill [facility] [address] [place] [address] La Bower MD [address] [place] [address] Seizure disorder (CMS/HCC) Social History Tobacco Use [...] epilepsy documented in this encounter Care Teams Education Consultant Relationship Specialty Start Date End Date Mary Perrin MD [address] [place] [id number] PCP - General Family Medicine 04/07/18 documented as of this encounter
--- OUTSIDE RECORDS SUMMARY | 2024-11-09 18:37 | XMS_ITS | Clinical Summary ---
Author Organization [employer] Address [address] [place] [address] [address] [place] [address] Care Team Providers Care Graphic Engineer Name Role Phone Mary Perrin MD Primary [...] 4 Active acetaminophen (Tylenol) 500 MG tabletIndication s:Leroy of foot take 2 tablet by oral [...] live At foster home, care management by [facility] Leroy of foot 06/29/2022 Assessment & Plan (02/10/2024 2:22 PM EDT): - missed appoitment with packager head, gave information to r/s appointment - advised [...] - he continues to live in a prison with meds administered through [employer], he is a arias of the [facility] Assessment & Plan (12/13/2022 1:31 PM [...] pt will try to sleep at his prison daily - f/u with Dr. Flor - discussed [facility] pt importance of avoiding drug [...] Encounters Date Type Department Care Team Description 10/21/2024 Telephone [facility] [address] [place] [address] Mary Perrin MD December10/09/2024 Population Health Risk Score [facility] Department [address] [place] [phone] Provider, Population Health Generic 09/29/2024 Orders Only GENERIC EXTERNAL DATA DEPARTMENT Provider, Generic External Data 09/17/2024 Orders Only [facility] External Provider, [facility] 09/16/2024 Telephone [facility] [address] [place] [address] Mary Perrin MD Nurse Triage 09/01/2024 Patient Outreach [address] [address] Mary Perrin MD Care Coordination (CM/CHW outreach) 08/27/2024 Patient Outreach [address] [address] Mary Perrin MD Care Coordination (CM/CHW outreach) 08/25/2024 Patient Outreach [address] [address] Mary Perrin MD Care Coordination (CM/CHW outreach) 08/25/[address] [address] Alejandro Navarro RN Care Management (C3CM- chart review) from Last 3 Months Immunizations Name Administration [...] 1966 Sigmoidoscopy 1966 Alcohol/Substance Use Screening 1978 Dental X-Ray: Bitewings 03/08/2012 03/07/2011 Dental Oral [...] (1 - 1-dose 75+ series) 2041 Hepatitis A Vaccines Aged Out 07/08/2007 No long er eligible based on patient's age to complete this topic Hepatitis B Vaccines Completed 07/26/2008, 08/25/2007, 07/08/2007 [...] Blood Count 15.3(H) 4.8 - 10.8 X10*3/uL [facility] Red Blood Count 4.05(L) 4.60 - 5.80 X10*6/uL [facility] Hemoglobin 12.3(L) 14.0 - 18.0 g/dl [facility] Hematocrit 36.2(L) 42.0 - 52.0 % [facility] Mean Corpuscular Volume 89.4 80.0 - 98.0 fL [facility] Mean Corpuscular Hemoglobin 30.4 27.0 - 33.0 pg [facility] Mean Corpuscular HGB Conc 34.0 31.0 - 36.0 g/dl [facility] Red Cell Distribution Width 14.3 11.0 - 16.0 % [facility] Platelet Count 614(H) 160 - 400 X10*3/uL [facility] Mean Platelet Volume 9.0(L) 9.4 - 12.4 fL [facility] NRBC Pct Auto 0.0 0.0 - 0.2 /100WBC [facility] NRBC Abs Auto 0.000 0.0 - 0.012 X10*3/uL [facility] 09/29/2024 10:5 7 AM EST 09/29/2024 11:05 AM EST us Generic External Data Provider LAB BLOOD ORDERAB LES Final Result Performing Organization Address City/State/[facility] Co de Phone Number [facility] [address] [place] [phone] * (ABNORMAL) Hepatic Function Panel (09/29/2024 10:57 AM EST) Bilirubin, Total 1.3(H) 0.0 - 1.0 mg/dL [facility] Bilirubin, Direct 0.9(H) 0.0 - 0.5 mg/dL [facility] Aspartate Amino Transferase 26 5 - 37 U/L [facility] Alanine Aminotransferase 31 0 - 40 U/L [facility] Total Protein 7.3 6.5 - 8.0 g/dL [facility] Albumin Level 3.0(L) 3.5 - 5.0 g/dL [facility] Alkaline Phosphatase 150(H) 39 - 117 U/L [facility] 09/29/2024 10:5 7 AM EST 09/29/2024 11:05 AM EST us Generic External Data Provider LAB BLOOD ORDERAB LES Final Result [facility] [address] [place] [address] [phone] * CT Chest w/ and w/o Contrast (09/21/2024 8:39 PM EST) Anatomical Region Laterality Modality Body, Chest Computed Tomogra phy 09/21/2024 8:39 PM EST Narrative 09/21/2024 8:42 PM EST ? [facility] ?[address] ?[place] [address] ? CT Scan Report ? Signed with Addenda ? Patient: Abhijit Wright ?MR#: [id number] ? : 1965 ?Acct:[id number] ? Age/Sex: 59 / M ?ADM Date: 09/17/24 ? Loc: HO.S3 ?368-1 ? Attending Dr: Ruben Bhakta MD ? Ordering Physician: Ruben Bhakta MD ?? Date of Service: 09/21/24 ?? Procedure(s): CT chest wo/w IV con ?? Accession Number(s): [id number] ? cc: Kesha Pedraza; Ruben Bhakta MD ? Report Number: ?? [id number]: Total DLP = ??370.00 mGy-cm ?ADDENDUM ?? [...] ? DD/ 38 ? TD/TT: 09/21/242038 ? Architecture Professor: ? Procedure Note Mateus Morales - 09/21/[address] [place] [address] [address] Scan Report Signed with Emilie Patient: Theresa Wright#: [id number] : 1965Acct:[id number] Age/Sex: 59 / MADM Date: 09/17/24 Loc: HO.S3 368-[address]: Ruben Bhakta MD Ordering Physician: Ruben Bhakta MD Date of Service: 09/21/24 Procedure(s): CT chest wo/w IV con Accession Number(s): [id number] cc: Kesha Pedraza; Ruben Bhakta MD Report Number: [id number]: Total DLP = 370.00 mGy-cm ADDENDUM This [...] in OV> 09/21/242040 DD/ 38 TD/TT: 09/21/242038 Architecture Professor: [facility] External Provider IMG CT PROCEDURES Edited Result - Final * Sodium Without creatinine, Random Urine (09/17/2024 5:33 PM EST) Sodium Urine Random <20.0 mmol/L [facility] 09/17/2024 5:33 PM EST 09/17/2024 5:36 PM EST us Generic External Data Provider LAB BLOOD ORDERAB LES Final Result Performing Organization Address [facility] de Phone Number [facility] [address] [place] [address] [phone] * Osmolality, Urine (09/17/2024 5:33 PM EST) OSMOLALITY URINE 548 373 - 1,093 mosm/kg [facility] 09/17/2024 5:33 PM EST 09/17/2024 5:36 PM EST Generic External Data Provider LAB URINE ORDERAB LES Final Result Performing Organization Address [facility] de Phone Number [facility] [address] [place] [address] [phone] * Creatinine, Random Urine (09/17/2024 5:33 PM EST) Creatinine, Urine 65.46 mg/dL [facility] 09/17/2024 5:33 PM EST 09/17/2024 5:36 PM EST Generic External Data Provider LAB URINE ORDERAB LES Final Result Performing Organization Address [facility] de Phone Number [facility] [address] [place] [phone] * XR Chest 2 Views (09/17/2024 3:57 PM EST) Anatomical Region Laterality Modality Chest Radiographic Meron ging 09/17/2024 3:57 PM EST Narrative 09/18/2024 8:10 AM EST ? [facility] ?[address] ?[place] [address] ?XRay Report ? Signed ? Patient: Rivie,Abhijit ?MR#: [id number] ? : 1965 ?Acct:[id number] ? Age/Sex: 59 / M ?ADM Date: 02/20/25 ? Loc: HO.[place] ?MEDSURG-11 ? Attending Dr: Ruben Bhakta MD ? Ordering Physician: Mayte Katz ?? Date of Service: 09/17/24 ?? Procedure(s): XR chest 2V ?? Accession Number(s): [id number] ? cc: [facility]; Mayte Katz ? EXAMINATION: ?? XR [...] DD/ 1557 ? TD/TT: 09/17/24 1629 ? Architecture Professor: ? Procedure Note Mateus Morales - 09/18/[address] [address] XRay Report Signed Patient: Theresa Wright#: [id number] : 1965Acct:[id number] Age/Sex: 59 / MADM Date: 09/17/24 Loc: [place] [address]: Ruben Bhakta MD Ordering Physician: Mayte Katz Date of Service: 09/17/24 Procedure(s): XR chest 2V Accession Number(s): [id number] cc: [facility]; Mayte Katz EXAMINATION: XR CHEST CLINICAL [...] 09/18/24 0808 DD/ 1557 TD/TT: 09/17/24 1629 Architecture Professor: [facility] External Provider IMG XR PROCEDURES Final Result * (ABNORMAL) Drug Monitoring, Panel 1, Screen, Urine (09/17/2024 3:29 PM EST) Opiate Screen Urine Not Detected Not Detect [facility] Comment:Opiate cut-off is 30 0 ng/mL.Positive results are unconfirmed and should not be used fornon-medical purposes. Barbiturates, Urine Not Detected Not Detect [facility] Comment:Barbiturate cut-off is 200 ng/mL.Positive results are unconfirmed and should not be used fornon-medical purposes. Phencyclidine Screen Urine Not Detected Not Detect [facility] Comment:Phencyclidine cut-of f is 25 ng/mL.Positive results are unconfirmed and should not be used fornon-medical purposes. Amphetamine Screen Urine Not Detected Not Detect [facility] Comment:Amphetamine cut-off is 1000 ng/mL.Positive results are unconfirmed and should not be used fornon-medical purposes. Benzodiazepines Screen Urine Not Detected Not Detect [facility] Comment:Benzodiazepine cut-o ff is 200 ng/mL.Positive results are unconfirmed and should not be used fornon-medical purposes. Cocaine Screen Urine POSITIVE(A) Not Detect [facility] Comment:Cocaine cut-off is 3 00 ng/mL.Positive results are unconfirmed and should not be used fornon-medical purposes. Cannabinoid Screen Urine Not Detected Not Detect [facility] Comment:Cannabinoid cut-off is 50 ng/mL.Positive results are unconfirmed and should not be used fornon-medical purposes. Methadone Screen, Urine Not Detected Not Detect ng/mL [facility] Comment:Methadone cut-off is 300 ng/mL.Positive results are unconfirmed and should not be used fornon-medical purposes. FENTANYL URINE Not Detected Not Detect [facility] Comment:Fentanyl cut-off is 1 ng/mL.Positive results are unconfirmed and should not be used fornon-medical purposes. Oxycodone Urine Screen Not Detected Not Detect ng/mL [facility] Comment:Oxycodone cut-off is 100 ng/mL.Positive results are unconfirmed and should not be used fornon-medical purposes. Buprenorphine Screen Not Detected Not Detect ng/mL [facility] Comment:Buprenorphine cut-of f is 5 ng/mL.Positive results are unconfirmed and should not be used fornon-medical purposes. 09/17/2024 3:29 PM EST 09/17/2024 3:32 PM EST Generic External Data Provider LAB URINE ORDERAB LES Final Result [facility] [address], [place] [phone] * (ABNORMAL) Urinalysis w/reflex microscopic (09/17/2024 3:29 PM EST) Color Urine Dark Yellow [facility] Appearance Urine Clear [facility] PH 5.5 5.0 - 9.0 [facility] Glucose Urine UA 100(A) Negative mg/dL [facility] Urine Blood Negative Negative [facility] Specific [place] - Urine >=1.030(H) 1.005 - 1.025 [facility] Urine Protein Trace Neg-Trace mg/dL [facility] Urine Ketones Negative Negative mg/dL [facility] Nitrite Urine Negative Negative [facility] Leukocyte Esterase Urine Negative Negative [facility] 09/17/2024 3:29 PM EST 09/17/2024 3:32 PM EST Narrative [facility] - 09/17/2024 3:40 PM EST [id number], Clean Catch Generic External Data Provider LAB URINE ORDERAB LES Final Result Performing Organization Address [facility] Co de Phone Number [facility] [address] [place] [phone] * Partial Thromboplastin Time, Activated (APTT) (09/17/2024 2:55 PM EST) Partial Thromboplastin Time 26.4 26.0 - 36.8 SEC [facility] Comment:For information rega rding the monitoring of direct thrombininhibitors, please refer to Pharmacy. 09/17/2024 2:55 PM EST 09/17/2024 2:56 PM EST Generic External Data Provider LAB BLOOD ORDERAB LES Final Result Performing Organization Address [facility] Co de Phone Number [facility] [address] [place] [phone] * (ABNORMAL) Prothrombin Time-INR (09/17/2024 2:55 PM EST) Prothrombin Time 14.3(H) 10.9 - 12.4 SEC [facility] INTERNATIONAL NORM RATIO 1.2(H) 0.9 - 1.1 [facility] Comment:INTERNATIONAL NORMAL IZED RATIO (INR) [...] Provider LAB BLOOD ORDERAB LES Final Result [facility] [address] [place] [address] [phone] * US Abdomen Limited (09/17/2024 1:49 PM EST) Anatomical Region Laterality Modality Abdomen Ultrasound 09/17/2024 1:49 PM EST Narrative 09/17/2024 2:33 PM EST ? [facility] ?[address] ?[place] [address] ? Ultrasound Report ? Signed ? Patient: Adriana,Abhijit ?MR#: [id number] ? : 1965 ?Acct:[id number] ? Age/Sex: 59 / M ?ADM Date: 09/17/24 ? Loc: HO.ED ? Attending Dr: ? Ordering Physician: Mayte Katz ?? Date of Service: 09/17/24 ?? Procedure(s): US abdomen limited ?? Accession Number(s): [id number] ? cc: [facility]; Mayte Katz ? EXAMINATION: ?? US [...] DD/ 1349 ? TD/TT: 09/17/24 1402 ? Architecture Professor: ? Procedure Note Andrew, Image - 09/17/2024 [place] [address] Ultrasound Report Signed Patient: Abhijit WrightMR#: [id number] : 1965Acct:[id number] Age/Sex: 59 / MADM Date: 09/17/24 Loc: HO.ED Attending Dr: Ordering Physician: Mayte Katz Date of Service: 09/17/24 Procedure(s): US abdomen limited Accession Number(s): [id number] cc: [facility]; Mayte Katz EXAMINATION: US ABDOMEN LIMITED [...] by: Kash Tinsley MD 09/17/2024 02:30 PM EST RP Dictated By: Kash Rutledge MD Signed By: <Electronically signed by Kash Vigil MDin OV> 09/17/24 1430 DD/ 1349 TD/TT: 09/17/24 1402 Architecture Professor: us [facility] External Provider IMG US PROCEDURES Final Result * Glucose, Whole Blood (09/17/2024 1:24 PM EST) Glucose, Whole Blood 93 60 - 115 mg/dL [facility] Comment:METER #: [id number] 09/17/2024 1:24 PM EST 09/17/2024 1:27 PM EST us Generic External Data Provider LAB BLOOD ORDERAB LES Final Result Performing Organization Address City/State/[facility] Co de Phone Number [facility] [address] [place] [address] [phone] * CT Abdomen Pelvis w/o Contrast (09/17/2024 12:51 PM EST) Anatomical Region Laterality Modality Body, Pelvis, Abdomen Computed T omography 09/17/2024 12:5 1 PM EST Narrative 09/17/2024 2:20 PM EST ? [facility] ?[address] [facility] [address] [facility] ?[place] [address] ? CT Scan Report ? Signed ? Patient: Rivie,Abhijit ?MR#: [id number] ? : 1965 ?Acct:[id number] ? Age/Sex: 59 / M ?ADM Date: 02/20/25 ? Loc: HO.ED ? Attending Dr: ? Ordering Physician: Mayte Katz ?? Date of Service: 09/17/24 ?? Procedure(s): CT abdomen pelvis wo IV con ?? Accession Number(s): [id number] ? cc: [facility]; Mayte Katz ? Report Number: ?? [id number]: Total DLP = ??240.00 mGy-cm ?? EXAMINATION: [...] sequence for the CTA, and on the health sciences program coordinator, ?? there is dense consolidation in the [...] for the attempted CTA, and on the health sciences program coordinator, ?? there is left upper lobe opacity [...] Rosales MD ??09/17/2024 02:17 PM EST RP ? Dictated By: ?Leo Rosales MD ? Signed By: ?<Electronically signed by Leo Rosales MD in OV> ?09/17/24 1417 ? DD/ 1251 ? TD/TT: 09/17/24 1359 ? Architecture Professor: ? Procedure Note Mateus Morales - 09/17/2024 [place] [address] [place] [address] CT Scan Report Signed Patient: Abhijit Wright#: [id number] : 1965Acct:[id number] Age/Sex: 59 / MADM Date: 09/17/24 Loc: HO.ED Attending Dr: Ordering Physician: Mayte Katz Date of Service: 09/17/24 Procedure(s): CT abdomen pelvis wo IV con Accession Number(s): [id number] cc: [facility]; Mayte Katz Report Number: [id number]: Total DLP = 240.00 mGy-cm EXAMINATION: CT [...] sequence for the CTA, and on the health sciences program coordinator, there is dense consolidation in the left [...] for the attempted CTA, and on the health sciences program coordinator, there is left upper lobe opacity and [...] 09/17/24 1417 DD/ 1251 TD/TT: 09/17/24 1359 Architecture Professor: [facility] External Provider IMG CT PROCEDURES Final Result * CT Head Stroke w/o Contrast (09/17/2024 12:37 PM EST) Anatomical Region Laterality Modality Computed Tomogra phy 09/17/2024 12:3 7 PM EST Narrative 09/17/2024 1:11 PM EST ? [facility] [place] [facility] ?[address] ?[place] [address] ? CT Scan Report ? Signed ? Patient: Rivie,Abhijit ?MR#: [id number] ? : 1965 ?Acct:[id number] ? Age/Sex: 59 / M ?ADM Date: 09/17/24 ? Loc: HO.ED ? Attending Dr: ? Ordering Physician: Mayte Katz ?? Date of Service: 09/17/24 ?? Procedure(s): CT head for STROKE ?? Accession Number(s): [id number] ? cc: [facility]; Mayte Katz ? Report Number: ?? [id number]: Total DLP = ??552.00 mGy-cm ?? EXAMINATION: [...] result was discussed with emergency physician medical lab assistant . ?? Mayte Leiva at 1256 [...] DD/ 1237 ? TD/TT: 09/17/24 1252 ? Architecture Professor: ? Procedure Note Andrew, Image - 09/17/[address] [place] [address] [address] Scan Report Signed Patient: Theresa Wright#: [id number] : 1965Acct:[id number] Age/Sex: 59 / MADM Date: 09/17/24 Loc: HO.ED Attending Dr: Ordering Physician: Mayte Katz Date of Service: 09/17/24 Procedure(s): CT head for STROKE Accession Number(s): [id number] cc: [facility]; Mayte Katz Report Number: [id number]: Total DLP = 552.00 mGy-cm EXAMINATION: CT [...] result was discussed with emergency physician medical lab assistant . Mayte Leiva at 1256 hours on 09/17/2024. It was ascertained that the content and urgency of the report was understood at the time of direct communication. Electronically signed by: Kash Tinsley MD 09/17/2024 01:08 PM EST Dictated By: Kash Rutledge MD Signed By: <Electronically signed by Kash Vigil MDin OV> 09/17/24 1308 DD/ 1237 TD/TT: 09/17/24 1252 Architecture Professor: [facility] External Provider IMG CT PROCEDURES Final Result * High Sensitivity Troponin I (09/17/2024 12:03 PM EST) Pathologist [facility] TROPONIN I HIGH SENSITIVITY <2.7 <3.5 - 35.0 ng/L [facility] Comment:The [place]man high sens itivity Troponin-I results should beused in conjunction with other diagnostic information suchas ECG, clinical observations and information, and patientsymptoms to aid in the diagnosis of [place]. 09/17/2024 12:0 3 PM EST 09/17/2024 2:03 PM EST Generic External Data Provider LAB BLOOD ORDERAB LES Final Result Performing Organization Address [facility] Co il Phone Number [facility] [address] [place] [phone] * Magnesium (09/17/2024 12:03 PM EST) [facility] Magnesium 1.8 1.6 - 2.6 mg/dL [facility] 09/17/2024 12:0 3 PM EST 09/17/2024 12:06 PM EST Generic External Data Provider LAB BLOOD ORDERAB LES Final Result Performing Organization Address [facility] Co il Phone Number [facility] [address] [place] [phone] * Lipase (09/17/2024 12:03 PM EST) [facility] Lipase 14 8 - 78 U/L [facility] 09/17/2024 12:0 3 PM EST 09/17/2024 12:06 PM EST Generic External Data Provider LAB BLOOD ORDERAB LES Final Result Performing Organization Address [facility] Phone [facility] [address] [place] [phone] * (ABNORMAL) Bilirubin, Direct (09/17/2024 12:03 PM EST) Bilirubin, Direct 3.0(H) 0.0 - 0.5 mg/dL [facility] Comment:Slight Icterus. 09/17/2024 12:0 3 PM EST 09/17/2024 12:06 PM EST us Generic External Data Provider LAB BLOOD ORDERAB LES Final Result [facility] [address] [place] [address] [phone] * (ABNORMAL) Comprehensive Metabolic Panel (09/17/2024 12:03 PM EST) Sodium 127(L) 135 - 145 mmol/L [facility] Potassium 3.6 3.3 - 5.1 mmol/L [facility] Chloride 100 96 - 108 mmol/L [facility] Carbon Dioxide 20(L) 22 - 29 mmol/L [facility] Anion Gap 11(L) 12 - 20 [facility] Urea Nitrogen (BUN) 15 9 - 16 mg/dL [facility] Creatinine, Serum 0.54 0.5 - 1.4 mg/dL [facility] Creatinine Clr Calc Pharmacy 95.6 [facility] Comment:eGFR (calculated fro m the MDRD study equation) and eCrCl(calculated from the Cockcroft-Gault equation) are based ondifferent parameters and may not yield comparable results.If eCrCl result is absurd, please check patient'sheight/weight. Estimated Glomerular Filt Rate >60 [facility] Comment:Chronic Kidney Disea se: Estimated GFR < 60 mL/min/1.33z8Lhyzur Kidney Disease: Estimated GFR < 15 mL/min/1.73m2 Glucose 121(H) 60 - 115 mg/dL [facility] Calcium 7.9(L) 8.4 - 10.2 mg/dL [facility] Bilirubin, Total 3.8(H) 0.0 - 1.0 mg/dL [facility] Comment:Slight Icterus. Aspartate Amino Transferase 48(H) 5 - 37 U/L [facility] Alanine Aminotransferase 39 0 - 40 U/L [facility] Total Protein 5.8(L) 6.5 - 8.0 g/dL [facility] Albumin Level 2.4(L) 3.5 - 5.0 g/dL [facility] Alkaline Phosphatase 193(H) 39 - 117 U/L [facility] 09/17/2024 12:0 3 PM EST 09/17/2024 12:06 PM EST Generic External Data Provider LAB BLOOD ORDERAB LES Final Result Performing Organization Address [facility]/ZIP Co de Phone Number [facility] [address] [place] [phone] * Ethanol (09/17/2024 12:02 PM EST) ETHANOL (MG/DL) IN SER/PLAS <10 mg/dL [facility] Comment:Serum/plasma ethanol results are to be used formedical/treatment purposes only. 09/17/2024 12:0 2 PM EST 09/17/2024 12:06 PM EST Generic External Data Provider LAB BLOOD ORDERAB LES Final Result Performing Organization Address [facility] Co de Phone Number [facility] [address] [place] [phone] * SARS-CoV-2 RNA, Influenza A/B, and RSV RNA, Ql NAAT (09/17/2024 12:02 PM EST) Influenza A PCR NEGATIVE Negative [facility] Influenza B PCR NEGATIVE Negative [facility] Resp Syncy Virus RNA Qual PCR NEGATIVE Negative [facility] SARS COV2 PCR NEGATIVE Negative [facility] Comment:All test results mus t be [...] use by authorized laboratories.Testing performed on the [employer] GeneXpert utilizingreal-time RT-PCR.All SARS CoV2 and positive influenza A/B results arereported to [facility]. 09/17/2024 12:0 2 PM EST 09/17/2024 12:06 PM EST us Generic External Data Provider LAB MICROBIOLOGY - GENERAL ORDERABLES Final Result [facility] [address] [place] [phone] * (ABNORMAL) Lipid Panel with Reflex to Direct LDL (09/14/2022 11:11 AM EST) Cholesterol, Total 217(H) <200 mg/dL [facility] [facility] HDL Cholesterol 105 > OR = 40 mg/dL [facility] Triglycerides 74 <150 mg/dL [facility] LDL Cholesterol 96 mg/dL (calc) [facility] Comment: Reference range: <100 Desirable range <100 mg/dL for primary prevention; ?? <70 mg/dL for patients with CHD or diabetic patients with > or = 2 CHD risk factors. LDL-C is now calculated using the Jovan-Luz calculation, which is a validated novel method providing better accuracy than the Friedewald equation in the estimation of LDL-C. Jovan MAYNARD et al. KRISHNA. 2013;310(19): 6155-1132 (http://education.Azuki (Vozero/Gengibre).[employer]./faq/JDY229) Chol/HDLC Ratio 2.1 <5.0 (calc) [facility] Non-HDL Cholesterol 112 <130 mg/dL (calc) [facility] [facility] Comment: For patients with diabetes plus 1 [...] al Result [facility] [address] [facility], [place] [address] [facility] [address], ([address]) [place] [address] * (ABNORMAL) Hepatitis Panel, General (09/14/2022 11:11 AM EST) Hepatitis A Antibody Total REACTIVE( A) NON-REACT BARAK [facility] Comment: For additional information, please refer to http://Munax.NanoCompound/faq/CXC829 (This link is being provided for informational/ educational purposes only.) Hepatitis B Surface Antibody QL REACTIVE( A) NON-REACT BARAK [facility] [employer] Hepatitis B Surface Ag NON-REACT BARAK NON-REACT [facility] [place] [employer] Hepatitis B Core Antibody Total NON-REACT BARAK NON-REACT BARAK [facility] C Antibody NON-REACT BARAK NON-REACT BARAK [facility] Index 0.02 <1.00 [facility] [place] [employer] Comment: HCV antibody was non-reactive. There is no laboratory evidence of HCV infection. In most cases, no further action is required. However, if recent HCV exposure is suspected, a test for HCV RNA (test code 54747) is suggested. For additional information please refer to http://Munax.NanoCompound/faq/BYM88e0 (This link is being provided for informational/ educational purposes only.) 09/14/2022 11:1 1 AM EST 09/14/2022 11:12 AM EST Narrative [facility] - 09/19/2022 11:02 PM EST FASTING:UNKNOWN COLLECTION KIT GIVEN TO PATIENT. PATIENT ADVISED TO RETURN. FASTING: UNKNOWN Mary Perrin MD LAB BLOOD ORDERABLES Fin al Result [facility] [address] [place] [address], [place] [address] [facility] [place] [facility] [address] [place] [address], (Nl2) [place] [address] * HIV-1/2 Antigen and Antibodies, Fourth Generation, with Reflexes (09/14/2022 11:11 AM EST) Pathologist [facility] HIV Antigen/Antibody, 4th Generation NON-REAC TIVE NON-REAC TIVE [facility] [place] [facility] [facility] Comment: HIV-1 antigen and HIV-1/HIV-2 antibodies were [...] ?? For additional information please refer to http://education.NanoCompound/faq/KHC540 (This link is being provided for informational/ [...] MD LAB BLOOD ORDERABLES Fin al Result [address], [place] [address] [facility] [place] [facility] [address] [place] [address], (Nl2) [place] [address] from Last 3 Months or Most Recently Relevant to Health Maintenance Insurance [place] [facility] MEDICAID STAND ADULT Care Teams Graphic Engineer Relationship Specialty Start Date End Date Mary Perrin MD [address] [place] [address] PCP - General Family Medicine 04/07/18
--- OUTSIDE RECORDS SUMMARY | 2024-11-09 18:37 | XMS_ITS | Encounter Summary ---
Author Organization [employer] Address [address] [facility] 7t [place] [address] Care Team Providers Care Contact Lens Polisher Name Role Phone Mary Perrin MD Primary Care Provider + Reason for Visit * Reason Comments Med Refill Encounter Details Date Type Department Care Team ([facility] st Contact Info) Description 09/13/2023 Refill [facility] [address] [place] [address] La Bower MD [address] [place] [address] Seizure disorder (CMS/HCC) Social History Tobacco Use [...] epilepsy documented in this encounter Care Teams Contact Lens Polisher Relationship Specialty Start Date End Date Mary Perrin MD [address] [place] [id number] PCP - General Family Medicine 04/07/18 documented as of this encounter
--- OUTSIDE RECORDS SUMMARY | 2024-11-09 18:37 | XMS_ITS | Clinical Summary ---
Author Organization 175 [facility] Address [address] [place] [address] Phone Care Team Providers Care Bell Maker Name Role Phone Maxine Rodas [facility] Primary Care Provider [phone] Allergies No known active allergies Medications acetaminophen [...] Upcoming Encounters Date Type Department Care Team ([facility] st Contact Info) Description 11/12/2024 9:00 AM EDT Consult Orthopedic Surgery - [place] [address] [facility] [address] [place] [id number] Chidi Jurado, DPM [address] [address] Health Maintenance Due Date Last Done Comments DTaP,Tdap,and Td Vaccines (1 - Tdap) 1985 Hepatitis B Vaccines (1 of 3 - 19+ 3-dose series) 1985 Pneumococcal Vaccine: 50+ Ye ars (1 of 1 - PCV) 2016 Zoster Vaccines (1 of 2) 2016 COVID-19 Vaccine ( - 2023-2 5 season) 2024 Cholesterol Screening (Lipid Panel) 07/20/2024 Colorectal Cancer Screening: Colonoscopy 07/20/2024 Depression Screening 07/20/2024 HIV Screening 07/20/2024 Hepatitis C Screening 07/20/2024 Social Influencers of Health Screening 07/20/2024 Influenza Vaccine (Season Ended) 2025 HIB Vaccines Aged Out No longer eligi [...] age to complete this topic Meningococcal B Vaccine Aged Out No l onger eligible based on patient's age to complete [...] topic Insurance MEDICA[place] - [place] Care Teams Bell Maker Relationship Specialty Start Date End Date Maxine Rodas [place] [address] PCP - General Family Medicine 07/20/24
--- OUTSIDE RECORDS SUMMARY | 2024-11-09 18:37 | XMS_ITS | Encounter Summary ---
Author Organization [employer] Address [address] [facility] 7t [place] [address] Care Team Providers Care Bit Grinder Name Role Phone Mary Perrin MD Primary Care Provider + Encounter Details Date Type Department Care Team ([facility] st Contact Info) Description 10/23/2023 Telephone [facility] MED[facility] [address] [place] [address] Mary Perrin MD [address] [place] [address] Social History Tobacco Use Types Packs/Day Years [...] on filedocumented in this encounter Care Teams Bit Grinder Relationship Specialty Start Date End Date Mary Perrin MD [address] [place] [id number] PCP - General Family Medicine 04/07/18 documented as of this encounter
--- OUTSIDE RECORDS SUMMARY | 2024-11-09 18:37 | XMS_ITS | Encounter Summary ---
Author Organization [employer] Address [address] [facility] [address] [place] [address] Care Team Providers Care Fine Grade Bulldozer Operator Name Role Phone Mary Perrin MD Primary Care Provider + Encounter Details Date Type Department Care Team (Latest Contact Info) Description 05/22/2023 Research Encounter [facility] MED & PEDS [address] [place] [address] Mary Perrin MD [address] [place] [address] ERRONEOUS ENCOUNTER--DISREGARD Social History Tobacco Use Types [...] ENCOUNTER--DISREGARD documented in this encounter Care Teams Fine Grade Bulldozer Operator Relationship Specialty Start Date End Date Mary Perrin MD [address] [place] [address] PCP - General Family Medicine 04/07/18 documented as of this encounter
[2024-11-09] MEDS: Piperacillin Sodium/Tazobactam 3.375 GM in 0.9 % Sodium Chloride 50 ML IV (18:40)
[2024-11-09 18:42] LABS: MANUAL DIFF FLAG NO
[2024-11-09] MEDS: Acetaminophen 1,000 MG/100 ML PIGGYBACK 400 MG IV (18:42)
[2024-11-09 18:49] LABS: Basophils Absolute Auto 0.1 X10*3/uL (0.0-0.2); Basophils Percent Auto 0.4 % (0-2); Eosinophils Absolute Auto 0.1 X10*3/uL (0.0-0.4); Eosinophils Percent Auto 0.4 % (0-4); Hematocrit 39.7 % (42.0-52.0); Hemoglobin 13.5 g/dl (14.0-18.0); Imm Gran Abs Auto 0.04 X10*3/uL (0.00-0.03); Imm Gran Pct Auto 0.3 % (0.0-0.4); Lymphocytes Absolute Auto 1.4 X10*3/uL (1.2-4.9); Lymphocytes Percent Auto 10.4 % (20-40); Mean Corpuscular Hemoglobin 30.3 pg (27.0-33.0); Mean Corpuscular Volume 89.2 fL (80.0-98.0); Mean Platelet Volume 9.6 fL (9.4-12.4); Monocytes Absolute Auto 0.9 X10*3/uL (0.1-1.2); Monocytes Percent Auto 6.4 % (2-11); Neutrophils Absolute Auto 11.3 x10*3/uL (2.0-8.3); Neutrophils Percent Auto 82.1 % (45-73); Platelet Count 340 X10*3/uL (160-400); Red Blood Count 4.45 X10*6/uL (4.60-5.80); Red Cell Distribution Width 14.7 % (11.0-16.0); White Blood Count 13.7 X10*3/uL (4.8-10.8)
[2024-11-09 18:59] LABS: Prothrombin Time 11.8 SEC (10.9-12.4)
[2024-11-09 19:06] LABS: Alanine Aminotransferase 135 U/L (0-40); Albumin Level 4.1 g/dL (3.5-5.0); Alkaline Phosphatase 119 U/L (39-117); Anion Gap 10 (12-20); Aspartate Amino Transferase 98 U/L (5-37); Bilirubin Direct 0.4 mg/dL (0.0-0.5); Bilirubin Total 0.8 mg/dL (0.0-1.0); Blood Urea Nitrogen 18 mg/dL (9-16); Calcium 9.4 mg/dL (8.4-10.2); Carbon Dioxide 25 mmol/L (22-29); Chloride 104 mmol/L (96-108); Creatinine Clr Calc Pharmacy 69.3; Estimated Glomerular Filt Rate > 60; Glucose Random 82 mg/dL (60-115); Potassium 4.2 mmol/L (3.3-5.1); Sodium 135 mmol/L (135-145); Total Protein 7.1 g/dL (6.5-8.0)
[2024-11-09 19:08] LABS: Ethanol < 10 mg/dL; Magnesium 2.1 mg/dL (1.6-2.6)
[2024-11-09] MEDS: 0.9 % Sodium Chloride 2,000 ML 999 ML IVCONT (19:16)
[2024-11-09 19:20] LABS: Influenza A PCR NEGATIVE (Negative); Influenza B PCR NEGATIVE (Negative); Resp Syncy Virus RNA Qual PCR NEGATIVE (Negative); SARS COV2 PCR INHOUSE NEGATIVE (Negative)
[2024-11-09] MEDS: iohexoL 350 MG/ML 100 ML INFUS..BTL IV (19:37)
[2024-11-09 20:04] VITALS: BP 119/77; PULSE 71; RESP 16; TEMP 38.3; O2SAT 96
--- NOTE | 2024-11-09 21:34 | PC.NURSE ---
Admitting provider at bedside. RN to RN report given to Shannon.
--- NOTE | 2024-11-09 21:45 | PC.NURSE ---
Attempted to call penitentiary earlier this shift. Pt is on a Yeung order. Unable to reach penitentiary. Medication list is outdated, from 05/29/2024. Pt not forthcoming with medical history.
--- NOTE | 2024-11-09 22:01 | P.HPHOSP_ITS ---
History of Present Illness Date of Service: 11/09/24 Attending physician on admission: Yumiko Cortes Chief Complaint: Seizure witnessed at long term Pt is a 59 yo male with PMH left lung abscess, seizures, schizophrenia, polysubstance abuse to include IVDA, tobacco use, marijuana use currently living in a long term with a Yeung in place for his psychiatric meds was witnessed by staff having an absence seizure that lasted approximately 1 minute and 911 was called. Upon arrival per ED provider, patient appeared agitated and postictal. Patient witnessed having another absence seizure in the emergency department and required 5 mg of Valium IM which was effective. There is currently a shortage of Ativan. ED provider was able to confirm that patient is now on Keppra and oxcarbazepine for seizures. Patient did receive a Keppra load of 1500.. Patient has history of noncompliance. In addition patient came in with a fever of 102 and after IV Tylenol is down to 100.9. Blood cultures were obtained and patient was started on Zosyn. CT of the chest abdomen and pelvis noted improved left left upper lung abscess with evidence of residual infection and now right lung changes indicating atelectasis versus pneumonia. In addition patient was found to have a 2.8 cm abscess within the soft tissues posterior to the sacrococcygeal junction. This is a new finding, Patient is not able to provide any history secondary to the IM Valium and seizure. ED staff have tried to reach out to the long term staff to complete medication reconciliation but there has been no answer. UA with reflex, urine toxicology and CT of the head are pending. Lactic acid was 1.0. Patient meets the criteria for sepsis due to fever and leukocytosis. Sources of infection appear to be pneumonia and sacral coccygeal abscess. Review of Systems 2 Review of Systems: Yes Unobtainable due to mental condition (Patient is sedated post IM Valium) [facility] Medical History Generalized seizure Noncompliance with medication regimen Polysubstance use disorder Social History Housing: Other Housing Other:: [facility] long term. Unable to assess alcohol history related to: Refusing to respond Alcohol intake: never Patient Tobacco Use Status: Current everyday Tobacco user Tobacco use type: Cigarette Cigarettes Per Day: 5 Smoked in Last 30 Days: Yes Use of substances other than those prescribed or required for medical reasons: Yes Substance Use Type: Marijuana Substance Use Frequency: Socially Advance Directives: Yes Advance Directives on File: Yes Advance Directives Date on File: 08/24/24 Do you have a plan to hurt others: No Plan service: No Ebola Risk: Travel/Contact With Anyone From Affected Area/s: No Has Patient Experienced Ebola Symptoms: No Meds Allergies Allergy/AdvReac Type Severity Reaction Status Date / Time No Known Allergies Allergy Mild NOT Verified 11/09/24 16:46 APPLICABLE Active Medications: Current Medications Acetaminophen (Acetaminophen 325 Mg Tablet) 650 mg PO Q6H PRN PRN Reason: Pain, Mild 1-3,fever,headache Albuterol/Ipratropium (Albuterol/Iprat 2.5/0.5mg 3 Ml Ampul.Neb) 3 ml INHALE Q4H PRN PRN Reason: Shortness of Breath/Wheezing Calcium Carbonate (Calcium Carbonate 750 Mg Tab.Chew) 750 mg PO Q4H PRN PRN Reason: Heartburn Vancomycin HCl 750 mg/ Sodium (Chloride) 265 mls @ 265 mls/hr IV ONCE ONE Stop: 11/09/24 22:57 Ibuprofen (Ibuprofen 400 Mg Tablet) 400 mg PO Q6H PRN PRN Reason: Fever or Pain, Mild (Pain Scale 1-3) Magnesium Hydroxide (Milk Of Magnesia 30 Ml Oral.Susp) 30 ml PO DAILY PRN PRN Reason: Constipation Nicotine (Nicotine 21 Mg Patch.Td24) 21 mg TRANSDERMA DAILY [facility] Ondansetron HCl (Ondansetron Hcl 4 Mg/2 Ml Vial) 4 mg IVPUSH Q8H PRN PRN Reason: Nausea and Vomiting Pharmacy Consult (Consult Rx Vancomycin Dosing) 1 each MISCELLANE DAILY PRN PRN Reason: Consult order Polyethylene Glycol (Polyethylene Glycol 3350 17 Gm Powd.Pack) 17 gm PO DAILY PRN PRN Reason: Constipation Sodium Chloride (0.9 % Sodium Chloride Flush 3 Ml Syringe) 3 ml IVFLUSH QSHIFT [facility] Home Medications ?Medication ?Instructions ?Recorded ?Confirmed ?Last Taken ?Type Colace 100 mg PO DAILY PRN Constipation 08/16/22 09/18/24 09/17/24 09:00 History folic acid 1 mg tablet 1 tab PO DAILY 08/16/22 09/18/24 09/17/24 09:00 History haloperidol 10 mg tablet 10 mg PO DAILY 08/16/22 09/18/24 09/17/24 09:00 History haloperidol 5 mg tablet 5 mg PO DAILY 08/16/22 09/18/24 09/17/24 09:00 History omeprazole 20 mg capsule,delayed 1 cap PO DAILY PRN Acid Reflux 08/16/22 09/18/24 09/17/24 09:00 History release oxcarbazepine 150 mg tablet 150 mg PO BID 08/16/22 11/09/24 09/17/24 09:00 History acetaminophen 325 mg tablet 650 mg PO Q4H PRN Pain 09/18/24 09/18/24 09/17/24 09:00 History albuterol sulfate 90 mcg/actuation 1 inh inhalation QID PRN Wheezing 09/18/24 09/18/24 09/17/24 09:00 History aerosol inhaler aripiprazole 10 mg tablet 10 mg PO DAILY 09/18/24 09/18/24 09/17/24 09:00 History guaifenesin 100 mg/5 mL oral 200 mg PO TID 11/09/24 11/09/24 Unknown History liquid (Chest Congestion Relief) Physical Exam 2 Vital Signs and Narrative: Vital Signs: Last Vital Signs Temp 100.9 F H 11/09/24 20:04 Pulse 71 11/09/24 20:04 Resp 16 11/09/24 20:04 BP 119/77 11/09/24 20:04 Pulse Ox 96 11/09/24 20:04 O2 Del Method Room Air 11/09/24 20:04 BMI result Body Mass Index 16.7 lethargic, will open eyes to verbal stimuli Neuro: unable to stay awake long enough to follow commands and assess neuro status EYES: unable to assess ENT: some missing teeth in fair repair Cardiac: S1 S2 RRR, no murmur, no JVD, no edema in Lower ext Pulmonary: lungs B Rhonchi Abdominal: BS active in all 4 quadrants, no guarding noted on exam MSK: unable to assess, pt is moving limbs independently : pt has not voided independently Extremities: no edema in lower extremities, PT and DP pulses palpable +2 Psych: unable to assess due to level of sedation Skin: corns on B feet, no open wound found on partial exam permitted on backside Results Labs 11/09/24 18:33 11/09/24 18:33 Labs: Laboratory Results - last 24 hr 11/09/24 18:33 MCV 89.2 MCH 30.3 MCHC 34.0 RDW 14.7 Plt Count 340 D MPV 9.6 Immature Gran % (Auto) 0.3 Neut % (Auto) 82.1 H Lymph % (Auto) 10.4 L [place] % (Auto) 6.4 Eos % (Auto) 0.4 Baso % (Auto) 0.4 Lymph # (Auto) 1.4 [place] # (Auto) 0.9 Eos # (Auto) 0.1 Baso # (Auto) 0.1 Abs Immat Gran (auto) 0.04 H Absolute Neuts (auto) 11.3 H Absolute Nucleated RBC 0.000 Nucleated RBC % (auto) 0.0 PT 11.8 INR 1.0 Anion Gap 10 L Estim Creat Clear Calc 69.3 Estimated GFR > 60 Random Glucose 82 Lactic Acid 1.0 Calcium 9.4 D Magnesium 2.1 Total Bilirubin 0.8 Direct Bilirubin 0.4 AST 98 H ALT 135 H Alkaline Phosphatase 119 H Total Creatine Kinase 94 Total Protein 7.1 Albumin 4.1 Ethyl Alcohol < 10 Influenza Type A (PCR) NEGATIVE Influenza Type B (PCR) NEGATIVE RSV RNA Qual (PCR) NEGATIVE SARS-CoV-2 RNA (RT-PCR) NEGATIVE Imaging Radiologist's Impressions: CT chest MPRESSION: 1. Residual left upper lobe infiltrate, considerably improved since the prior study. This may represent residual active infection and/or scarring. 2. There is a new area of infiltrate or atelectasis within the right upper lobe. 3. There is a new 8 mm nodular focus within the right lower lobe. This could represent atelectasis, an area of developing infiltrate within the right lower lobe or a true pulmonary nodule. Recommend CT follow-up to confirm resolution. CT abd pelvis IMPRESSION: 1. There is a 2.8 cm abscess within the soft tissues posterior to the sacrococcygeal junction. 2. No acute abdominal disease. Assessment and Plan (1) Sepsis: Qualifiers: Sepsis acute organ dysfunction status: without acute organ dysfunction Sepsis type: sepsis due to unspecified organism Qualified Code(s): A41.9 - Sepsis, unspecified organism Status: Acute (2) Pneumonia: Qualifiers: Laterality: bilateral Lung location: unspecified part of lung P neumonia type: due to unspecified organism Qualified Code(s): J18.9 - Pneumonia, unspecified organism Status: Acute (3) Abscess, sacrum: Status: Acute (4) Generalized seizure: Status: Acute (5) Noncompliance with medication regimen: Status: Acute (6) Transaminitis: Status: Acute (7) Schizophrenia: Qualifiers: Schizophrenia type: unspecified Qualified Code(s): F20.9 - Schizophrenia, unspecified Status: Acute (8) Malnourished: Qualifiers: Malnutrition type: unspecified type Qualified Code(s): E46 - Unspecified protein-calorie malnutrition Status: Acute Plan Pt is a 59 yo male with PMH left lung abscess, seizures, schizophrenia, Hep B, polysubstance abuse to include IVDA, tobacco use, marijuana use is being admitted with sepsis secondary to pneumonia with new finding of sacral coccygeal abscess and seizure activity. 1.Sepsis -patient meets the criteria due to fever initially 102 and leukocytosis of 13. LA 1.0. LFTs mildly elevated. -source likely pulmonary and new abscess found in the sacral coccygeal area via CT scan -Blood cultures x2 pending, UA with reflex ordered -vancomycin and Zosyn initiated, IVF continue -consider ID consult if needed 2.PNA -patient had prior left upper lobe abscess which shows improvement on CT scan with residual infection possible and new findings of the right lung indicating pneumonia versus atelectasis -patient currently on Zosyn -patient tolerating room air -nebs and supportive care ordered 3. Abscess sacrococcygeal -new incidental finding via CT of the abdomen and pelvis, internal based on exam -patient is on vanco and Zosyn -IR consult ordered for possible intervention to include draining the abscess and sending material for culture -ID referral if needed 4.Absence seizures -patient has history of noncompliance with medications possibly prompting a witnessed absence seizure at the long term and then an additional absence seizure here in the emergency department -ED confirmed that patient is supposed to be on Keppra and oxcarbazepine, patient received 1500 mg of Keppra IV in the ED. we will continue IV Keppra 250 mg BID as patient currently can not take oral medications. -Neuro consulted -CT of the head pending -seizure precautions in place, 1:[address], IV/IM valium prn (shortage of ativan) -EEG monitoring ordered -toxicology screen pending 5. Schizophrenia/ Noncompliance with medication regimen -Ongoing history, patient does have a Yeung in place for psychiatric medications only and a guardian 6. HX of polysubstance abuse -most recent tox screen from August 2024 positive for cocaine -toxicology screen ordered and pending -? hx of IVDA, no murmur on exam, consider echo if needed to rule out vegetation 7. Underweight, malnourished Nutritional consult ordered Med rec remains pending, unable to reach the long term Lovenox held in case patient requires intervention with IR for the sacral abscess Patient requires inpatient hospitalization due to seizure activity and sepsis. Patient will require at least 3 nights for hospital stay for expert consultation and IV antibiotics. Total time managing care of this patient today: 40 minutes. Quality Stroke Does the patient have a stroke diagnosis?: No Reason for No Anti-thrombotic by Day Two: Contraindicated VTE Prior VTE?: No VTE Risk Level:: Medical - moderate - high VTE Device Contraindication: N/A - Device Ordered VTE Drug Contraindication: Treatment Not Indicated
--- NOTE | 2024-11-09 22:01 | PHA.MEDREC ---
Addendum entered by Arianne Parada RPh 11/10/24 15:33: Called assisted twice with no response on 11/10/24. Original Note: Pharmacy Consult ? Medication Reconciliation Pharmacy has completed the medication reconciliation. Patient is from a assisted [phone]. Patient had a list in his file, however it is not up to date. It is dated from 05/29/24. Tried calling residential but just kept ringing. Utilized claims to confirm what I can. Will have morning MR follow up tomorrow.
[2024-11-09 22:25] LABS: Appearance Urine Clear; Color Urine Yellow; Glucose Urine UA Negative (Negative); Leukocyte Esterase Urine Negative (Negative); Nitrite Urine Negative (Negative); Specific Gravity - Urine >= 1.030 (1.005-1.025); Urine Blood Negative (Negative); Urine Ketones Negative (Negative); Urine Protein Negative (Neg-Trace)
[2024-11-09] MEDS: vancomycin HCL 750 MG in 0.9 % Sodium Chloride 250 ML 265 MG IV (22:36)
--- NOTE | 2024-11-09 22:47 | PC.NURSE ---
Patient is alert to self and familiar person, unable to state current date and not oriented to place. Patient denies any pain. Patient denies SI/HI. Patient oriented to ED room, medicated per SEP. Patient placed on front desk monitor, HR , HR 60, sinus rhythm. 1:1 sitter at bedside.
--- NOTE | 2024-11-09 22:57 | PC.NURSE ---
Urine specimen collected via clean catch and sent to lab for processing.
[2024-11-09] MEDS: levETIRAcetam 250 MG in 0.9 % Sodium Chloride 100 ML 410 MG IV (23:36)
[2024-11-09 23:55] LABS: Amphetamine Screen Urine Not Detected (Not Detect); Barbiturates, Urine Not Detected (Not Detect); Benzodiazepines Screen Urine Not Detected (Not Detect); Buprenorphine Scr Not Detected (Not Detect); Cannabinoid Screen Urine POSITIVE (Not Detect); Cocaine Screen Urine POSITIVE (Not Detect); Fentanyl, urine Not Detected (Not Detect); Methadone Screen, Urine Not Detected (Not Detect); Opiate Screen Urine Not Detected (Not Detect); Oxycodone Screen Urine Not Detected (Not Detect); Phencyclidine Screen Urine Not Detected (Not Detect)
[2024-11-10] VITALS (7 sets, daily range): BP systolic 115–185; BP diastolic 63–91; PULSE 52–83; RESP 16–20; TEMP 36.2–37.2; O2SAT 94–98; BMI 16.7
[2024-11-10] MEDS: 0.9 % Sodium Chloride Flush 3 ML SYRINGE IVFLUSH ×2 (01:39→20:16)
[2024-11-10] MEDS: Piperacillin Sodium/Tazobactam 4.5 GM in 0.9 % Sodium Chloride 100 ML IV ×4 (01:41→23:26)
--- NOTE | 2024-11-10 04:42 | PC.NURSE ---
Patient requested urinal, voided of 500 mL of yellow, clear urine.
--- NOTE | 2024-11-10 04:43 | PC.NURSE ---
Gladis, hospitalist provider aware of HR dropping to 55-60, sinus maco when patient in asleep, no new orders at this time.
--- NOTE | 2024-11-10 04:58 | PC.NURSE ---
Patient is awake, requesting vanilla pudding, provided and tolerated well, no complaints at this time, VSS, 1:1 sitter at bedside.
[2024-11-10 06:44] LABS: MANUAL DIFF FLAG NO
[2024-11-10 06:46] LABS: Basophils Absolute Auto 0.1 X10*3/uL (0.0-0.2); Basophils Percent Auto 0.6 % (0-2); Eosinophils Absolute Auto 0.2 X10*3/uL (0.0-0.4); Hematocrit 37.1 % (42.0-52.0); Hemoglobin 12.5 g/dl (14.0-18.0); Imm Gran Abs Auto 0.02 X10*3/uL (0.00-0.03); Imm Gran Pct Auto 0.2 % (0.0-0.4); Lymphocytes Absolute Auto 2.1 X10*3/uL (1.2-4.9); Lymphocytes Percent Auto 20.8 % (20-40); Mean Corpuscular HGB Conc 33.7 g/dl (31.0-36.0); Mean Corpuscular Hemoglobin 30.5 pg (27.0-33.0); Mean Corpuscular Volume 90.5 fL (80.0-98.0); Mean Platelet Volume 9.4 fL (9.4-12.4); Monocytes Absolute Auto 0.9 X10*3/uL (0.1-1.2); Neutrophils Absolute Auto 6.8 x10*3/uL (2.0-8.3); Neutrophils Percent Auto 67.4 % (45-73); Platelet Count 296 X10*3/uL (160-400); Red Cell Distribution Width 14.8 % (11.0-16.0); White Blood Count 10.1 X10*3/uL (4.8-10.8)
[2024-11-10 07:03] LABS: Alanine Aminotransferase 122 U/L (0-40); Albumin Level 3.5 g/dL (3.5-5.0); Alkaline Phosphatase 100 U/L (39-117); Anion Gap 10 (12-20); Aspartate Amino Transferase 74 U/L (5-37); Bilirubin Total 1.1 mg/dL (0.0-1.0); Blood Urea Nitrogen 12 mg/dL (9-16); Calcium 8.5 mg/dL (8.4-10.2); Carbon Dioxide 20 mmol/L (22-29); Chloride 113 mmol/L (96-108); Creatinine Clr Calc Pharmacy 67.3; Estimated Glomerular Filt Rate > 60; Glucose Random 87 mg/dL (60-115); Sodium 139 mmol/L (135-145)
--- NOTE | 2024-11-10 07:45 | PC.NURSE ---
Pt is axox3. Has no complaints at this time. unlabored resp. awaits bed upstairs. NSR on monitor. Able to sit upright and eat full breakfast. NAD.
--- NOTE | 2024-11-10 09:15 | HO.PM.IMPN ---
Subjective Subjective Date of Service: 11/10/24 Interval History: no complaints Physical Exam Vital Signs: Vital Signs: Last Vital Signs Temp 98.0 F 11/10/24 04:00 Pulse 55 11/10/24 04:00 Resp 16 11/10/24 04:00 BP 115/63 11/10/24 04:00 Pulse Ox 96 11/10/24 04:00 O2 Del Method Room Air 11/10/24 04:00 BMI result Body Mass Index 16.7 General: AO X 2, no acute distress, ill appearing Resp: diminished bilateral, no accessory muscles used CVS: S1,S2,RRR GI: soft, non tender, non distended Neuro: motor grossly intact, alert Psych: impaired insight Objective Data Active Medications Acetaminophen (Acetaminophen 325 Mg Tablet) 650 mg PO Q6H PRN PRN Reason: Pain, Mild 1-3,fever,headache Albuterol/Ipratropium (Albuterol/Iprat 2.5/0.5mg 3 Ml Ampul.Neb) 3 ml INHALE Q4H PRN PRN Reason: Shortness of Breath/Wheezing Calcium Carbonate (Calcium Carbonate 750 Mg Tab.Chew) 750 mg PO Q4H PRN PRN Reason: Heartburn Levetiracetam 250 mg/ Sodium (Chloride) 102.5 mls @ 410 mls/hr IV Q12H [facility] Last Infusion: 11/09/24 23:55 Dose: Infused Documented By: MELBA Vancomycin HCl 750 mg/ Sodium (Chloride) 265 mls @ 265 mls/hr IV Q12H [facility] Piperacillin Sod/Tazobactam (Sod 4.5 gm/ Sodium Chloride) 100 mls @ 200 mls/hr IV Q6H [facility] Last Admin: 11/10/24 07:34 Dose: 200 mls/hr Documented By: ABIODUN Ibuprofen (Ibuprofen 400 Mg Tablet) 400 mg PO Q6H PRN PRN Reason: Fever or Pain, Mild (Pain Scale 1-3) Magnesium Hydroxide (Milk Of Magnesia 30 Ml Oral.Susp) 30 ml PO DAILY PRN PRN Reason: Constipation Nicotine (Nicotine 21 Mg Patch.Td24) 21 mg TRANSDERMA DAILY [facility] Ondansetron HCl (Ondansetron Hcl 4 Mg/2 Ml Vial) 4 mg IVPUSH Q8H PRN PRN Reason: Nausea and Vomiting Pharmacy Consult (Consult Rx Vancomycin Dosing) 1 each MISCELLANE DAILY PRN PRN Reason: Consult order Polyethylene Glycol (Polyethylene Glycol 3350 17 Gm Powd.Pack) 17 gm PO DAILY PRN PRN Reason: Constipation Sodium Chloride (0.9 % Sodium Chloride Flush 3 Ml Syringe) 3 ml IVFLUSH QSHIFT [facility] Last Admin: 11/10/24 07:34 Dose: Not Given Documented By: ABIODUN Non-Admin Reason: Med Not Available Labs 11/10/24 06:40 11/10/24 06:40 Labs: Laboratory Results - last 24 hr 11/09/24 11/09/24 11/10/24 18:33 22:18 06:40 MCV 89.2 90.5 MCH 30.3 30.5 MCHC 34.0 33.7 RDW 14.7 14.8 Plt Count 340 D 296 MPV 9.6 9.4 Immature Gran % (Auto) 0.3 0.2 Neut % (Auto) 82.1 H 67.4 Lymph % (Auto) 10.4 L 20.8 [place] % (Auto) 6.4 9.0 Eos % (Auto) 0.4 2.0 Baso % (Auto) 0.4 0.6 Lymph # (Auto) 1.4 2.1 [place] # (Auto) 0.9 0.9 Eos # (Auto) 0.1 0.2 Baso # (Auto) 0.1 0.1 Abs Immat Gran (auto) 0.04 H 0.02 Absolute Neuts (auto) 11.3 H 6.8 Absolute Nucleated RBC 0.000 0.000 Nucleated RBC % (auto) 0.0 0.0 PT 11.8 INR 1.0 Anion Gap 10 L 10 L Estim Creat Clear Calc 69.3 67.3 Estimated GFR > 60 > 60 Random Glucose 82 87 Lactic Acid 1.0 Calcium 9.4 D 8.5 D Magnesium 2.1 Total Bilirubin 0.8 1.1 H Direct Bilirubin 0.4 AST 98 H 74 H ALT 135 H 122 H Alkaline Phosphatase 119 H 100 Total Creatine Kinase 94 Total Protein 7.1 6.0 L Albumin 4.1 3.5 Urine Color Yellow Urine Appearance Clear Urine pH 7.0 Ur Specific [place] >= 1.030 H Urine Protein Negative Urine Glucose (UA) Negative Urine Ketones Negative Urine Blood Negative Urine Nitrite Negative Ur Leukocyte Esterase Negative Urine Opiates Screen Not Detected Ur Buprenorphine Scrn Not Detected Ur Oxycodone Screen Not Detected Urine Methadone Screen Not Detected Urine Fentanyl Screen Not Detected Ur Barbiturates Screen Not Detected Ur Phencyclidine Scrn Not Detected Ur Amphetamines Screen Not Detected U Benzodiazepines Scrn Not Detected Urine Cocaine Screen POSITIVE H U Marijuana (THC) Screen POSITIVE H Ethyl Alcohol < 10 Influenza Type A (PCR) NEGATIVE Influenza Type B (PCR) NEGATIVE RSV RNA Qual (PCR) NEGATIVE SARS-CoV-2 RNA (RT-PCR) NEGATIVE Assessment and Plan (1) Schizophrenia: Status: Acute Plan 59M PMH left lung abscess, seizures, schizophrenia, hepatitis-B, polysubstance abuse, presented with staring episode and then found to be septic in the ED Sepsis due to pneumonia and sacral coccygeal abscess Continue vancomycin Zosyn, follow-up IR for drainage Absence seizure Continue Keppra Polysubstance dependence Moderate protein calorie malnutrition Nutrition eval DVT prophylaxis - mechanical pending abscess drainage full code reason for continued hospitalization: sepsis Quality Stroke Does the patient have a stroke diagnosis?: No Reason for No Anti-thrombotic by Day Two: Contraindicated VTE Prior VTE?: No VTE Risk Level:: Medical - moderate - high VTE Device Contraindication: N/A - Device Ordered VTE Drug Contraindication: Treatment Not Indicated
--- NOTE | 2024-11-10 09:34 | MHC.CM.PN ---
Addendum entered by Shari Lewis RN 11/10/24 09:44: CM CONTACTED PT'S GH AT CELL PHONE # LISTED UNDER PT NAME [phone], PER STAFF PT'S PCP IS HERBERT KNOWLES NP AT [address] [place] [address], PT AMBULATES INDEPENDENTLY W/A LIMP AND PT'S PHYSICIANS ORDERS WERE SENT W/PT TO ED, PT STILL IN ED AND CM WILL CHECK CHART ONCE PT ARRIVES TO UNIT. copy of guardianship on file. Original Note: EMR REVIEWED, PT W/ABSENCE SEIZURE/SEPSIS/PNA AND SACRAL ABSCESS, CM CONTACTED PT'S GUARDIAN NIGHAT GONSALES AT 9:25AM, NIGHAT UPDATED ON PT STATUS, NIGHAT REPORTS SHE WAS UNAWARE PT WAS SENT TO HOSPITAL, CM WILL LET HOME KNOW ONCE CM REACHES .
[2024-11-10] MEDS: Nicotine 21 MG PATCH.TD24 TRANSDERMA (11:43)
[2024-11-10] MEDS: levETIRAcetam 250 MG in 0.9 % Sodium Chloride 100 ML 400 MG IV (12:04)
--- NOTE | 2024-11-10 12:14 | MHC.CLN ---
PT QUALIFIES FOR NON SEVERE MALNUTRITION IN THE CONTEXT OF SOCIAL/BEHAVIORAL AND ENVIRONMENTAL PT WITH MILDLY DEPLETED SUBCUTANEOUS FAT AND MUSCLE MASS WITH BMI 16.7 AND 16% NONSIGNIFICANT WT LOSS X1 YEAR WITH POOR PO INTAKE SECONDARY TO POLYSUBSTANCE ABUSE DIET RX: CARDIAC-RECOMMEND CHANGE TO REGULAR TO INCREASE PO INTAKE RECOMMEND ADDING MAGIC CUP TID TO INCREASE KCALS SUPP TO PROVIDE 870KCALS, 27G PROTEIN MONITOR PO INTAKE AND ENCOURAGE SUPPLEMENT SEE ALSO FULL CLINICAL NUTRITION ASSESSMENT
[2024-11-10] MEDS: Lidocaine HCl 1 % MPF 30 ML VIAL 10 ML SUBCUT (14:16)
--- NOTE | 2024-11-10 16:11 | PC.NURSE ---
Called to place a peripheral IV in Abhijit. Abhijit was not acting per the reported baseline. Charge nurse Merced called to determine if there is a change to patient condition. Peripheral IV was placed with assistance of the MANAGER GROCERY, see IV documentation. Merced in to re-assess patient. Seizure medication being administered via new IV.
[2024-11-10] MEDS: diazePAM 10 MG/2 ML CARTRIDGE 5 MG IVPUSH (17:41)
[2024-11-10] MEDS: vancomycin HCL 750 MG in 0.9 % Sodium Chloride 250 ML 265 MG IV (17:44)
--- NOTE | 2024-11-10 17:44 | PM.NEUROCN ---
History of Present Illness Data of Consult Service Date: 11/10/24 Primary Care Provider: Kesha MARTINEZ Reason for consult: ? Sz This is a 59 yo male with h/o seizures, non compliant with medications, schizophrenia, polysubstance abuse to include Cocaine , IVDA, tobacco use, marijuana use currently living in a [facility] with a Yeung in place for his psychiatric meds was witnessed by staff having a partial seizure that lasted approximately 1 minute and 911 was called. Upon arrival per ED provider, patient appeared agitated and postictal. Patient witnessed having another partial seizure in the emergency department and required 5 mg of Valium IM which was effective. There is currently a shortage of Ativan. ED provider was able to confirm that patient is now on Keppra and oxcarbazepine for seizures. Patient did receive a Keppra load of 1500.. [facility] Past Medical History Medical History (Updated 11/10/24 @ 17:49 by Jose Rafael Flor MD) Polysubstance use disorder Generalized seizure Noncompliance with medication regimen Social History Social History Household Members: Other Housing: Unknown / Unable to assess Housing Other:: program Unable to assess alcohol history related to: Refusing to respond Alcohol intake: never Patient Tobacco Use Status: Current someday Tobacco user Tobacco use type: Cigarette Cigarette Packs Per Day: 0.5 Cigarettes Per Day: 10.0 Substance Use Type: Marijuana Advance Directives Date on File: 08/24/24 service: No Travel History Ebola Risk: Travel/Contact With Anyone From Affected Area/s: No Has Patient Experienced Ebola Symptoms: No Meds Allergies Allergy/AdvReac Type Severity Reaction Status Date / Time No Known Allergies Allergy Mild NOT Verified 11/09/24 16:46 APPLICABLE Active Medications: Current Medications Acetaminophen (Acetaminophen 325 Mg Tablet) 650 mg PO Q6H PRN PRN Reason: Pain, Mild 1-3,fever,headache Albuterol/Ipratropium (Albuterol/Iprat 2.5/0.5mg 3 Ml Ampul.Neb) 3 ml INHALE Q4H PRN PRN Reason: Shortness of Breath/Wheezing Calcium Carbonate (Calcium Carbonate 750 Mg Tab.Chew) 750 mg PO Q4H PRN PRN Reason: Heartburn Diazepam (Diazepam 10 Mg/2 Ml Cartridge) 5 mg IVPUSH Q8H PRN PRN Reason: Seizures Last Admin: 11/10/24 17:41 Dose: 5 mg Guaifenesin (Guaifenesin 200 Mg/10 Ml 10 Ml Liquid) 10 ml PO TID [facility] Piperacillin Sod/Tazobactam (Sod 4.5 gm/ Sodium Chloride) 100 mls @ 200 mls/hr IV Q6H [facility] Last Infusion: 11/10/24 17:28 Dose: Infused Vancomycin HCl 750 mg/ Sodium (Chloride) 265 mls @ 265 mls/hr IV Q12H [facility] Last Admin: 11/10/24 17:44 Dose: 265 mls/hr Ibuprofen (Ibuprofen 400 Mg Tablet) 400 mg PO Q6H PRN PRN Reason: Fever or Pain, Mild (Pain Scale 1-3) Levetiracetam (Levetiracetam 250 Mg Tablet) 250 mg PO BID [facility] Magnesium Hydroxide (Milk Of Magnesia 30 Ml Oral.Susp) 30 ml PO DAILY PRN PRN Reason: Constipation Nicotine (Nicotine 21 Mg Patch.Td24) 21 mg TRANSDERMA DAILY [facility] Last Admin: 11/10/24 11:43 Dose: 21 mg Ondansetron HCl (Ondansetron Hcl 4 Mg/2 Ml Vial) 4 mg IVPUSH Q8H PRN PRN Reason: Nausea and Vomiting Oxcarbazepine (Oxcarbazepine 150 Mg Tablet) 150 mg PO BID [facility] Pharmacy Consult (Consult Rx Vancomycin Dosing) 1 each MISCELLANE DAILY PRN PRN Reason: Consult order Polyethylene Glycol (Polyethylene Glycol 3350 17 Gm Powd.Pack) 17 gm PO DAILY PRN PRN Reason: Constipation Sodium Chloride (0.9 % Sodium Chloride Flush 3 Ml Syringe) 3 ml IVFLUSH QSHIFT [facility] Last Admin: 11/10/24 16:33 Dose: Not Given Home Medications ?Medication ?Instructions ?Recorded ?Confirmed ?Last Taken ?Type Colace 100 mg PO DAILY PRN Constipation 08/16/22 09/18/24 09/17/24 09:00 History folic acid 1 mg tablet 1 tab PO DAILY 08/16/22 09/18/24 09/17/24 09:00 History haloperidol 10 mg tablet 10 mg PO DAILY 08/16/22 09/18/24 09/17/24 09:00 History haloperidol 5 mg tablet 5 mg PO DAILY 08/16/22 09/18/24 09/17/24 09:00 History omeprazole 20 mg capsule,delayed 1 cap PO DAILY PRN Acid Reflux 08/16/22 09/18/24 09/17/24 09:00 History release oxcarbazepine 150 mg tablet 150 mg PO BID 08/16/22 11/09/24 09/17/24 09:00 History acetaminophen 325 mg tablet 650 mg PO Q4H PRN Pain 09/18/24 09/18/24 09/17/24 09:00 History albuterol sulfate 90 mcg/actuation 1 inh inhalation QID PRN Wheezing 09/18/24 09/18/24 09/17/24 09:00 History aerosol inhaler aripiprazole 10 mg tablet 10 mg PO DAILY 09/18/24 09/18/24 09/17/24 09:00 History guaifenesin 100 mg/5 mL oral 200 mg PO TID 11/09/24 11/09/24 Unknown History liquid (Chest Congestion Relief) Physical Exam Vital Signs: Vital Signs: Last Vital Signs Temp 97.1 F 11/10/24 15:08 Pulse 52 11/10/24 15:08 Resp 20 11/10/24 15:08 BP 170/90 H 11/10/24 16:07 Pulse Ox 98 11/10/24 15:08 O2 Del Method Room Air 11/10/24 15:08 BMI result Body Mass Index 16.7 Neuro: Other: Arousable, but prefers to sleep. Poorly cooperative. Grossly non focal exam. Results Labs 11/10/24 06:40 11/10/24 06:40 Labs: Short CBC 11/09/24 11/10/24 Range/Units 18:33 06:40 WBC 13.7 H 10.1 (4.8-10.8) X10*3/uL Hgb 13.5 L 12.5 L (14.0-18.0) g/dl Hct 39.7 L 37.1 L (42.0-52.0) % Plt Count 340 D 296 (160-400) X10*3/uL BMP 11/09/24 11/10/24 18:33 06:40 Sodium 135 139 Potassium 4.2 4.0 Chloride 104 113 H Carbon Dioxide 25 20 L BUN 18 H 12 Creatinine 0.66 0.68 Calcium 9.4 D 8.5 D Cardiac Enzymes 11/09/24 Range/Units 18:33 Total Creatine Kinase 94 (38-174) U/L Liver Function 11/09/24 11/10/24 Range/Units 18:33 06:40 Total Bilirubin 0.8 1.1 H (0.0-1.0) mg/dL Direct Bilirubin 0.4 (0.0-0.5) mg/dL AST 98 H 74 H (5-37) U/L ALT 135 H 122 H (0-40) U/L Alkaline Phosphatase 119 H 100 (39-117) U/L Albumin 4.1 3.5 (3.5-5.0) g/dL Urine 11/09/24 Range/Units 22:18 Urine Color Yellow Urine Appearance Clear Urine pH 7.0 (5.0-9.0) Ur Specific [place] >= 1.030 H (1.005-1.025) Urine Protein Negative (Neg-Trace) mg/dL Urine Glucose (UA) Negative (Negative) mg/dL Assessment and Plan (1) Schizophrenia: Qualifiers: Schizophrenia type: unspecified Qualified Code(s): F20.9 - Schizophrenia, unspecified Status: Acute (2) Seizures: Status: Acute CT brain negative. EEG shows diffuse slowing consistent with diffuse encephalopathy. No seizure discharges. . He cobian sa Hx of chronic non compliance. He leaves the [facility] an dis on the street for days at a time for drugs and panhandling. He will not be compliant. I would suggest a single drug therapy with Keppra 1gm bid alone. (3) Noncompliance with medication regimen: Status: Acute (4) Polysubstance use disorder: Status: Acute Drug rehab Procedures Date of Service Date of Service: 11/10/24
--- NOTE | 2024-11-10 18:32 | PC.NURSE ---
Patient admitted to the unit approx 1045 am from ED on stretcher. Upon arrival patient able to state he is in hospital and name/. ABBOTT to command 4/5 generalized weakness noted. LS rhonchi all calixto denies SOB or CP, NSR/SB in 40-50's at times oxygen sats mid to high 90's. BS+X4 abdomen soft non-tender denies nausea/vomiting. Denies pain/discomfort. Denies headache dizziness or vision changes left pupil 5 irregular, right pupil 3B tracks appropriate. Pt lost IV access approx 1210 unable to get another access Dr Paris notified. Pt off unit to CT at 1300 while off unit on tele patient noted to be tachy with frequent pvc's/pac's bigeminy. Dr Paris notified. EEG completed this afternoon following CT biopsy. Upon return to unit pt unchanged, 1550 pt noted to be more confused not answering questions appropriately. Tachy at times on the monitor into 140's as well as hypertensive. Lip movement noted as well as muscle twitching to left side staring off staight ahead. More agitated with staff not following commands and trying to pull at lines. Dr Paris notified no new orders at this time. 1736 heart rate as high as 190 with continuing seizure like activity noted. Dr Paris notified 5mg IV valium given with effect. Seizure precautions remain in place with camera for safety.
[2024-11-10] MEDS: OXcarbazepine 150 MG TABLET PO (20:16)
[2024-11-10] MEDS: guaiFENesin 200 MG/10 ML 10 ML LIQUID PO (20:16)
[2024-11-10] MEDS: levETIRAcetam 250 MG TABLET PO (20:16)
[2024-11-11 03:28] VITALS: BP 187/19; PULSE 63; RESP 19; TEMP 36.8; O2SAT 97
[2024-11-11] MEDS: Piperacillin Sodium/Tazobactam 4.5 GM in 0.9 % Sodium Chloride 100 ML IV (05:54)
[2024-11-11 07:05] LABS: Mean Corpuscular HGB Conc 33.7 g/dl (31.0-36.0); Mean Corpuscular Hemoglobin 30.4 pg (27.0-33.0); Mean Corpuscular Volume 90.1 fL (80.0-98.0); Mean Platelet Volume 9.9 fL (9.4-12.4); Platelet Count 376 X10*3/uL (160-400); Red Blood Count 5.17 X10*6/uL (4.60-5.80); Red Cell Distribution Width 14.1 % (11.0-16.0); White Blood Count 14.8 X10*3/uL (4.8-10.8)
[2024-11-11 07:17] VITALS: BP 170/98; PULSE 73; RESP 18; TEMP 36.3; O2SAT 97
[2024-11-11 07:27] LABS: Alanine Aminotransferase 119 U/L (0-40); Albumin Level 4.5 g/dL (3.5-5.0); Alkaline Phosphatase 116 U/L (39-117); Anion Gap 16 (12-20); Aspartate Amino Transferase 44 U/L (5-37); Bilirubin Direct 0.3 mg/dL (0.0-0.5); Bilirubin Total 0.6 mg/dL (0.0-1.0); Blood Urea Nitrogen 13 mg/dL (9-16); Calcium 9.9 mg/dL (8.4-10.2); Carbon Dioxide 24 mmol/L (22-29); Chloride 104 mmol/L (96-108); Creatinine Clr Calc Pharmacy 64.4; Estimated Glomerular Filt Rate > 60; Glucose Random 89 mg/dL (60-115); Magnesium 2.2 mg/dL (1.6-2.6); Potassium 3.6 mmol/L (3.3-5.1); Sodium 140 mmol/L (135-145)
[2024-11-11 07:44] LABS: Hematocrit 46.6 % (42.0-52.0); Hemoglobin 15.7 g/dl (14.0-18.0)
[2024-11-11] MEDS: vancomycin HCL 750 MG in 0.9 % Sodium Chloride 250 ML 265 MG IV (07:44)
[2024-11-11] MEDS: OXcarbazepine 150 MG TABLET PO (07:45)
[2024-11-11] MEDS: levETIRAcetam 250 MG TABLET PO (07:45)
[2024-11-11] MEDS: Nicotine 21 MG PATCH.TD24 TRANSDERMA (07:45)
[2024-11-11] MEDS: guaiFENesin 200 MG/10 ML 10 ML LIQUID PO (07:47)
[2024-11-11] MEDS: 0.9 % Sodium Chloride Flush 3 ML SYRINGE IVFLUSH (07:48)
[2024-11-11] MEDS: levETIRAcetam 250 MG TABLET 750 MG PO (10:52)
[2024-11-11 11:39] VITALS: BP 162/82; PULSE 96; RESP 18; TEMP 36.2; O2SAT 96
--- NOTE | 2024-11-11 12:50 | PM.DS ---
DS: Providers Provider Date of Service: 11/11/24 Date of admission: 11/09/24 21:49 Date of discharge: 11/11/24 Primary care physician: Kesha Pedraza Consults: 11/09/24 21:52 Consult to Neurology Routine Consulting Provider: [facility] Reason for consultation: increased seizure activity Has provider been notified: No DS: Diagnosis Discharge Diagnosis (1) Schizophrenia: Status: Acute (2) Seizures: Status: Acute (3) Noncompliance with medication regimen: Status: Acute (4) Polysubstance use disorder: Status: Acute (5) Abscess, sacrum: Status: Acute (6) Generalized seizure: Status: Acute (7) Pneumonia: Status: Acute DS: Summary Hospital Course Hospital Course: Admission note HPI Pt is a 59 yo male with PMH left lung abscess, seizures, schizophrenia, polysubstance abuse to include IVDA, tobacco use, marijuana use currently living in a intermediate with a Yeung in place for his psychiatric meds was witnessed by staff having an absence seizure that lasted approximately 1 minute and 911 was called. Upon arrival per ED provider, patient appeared agitated and postictal. Patient witnessed having another absence seizure in the emergency department and required 5 mg of Valium IM which was effective. There is currently a shortage of Ativan. ED provider was able to confirm that patient is now on Keppra and oxcarbazepine for seizures. Patient did receive a Keppra load of 1500.. Patient has history of noncompliance. In addition patient came in with a fever of 102 and after IV Tylenol is down to 100.9. Blood cultures were obtained and patient was started on Zosyn. CT of the chest abdomen and pelvis noted improved left left upper lung abscess with evidence of residual infection and now right lung changes indicating atelectasis versus pneumonia. In addition patient was found to have a 2.8 cm abscess within the soft tissues posterior to the sacrococcygeal junction. This is a new finding, Patient is not able to provide any history secondary to the IM Valium and seizure. ED staff have tried to reach out to the intermediate staff to complete medication reconciliation but there has been no answer. UA with reflex, urine toxicology and CT of the head are pending. Lactic acid was 1.0. Patient meets the criteria for sepsis due to fever and leukocytosis. Sources of infection appear to be pneumonia and sacral coccygeal abscess. Hospital course The patient was admitted for evaluation of Sepsis due to pneumonia and sacral coccygeal abscess as seen on CT images as reported of 2.8 cm that was drained by IR specialist. cultures remained negative from blood and abscess at time of discharge. Treated with IV Vancomycin Zosyn with good response. To be discharged on 10 more days of Doxycycline and Augmentin. Local care for his sacral wound. For his history of Absence seizure it seems like he is resistent to medical treatment and refuses his medications. Seen by Neurology who recommended to decrease his medications to Keppra only and increase the dose to 1 gm bid. Discontinue Oxacarbanzepine at this time. Advised to avoid drugs. Has Moderate protein calorie malnutrition. Advised to increase protein\calorie intake. Discharge plan Increase Keppra to 1 gm twice a day Take Doxycycline and Augmentin for 10 more days Discontinue Oxacarbanzepine We advise you to avoid drugs and smoking Take your medications as advised Time Attestation Discharge Coordination Time (in mins): 37 Quality: Safe Use of Opioids Does Pt have an Active Cancer Diagnosis on the Problem List?: No Quality: Stroke Does the patient have a stroke diagnosis?: No Physical Exam Vital Signs: Vital Signs: Last Vital Signs Temp 97.2 F 11/11/24 11:39 Pulse 96 11/11/24 11:39 Resp 18 11/11/24 11:39 BP 162/82 H 11/11/24 11:39 Pulse Ox 96 11/11/24 11:39 O2 Del Method Room Air 11/11/24 11:39 BMI result Body Mass Index 16.7 Const: Other: Constitutional : interactive, malnourished, not in distress Cardiovascular : no JVP, no lower extremity edema Respiratory : bilateral chest movement, not in resp distress Gastrointestinal: soft, lax, Non tender Skin : Warm, Dry Neurological : Alert & oriented to self and place, No focal deficit DS: Data Data Completed and Pending Labs on day of discharge: Laboratory Results - last 24 hr 11/11/24 06:09 WBC 14.8 H RBC 5.17 D Hgb 15.7 D Hct 46.6 D MCV 90.1 MCH 30.4 MCHC 33.7 RDW 14.1 Plt Count 376 D MPV 9.9 Absolute Nucleated RBC 0.000 Nucleated RBC % (auto) 0.0 Sodium 140 Potassium 3.6 Chloride 104 Carbon Dioxide 24 Anion Gap 16 BUN 13 Creatinine 0.71 Estim Creat Clear Calc 64.4 Estimated GFR > 60 Random Glucose 89 Calcium 9.9 D Magnesium 2.2 Total Bilirubin 0.6 Direct Bilirubin 0.3 AST 44 H ALT 119 H Alkaline Phosphatase 116 Total Protein 8.0 Albumin 4.5 Preliminary micro results at discharge 11/09/24 13:45 Routine Culture - Preliminary Abscess Rectal No growth to date. Anaerobic Culture - Preliminary No growth to date. 11/09/24 18:33 Blood Culture - Preliminary Blood - Venous No growth after 24 hours. 11/09/24 18:33 Blood Culture - Preliminary Blood - Venous No growth after [address] scan - chest: Radiologist's impression: ITS Impressions Needle Aspiration CT 11/10/24 13:35 impression: Successful fluoroscopy-guided sacrococcygeal abscess aspiration performed. Fluid collected was sent to lab for culture and sensitivity, Gram stain. Dose area product: 65 mGy/cm. Electronically signed by: Que Samson MD 11/10/2024 04:[address] Chest IMPRESSION: 1. Residual left upper lobe infiltrate, considerably improved since the prior study. This may represent residual active infection and/or scarring. 2. There is a new area of infiltrate or atelectasis within the right upper lobe. 3. There is a new 8 mm nodular focus within the right lower lobe. This could represent atelectasis, an area of developing infiltrate within the right lower lobe or a true pulmonary nodule. Recommend CT follow-up to confirm resolution. This document has been electronically signed by: Shazia Krueger MD on 11/09/2024 20:54:[address] Impression: 1. No acute intracranial abnormality. No acute intracranial hemorrhage. This document has been electronically signed by: Kendrick Burr MD on 11/09/2024 22:44:41 Discharge Plan Discharge Anticipated Discharge Date/Time: 11/11/24 12:37 Patient Disposition: Xfer Other Discharge Diagnosis: Pneumonia Abscess Seizure Referrals: Kesha Pedraza [Primary Care Provider] - 1 Week Discharge Medications: New levetiracetam 1,000 mg Tablet 1,000 mg PO BID Qty: 60 0RF doxycycline monohydrate 100 mg capsule 100 mg PO BID Qty: 20 0RF Continued haloperidol 5 mg tablet 5 mg PO DAILY haloperidol 10 mg tablet 10 mg PO DAILY omeprazole 20 mg capsule,delayed release(DR/EC) 1 cap PO DAILY PRN (Reason: Acid Reflux) folic acid 1 mg tablet 1 tab PO DAILY Colace 100 mg PO DAILY PRN (Reason: Constipation) acetaminophen 325 mg Tablet 650 mg PO Q4H PRN (Reason: Pain) albuterol sulfate 90 mcg/actuation Hfa Aerosol Inhaler 1 inh INHALATION QID PRN (Reason: Wheezing) aripiprazole 10 mg tablet 10 mg PO DAILY nicotine 14 mg/24 hr Patch 24 Hour 14 mg transdermal DAILY Qty: 30 0RF guaifenesin [Chest Congestion Relief] 100 mg/5 mL liquid 200 mg PO TID amoxicillin-pot clavulanate 875-125 mg tablet 1 tab PO BID Qty: 20 0RF Discontinued oxcarbazepine 150 mg tablet 150 mg PO BID levetiracetam [Keppra] 250 mg tablet 250 mg PO BID Qty: 180 0RF Discharge Orders: Discharge Order (Routine); Ordered 11/11/24 Ordered By: Jean Rajan Diet: Advance to usual diet Activity on Discharge: As tolerated Stand Alone Forms: Patient Portal Discharge page Print Language: Unable To Collect Care Plan Goals: Increase Keppra to 1 gm twice a day Take Doxycycline and Augmentin for 10 more days Discontinue Oxacarbanzepine We advise you to avoid drugs and smoking Take your medications as advised Health Concerns: Pneumonia Seizure Plan of Treatment: Augmentin, Doxycycline Keppra Assessment: as above
--- NOTE | 2024-11-11 12:53 | MHC.CM.PN ---
PT MEDICALLY CLEARED FOR DC BACK TO [facility], CM CONTACTED PT'S [facility] [employer] AT [phone] AND STAFF WILL TRANSPORT PT AT 1:30PM, CM ATTEMPTED TO CONTACT PT'S GUARDIAN NIGHAT GONSALES AT NUMBER ON FILE, NO ANSWER AND DETAILED MESSAGE LEFT.
[2024-11-12 21:33] LABS: Levetiracetam Keppra 15.7 mcg/mL (6.0-46.0)
== END 2024-11-11 14:04 | disposition other institution (70) | DRG 720 ==
LOC: HO.ED 21:13 → HO.EDOVER 22:05 → HO.IMC 11-10 07:56
PROVIDERS: Internal Medicine; Admitting Provider Nurse Practitioner Family; Emergency Provider Emergency Medicine; PCP Nurse Practitioner Family; Visit Provider Student in an Organized Health Care Education/Training Program
DX: A41.9 Sepsis, unspecified organism (principal); J18.9 Pneumonia, unspecified organism; R56.9 Unspecified convulsions; M46.28 Osteomyelitis of vertebra, sacral and sacrococcygeal region; J98.11 Atelectasis; F20.9 Schizophrenia, unspecified; F17.210 Nicotine dependence, cigarettes, uncomplicated; Z20.822 Contact with and (suspected) exposure to COVID-19; Z68.1 Body mass index [BMI] 19.9 or less, adult; Z71.6 Tobacco abuse counseling; Z91.148 Patient's other noncompliance with medication regimen for other reason; Z79.899 Other long term (current) drug therapy
CPT/HCPCS: 0241U; 10160; 36415; 70450; 71260; 74177; 80048; 80053; 80076; 80177; 80307; 81003; 82550; 83605; 83735; 85025; 85027; 85610; 87040; 87070; 87073; 87205; 95816; 99285; J0131; J1953; J2003; J2543; J3360; J3370; Q9967

== ENCOUNTER → 2024-11-09 17:53 | Outpatient (BNV) | payer MEDICAID, SELFPAY | PROVIDERS: Emergency Provider Emergency Medicine; Visit Provider Radiology Diagnostic Radiology | DX: L05.02 Pilonidal sinus with abscess (principal); R91.1 Solitary pulmonary nodule; R41.82 Altered mental status, unspecified | CPT/HCPCS: 70450; 71260; 74177 ==

== ENCOUNTER 2024-11-09 21:49 | Outpatient (BNV) | payer MEDICAID, SELFPAY | END 2024-11-10 13:35 | PROVIDERS: Admitting Provider Nurse Practitioner Family; Emergency Provider Emergency Medicine; PCP Nurse Practitioner; Visit Provider Radiology Diagnostic Radiology | DX: L02.31 Cutaneous abscess of buttock (principal) | CPT/HCPCS: 10160; 77002; 77012 ==

== ENCOUNTER → 2024-11-09 21:49 | Outpatient (BNV) | payer MEDICAID, SELFPAY | PROVIDERS: Admitting Provider Nurse Practitioner Family; Emergency Provider Emergency Medicine; Visit Provider Nurse Practitioner Family | DX: M46.28 Osteomyelitis of vertebra, sacral and sacrococcygeal region (principal); F20.9 Schizophrenia, unspecified; R56.9 Unspecified convulsions; Z91.148 Patient's other noncompliance with medication regimen for other reason; F19.90 Other psychoactive substance use, unspecified, uncomplicated; J18.9 Pneumonia, unspecified organism | CPT/HCPCS: 99222; 99231; 99239 ==

== ENCOUNTER → 2024-11-09 21:49 | Outpatient (BNV) | payer MEDICAID, SELFPAY | PROVIDERS: Admitting Provider Nurse Practitioner Family; Emergency Provider Emergency Medicine; PCP Nurse Practitioner; Visit Provider Psychiatry & Neurology Neurology | DX: R56.9 Unspecified convulsions (principal); F20.9 Schizophrenia, unspecified; Z91.148 Patient's other noncompliance with medication regimen for other reason; F19.90 Other psychoactive substance use, unspecified, uncomplicated | CPT/HCPCS: 99222 ==

== ENCOUNTER 2024-11-26 14:39 | Outpatient (AMB) | payer MEDICAID, SELFPAY ==
--- NOTE | 2024-11-26 14:41 | A.OFFVIS_ITS ---
Vital Signs 11/26/24 14:42 Weight 90 lb BP 82/58 L Blood Pressure Location Rt brachial Position Sitting Pulse 75 Pulse Source Doppler Pulse Oximetry (%) 97 Oxygen Delivery Method Room Air Comment unable to obtain height Intake Visit Reasons: Abnormal CT, HDF Allergies No Known Allergies Allergy (Mild, Verified 11/26/24 14:53) NOT APPLICABLE HPI HPI Abnormal CT, HDF: Details: 59-year-old gentleman 30+ pack-year smoker with underlying history of schizophrenia, hepatitis-B, seizure disorder, and polysubstance abuse with admission to [facility] the end of August of 2024 for left upper lobe pulmonary abscess, treated with four-week course of Augmentin with repeat CT chest showing significantly improved, but not completely resolved left upper lobe abscess/pneumonia. [facility] Medical History (Updated 11/19/24 @ 00:02 by Carissa Morales) Malnourished Schizophrenia Seizures Polysubstance use disorder Generalized seizure Noncompliance with medication regimen Social History Household Members: Other Housing: Unknown / Unable to assess Housing Other:: program Unable to assess alcohol history related to: Refusing to respond Alcohol intake: never Patient Tobacco Use Status: Current someday Tobacco user Tobacco use type: Cigarette Cigarette Packs Per Day: 0.5 Cigarettes Per Day: 10.0 Substance Use Type: Marijuana Advance Directives Date on File: 08/24/24 service: No Review of Systems Card Denies dyspnea on exertion and Denies orthopnea Resp Denies cough, Denies excessive phlegm production, Denies dyspnea on exertion and Denies wheezing Aller/Immun Denies wheezing Physical Exam Vital Signs: Last Vital Signs Pulse 75 11/26/24 14:42 BP 82/58 L 11/26/24 14:42 Pulse Ox 97 11/26/24 14:42 Oxygen Delivery Method Room Air 11/26/24 14:42 Const General: no acute distress, alert and awake Eyes Sclerae: sclerae normal EOM: EOMs intact bilaterally Neck Neck: Yes no lymphadenopathy, Yes trachea midline and Yes supple Resp Effort & Inspection: normal respiratory effort and no respiratory distress Auscultation: clear to auscultation bilaterally Cardio Rate: regular rate Rhythm: regular rhythm Heart sounds: no gallops, no murmurs and no rubs Extrem General: Yes no pedal edema, No clubbing and No cyanosis Assessment & Plan Assessment & Plan (1) Pneumonia: Code(s): J18.9 - Pneumonia, unspecified organism Category: Medical (2) Pulmonary abscess: Code(s): J85.2 - Abscess of lung without pneumonia Category: Medical Plan Significant improvement, however not complete resolution of underlying left upper lobe pulmonary abscess/pneumonia. Will repeat Augmentin course for [address] chest to assess for resolution. Orders: Orders CT chest wo IV con 12/24/24 J85.2 - Abscess of lung without pneumonia Medications: New amoxicillin-pot clavulanate 875-125 mg 1 tab PO BID 28 days 56 tabs 0RF J85.2 - Abscess of lung without pneumonia Coding Level of Care Code Est Pt Level 3 (33991) Diagnoses Pneumonia J18.9 Pulmonary abscess J85.2
[2024-11-26 14:42] VITALS: BP 82/58; PULSE 75; O2SAT 97
--- OUTSIDE RECORDS SUMMARY | 2024-11-26 16:40 | XMS_ITS | Clinical Summary ---
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 Name Role Phone Mary Perrin MD Primary [...] 4 Active acetaminophen (Tylenol) 500 MG tabletIndication s:Fenton of foot take 2 tablet by oral [...] live At foster home, care management by [facility] Fenton of foot 06/29/2022 Assessment & Plan (02/10/2024 2:22 PM EDT): - missed appoitment with physician relations manager, gave information to r/s appointment - [...] - he continues to live in a assisted with meds administered through [employer], he is a arias of the [facility] Assessment & Plan (12/13/2022 1:31 [...] pt will try to sleep at his assisted daily - f/u with Dr. Flor - discussed [facility] pt importance of avoiding drug use -Agreed [...] Encounters Date Type Department Care Team Description 11/18/2024 Telephone [facility] [address] [place] [address] Mary Perrin MD January recall 11/09/2024 Orders Only [facility] External Provider, [facility] 10/21/2024 Telephone [facility] [address] [place] [address] Mary Perrin MD December recall 10/09/2024 Population Health Risk Score Community [facility] ([facility]) Department [address] [phone] Provider, Population Health Generic 09/29/2024 Orders Only GENERIC EXTERNAL DATA DEPARTMENT Provider, Generic External Data 09/17/2024 Orders Only [facility] External Provider, [facility] 09/16/2024 Telephone [facility] [address] [place] [address] Mary Perrin MD Nurse Triage 09/01/2024 Patient Outreach [facility] [address] [place] [address] Mary Perrin MD Care Coordination (CM/CHW outreach) from Last 3 Months Immunizations Name Administration [...] 02/10/2024 1:39 PM EDT Plan of Treatment Upcoming Encounters Date Type Department Care Team (Late st Contact Info) Description 02/23/2025 10:00 AM EDT Office Visit [facility] [address] [place] [address] Mary Perrin MD [address] [place], [place] [phone] Health Maintenance Due Date Last Done Comments [...] Name Priority Date/Time Associated Diagnosis Comments CT GUIDED ASPIRATION OF ABSCESS, HEMATOMA, CYST Routine 11/10/2024 1:35 PM EDT HEPATIC FUNCTION PANEL Routine 10:57 AM EST [...] Relevant to Health Maintenance Results * CT Guided Aspiration of Abscess, Hematoma, Cyst (11/10/2024 1:35 PM EDT) Anatomical Region Laterality Modality Computed Tomogra phy 11/10/2024 1:35 PM EDT Narrative 11/10/2024 4:24 PM EDT ? [facility] [place] [facility] ?[address] ?[place] [address] ? CT Scan Report ? Signed ? Patient: Rivie,Abhijit ?MR#: [id number] ? : 1965 ?Acct:[id number] ? Age/Sex: 59 / M ?ADM Date: 11/09/24 ? Loc: HO.IMC ?473-1 ? Attending Dr: Dc Paris MD ? Ordering Physician: Gladis Trejo-LUÍS ?? Date of Service: 11/10/24 ?? Procedure(s): CT guided aspiration ?? Accession Number(s): [id number] ? cc: Kesha Pedraza; Gladis Trejo-LUÍS ? Report Number: ?? [id number]: Total DLP = ?? 65.00 mGy-cm ?? EXAMINATION: CT fluoroscopy-guided sacrococcygeal abscess aspiration. ? Clinical indication: Sacrococcygeal midline abscess. ? COMPARISON: CT chest 11/09/2024. ? TECHNIQUE: Patient was unable to give consent. The Guardian was called ?? but there was no response. Origin consent was obtained by Dr. Vences and ?? Dr. Dc Paris . Patient was placed in left lateral decubitus view ?? and preliminary CT imaging through the posterior sacrum/coccygeal ?? junction was performed. Midline abscess abnormality was identified on ?? preliminary CT imaging. The area was marked, cleaned and draped in ?? usual sterile manner. 1% lidocaine was injected at puncture site. A ?? 20-gauge needle attached a syringe was advanced from the marked site to ?? the posterior surface of sacrum/coccygeal junction. A to pass ?? aspiration was performed and fluid collected was sent and purple-red ?? tubes culture and sensitivity. No immediate results well labeled. ?? Postprocedure simple bandage was applied at puncture site. No conscious ?? sedation utilized. Patient targeted procedure extremely well. ? Findings/ ? CT/CT guided aspiration ?? impression: Successful fluoroscopy-guided sacrococcygeal abscess ?? aspiration performed. Fluid collected was sent to lab for culture and ?? sensitivity, Gram stain. ? Dose area product: 65 mGy/cm. ? Electronically signed by: ??Que Samson MD ??11/10/2024 04:21 PM EDT RP ? Dictated By: ?,Que S MD ? Signed By: ?<Electronically signed by Que Samson MD in OV> ?11/10/24 1621 ? DD/ 1335 ? TD/TT: 11/10/24 1414 ? Debit Agent: MSM ? Procedure Note Donotuseinterpreter, Image - 11/10/[address] [place] [address] [address] Scan Report Signed Patient: Theresa Wright#: [id number] : 1965Acct:[id number] Age/Sex: 59 / MADM Date: 11/09/24 Loc: [facility] 473-[address]: Dc Paris MD Ordering Physician: Gladis Trejo Date of Service: 11/10/24 Procedure(s): CT guided aspiration Accession Number(s): [id number] cc: Kesha Pedraza; Gladis Trejo Report Number: [id number]: Total DLP = 65.00 mGy-cm EXAMINATION: CT fluoroscopy-guided sacrococcygeal abscess aspiration. Clinical indication: Sacrococcygeal midline abscess. COMPARISON: CT chest 11/09/2024. TECHNIQUE: Patient was unable to give consent. The Guardian was called but there was no response. Origin consent was obtained by Dr. Vences and Dr. Dc Paris . Patient was placed in left lateral decubitus view and preliminary CT imaging through the posterior sacrum/coccygeal junction was performed. Midline abscess abnormality was identified on preliminary CT imaging. The area was marked, cleaned and draped in usual sterile manner. 1% lidocaine was injected at puncture site. A 20-gauge needle attached a syringe was advanced from the marked site to the posterior surface of sacrum/coccygeal junction. A to pass aspiration was performed and fluid collected was sent and purple-red tubes culture and sensitivity. No immediate results well labeled. Postprocedure simple bandage was applied at puncture site. No conscious sedation utilized. Patient targeted procedure extremely well. Findings/ CT/CT guided aspiration impression: Successful fluoroscopy-guided sacrococcygeal abscess aspiration performed. Fluid collected was sent to lab for culture and sensitivity, Gram stain. Dose area product: 65 mGy/cm. Electronically signed by: Que Samson MD 11/10/2024 04:21 PM EDT RP Dictated By: Que Samson MD Signed By: <Electronically signed by Que Samson MD in OV> 11/10/24 1621 DD/ 1335 TD/TT: 11/10/24 1414 Debit Agent: ALEX us [facility] External Provider IMG CT PROCEDURES Final Result * (ABNORMAL) CBC (09/29/2024 10:57 AM EST) White Blood Count 15.3(H) 4.8 - 10.8 X10*3/uL [facility] Red Blood Count 4.05(L) 4.60 - 5.80 X10*6/uL [facility] Hemoglobin 12.3(L) 14.0 - 18.0 g/dl [facility] Hematocrit 36.2(L) 42.0 - 52.0 % [facility] Mean Corpuscular Volume 89.4 80.0 - 98.0 fL [facility] Mean Corpuscular Hemoglobin 30.4 27.0 - 33.0 pg [facility] Mean Corpuscular HGB Conc 34.0 31.0 - 36.0 g/dl [facility] Red Cell Distribution Width 14.3 11.0 - 16.0 % [facility] Platelet Count 614(H) 160 - 400 X10*3/uL [facility] Mean Platelet Volume 9.0(L) 9.4 - 12.4 fL [facility] NRBC Pct Auto 0.0 0.0 - 0.2 /100WBC [facility] NRBC Abs Auto 0.000 0.0 - 0.012 X10*3/uL [facility] 09/29/2024 10:5 7 AM EST 09/29/2024 11:05 AM EST Generic External Data Provider LAB BLOOD ORDERAB LES Final Result [facility] [address] [place] [phone] [phone] * (ABNORMAL) Hepatic Function Panel (09/29/2024 10:57 AM EST) Bilirubin, Total 1.3(H) 0.0 - 1.0 mg/dL [facility] Bilirubin, Direct 0.9(H) 0.0 - 0.5 mg/dL [facility] Aspartate Amino Transferase 26 5 - 37 U/L [facility] Alanine Aminotransferase 31 0 - 40 U/L [facility] Total Protein 7.3 6.5 - 8.0 g/dL [facility] Albumin Level 3.0(L) 3.5 - 5.0 g/dL [facility] Alkaline Phosphatase 150(H) 39 - 117 U/L [facility] 09/29/2024 10:5 7 AM EST 09/29/2024 11:05 AM EST us Generic External Data Provider LAB BLOOD ORDERAB LES Final Result Performing Organization Address [facility] Co de Phone Number [facility] [address] [place] [phone] * CT Chest w/ and w/o Contrast (09/21/2024 8:39 PM EST) Anatomical Region Laterality Modality Body, Chest Computed Tomogra phy 09/21/2024 8:39 PM EST Narrative 09/21/2024 8:42 PM EST ? [facility] ?[address] ?[place] [address] ? CT Scan Report ? Signed with Addenda ? Patient: Adriana,Abhijit ?MR#: [id number] ? : 1965 ?Acct:[id number] ? Age/Sex: 59 / M ?ADM Date: 02/20/25 ? Loc: HO.S3 ?368-1 ? Attending Dr: Ruben Bhakta MD ? Ordering Physician: Ruben Bhakta MD ?? Date of Service: 09/21/24 ?? Procedure(s): CT chest wo/w IV con ?? Accession Number(s): [id number] ? cc: Kesha Pedraza; Ruben Bhakta MD ? Report Number: ?? [id number]: Total DLP = ??370.00 mGy-cm ?ADDENDUM ?? [...] ? DD/ 38 ? TD/TT: 09/21/242038 ? Debit Agent: ? Procedure Note Andrew, Image - 09/21/[address] [address] [address] Scan Report Signed with Addenda Patient: Theresa Wright#: [id number] : 1965Acct:[id number] Age/Sex: 59 / MADM Date: 09/17/24 Loc: .S3 368-[address]: Ruben Bhakta MD Ordering Physician: Ruben Bhakta MD Date of Service: 09/21/24 Procedure(s): CT chest wo/w IV con Accession Number(s): [id number] cc: Kesha Pedraza; Ruben Bhakta MD Report Number: [id number]: Total DLP = 370.00 mGy-cm ADDENDUM This [...] in OV> 09/21/242040 DD/ 38 TD/TT: 09/21/242038 Debit Agent: [facility] External Provider IMG CT PROCEDURES Edited Result - Final * Sodium Without creatinine, Random Urine (09/17/2024 5:33 PM EST) Sodium Urine Random <20.0 mmol/L [facility] 09/17/2024 5:33 PM EST 09/17/2024 5:36 PM EST Generic External Data Provider LAB BLOOD ORDERAB LES Final Result Performing Organization Address City/[facility]/ZIP Co de Phone Number [facility] [address] [place] [phone] * Osmolality, Urine (09/17/2024 5:33 PM EST) OSMOLALITY URINE 548 373 - 1,093 mosm/kg [facility] 09/17/2024 5:33 PM EST 09/17/2024 5:36 PM EST Generic External Data Provider LAB URINE ORDERAB LES Final Result Performing Organization Address [facility] Co de Phone Number [facility] [address] [place] [phone] * Creatinine, Random Urine (09/17/2024 5:33 PM EST) Creatinine, Urine 65.46 mg/dL [facility] 09/17/2024 5:33 PM EST 09/17/2024 5:36 PM EST us Generic External Data Provider LAB URINE ORDERAB LES Final Result [facility] [address] [facility] [place] [address] [phone] * XR Chest 2 Views (09/17/2024 3:57 PM EST) Anatomical Region Laterality Modality Chest Radiographic Meron ging 09/17/2024 3:57 PM EST Narrative 09/18/2024 8:10 AM EST ? [facility] ?[address] ?[place] [address] ?XRay Report ? Signed ? Patient: Adraina,Abhijit ?MR#: [id number] ? : 1965 ?Acct:[id number] ? Age/Sex: 59 / M ?ADM Date: 09/17/24 ? Loc: HO.[place] ?MEDSURG-11 ? Attending Dr: Ruben Bhakta MD ? Ordering Physician: Mayte Katz ?? Date of Service: 09/17/24 ?? Procedure(s): XR chest 2V ?? Accession Number(s): [id number] ? cc: [facility]; Mayte Katz ? EXAMINATION: ?? XR CHEST [...] DD/ 1557 ? TD/TT: 09/17/24 1629 ? Debit Agent: ? Procedure Note Donotpadmainterpreter, Image - 09/18/[address] [address] XRay Report Signed Patient: Theresa Wright#: [id number] : 1965Acct:[id number] Age/Sex: 59 / MADM Date: 09/17/24 Loc: [place] [address]: Ruben Bhakta MD Ordering Physician: Mayte Katz Date of Service: 09/17/24 Procedure(s): XR chest 2V Accession Number(s): [id number] cc: [facility]; Mayte Katz EXAMINATION: XR CHEST CLINICAL INFORMATION: [...] Kash Tinsley MD 09/18/2024 08:08 AM EST Dictated By: Kash Rutledge MD Signed By: <Electronically signed by Kash Vigil MDin OV> 09/18/24 0808 DD/ 1557 TD/TT: 09/17/24 1629 Debit Agent: [facility] External Provider IMG XR PROCEDURES Final Result * (ABNORMAL) Drug Monitoring, Panel 1, Screen, Urine (09/17/2024 3:29 PM EST) Opiate Screen Urine Not Detected Not Detect [facility] Comment:Opiate cut-off is 30 0 ng/mL.Positive results are unconfirmed and should not be used fornon-medical purposes. Barbiturates, Urine Not Detected Not Detect [facility] Comment:Barbiturate cut-off is 200 ng/mL.Positive results are unconfirmed and should not be used fornon-medical purposes. Phencyclidine Screen Urine Not Detected Not Detect [facility] Comment:Phencyclidine cut-of f is 25 ng/mL.Positive results are unconfirmed and should not be used fornon-medical purposes. Amphetamine Screen Urine Not Detected Not Detect [facility] Comment:Amphetamine cut-off is 1000 ng/mL.Positive results are unconfirmed and should not be used fornon-medical purposes. Benzodiazepines Screen Urine Not Detected Not Detect [facility] Comment:Benzodiazepine cut-o ff is 200 ng/mL.Positive results are unconfirmed and should not be used fornon-medical purposes. Cocaine Screen Urine POSITIVE(A) Not Detect [facility] Comment:Cocaine cut-off is 3 00 ng/mL.Positive results are unconfirmed and should not be used fornon-medical purposes. Cannabinoid Screen Urine Not Detected Not Detect [facility] Comment:Cannabinoid cut-off is 50 ng/mL.Positive results are unconfirmed and should not be used fornon-medical purposes. Methadone Screen, Urine Not Detected Not Detect ng/mL [facility] Comment:Methadone cut-off is 300 ng/mL.Positive results are unconfirmed and should not be used fornon-medical purposes. FENTANYL URINE Not Detected Not Detect [facility] Comment:Fentanyl cut-off is 1 ng/mL.Positive results are unconfirmed and should not be used fornon-medical purposes. Oxycodone Urine Screen Not Detected Not Detect ng/mL [facility] Comment:Oxycodone cut-off is 100 ng/mL.Positive results are unconfirmed and should not be used fornon-medical purposes. Buprenorphine Screen Not Detected Not Detect ng/mL [facility] Comment:Buprenorphine cut-of f is 5 ng/mL.Positive results are unconfirmed and should not be used fornon-medical purposes. 09/17/2024 3:29 PM EST 09/17/2024 3:32 PM EST Generic External Data Provider LAB URINE ORDERAB LES Final Result Performing Organization Address [facility] Co de Phone Number [facility] [address] [place] [phone] * (ABNORMAL) Urinalysis w/reflex microscopic (09/17/2024 3:29 PM EST) Color Urine Dark Yellow [facility] Appearance Urine Clear [facility] PH 5.5 5.0 - 9.0 [facility] Glucose Urine UA 100(A) Negative mg/dL [facility] Urine Blood Negative Negative [facility] Specific [place] - Urine >=1.030(H) 1.005 - 1.025 [facility] Urine Protein Trace Neg-Trace mg/dL [facility] Urine Ketones Negative Negative mg/dL [facility] Nitrite Urine Negative Negative [facility] Leukocyte Esterase Urine Negative Negative [facility] 09/17/2024 3:29 PM EST 09/17/2024 3:32 PM EST Narrative [facility] - 09/17/2024 3:40 PM EST [id number], Clean Catch Generic External Data Provider LAB URINE ORDERAB LES Final Result Performing Organization Address [facility]/ZIP Co de Phone Number [facility] [address] [place] [phone] * Partial Thromboplastin Time, Activated (APTT) (09/17/2024 2:55 PM EST) Partial Thromboplastin Time 26.4 26.0 - 36.8 SEC [facility] Comment:For information rega rding the monitoring of direct thrombininhibitors, please refer to Pharmacy. 09/17/2024 2:55 PM EST 09/17/2024 2:56 PM EST Generic External Data Provider LAB BLOOD ORDERAB LES Final Result Performing Organization Address [facility] Co de Phone Number [facility] [address] [place] [phone] * (ABNORMAL) Prothrombin Time-INR (09/17/2024 2:55 PM EST) Prothrombin Time 14.3(H) 10.9 - 12.4 SEC [facility] INTERNATIONAL NORM RATIO 1.2(H) 0.9 - 1.1 [facility] Comment:INTERNATIONAL NORMAL IZED RATIO (INR) [...] 2:55 PM EST 09/17/2024 2:56 PM EST [employer] External Data Provider LAB BLOOD ORDERAB LES Final Result Performing Organization Address [facility]/ZIP Co de Phone Number [facility] [address] [place] [phone] * US Abdomen Limited (09/17/2024 1:49 PM EST) Anatomical Region Laterality Modality Abdomen Ultrasound 09/17/2024 1:49 PM EST Narrative 09/17/2024 2:33 PM EST ? [facility] [place] [facility] ?[address] ?[place] [address] ? Ultrasound Report ? Signed ? Patient: Rivie,Abhijit ?MR#: [id number] ? : 1965 ?Acct:[id number] ? Age/Sex: 59 / M ?ADM Date: 09/17/24 ? Loc: HO.ED ? Attending Dr: ? Ordering Physician: Mayte Katz ?? Date of Service: 09/17/24 ?? Procedure(s): US abdomen limited ?? Accession Number(s): [id number] ? cc: [facility]; Mayte Katz ? EXAMINATION: ?? US ABDOMEN [...] Tinsley MD ??09/17/2024 02:30 PM ?? EST ? Dictated By: ?Kash Rutledge MD ? Signed By: ?<Electronically signed by Kash Vigil MD in OV> ? 09/17/24 1430 ? DD/ 1349 ? TD/TT: 09/17/24 1402 ? Debit Agent: ? Procedure Note Mateus Morales - 09/17/[address] [address] Ultrasound Report Signed Patient: Abhijit Wright#: [id number] : 1965Acct:[id number] Age/Sex: 59 / MADM Date: 09/17/24 Loc: HO.ED Attending Dr: Ordering Physician: Mayte Katz Date of Service: 09/17/24 Procedure(s): US abdomen limited Accession Number(s): [id number] cc: [facility]; Mayte Katz EXAMINATION: US ABDOMEN LIMITED CLINICAL [...] Kash Tinsley MD 09/17/2024 02:30 PM EST Dictated By: Kash Rutledge MD Signed By: <Electronically signed by Kash Vigil MDin OV> 09/17/24 1430 DD/ 1349 TD/TT: 09/17/24 1402 Debit Agent: us [facility] External Provider IMG US PROCEDURES Final Result * Glucose, Whole Blood (09/17/2024 1:24 PM EST) Glucose, Whole Blood 93 60 - 115 mg/dL [facility] Comment:METER #: [id number] 09/17/2024 1:24 PM EST 09/17/2024 1:27 PM EST Generic External Data Provider LAB BLOOD ORDERAB LES Final Result [facility] [address] [place] [phone] * CT Abdomen Pelvis w/o Contrast (09/17/2024 12:51 PM EST) Anatomical Region Laterality Modality Body, Pelvis, Abdomen Computed T omography 09/17/2024 12:5 1 PM EST Narrative 09/17/2024 2:20 PM EST ? [facility] ?[address] ?[place] [address] ? CT Scan Report ? Signed ? Patient: Adriana,Abhijit ?MR#: [id number] ? : 1965 ?Acct:[id number] ? Age/Sex: 59 / M ?ADM Date: 09/17/24 ? Loc: HO.ED ? Attending Dr: ? Ordering Physician: Mayte Katz ?? Date of Service: 09/17/24 ?? Procedure(s): CT abdomen pelvis wo IV con ?? Accession Number(s): [id number] ? cc: [facility]; Mayte Katz ? Report Number: ?? [id number]: Total DLP = ??240.00 mGy-cm ?? EXAMINATION: [...] sequence for the CTA, and on the shipyard supervisor, ?? there is dense consolidation in the [...] for the attempted CTA, and on the shipyard supervisor, ?? there is left upper lobe opacity [...] DD/ 1251 ? TD/TT: 09/17/24 1359 ? Debit Agent: ? Procedure Note Andrew, Image - 09/17/[address] [place] [address] [address] Scan Report Signed Patient: Abhijit WrightMR#: [id number] : 1965Acct:[id number] Age/Sex: 59 / MADM Date: 09/17/24 Loc: HO.ED Attending Dr: Ordering Physician: Mayte Katz Date of Service: 09/17/24 Procedure(s): CT abdomen pelvis wo IV con Accession Number(s): [id number] cc: [facility]; Mayte Katz Report Number: [id number]: Total DLP = 240.00 mGy-cm EXAMINATION: CT [...] sequence for the CTA, and on the shipyard supervisor, there is dense consolidation in the left [...] for the attempted CTA, and on the shipyard supervisor, there is left upper lobe opacity and [...] Leo Rosales MD 09/17/2024 02:17 PM EST RP Dictated By: Leo Rosales MD Signed By: <Electronically signed by Leo Rosales MD in OV> 09/17/24 1417 DD/ 1251 TD/TT: 09/17/24 1359 Debit Agent: [facility] External Provider IMG CT PROCEDURES Final Result * CT Head Stroke w/o Contrast (09/17/2024 12:37 PM EST) Anatomical Region Laterality Modality Computed Tomogra phy 09/17/2024 12:3 7 PM EST Narrative 09/17/2024 1:11 PM EST ? [facility] ?[address] ?[place] [address] ? CT Scan Report ? Signed ? Patient: Adriana,Abhijit ?MR#: [id number] ? : 1965 ?Acct:[id number] ? Age/Sex: 59 / M ?ADM Date: 09/17/24 ? Loc: HO.ED ? Attending Dr: ? Ordering Physician: Mayte Katz ?? Date of Service: 09/17/24 ?? Procedure(s): CT head for STROKE ?? Accession Number(s): [id number] ? cc: [facility]; Mayte Katz ? Report Number: ?? [id number]: Total DLP = ??552.00 mGy-cm ?? EXAMINATION: [...] critical result was discussed with emergency physician assistant professor of theater . ?? Mayte Leiva at 1256 hours [...] DD/ 1237 ? TD/TT: 09/17/24 1252 ? Debit Agent: ? Procedure Note Donotuseinterpreter, Image - 09/17/[address] [address] CT Scan Report Signed Patient: Theresa Wright#: [id number] : 1965Acct:[id number] Age/Sex: 59 / MADM Date: 09/17/24 Loc: HO.ED Attending Dr: Ordering Physician: Mayte Katz Date of Service: 09/17/24 Procedure(s): CT head for STROKE Accession Number(s): [id number] cc: [facility]; Mayte Katz Report Number: [id number]: Total DLP = 552.00 mGy-cm EXAMINATION: CT [...] critical result was discussed with emergency physician assistant professor of theater . Mayte Leiva at 1256 hours on 09/17/2024. It was ascertained that the content and urgency of the report was understood at the time of direct communication. Electronically signed by: Kash Tinsley MD 09/17/2024 01:08 PM EST RP Dictated By: Kash Rutledge MD Signed By: <Electronically signed by Kash Vigil MDin OV> 09/17/24 1308 DD/ 1237 TD/TT: 09/17/24 1252 Debit Agent: [facility] External Provider IMG CT PROCEDURES Final Result * High Sensitivity Troponin I (09/17/2024 12:03 PM EST) TROPONIN I HIGH SENSITIVITY <2.7 <3.5 - 35.0 ng/L [facility] Comment:The [place] high sens itivity Troponin-I results should beused in conjunction with other diagnostic information suchas ECG, clinical observations and information, and patientsymptoms to aid in the diagnosis of [place]. 09/17/2024 12:0 3 PM EST 09/17/2024 2:03 PM EST Generic External Data Provider LAB BLOOD ORDERAB LES Final Result [facility] [address] [place] [phone] * Magnesium (09/17/2024 12:03 PM EST) Magnesium 1.8 1.6 - 2.6 mg/dL [facility] 09/17/2024 12:0 3 PM EST 09/17/2024 12:06 PM EST us Generic External Data Provider LAB BLOOD ORDERAB LES Final Result Performing Organization Address [facility] Co de Phone Number [facility] [address] [place] [phone] * Lipase (09/17/2024 12:03 PM EST) Lipase 14 8 - 78 U/L [facility] 09/17/2024 12:0 3 PM EST 09/17/2024 12:06 PM EST Generic External Data Provider LAB BLOOD ORDERAB LES Final Result Performing Organization Address [facility] Phone Number [facility] [address] [place] [phone] * (ABNORMAL) Bilirubin, Direct (09/17/2024 12:03 PM EST) Bilirubin, Direct 3.0(H) 0.0 - 0.5 mg/dL [facility] Comment:Slight Icterus. 09/17/2024 12:0 3 PM EST 09/17/2024 12:06 PM EST Generic External Data Provider LAB BLOOD ORDERAB LES Final Result Performing Organization Address [facility] Co de Phone Number [facility] [address] [place], [place] [phone] * (ABNORMAL) Comprehensive Metabolic Panel (09/17/2024 12:03 PM EST) Sodium 127(L) 135 - 145 mmol/L [facility] Potassium 3.6 3.3 - 5.1 mmol/L [facility] Chloride 100 96 - 108 mmol/L [facility] Carbon Dioxide 20(L) 22 - 29 mmol/L [facility] Anion Gap 11(L) 12 - 20 [facility] Urea Nitrogen (BUN) 15 9 - 16 mg/dL [facility] Creatinine, Serum 0.54 0.5 - 1.4 mg/dL [facility] Creatinine Clr Calc Pharmacy 95.6 [facility] Comment:eGFR (calculated fro m the MDRD study equation) and eCrCl(calculated from the Cockcroft-Gault equation) are based ondifferent parameters and may not yield comparable results.If eCrCl result is absurd, please check patient'sheight/weight. Estimated Glomerular Filt Rate >60 [facility] Comment:Chronic Kidney Disea se: Estimated GFR < 60 mL/min/1.62y6Afhret Kidney Disease: Estimated GFR < 15 mL/min/1.73m2 Glucose 121(H) 60 - 115 mg/dL [facility] Calcium 7.9(L) 8.4 - 10.2 mg/dL [facility] Bilirubin, Total 3.8(H) 0.0 - 1.0 mg/dL [facility] Comment:Slight Icterus. Aspartate Amino Transferase 48(H) 5 - 37 U/L [facility] Alanine Aminotransferase 39 0 - 40 U/L [facility] Total Protein 5.8(L) 6.5 - 8.0 g/dL [facility] Albumin Level 2.4(L) 3.5 - 5.0 g/dL [facility] Alkaline Phosphatase 193(H) 39 - 117 U/L [facility] 09/17/2024 12:0 3 PM EST 09/17/2024 12:06 PM EST us Generic External Data Provider LAB BLOOD ORDERAB LES Final Result [facility] [address], [place] [phone] * Ethanol (09/17/2024 12:02 PM EST) ETHANOL (MG/DL) IN SER/PLAS <10 mg/dL [facility] Comment:Serum/plasma ethanol results are to be used formedical/treatment purposes only. 09/17/2024 12:0 2 PM EST 09/17/2024 12:06 PM EST Generic External Data Provider LAB BLOOD ORDERAB LES Final Result Performing Organization Address [facility]/ZIP Co de Phone Number [facility] [address] [place] [phone] * SARS-CoV-2 RNA, Influenza A/B, and RSV RNA, Ql NAAT (09/17/2024 12:02 PM EST) Influenza A PCR NEGATIVE Negative [facility] Influenza B PCR NEGATIVE Negative [facility] Resp Syncy Virus RNA Qual PCR NEGATIVE Negative [facility] SARS COV2 PCR NEGATIVE Negative [facility] Comment:All test results mus t be [...] use by authorized laboratories.Testing performed on the [facility] GeneXpert utilizingreal-time RT-PCR.All SARS CoV2 and positive influenza A/B results arereported to [facility]. 09/17/2024 12:0 2 PM EST 09/17/2024 12:06 PM EST Generic External Data Provider LAB MICROBIOLOGY - GENERAL ORDERABLES Final Result Performing Organization Address [facility] Co de Phone Number [facility] [address] [place] [phone] * (ABNORMAL) Lipid Panel with Reflex to Direct LDL (09/14/2022 11:11 AM EST) Cholesterol, Total 217(H) <200 mg/dL [facility] HDL Cholesterol 105 > OR = 40 mg/dL [facility] [place] [facility] Triglycerides 74 <150 mg/dL [facility] [place] [facility] LDL Cholesterol 96 mg/dL (calc) [facility] [place] [facility] Comment: Reference range: <100 Desirable range <100 mg/dL for primary prevention; ?? <70 mg/dL for patients with CHD or diabetic patients with > or = 2 CHD risk factors. LDL-C is now calculated using the Brent calculation, which is a validated novel method providing better accuracy than the Friedewald equation in the estimation of LDL-C. Jovan MAYNARD et al. KRISHNA. 2013;310(19): 3851-4256 (http://[employer]/faq/EWA773) Chol/HDLC Ratio 2.1 <5.0 (calc) [facility] [place] [facility] Non-HDL Cholesterol 112 <130 mg/dL (calc) [facility] [place] [facility] Comment: For patients with diabetes plus 1 [...] BLOOD ORDERABLES Fin al Result [facility] [address], [place] [address] [facility] [facility] [place] [facility] [address] [facility], ([address]) [place] [address] * (ABNORMAL) Hepatitis Panel, General (09/14/2022 11:11 AM EST) Hepatitis A Antibody Total REACTIVE( A) NON-REACT BARAK [facility] [place] [facility] Comment: For additional information, please refer to http://education.My Own Med/faq/ZGH175 (This link is being provided for informational/ educational purposes only.) Hepatitis B Surface Antibody QL REACTIVE( A) NON-REACT BARAK [facility] [place] [facility] Hepatitis B Surface Ag NON-REACT BARAK NON-REACT BARAK [facility] [place] [facility] Hepatitis B Core Antibody Total NON-REACT BARAK NON-REACT BARAK [facility] [place] [employer] Hepatitis C Antibody NON-REACT BARAK NON-REACT BARAK [facility] [place] [employer] Index 0.02 <1.00 [facility] [place] [facility] Comment: HCV antibody was non-reactive. There is no laboratory evidence of HCV infection. In most cases, no further action is required. However, if recent HCV exposure is suspected, a test for HCV RNA (test code 69823) is suggested. For additional information please refer to http://education.My Own Med/faq/INO99m0 (This link is being provided for informational/ educational purposes only.) 09/14/2022 11:1 1 AM EST 09/14/2022 11:12 AM EST Narrative [facility] - 09/19/2022 11:02 PM EST FASTING:UNKNOWN COLLECTION KIT GIVEN TO PATIENT. PATIENT ADVISED TO RETURN. FASTING: UNKNOWN us Mary Perrin MD LAB BLOOD ORDERABLES Fin al Result [facility] [address] [facility], [place] [address] [facility] [facility] [place] [employer] [address] [facility], ([address]) [place] [address] * HIV-1/2 Antigen and Antibodies, Fourth Generation, with Reflexes (09/14/2022 11:11 AM EST) HIV Antigen/Antibody, 4th Generation NON-REAC TIVE NON-REAC TIVE [facility] [place] [facility] Comment: HIV-1 antigen and HIV-1/HIV-2 antibodies were [...] ?? For additional information please refer to http://education.My Own Med/faq/BLN194 (This link is being provided for informational/ [...] BLOOD ORDERABLES Fin al Result [facility] [address], [place] [address] [facility] [facility] [address] [facility], ([address]) [place] [address] from Last 3 Months or Most Recently Relevant to Health Maintenance Insurance [facility] STAND ADULT Care Teams Bricklayer Supervisor Relationship Specialty Start Date End Date Mary Perrin MD [address] [place] [phone] PCP - General Family Medicine 04/07/18
--- OUTSIDE RECORDS SUMMARY | 2024-11-26 16:40 | XMS_ITS | Encounter Summary ---
Author Organization [employer] Address [address] [facility] 7t [place] [address] Care Team Providers Care Canvas Shop Laborer Name Role Phone Mary Perrin MD Primary Care Provider + Encounter Details Date Type Department Care Team ([facility] st Contact Info) Description 10/23/2023 Telephone [facility] [address] [place] [address] Mary Perrin MD [address] [place] [address] Social History Tobacco Use Types Packs/Day Years [...] as of this encounter Plan of Treatment Upcoming Encounters Date Type Department Care Team (Late st Contact Info) Description 02/23/2025 10:00 AM EDT Office Visit [facility] [address] [place] [address] Mary Perrin MD [address] [place] [address] documented as of this encounter Visit Diagnoses Not on filedocumented in this encounter Care Teams Canvas Shop Laborer Relationship Specialty Start Date End Date Mary Perrin MD [address] [place] [address] PCP - General Family Medicine 04/07/18 documented as of this encounter
--- OUTSIDE RECORDS SUMMARY | 2024-11-26 16:40 | XMS_ITS | Encounter Summary ---
Author Organization [employer] Address [address] [facility] [address] [place] [address] Care Team Providers Care Java Web Developer Name Role Phone Mary Perrin MD Primary Care Provider + Reason for Visit * Reason Comments Med Refill Encounter Details Date Type Department Care Team ([facility] st Contact Info) Description 09/13/2023 Refill [facility] [address] [place] [address] La Bower MD [address] [place] [address] Seizure disorder (CMS/HCC) Social History Tobacco Use [...] Description 02/23/2025 10:00 AM EDT Office Visit [facility] [address] [place] [phone] Mary Perrin MD [address] [place] [address] [phone] documented as of this encounter Visit Diagnoses Diagnosis Seizure disorder (CMS/HCC) Unspecified epilepsy without mention of intractable epilepsy documented in this encounter Care Teams Java Web Developer Relationship Specialty Start Date End Date Mary Perrin MD [address] [place] [phone] PCP - General Family Medicine 04/07/18 documented as of this encounter
--- OUTSIDE RECORDS SUMMARY | 2024-11-26 16:40 | XMS_ITS | Encounter Summary ---
Author Organization [employer] Address [address] [facility] [address] [place] [address] Care Team Providers Care Carton And Can Supply Supervisor Name Role Phone Mary Perrin MD Primary Care Provider + Encounter Details Date Type Department Care Team (Latest Contact Info) Description 05/22/2023 Research Encounter [facility] [address] [place] [address] Mary Perrin MD [address] [place] [address] ERRONEOUS ENCOUNTER--DISREGARD Social History Tobacco Use Types [...] Description 02/23/2025 10:00 AM EDT Office Visit [facility] [address] [place] [address] Mary Perrin MD [address] [place] [address] documented as of this encounter Visit Diagnoses Diagnosis ERRONEOUS ENCOUNTER--DISREGARD documented in this encounter Care Teams Carton And Can Supply Supervisor Relationship Specialty Start Date End Date Mary Perrin MD [address] [place] [phone] PCP - General Family Medicine 04/07/18 documented as of this encounter
--- OUTSIDE RECORDS SUMMARY | 2024-11-26 16:40 | XMS_ITS | Clinical Summary ---
Author Organization [address] [facility] Address [address] [place] [address] Phone Care Team Providers Care Train Brakeman Name Role Phone Maxine Rodas [facility] Primary Care Provider [phone] Allergies No known active allergies Medications acetaminophen [...] Care Team (Late st Contact Info) Description 02/15/2025 1:15 PM EDT Consult Orthopedic Surgery - [place] [address] [facility] [address] [place] [phone] Chidi Jurado, DPM [address] [address] Health Maintenance Due Date Last Done Comments [...] topic Insurance MEDICAID - [place] Care Teams Train Brakeman Relationship Specialty Start Date End Date Maxine Rodas [place] [phone] PCP - General Family Medicine 07/20/24
--- OUTSIDE RECORDS SUMMARY | 2024-11-26 16:40 | XMS_ITS | Encounter Summary ---
Author Organization [employer] Address [address] [facility] [address]t [place] [address] Care Team Providers Care Cost Estimating Clerk Name Role Phone Mary Perrin MD Primary Care Provider + Reason for Visit * Reason Comments Med Refill Encounter Details Date Type Department Care Team ([facility] st Contact Info) Description 07/24/2023 Refill [facility] P[facility]S [address] [place] [address] La Bower MD [address] [place] [address] Seizure disorder (CMS/HCC) Social History Tobacco Use [...] Description 02/23/2025 10:00 AM EDT Office Visit [facility] [address] [place] [phone] Mary Perrin MD [address] [place] [address] [phone] documented as of this encounter Visit Diagnoses Diagnosis Seizure disorder (CMS/HCC) Unspecified epilepsy without mention of intractable epilepsy documented in this encounter Care Teams Cost Estimating Clerk Relationship Specialty Start Date End Date Mary Perrin MD [address] [place] [phone] PCP - General Family Medicine 04/07/18 documented as of this encounter
== END 2024-11-26 14:58 | disposition home or self-care (01) ==
LOC: HO.HPS 14:39
PROVIDERS: PCP Nurse Practitioner; Referring Provider Nurse Practitioner; Visit Provider Internal Medicine Pulmonary Disease
DX: J18.9 Pneumonia, unspecified organism (principal); J85.2 Abscess of lung without pneumonia
CPT/HCPCS: 99213

== ENCOUNTER → 2024-11-26 14:39 | Outpatient (BNVA) | payer MEDICAID, SELFPAY | PROVIDERS: PCP Nurse Practitioner; Referring Provider Nurse Practitioner; Visit Provider Internal Medicine Pulmonary Disease | DX: J18.9 Pneumonia, unspecified organism (principal); J85.2 Abscess of lung without pneumonia | CPT/HCPCS: 99212 ==

== ENCOUNTER 2024-12-24 10:03 | Outpatient (REF) | payer MEDICAID, SELFPAY ==
--- NOTE | ~2024-12-24 | CT_ITS ---
CLINICAL HISTORY: J85.2 - Abscess of lung without pneumonia CT chest without contrast Comparison: 11/09/2024 follow-up Findings: The heart is normal size. The visualized thyroid and mediastinum are unremarkable. There has been near-complete resolution of the left upper lobe consolidation. There is left upper lobe bronchiectasis with scarring or subsegmental atelectasis in the area. There are no new areas of airspace or interstitial consolidation and no focal mass or collection. The upper abdomen is unremarkable. The bones are intact. IMPRESSION: 1. Improved appearance of the chest. 2. Left upper lobe bronchiectasis with scarring or subsegmental atelectasis. This document has been electronically signed by: Mario Jeffries MD on 12/25/2024 08:55:28
--- OUTSIDE RECORDS SUMMARY | 2024-12-24 10:23 | XMS_ITS | Clinical Summary ---
Author Organization [employer] Address [address] [facility] [address] [place] [address] Care Team Providers Care Scale Adjuster Name Role Phone Mary Perrin MD Primary Care Provider + Allergies No known active allergies Medications haloperidol (Haldol) 10 MG tablet take 1 tablet (10MG) by oral route once daily Active haloperidol (Haldol) 5 MG tablet take 1 tablet by oral route every day (take with 10 mg) 018 Active Misc. Devices (Cane) misc Active ARIPiprazole (Abilify) 10 MG tablet Take 10 mg by mouth in the morning. Active benztropine (Cogentin) 1 MG tablet Take 1 mg by mouth in the morning. Active LORazepam (Ativan) 1 MG tablet Take 1 mg by mouth every 6 (six) hours if needed for anxiety. Active albuterol 108 (90 Base) MCG/ACT inhalerIndicati ons:Chronic cough Inhale 2 puffs every 6 (six) hours if needed for wheezing. 18 g 3 024 2024 Active Acetaminophen Extra Strength 500 MG tabletIndicatio ns:Presho of foot TAKE 2 TABLET BY ORAL ROUTE 3 TIMES EVERY DAY NEEDED FOR HIP OR SHOULDER PAIN 270 tablet 025 Active amoxicillin-cla vulanate (Augmentin) 875-125 MG tablet Take 1 tablet by mouth 2 times daily. 025 Active levETIRAcetam (Keppra) 1000 MG tabletIndicatio ns:Seizure disorder (CMS/HCC) Take 1 tablet (1,000 mg) by mouth 2 times daily. 60 tablet 1 025 Active folic acid (Folvite) 1 MG tabletIndicatio ns:Seizure disorder (CMS/HCC) TAKE 1 TABLET BY MOUTH EVERY MORNING 30 tablet 4 025 Active docusate sodium (Colace) 100 MG capsuleIndicati ons:Slow transit constipation TAKE 1 CAPSULE BY MOUTH TWICE A DAY IF NEEDED FOR CONSTIPATION 60 capsule 5 025 Active phenytoin ER (Dilantin) 100 MG capsule 500 mg. 018 2024 Discontinued(M ed list cleanup (will not trigger notification to Pharmacy)) OXcarbazepine (Trileptal) 150 MG tabletIndicatio ns:Seizure disorder (CMS/HCC) take 1 tablet by oral route 2 times every day 60 tablet 3 023 2024 Discontinued(M ed list cleanup (will not trigger notification to Pharmacy)) docusate sodium (Colace) 100 MG capsuleIndicati ons:Slow transit constipation TAKE 1 CAPSULE BY MOUTH TWICE A DAY IF NEEDED FOR CONSTIPATION 180 capsule 1 024 2024 Discontinued(R eorder (will not trigger notification to Pharmacy)) acetaminophen (Tylenol) 500 MG tabletIndicatio ns:Presho of foot take 2 tablet by oral route 3 times every day as needed for hip or shoulder pain 270 tablet 024 2024 Discontinued folic acid (Folvite) 1 MG tabletIndicatio ns:Seizure disorder (CMS/HCC) TAKE 1 TABLET BY MOUTH EVERY MORNING 90 tablet 1 024 2024 Discontinued nicotine (Nicoderm, Step 2) 14 MG/24HR patch Place 1 patch on the skin 1 (one) time each day at the same time. 025 2024 Discontinued levETIRAcetam (Keppra) 1000 MG tablet Take 1 tablet by mouth 2 times daily. 2024 Discontinued(R eorder (will not trigger notification to Pharmacy)) Active Problems Problem Noted Date Diagnosed Date Pneumonia 12/08/2024 Assessment & Plan (12/08/2024 1:07 PM EDT): Improving he continues to take the antibiotics I advised for him to finish the antibiotic regimen prescribed by a specialist Patient is not having any more cough, cough syrup can be discontinued Abscess 12/08/2024 Assessment & Plan (12/08/2024 1:05 PM EDT): Resolved Hyponatremia 12/08/2024 Assessment & Plan (12/08/2024 1:05 PM EDT): I ordered a CMP to monitor sodium levels patient to be contacted with results Encounter for preventive health examination 01/26 Assessment [...] live At foster home, care management by [facility] Presho of foot 06/29/2022 Assessment & Plan (02/10/2024 2:22 PM EDT): - missed appoitment with county commissioner, gave information to r/s appointment - advised [...] - he continues to live in a snf with meds administered through [employer], he is a [facility]rias of the [facility] Assessment & Plan (12/13/2022 1:31 [...] drugs. Seizure disorder 07/29/1958 Assessment & Plan (12/08/2024 1:05 PM EDT): I will refill today his Keppra, I instructed for him to follow-up with neurology for further management of his seizure disorder Assessment & Plan (11/26/2023 3:54 PM EDT): - uncontrolled, usually due to non-compliance with medications (Trileptal and Dilantin) - I discussed with pt the importance of taking medications daily, pt will try to sleep at his snf daily - f/u with Dr. Flor - discussed [facility] pt importance of avoiding drug use [...] Tobacco dependence syndrome 07/29/1958 Assessment & Plan (12/08/2024 1:06 PM EDT): Patient continues to smoke, he is not using his nicotine patches, he does not like them, I will discontinue prescription for now Assessment & Plan (09/14/2022 11:16 AM EST): Continues to smoke up to 1 pack per day, not ready to quit. Counseled to quit smoking. Encounters Date Type Department Care Team Description 12/14/2024 Telephone [facility] [address] [place] [address] Zo Pace RN Paperwork/Forms 12/11/2024 Telephone [facility] [address] [place] [address] Mary Perrin MD Med Refill 12/11/2024 Refill [facility] [address] [place] [address] Mary Perrin MD Seizure disorder ([facility]/HCC); Slow transit constipation 12/08/2024 10:15 AM EDT Office Visit [facility] [address] [place] [phone] Pau Gallardo MD Tobacco dependence syndrome (Primary Dx); Seizure disorder (CMS/HCC); Pneumonia of right lung due to infectious organism, unspecified part of lung; Abscess; Hyponatremia 12/08/2024 Travel 12/07/2024 Telephone [facility] [address] [place] [address] Pau Gallardo MD Chart Prep 12/03/[address] [address] Mary Perrin MD Medication Question 12/03/2024 Refill [facility] [address] [place] [phone] Mary Perrin MD Presho of foot 11/18/2024 Telephone [facility] [address] [place] [phone] Mary Perrin MD January recall 11/09/2024 Orders Only External Provider, [facility] 10/21/2024 Telephone [facility] [address] [place] [address] Mary Perrin MD December recall 10/09/2024 Population Health Risk Score Community [facility] (C3) Department [address] [phone] Provider, Population Health Generic 09/29/2024 Orders Only GENERIC EXTERNAL DATA DEPARTMENT Provider, Generic External Data from Last 3 Months Immunizations Immunization Administration Dates Next Due Hep A, Adult 07/08/2007 Hep B, adult 07/26/2008,08/25/2007,07/08/2007 Influenza injectable quadriv alent IIV4 with preservative 04/15/2019,05/14/2017,05/04/2016 Influenza injectable quadriv alent preservative free 05/10/2023,07/12/2020 Influenza, seasonal, injecta ble, preservative free 10/12/2010 Moderna Covid-19 Vaccine 12+ 05/22/2024,05/10/20 23 Pfizer Covid-19 Vaccine 12+ 12/09/2020, 1 Pneumococcal [...] Sign Reading Time Taken Comments Blood Pressure 124/75 12/08/2024 10:37 AM EDT Pulse 67 12/08/2024 10:37 AM EDT Temperature 36 ??C (96.8 ??F) 12/08/2024 10:37 AM EDT Respiratory Rate 20 12/08/2024 10:37 AM EDT Oxygen Saturation 97% 02/10/2024 1:39 PM EDT Inhaled Oxygen Concentration - - Weight 42.2 kg (93 lb) 12/08/2024 10:37 AM EDT Height 157.5 cm (5' 2 ) 12/08/2024 10:37 AM EDT Body Mass Index 17.01 12/08/2024 10:37 AM EDT Plan of Treatment Upcoming Encounters Date Type Department Care Team (Late st Contact Info) Description 02/23/2025 10:00 AM EDT Office Visit [facility] [address] [place] [phone] Mary Perrin MD [address] [place] [address] Health Maintenance Due Date Last Done Comments CT Colonography 1966 Colonoscopy 1966 Colorectal Cancer Screening 1966 FIT DNA/Cologuard 1966 FIT 1966 FOBT 1966 Sigmoidoscopy 1966 Disability Screening 1966 Alcohol/Substance Use Screening 1978 Dental X-Ray: Bitewings 03/08/2012 03/07/2011 Dental Oral Exam 10/01/2012 04/02/2012, 03/07/2011 Dental Prophylaxis 10/01/2012 04/02/2012, 03/14/2011 Zoster Vaccines (1 of 2) 2016 DTaP/Tdap/Td Vaccines (1 - Tdap) 07/05/2018 07/04/2018, 05/14/2017, 05/14/2017, Additional history exists Depression Screening 09/14/2023 09/14/2022, 09/14/19 23 Influenza Vaccine (#1) 2024 , 07/12/2020, 04/15/2019, Additional history exists SDOH Screening 02/02/2025 02/03/2024 Tobacco Screening 12/08/2025 12/08/2024 Dental X-Ray: Full Mouth 09/24/2026 09/23/2023, 02/26 [...] 1:35 PM EDT HEPATIC FUNCTION PANEL Routine 09/29/2024 10:57 AM EST CBC Routine 09/29/2024 10:57 AM EST PANORAMIC RADIOGRAPHIC IMAGE Routine 09/23/2023 2:00 [...] EDT Narrative 11/10/2024 4:24 PM EDT ? [facility] ?[address] ?[place] [address] ? CT Scan Report ? Signed ? Patient: Leticiaie,Abhijit ?MR#: [id number] ? : 1965 ?Acct:[id number] ? Age/Sex: 59 / M ?ADM Date: 04/14/25 ? Loc: [facility] ?473-1 ? Attending Dr: Dc Paris MD ? Ordering Physician: Maya,Monte Sereno [facility] ?? Date of Service: 11/10/24 ?? Procedure(s): CT guided aspiration ?? Accession Number(s): [id number] ? cc: Kesha Pedraza; Gladis Trejo [facility]- ? Report Number: ?? [id number]: Total DLP = ?? 65.00 mGy-cm ?? [...] 04:21 PM EDT RP ? Dictated By: ?Que Samson MD ? Signed By: ?<Electronically signed by Que Samson MD in OV> ?11/10/24 1621 ? DD/ 1335 ? TD/TT: 11/10/24 1414 ? Underwriting Analyst: MSM ? Procedure Note Mateus Morales - 11/10/[address] [address] [address] Scan Report Signed Patient: Theresa Wright#: [id number] : 1965Acct:[id number] Age/Sex: 59 / MADM Date: 11/09/24 Loc: [facility] 473-[address]: Dc Paris MD Ordering Physician: Gladis Trejo [facility] Date of Service: 11/10/24 Procedure(s): CT guided aspiration Accession Number(s): [id number] cc: Kesha Pedraza; Gladis Trejo [facility] Report Number: [id number]: Total DLP = 65.00 mGy-cm EXAMINATION: CT [...] Que Samson MD 11/10/2024 04:21 PM EDT Dictated By: Que Samson MD Signed By: <Electronically signed by Que Samson MD in OV> 11/10/24 1621 DD/ 1335 TD/TT: 11/10/24 1414 Underwriting Analyst: ALEX [facility] External Provider IMG CT PROCEDURES Final Result * (ABNORMAL) CBC (09/29/2024 10:57 AM EST) White Blood Count 15.3(H) 4.8 - 10.8 X10*3/uL LABS Red Blood Count 4.05(L) 4.60 - 5.80 X10*6/uL LABS Hemoglobin 12.3(L) 14.0 - 18.0 g/dl LABS Hematocrit 36.2(L) 42.0 - 52.0 % LABS Mean Corpuscular Volume 89.4 80.0 - 98.0 fL LABS Mean Corpuscular Hemoglobin 30.4 27.0 - 33.0 pg LABS Mean Corpuscular HGB Conc 34.0 31.0 - 36.0 g/dl LABS Red Cell Distribution Width 14.3 11.0 - 16.0 % LABS Platelet Count 614(H) 160 - 400 X10*3/uL LABS Mean Platelet Volume 9.0(L) 9.4 - 12.4 fL LABS NRBC Pct Auto 0.0 0.0 - 0.2 /100WBC LABS NRBC Abs Auto 0.000 0.0 - 0.012 X10*3/uL LABS 09/29/2024 10:5 7 AM EST 09/29/2024 11:05 AM EST us Generic External Data Provider LAB BLOOD ORDERAB LES Final Result LABS [address] [place] [phone] * (ABNORMAL) Hepatic Function Panel (09/29/2024 10:57 AM EST) [facility] Bilirubin, Total 1.3(H) 0.0 - 1.0 mg/dL LABS Bilirubin, Direct 0.9(H) 0.0 - 0.5 mg/dL LABS Aspartate Amino Transferase 26 5 - 37 U/L LABS Alanine Aminotransferase 31 0 - 40 U/L LABS Total Protein 7.3 6.5 - 8.0 g/dL LABS Albumin Level 3.0(L) 3.5 - 5.0 g/dL LABS Alkaline Phosphatase 150(H) 39 - 117 U/L LABS 09/29/2024 10:5 7 AM EST 09/29/2024 11:05 AM EST us Generic External Data Provider LAB BLOOD ORDERAB LES Final Result LABS [address] [place] [phone] * (ABNORMAL) Lipid Panel with Reflex to Direct LDL (09/14/2022 11:11 AM EST) Cholesterol, Total 217(H) <200 mg/dL [facility] HDL Cholesterol 105 > OR = 40 mg/dL [facility] Triglycerides 74 <150 mg/dL [facility] LDL Cholesterol 96 mg/dL (calc) [facility] Comment: Reference range: <100 Desirable range <100 mg/dL for primary prevention; ?? <70 mg/dL for patients with CHD or diabetic patients with > or = 2 CHD risk factors. LDL-C is now calculated using the Jovan-Luz calculation, which is a validated novel method providing better accuracy than the Friedewald equation in the estimation of LDL-C. Jovan MAYNARD et al. KRISHNA. 2013;310(19): 6457-8533 (http://education.Domosite/faq/JPG091) Chol/HDLC Ratio 2.1 <5.0 (calc) [facility] Non-HDL Cholesterol 112 <130 mg/dL (calc) [facility] Comment: For patients with diabetes plus 1 [...] BLOOD ORDERABLES Fin al Result [facility] [address] [facility] [place] [address] [facility] [place] [facility] [address] [facility], ([address]) [place] [address] * (ABNORMAL) Hepatitis Panel, General (09/14/2022 11:11 AM EST) Hepatitis A Antibody Total REACTIVE( A) NON-REACT BARAK [facility] Comment: For additional information, please refer to http://[employer].Fatwire/faq/MJC299 (This link is being provided for informational/ educational purposes only.) Hepatitis B Surface Antibody QL REACTIVE( A) NON-REACT BARAK [facility] Hepatitis B Surface Ag NON-REACT BARAK NON-REACT BARAK [facility] Hepatitis B Core Antibody Total NON-REACT BARAK NON-REACT [facility] [place] [facility] Hepatitis C Antibody NON-REACT BARAK NON-REACT BARAK [facility] Index 0.02 <1.00 [facility] Comment: HCV antibody was non-reactive. There is no laboratory evidence of HCV infection. In most cases, no further action is required. However, if recent HCV exposure is suspected, a test for HCV RNA (test code 80239) is suggested. For additional information please refer to http://[employer].Fatwire/faq/ANI87i4 (This link is being provided for informational/ educational purposes only.) 09/14/2022 11:1 1 AM EST 09/14/2022 11:12 AM EST Narrative [facility] - 09/19/2022 11:02 PM EST FASTING:UNKNOWN COLLECTION KIT GIVEN TO PATIENT. PATIENT ADVISED TO RETURN. FASTING: UNKNOWN us Mary Perrin MD LAB BLOOD ORDERABLES Fin al Result [facility] [address] [place] [address] [facility] [address] [place] [address], ([address]) [place] [address] * HIV-1/2 Antigen and Antibodies, Fourth Generation, with Reflexes (09/14/2022 11:11 AM EST) HIV Antigen/Antibody, 4th Generation NON-REAC TIVE NON-REAC TIVE [facility] Comment: HIV-1 antigen and HIV-1/HIV-2 antibodies [...] ?? For additional information please refer to http://education.[employer]/faq/EEU683 (This link is being provided for informational/ [...] BLOOD ORDERABLES Fin al Result [facility] [address], [place] [address] [facility] [address] [place] [address], ([address]) [place] [address] from Last 3 Months or Most Recently Relevant to Health Maintenance Insurance [place] [facility] MEDICAID STAND ADULT Care Teams Scale Adjuster Relationship Specialty Start Date End Date Mary Perrin MD [address] [place] [phone] PCP - General Family Medicine 04/07/18
== END 2024-12-24 10:04 | disposition home or self-care (01) ==
LOC: HO.CT 10:03
PROVIDERS: PCP Nurse Practitioner; Visit Provider Internal Medicine Pulmonary Disease
DX: J85.2 Abscess of lung without pneumonia (principal)
CPT/HCPCS: 71250

== ENCOUNTER → 2024-12-24 10:05 | Outpatient (BNV) | payer MEDICAID, SELFPAY | PROVIDERS: PCP Nurse Practitioner; Visit Provider Specialist | DX: J47.9 Bronchiectasis, uncomplicated (principal) | CPT/HCPCS: 71250 ==

== ENCOUNTER 2024-12-25 16:31 | Emergency (ER) | payer MEDICAID, SELFPAY ==
[2024-12-25] VITALS (11 sets, daily range): BP systolic 121–165; BP diastolic 72–131; PULSE 74–112; RESP 16–21; TEMP 36.1; O2SAT 94–98; BMI 17.9
--- NOTE | ~2024-12-25 | CT_ITS ---
CLINICAL HISTORY: AMS CT head without contrast Comparison: CT/SR - CT HEAD/BRAIN WO IV CON - 11/09/24 21:52 EDT Findings: No intracranial mass, midline shift, hydrocephalus, or acute hemorrhage. Mild mucosal thickening and secretions present at the left maxillary sinus. Minimal mucosal thickening partially visualized at the right maxillary sinus. The bilateral mastoid air cells appear clear. No acute skull fracture. Old left frontoparietal sobeida hole redemonstrated. Dislocated left lens redemonstrated. Impression: 1. No acute intracranial abnormality. No acute intracranial hemorrhage. This document has been electronically signed by: Kendrick Burr MD on 12/26/2024 00:06:34
--- NOTE | ~2024-12-25 | XR_ITS ---
CLINICAL HISTORY: ams --- Additional Notes or Special Instructions: PT REFUSED EXAM, COMBATIVE AND CU RSING AT [facility]--2049 1 view chest x-ray. Comparison: CT/SR - CT CHEST W IV CON - 11/09/24 19:34 EDT CR/SR - XR CHEST 2V - 09/17/24 16:29 EST Findings: The patient is mildly rotated toward the right, slightly limiting this examination. Normal heart size. Mild ill-defined density redemonstrated over the left upper lobe, partially obscured by a structure external to the patient. No focal consolidation identified within the right lung. The patient's face partially obscures the right lung apex. No pneumothorax or pleural effusion. Old, healed right clavicle fracture redemonstrated. Impression: 1 Mild ill-defined left upper lobe opacity redemonstrated which may represent scarring or infectious/inflammatory infiltrates. A similar finding was present on the 12/24/2024 examination. This document has been electronically signed by: Kendrick Burr MD on 12/25/2024 23:05:27
--- OUTSIDE RECORDS SUMMARY | 2024-12-25 17:23 | XMS_ITS | Clinical Summary ---
Author Organization [employer] Address [address] [facility] [address] [place] [address] Care Team Providers Care Larder Cook Name Role Phone Mary Perrin MD Primary [...] Active Acetaminophen Extra Strength 500 MG tabletIndicatio ns:[place] of foot TAKE 2 TABLET BY ORAL [...] to Pharmacy)) acetaminophen (Tylenol) 500 MG tabletIndicatio ns:[place] of foot take 2 tablet by oral [...] At foster home, care management by [facility] [place] 06/29/2022 Assessment & Plan (02/10/2024 2:22 PM EDT): - missed appoitment with incident commander, gave information to r/s appointment - advised [...] - he continues to live in a jail with meds administered through [facility], he is a [facility] of the [facility] Assessment & Plan (12/13/2022 1:31 PM EDT): [...] pt will try to sleep at his jail daily - f/u with Dr. Flor - discussed [facility] pt importance of avoiding drug [...] Encounters Date Type Department Care Team Description 12/24/2024 Orders Only [facility] External Provider, [facility] 12/14/2024 Telephone [facility] [address] [place] [address] Zo Pace, RN Paperwork/Forms 12/11/2024 Telephone [facility] [address] [place] [address] Mary Perrin MD Med Refill 12/11/2024 Refill [facility] [address] [place] [address] Mary Perrin MD Seizure disorder (CMS/HCC); Slow transit constipation 12/08/2024 10:15 AM EDT Office Visit [facility] [address] [place] [phone] Pau Gallardo MD Tobacco dependence syndrome (Primary Dx); Seizure disorder (CMS/HCC); Pneumonia of right lung due to infectious organism, unspecified part of lung; Abscess; Hyponatremia 12/08/2024 Travel 12/07/2024 Telephone [facility] [address] [place] [address] Pau Gallardo MD Chart Prep 12/03/2024 Telephone [facility] [address] [place] [phone] Mary Perrin MD Medication Question 12/03/2024 Refill [facility] [address] [place] [phone] Mary Perrin MD [place] 11/18/2024 Telephone [facility] [address] [place] [address] Mary Perrin MD January recall 11/09/2024 Orders Only [facility] External Provider, [facility] 10/21/2024 Telephone [facility] [address] [place] [address] Mary Perrin MD December recall 10/09/[address] [facility] () Department [address] [place] [phone] Provider, Population Health Generic 09/29/2024 Orders [...] Description 02/23/2025 10:00 AM EDT Office Visit [facility] [address] [place] [phone] Mary Perrin MD [address] [place] [address] Health Maintenance Due Date Last Done Comments [...] Priority Date/Time Associated Diagnosis Comments CT CHEST WO CONTRAST Routine 12/25/2024 8:[address] GUIDED ASPIRATION OF ABSCESS, HEMATOMA, CYST [...] Relevant to Health Maintenance Results * CT Chest w/o Contrast (12/25/2024 8:55 AM EDT) Anatomical Region Laterality Modality Body, Chest Computed Tomogra phy 12/25/2024 8:55 AM EDT Narrative 12/25/2024 8:56 AM EDT ? [facility] ?[address] ?[place] [address] ? CT Scan Report ? Signed ? Patient: Rivie,Abhijit ?MR#: [id number] ? : 1965 ?Acct:[id number] ? Age/Sex: 59 / M ?ADM Date: 05/29/25 ? Loc: HO.CT ? Attending Dr: Kenneth Nina MD ? Ordering Physician: Kenneth Nina MD ?? Date of Service: 12/24/24 ?? Procedure(s): CT chest wo IV con ?? Accession Number(s): [id number] ? cc: Kesha Pedraza; Kenneth Nina MD ? Report Number: ?? [id number]: Total DLP = ?? 70.00 mGy-cm ? CLINICAL HISTORY: J85.2 - Abscess of lung without pneumonia ? CT chest without contrast ? Comparison: 11/09/2024 follow-up ? Findings: ?? The heart is normal size. ?? The visualized thyroid and mediastinum are unremarkable. ? There has been near-complete resolution of the left upper lobe ?? consolidation. ?? There is left upper lobe bronchiectasis with scarring or subsegmental ?? atelectasis in the area. ?? There are no new areas of airspace or interstitial consolidation and no ?? focal mass or collection. ? The upper abdomen is unremarkable. ?? The bones are intact. ? IMPRESSION: ?? 1. Improved appearance of the chest. ?? 2. Left upper lobe bronchiectasis with scarring or subsegmental ?? atelectasis. ? This document has been electronically signed by: Mario Jeffries MD on ?? 12/25/2024 08:55:28 ? Dictated By: ?Mario Jeffries MD ? Signed By: ?<Electronically signed by Mario Jeffries MD in OV> ?12/25/24 0856 ? DD/ 0855 ? TD/TT: 12/25/24854 ? Foreign Agent: ? Procedure Note Mateus Morales - 12/25/[address] [place] [address] [address] Scan Report Signed Patient: Abhijit WrightMR#: [id number] : 1965Acct:[id number] Age/Sex: 59 / MADM Date: 12/24/24 Loc: HO.CT Attending Dr: Kenneth Nina MD Ordering Physician: Kenneth Nina MD Date of Service: 12/24/24 Procedure(s): CT chest wo IV con Accession Number(s): [id number] cc: Kesha Pedraza; Kenneth Nina MD Report Number: [id number]: Total DLP = 70.00 mGy-cm CLINICAL HISTORY: J85.2 - Abscess of lung without pneumonia CT chest without contrast Comparison: 11/09/2024 follow-up Findings: The heart is normal size. The visualized thyroid and mediastinum are unremarkable. There has been near-complete resolution of the left upper lobe consolidation. There is left upper lobe bronchiectasis with scarring or subsegmental atelectasis in the area. There are no new areas of airspace or interstitial consolidation and no focal mass or collection. The upper abdomen is unremarkable. The bones are intact. IMPRESSION: 1. Improved appearance of the chest. 2. Left upper lobe bronchiectasis with scarring or subsegmental atelectasis. This document has been electronically signed by: Mario Jeffries MD on 12/25/2024 08:55:28 Dictated By: Mario Jeffries MD Signed By: <Electronically signed by Mario Jeffries MD in OV> 12/25/24 0856 DD/ 0855 TD/TT: 12/25/24 0855 Foreign Agent: [facility] External Provider IMG CT PROCEDURES Edited Result - Final * CT Guided Aspiration of Abscess, Hematoma, Cyst (11/10/2024 1:35 PM EDT) Anatomical Region Laterality Modality Computed Tomogra phy 11/10/2024 1:35 PM EDT Narrative 11/10/2024 4:24 PM EDT ? [facility] ?[address] ?[place] [address] ? CT Scan Report ? Signed ? Patient: Adriana,Abhijit ?MR#: [id number] ? : 1965 ?Acct:[id number] ? Age/Sex: 59 / M ?ADM Date: 04/14/25 ? Loc: HO.IMC ?473-1 ? Attending Dr: Dc Paris MD ? Ordering Physician: Gladis TrejoP-BC ?? Date of Service: 11/10/24 ?? Procedure(s): CT guided aspiration ?? Accession Number(s): [id number] ? cc: Kesha Pedraza; Gladis Trejo [employer]PER[employer]-BC ? Report Number: ?? [id number]: Total DLP = ?? 65.00 mGy-cm ?? [...] DD/ 1335 ? TD/TT: 11/10/24 1414 ? Foreign Agent: MSM ? Procedure Note Andrew, Image - 11/10/[address] [address] [address] Scan Report Signed Patient: Theresa rWight#: [id number] : 1965Acct:[id number] Age/Sex: 59 / MADM Date: 11/09/24 Loc: [facility] 473-[address]: Dc Paris MD Ordering Physician: Gladis Trejo [facility] Date of Service: 11/10/24 Procedure(s): CT guided aspiration Accession Number(s): [id number] cc: Kesha Pedraza; Gladis Trejo [facility] Report Number: [id number]: Total DLP = 65.00 mGy-cm EXAMINATION: CT [...] 11/10/24 1621 DD/ 1335 TD/TT: 11/10/24 1414 Foreign Agent: ALEX [facility] External Provider IMG CT PROCEDURES Final Result * (ABNORMAL) CBC (09/29/2024 10:57 AM EST) White Blood Count 15.3(H) 4.8 - 10.8 X10*3/uL [facility] Red Blood Count 4.05(L) 4.60 - 5.80 X10*6/uL [facility] Hemoglobin 12.3(L) 14.0 - 18.0 g/dl [facility] Hematocrit 36.2(L) 42.0 - 52.0 % [facility] Mean Corpuscular Volume 89.4 80.0 - 98.0 fL [facility] Mean Corpuscular Hemoglobin 30.4 27.0 - 33.0 pg [facility] Mean Corpuscular HGB Conc 34.0 31.0 - 36.0 g/dl [facility] Red Cell Distribution Width 14.3 11.0 - 16.0 % [facility] Platelet Count 614(H) 160 - 400 X10*3/uL [facility] Mean Platelet Volume 9.0(L) 9.4 - 12.4 fL [facility] NRBC Pct Auto 0.0 0.0 - 0.2 /100WBC [facility] NRBC Abs Auto 0.000 0.0 - 0.012 X10*3/uL [facility] 09/29/2024 10:5 7 AM EST 09/29/2024 11:05 AM EST us Generic External Data Provider LAB BLOOD ORDERAB LES Final Result Performing Organization Address City/State/[facility] Co de Phone Number [facility] [address] [place] [phone] * (ABNORMAL) Hepatic Function Panel (09/29/2024 10:57 AM EST) Bilirubin, Total 1.3(H) 0.0 - 1.0 mg/dL [facility] Bilirubin, Direct 0.9(H) 0.0 - 0.5 mg/dL [facility] Aspartate Amino Transferase 26 5 - 37 U/L [facility] Alanine Aminotransferase 31 0 - 40 U/L [facility] Total Protein 7.3 6.5 - 8.0 g/dL [facility] Albumin Level 3.0(L) 3.5 - 5.0 g/dL [facility] Alkaline Phosphatase 150(H) 39 - 117 U/L [facility] 09/29/2024 10:5 7 AM EST 09/29/2024 11:05 AM EST us Generic External Data Provider LAB BLOOD ORDERAB LES Final Result [facility] [address] [place] [phone] * (ABNORMAL) Lipid Panel with Reflex to Direct LDL (09/14/2022 11:11 AM EST) Cholesterol, Total 217(H) <200 mg/dL [facility] [place] [facility] HDL Cholesterol 105 > OR = 40 mg/dL [facility] [place] [facility] Triglycerides 74 <150 mg/dL [facility] [place] [facility] LDL Cholesterol 96 mg/dL (calc) [facility] [place] [facility] Comment: Reference range: <100 Desirable range <100 mg/dL for primary prevention; ?? <70 mg/dL for patients with CHD or diabetic patients with > or = 2 CHD risk factors. LDL-C is now calculated using the Jovan-Luz calculation, which is a validated novel method providing better accuracy than the Friedewald equation in the estimation of LDL-C. Jovan SS et al. KRISHNA. 2013;310(19): 0201-0985 (http://education.my4oneone.CloudWork/faq/JRF629) Chol/HDLC Ratio 2.1 <5.0 (calc) [facility] [place] [facility] Non-HDL Cholesterol 112 <130 mg/dL (calc) [facility] [place] [facility] Comment: For patients with diabetes plus 1 [...] MD LAB BLOOD ORDERABLES Fin al Result Performing Organization Address City/State/[facility] Co de Phone Number [facility] [address] [facility], [address], [place] [address] [facility] [place] [facility] [address], ([address]) [place] [address] * (ABNORMAL) Hepatitis Panel, General (09/14/2022 11:11 AM EST) Hepatitis A Antibody Total REACTIVE( A) NON-REACT [facility] [place] [facility] Comment: For additional information, please refer to http://AxisMobile.Kairos/faq/ESE810 (This link is being provided for informational/ educational purposes only.) Hepatitis B Surface Antibody QL REACTIVE( A) NON-REACT [facility] [place] [facility] Hepatitis B Surface Ag NON-REACT BARAK NON-REACT [facility] [place] [facility] Hepatitis B Core Antibody Total NON-REACT BARAK NON-REACT [facility] Hepatitis C Antibody NON-REACT BARAK NON-REACT [facility] [place] [facility] Index 0.02 <1.00 [facility] [place] [facility] Comment: HCV antibody was non-reactive. There is no laboratory evidence of HCV infection. In most cases, no further action is required. However, if recent HCV exposure is suspected, a test for HCV RNA (test code 93688) is suggested. For additional information please refer to http://AxisMobile.Kairos/faq/DXH80r2 (This link is being provided for informational/ educational purposes only.) 09/14/2022 11:1 1 AM EST 09/14/2022 11:12 AM EST Narrative [facility] - 09/19/2022 11:02 PM EST FASTING:UNKNOWN COLLECTION KIT GIVEN TO PATIENT. PATIENT ADVISED TO RETURN. FASTING: UNKNOWN Mary Perrin MD LAB BLOOD ORDERABLES Fin al Result [facility] [address], [place] [address] [facility] [place] [facility] [address] [place] [address], ([address]) [place] [address] * HIV-1/2 Antigen and Antibodies, Fourth Generation, with Reflexes (09/14/2022 11:11 AM EST) HIV Antigen/Antibody, 4th Generation NON-REAC TIVE NON-REAC TIVE [facility] [place] [facility] Comment: HIV-1 antigen and HIV-1/HIV-2 antibodies [...] ?? For additional information please refer to http://education.Kairos/faq/XOS848 (This link is being provided for informational/ [...] MD LAB BLOOD ORDERABLES Fin al Result [facility] [address], [place] [address] [facility] [place] [facility] [address] [facility], ([address]) [place] [address] from Last 3 Months or Most Recently Relevant to Health Maintenance [place] [facility] [address] MEDICAID STAND ADULT Care Teams Larder Cook Relationship Specialty Start Date End Date Mary Perrin MD [address] [place] [address] PCP - General Family Medicine 04/07/18
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
--- NOTE | 2024-12-25 18:08 | PC.NURSE ---
attempted to obtain lab work, patient continues to resist. plan to medicate patient prior to lab work
[2024-12-25] MEDS: diazePAM 10 MG/2 ML CARTRIDGE 5 MG IM ×2 (18:25→19:25)
--- NOTE | 2024-12-25 18:28 | PC.NURSE ---
patient medicated per the MAR in order to complete care, patient previously pulling arm away and yelling at staff when attempting to obtain blood work.
[2024-12-25 19:40] LABS: Anion Gap 16 (12-20); Blood Urea Nitrogen 19 mg/dL (9-16); Calcium 9.9 mg/dL (8.4-10.2); Carbon Dioxide 24 mmol/L (22-29); Chloride 102 mmol/L (96-108); Creatinine Clr Calc Pharmacy 63.5; Estimated Glomerular Filt Rate > 60; Glucose Random 86 mg/dL (60-115); Potassium 4.2 mmol/L (3.3-5.1); Sodium 138 mmol/L (135-145)
[2024-12-25 20:30] LABS: Basophils Absolute Auto 0.1 X10*3/uL (0.0-0.2); Basophils Percent Auto 0.4 % (0-2); Eosinophils Percent Auto 0.2 % (0-4); Hematocrit 41.6 % (42.0-52.0); Hemoglobin 14.6 g/dl (14.0-18.0); Imm Gran Abs Auto 0.06 X10*3/uL (0.00-0.03); Imm Gran Pct Auto 0.4 % (0.0-0.4); Lymphocytes Absolute Auto 2.4 X10*3/uL (1.2-4.9); Lymphocytes Percent Auto 14.9 % (20-40); Mean Corpuscular HGB Conc 35.1 g/dl (31.0-36.0); Mean Corpuscular Hemoglobin 30.2 pg (27.0-33.0); Mean Corpuscular Volume 86.1 fL (80.0-98.0); Mean Platelet Volume 9.7 fL (9.4-12.4); Monocytes Absolute Auto 1.5 X10*3/uL (0.1-1.2); Monocytes Percent Auto 9.1 % (2-11); Neutrophils Absolute Auto 12.1 x10*3/uL (2.0-8.3); Platelet Count 320 X10*3/uL (160-400); Red Blood Count 4.83 X10*6/uL (4.60-5.80); Red Cell Distribution Width 13.5 % (11.0-16.0); White Blood Count 16.1 X10*3/uL (4.8-10.8)
[2024-12-25] MEDS: diphenhydrAMINE HCL 50 MG/ML VIAL IM (21:48)
[2024-12-25] MEDS: OLANZapine 10 MG VIAL IM (21:48)
[2024-12-25 22:07] LABS: MANUAL DIFF FLAG NO
[2024-12-25] MEDS: diazePAM 10 MG/2 ML CARTRIDGE 5 MG IVPUSH (22:28)
[2024-12-25] MEDS: levETIRAcetam in NaCl (iso-os) 1,000 MG/100 ML PIGGYBACK 400 MG IV (22:47)
[2024-12-26] VITALS (7 sets, daily range): BP systolic 108–157; BP diastolic 67–93; PULSE 64–90; RESP 12–20; TEMP 36.6–36.7; O2SAT 93–98
[2024-12-26] MEDS: diazePAM 10 MG/2 ML CARTRIDGE 5 MG IVPUSH (00:23)
[2024-12-26] MEDS: Haloperidol Lactate 5 MG/ML VIAL IVPUSH (02:50)
[2024-12-26] MEDS: OLANZapine 10 MG VIAL IM (02:51)
[2024-12-26 06:08] LABS: Appearance Urine Clear; Color Urine Yellow; Glucose Urine UA Negative (Negative); Leukocyte Esterase Urine Negative (Negative); Nitrite Urine Negative (Negative); PH 6.5 (5.0-9.0); Specific Gravity - Urine <= 1.005 (1.005-1.025); Urine Blood Negative (Negative); Urine Ketones Negative (Negative); Urine Protein Negative (Neg-Trace)
[2024-12-26] MEDS: levETIRAcetam in NaCl (iso-os) 1,000 MG/100 ML PIGGYBACK 400 MG IV (07:19)
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
[2024-12-26] MEDS: OXcarbazepine 150 MG TABLET PO ×2 (08:39→21:22)
[2024-12-26] MEDS: ARIPiprazole 10 MG TABLET PO (08:40)
[2024-12-26] MEDS: Phenytoin Sodium Extended 100 MG CAPSULE 500 MG PO (08:40)
[2024-12-26] MEDS: HaloperidoL 5 MG TABLET 10 MG PO (08:40)
--- NOTE | 2024-12-26 10:39 | PC.NURSE ---
Pt continues to resting with eyes closed for most of the AM. Upon waking, Pt yells and uses foul language and report the need to use the bathroom. Pt assisted to bathroom by multiple staff members--gait/balance continue to be significantly unsteady. Upon returning to [facility], Pt covers himself with blanket and returns t resting with eyes closed. Will continue to monitor.
[2024-12-26 13:08] LABS: Amphetamine Screen Urine Not Detected (Not Detect); Barbiturates, Urine Not Detected (Not Detect); Benzodiazepines Screen Urine POSITIVE (Not Detect); Buprenorphine Scr Not Detected (Not Detect); Cannabinoid Screen Urine POSITIVE (Not Detect); Cocaine Screen Urine POSITIVE (Not Detect); Fentanyl, urine Not Detected (Not Detect); Methadone Screen, Urine Not Detected (Not Detect); Opiate Screen Urine Not Detected (Not Detect); Oxycodone Screen Urine Not Detected (Not Detect); Phencyclidine Screen Urine Not Detected (Not Detect)
--- NOTE | 2024-12-26 18:31 | PC.NURSE ---
Pt more alert at this time. Pt eats dinner tray independently and requests more milk.
--- NOTE | 2024-12-26 19:13 | PC.NURSE ---
Called prison ([facility]). States that he can last picker Abhijit around 10pm today due to low staffing. Dr. Clarke aware of this. Will discharge upon prison staff's arrival.
--- NOTE | 2024-12-26 19:15 | PHA.MEDREC ---
Pharmacy Consult ? Medication Reconciliation Pharmacy has completed the medication reconciliation. Med list obtained and verified via pt's assisted
[2024-12-26] MEDS: Benztropine Mesylate 1 MG TABLET PO (21:22)
--- NOTE | 2024-12-26 22:11 | PC.NURSE ---
Attempted to call back long-term number to confirm patient pick-up from ED. No answer, left voicemail with callback number. Awaiting call back. Will re-attempt in ~15 minutes if no call back occurs.
--- NOTE | 2024-12-26 22:38 | PC.NURSE ---
Was able to reach custodial staff. Spoke with staff member Bob' who reports that there will be two staff members coming in at midnight, one of which will pick the patient up no later than 12:15am on 12/27/2024. Dr. Clarke & fire extinguisher charger (Valerie Car) notified about this update. This RN stated that I was told the same thing around 7pm (see previous note) about staff coming to get the patient shortly after 10pm. Quin states that someone will get the patient after 12:15am.
--- NOTE | 2024-12-27 00:35 | PC.NURSE ---
Called to determine ETA for patient pickup, but no answer. Eventually, after several attempts, a staff member picked up the phone reporting that no staff are available to pick the patient up. This RN stated that I've been told this multiple times today and that his discharge keeps being deferred to later and later pickup times and that I wish to speak to a metal furniture assembly supervisor. Spoke with [facility] supervisor prep (Carlitos) at . No ride has shown up to ED to sampler pickup the patient. Patient's discharge has been ready since approximately 7:15pm on 12/26/2024 (see previous RN notes). Carlitos stated that he will sampler pickup the patient within 15 minutes. picture painter (Valerie Car) was present during this conversation. Patient updated regarding new ETA.
[2024-12-27 00:56] VITALS: BP 127/67; PULSE 72; RESP 16; TEMP 36.7; O2SAT 97
--- NOTE | 2024-12-27 01:00 | PC.NURSE ---
Patient discharged back to assisted with staff member Laurent at 00:56am 12/27/2024.
== END 2024-12-27 00:56 | disposition home or self-care (01) ==
PROVIDERS: Emergency Medicine; Emergency Provider Emergency Medicine
DX: G40.409 Other generalized epilepsy and epileptic syndromes, not intractable, without status epilepticus (principal); Z91.148 Patient's other noncompliance with medication regimen for other reason; R45.1 Restlessness and agitation; J85.2 Abscess of lung without pneumonia; F12.90 Cannabis use, unspecified, uncomplicated; F17.210 Nicotine dependence, cigarettes, uncomplicated
CPT/HCPCS: 36415; 70450; 71045; 80048; 80307; 81003; 85025; 96365; 96372; 96375; 96376; 99285; J1200; J1630; J1953; J2359; J3360

== ENCOUNTER → 2024-12-25 20:32 | Outpatient (BNV) | payer MEDICAID, SELFPAY | PROVIDERS: Emergency Provider Emergency Medicine; Visit Provider Radiology Diagnostic Radiology | DX: R41.82 Altered mental status, unspecified (principal) | CPT/HCPCS: 70450; 71045 ==

== ENCOUNTER 2024-12-29 13:39 | Outpatient (AMB) | payer MEDICAID, SELFPAY ==
[2024-12-29 13:46] VITALS: BP 100/67; PULSE 75; O2SAT 96
--- NOTE | 2024-12-29 13:46 | MHC.OFFVIS ---
Vital Signs 12/29/24 13:46 Weight 84 lb 14.047 oz BP 100/67 Blood Pressure Location Rt brachial Position Sitting Pulse 75 Pulse Source Pulse Oximeter Pulse Oximetry (%) 96 Oxygen Delivery Method Room Air Intake Visit Reasons: Abnormal CT scan Allergies No Known Allergies Allergy (Mild, Verified 12/29/24 13:52) NOT APPLICABLE HPI HPI Abnormal CT scan: Details: 59-year-old gentleman 30+ pack-year smoker with underlying history of schizophrenia, hepatitis-B, seizure disorder, and polysubstance abuse with admission to [facility] the end of August of 2024 for left upper lobe pulmonary abscess, treated with four-week course of Augmentin with repeat CT chest showing significantly improved, but not completely resolved left upper lobe abscess/pneumonia. After the last office visit patient was continued on Augmentin for another 4 weeks with repeat images showing complete resolution of his previously noted pulmonary abscess/pneumonia. [facility] Medical History Malnourished Schizophrenia Seizures Polysubstance use disorder Generalized seizure Noncompliance with medication regimen Social History Household Members: Other Housing: Unknown / Unable to assess Housing Other:: program Unable to assess alcohol history related to: Refusing to respond Alcohol intake: never Patient Tobacco Use Status: Current someday Tobacco user Tobacco use type: Cigarette Cigarette Packs Per Day: 0.5 Cigarettes Per Day: 10.0 Substance Use Type: Marijuana Advance Directives Date on File: 08/24/24 service: No Review of Systems Const Denies daytime sleepiness, Denies excessive sweating, Denies fatigue, Denies fever(s), Denies lethargy, Denies malaise, Denies night sweats, Denies snoring and Denies weight loss Eyes Denies blurry vision and Denies itchy eyes ENT Denies nasal congestion, Denies post nasal drip, Denies sinus pain, Denies sinus pressure and Denies other ( Thrush) Card Denies chest pain, Denies pedal edema, Denies dyspnea, Denies orthopnea and Denies paroxysmal nocturnal dyspnea Resp Denies cough, Denies hemoptysis, Denies excessive phlegm production, Denies dyspnea, Denies snoring and Denies wheezing GI Denies abdominal pain and Denies heartburn Musc Denies myalgias, Denies arthralgias and Denies joint swelling Skin/Breast Denies rash Neuro Denies memory loss and Denies seizure-like activity Psych Denies abnormal sleep pattern, Denies anxiety and Denies memory loss Endo Denies excessive sweating, Denies fatigue and Denies heat intolerance Alfred/Lymph Denies easy bruising Aller/Immun Denies itchy eyes, Denies seasonal rhinorrhea and Denies wheezing Physical Exam Vital Signs: Last Vital Signs Pulse 75 12/29/24 13:46 BP 100/67 12/29/24 13:46 Pulse Ox 96 12/29/24 13:46 Oxygen Delivery Method Room Air 12/29/24 13:46 Const General: no acute distress and alert Nutritional Appearance: not obese Orientation/consciousness: Other orientation findings ( oriented) HEENT Head: Yes atraumatic Eyes General: appearance normal, both eyes and all related structures Sclerae: sclerae normal EOM: EOMs intact bilaterally Neck Neck: Yes supple Lymphatic: no lymphadenopathy noted Resp Effort & Inspection: normal respiratory effort and no use of accessory muscles Auscultation: clear to auscultation bilaterally Cardio Rate: regular rate Rhythm: regular rhythm Heart sounds: no gallops, no murmurs and no rubs Skin General skin exam: other ( warm) Extrem General: No clubbing, No cyanosis and No edema Assessment & Plan Assessment & Plan (1) Pneumonia: Code(s): J18.9 - Pneumonia, unspecified organism Category: Medical (2) Pulmonary abscess: Code(s): J85.2 - Abscess of lung without pneumonia Category: Medical Plan Results of follow-up CT chest reviewed, complete resolution of previously noted pneumonia/pulmonary abscess. Coding Level of Care Code Est Pt Level 3 (82018) Diagnoses Pneumonia J18.9 Pulmonary abscess J85.2
--- OUTSIDE RECORDS SUMMARY | 2024-12-29 15:20 | XMS_ITS | Clinical Summary ---
Author Organization 175 [facility] Address [address] [place] [address] Phone Care Team Providers Care Palliative Medicine Physician Name Role Phone Maxine Rodas [facility] Primary Care Provider [phone] Allergies No known active allergies Medications acetaminophen [...] 1:15 PM EDT Consult Orthopedic Surgery - [place] [address] [facility] [address] [place] [id number] Chidi Jurado, DPM [address] [address] Health Maintenance Due Date Last Done Comments [...] topic Insurance MEDICAID - [place] Care Teams Palliative Medicine Physician Relationship Specialty Start Date End Date Maxine Rod[place] [address] PCP - General Family Medicine 07/20/24
== END 2024-12-29 14:06 | disposition home or self-care (01) ==
LOC: HO.HPS 13:40
PROVIDERS: PCP Nurse Practitioner; Visit Provider Internal Medicine Pulmonary Disease
DX: J18.9 Pneumonia, unspecified organism (principal); J85.2 Abscess of lung without pneumonia
CPT/HCPCS: 99213

== ENCOUNTER → 2024-12-29 13:39 | Outpatient (BNVA) | payer MEDICAID, SELFPAY | PROVIDERS: PCP Nurse Practitioner; Visit Provider Internal Medicine Pulmonary Disease | DX: J18.9 Pneumonia, unspecified organism (principal); J85.2 Abscess of lung without pneumonia | CPT/HCPCS: 99212 ==

== ENCOUNTER 2025-06-29 08:25 | Emergency (ER) | payer MEDICAID, SELFPAY ==
--- NOTE | ~2025-06-29 | XR_ITS ---
EXAMINATION: XR WRIST NAVICULAR RIGHT HISTORY: possible fracture on XR hand of scapholunate area COMPARISON: Correlation is made with plain films of the right hand dated 06/29/2025. FINDINGS: Three views of the right wrist, including a scaphoid view are submitted. Osseous mineralization is normal. There is no fracture or dislocation. Again seen is widening of the scapholunate space, consistent with old ligamentous injury. The soft tissues are unremarkable. XR/XR wrist RT w scaphoid IMPRESSION: Widening of the scapholunate space, consistent with old ligamentous injury. No acute fracture is identified. Electronically signed by: Víctor Kennedy MD 06/29/2025 11:57 AM EST
--- NOTE | ~2025-06-29 | XR_ITS ---
EXAMINATION: XR FOOT 3 OR MORE VIEWS LEFT HISTORY: pain, injury COMPARISON: There are no prior studies available for comparison. FINDINGS: Three views of the left foot are submitted. Osseous mineralization is normal. An intramedullary emir is seen in the distal tibia. There is no acute fracture or dislocation. The joint spaces are preserved. The soft tissues are unremarkable. XR/XR foot LT min 3V IMPRESSION: No evidence of acute fracture of the left foot. Electronically signed by: Víctor Kennedy MD 06/29/2025 09:28 AM [facility]
--- NOTE | ~2025-06-29 | XR_ITS ---
EXAMINATION: XR HAND, RIGHT CLINICAL INFORMATION: swelling, pain COMPARISON: None available. TECHNIQUE: PA, lateral, and oblique views of the right hand. FINDINGS: Joint space narrowing, radiocarpal joint. 3.6 mm gap at the scapholunate joint. Metacarpal bones are intact. Phalanges are intact with normal alignment. 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 Recommend dedicated right wrist x-ray. Electronically signed by: Kash Tinsley MD 06/29/2025 11:07 AM [facility]
[2025-06-29 08:43] VITALS: BP 109/83; PULSE 99; RESP 20; TEMP 37.1; O2SAT 93; BMI 16.5
--- NOTE | 2025-06-29 08:45 | ED_ITS ---
HPI - General Adult General Chief complaint: Extremity Injury, Lower Stated complaint: foot pain Time Seen by Provider: 06/29/25 10:30 Source: patient, RN notes reviewed and old records reviewed Mode of arrival: ambulatory Limitations: no limitations History of Present Illness ED Provider: LANRE Prakash HPI narrative: 60-year-old male with medical history of schizophrenia, seizures, polysubstance use disorder, presents to the ED due to unclear amount of time of pain of the L foot. Patient states he had a corn on the bottom of the L foot that was removed but patient is unsure when it was removed. Patient is currently unhoused and states he has been walking around a lot causing more pain in the arch area of the foot. Additionally, patient states his R hand hurts and is swollen, patient is unsure of what happened. Patient has history of polysubstance use disorder, however denies injecting into the hand. Denies fevers, chest pain, shortness of breath, abdominal pain, nausea, vomiting, diarrhea, fevers, urinary symptoms MD complaint: L foot pain, R hand pain. Related Data Home Medications ?Medication ?Instructions ?Recorded ?Confirmed folic acid 1 mg tablet 1 tab PO DAILY 08/16/2211/28 haloperidol 10 mg tablet 10 mg PO DAILY 08/16/2211/28 haloperidol 5 mg tablet 5 mg PO DAILY 08/16/2212/26 acetaminophen 325 mg tablet 650 mg PO Q4H PRN Pain 12/26/24 albuterol sulfate 90 mcg/actuation 1 inh inhalation QI D PRN Wheezing 09/18/24 12/26/24 aerosol inhaler aripiprazole 10 mg tablet 10 mg PO DAILY 09/18/2411/28 benztropine 1 mg tablet 1 mg PO DAILY 12/26/2412/26 docusate sodium 100 mg capsule 100 mg PO DAILY PRN Con stipation 12/26/24 12/26/24 (Colace) levetiracetam 250 mg tablet 250 mg PO BID 12/26/24 oxcarbazepine 150 mg tablet 150 mg PO BID 12/26/24 (Trileptal) phenytoin sodium extended 100 mg 500 mg PO DAILY 12/2612/26/24 capsule (Dilantin Extended) Previous Rx's ?Medication ?Instructions ?Recorded albuterol sulfate 90 mcg/actuation 2 inh inhalation Q4 -6H PRN 06/29/25 aerosol inhaler (Ventolin HFA) shortness of breath or wheezing #6.7 grams aripiprazole 10 mg tablet (Abilify) 10 mg PO DAILY #90 tabs 06/29/25 benztropine 1 mg tablet 1 mg PO DAILY #90 tabs 06/29 cephalexin 500 mg capsule 500 mg PO QID 7 days #28 cap s 06/29/25 docusate sodium 100 mg capsule 100 mg PO ONCE PRN cons tipation 06/29/25 (Colace) #90 caps doxycycline hyclate 100 mg tablet 100 mg PO BID 7 days #14 tabs 06/29/25 folic acid 1 mg tablet 1 mg PO DAILY #90 tabs 06/29 haloperidol 10 mg tablet 10 mg PO DAILY #90 tabs 09/22 haloperidol 5 mg tablet 5 mg PO DAILY #90 tabs 06/29 levetiracetam 250 mg tablet 250 mg PO DAILY #90 tabs 1 08/30/24 (Keppra) oxcarbazepine 150 mg tablet 150 mg PO BID #90 tabs 09/22 phenytoin sodium extended 100 mg 500 mg (5 x 100 mg) P O DAILY #300 06/29/25 capsule (Dilantin Kapseal) caps Allergies Allergy/AdvReac Type Severity Reaction Status Date / Time No Known Allergies Allergy Mild NOT Verified 06/29/25 08:46 APPLICABLE Review of Systems 2 Review of Systems: Yes all other systems are reviewed and are negative [facility] Past Medical History Attestation statement: The following information was validated with the patient. Source: old records reviewed and nursing notes reviewed Medical History Malnourished Schizophrenia Seizures Polysubstance use disorder Generalized seizure Noncompliance with medication regimen Social History Social History Household Members: Other Housing: Unknown / Unable to assess Housing Other:: program Alcohol intake: never Patient Tobacco Use Status: Current someday Tobacco user Tobacco use type: Cigarette Cigarette Packs Per Day: 0.5 Cigarettes Per Day: 10.0 Substance Use Type: Marijuana Advance Directives: Yes Advance Directives Information Provided: No Advance Directives on File: No Advance Directives Date on File: 08/24/24 Do you have a plan to hurt others: No Plan service: No Physical Exam ED Vital Signs: Vital Signs - 24 hr 06/29/25 08:43 Temperature 98.7 F Pulse Rate 99 Respiratory Rate 20 Blood Pressure 109/83 Pulse Oximetry 93 Oxygen Delivery Method Room Air BMI result Body Mass Index 16.5 GENERAL APPEARANCE: ?AxOx4, generally well-appearing, no acute distress. HEENT: ?NC, AT. MMM. EOMI, clear conjunctiva, oropharynx clear. NECK: ?Supple without lymphadenopathy.? No stiffness or restricted ROM. HEART:? Normal rate and regular rhythm, normal S1/S1, no m/r/g LUNGS:? CTAB, moving air well. No crackles or wheezes are heard. ABDOMEN: ?Soft, nontender, nondistended with good bowel sounds heard. BACK: No CVAT, no obvious deformity. EXTREMITIES: ?Without cyanosis, clubbing or edema. L foot TTP over the plantar aspect of the lateral arch, no warmth or edema to the area, full ROM intact, SILT, DP pulses 2+, the limb is neurovascularly intact. TTP of dorsal aspect of the R hand with warmth, erythema, and edema to the area, radial pulses 2+, appropriate capillary refill time, ROM intact, SILT, the limb is well perfused neurovascularly intact. NEUROLOGICAL: ?Grossly nonfocal. Alert and oriented, moving all 4 extremities. Observed to ambulate with normal gait. Skin: ?Warm and dry without any rash. Course Course Course Narrative: Rapid medical examination performed in triage by Kia Gallo PA-C: Patient is a 60 year old assigned male at presenting to the emergency department with left foot pain. Detailed physical exam and review of systems are deferred to the front end mechanic. Imaging ordered. Patient placed back in the waiting room pending room availability and results. Medications Administered Discontinued Medications Generic Name Dose Route Start Last Admin Trade Name Freq PRN Reason Stop Dose Admin Acetaminophen 975 mg 06/29/25 10:44 06/29/25 11:21 Acetaminophen 325 Mg Tablet PO 06/29/25 10:45 975 mg ONCE ONE Administration Ibuprofen 400 mg 06/29/25 10:44 06/29/25 11:21 Ibuprofen 400 Mg Tablet PO 06/29/25 10:45 400 mg ONCE ONE Administration Medical Decision Making Medical Decision Making [facility] Narrative: 60-year-old male with medical history of schizophrenia, seizures, polysubstance use disorder, presents to the ED due to unclear amount of time of pain of the L foot. Patient states he had a corn on the bottom of the L foot that was removed but patient is unsure when it was removed. Patient is currently unhoused and states he has been walking around a lot causing more pain in the arch area of the foot. Additionally, patient states his R hand hurts and is swollen, patient is unsure of what happened. Patient has history of polysubstance use disorder, however denies injecting into the hand. XR L foot negative for fracture, dislocation, soft tissue involvement, evidence of osteomyelitis XR R hand revealed widening of the scapholunate space, XR R wrist reveals widening of the scapholunate space, consistent with old ligamentous injury, no acute fracture identified. Patient with unclear amount of time of pain of the L foot after corn removal. On physical exam the area is somewhat erythematous but the skin has been rubbing up against his shoes further irritating the area. Patient with tenderness of the plantar aspect of the lateral arch, symptoms consistent with plantar fasciitis. I have placed referral for podiatry. Patient with pain of the R dorsal aspect of the wrist with tenderness over the scapholunate area. Patient being placed in velcro wrist brace for support and protection with referral to Orthopedics for follow up. Patient being discharged with 7 day course of Keflex q.i.d. and doxycycline b.i.d. for bacterial coverage of possible cellulitis. Patient well enough to go home for self-care today. Patient in agreement with the plan. Patient has guardianship, I called and spoke with Stephanie Chawla who updated me on Abhijit's story. Abhijit was in a SNF in [place] and called 911 on 06/23 to be evaluated by an ER due to a corn on his L foot. While in the ED in [place], patient was discharged to the street and got on a bus to [place]. Patient has been declared a missing person out of [place] with [facility] Religious Studies Professor Ryan Echols on the case. The Religious Studies Professor was called and message left on VM that the patient has been found and is well. While this was transpiring, [facility] worker Cristhian Pires arrived into the department and will accept the patient back as a resident at [facility]. Patient well enough to go home for self-care today. Patient in agreement with the plan. Differential Diagnosis Differential Diagnoses: The differential diagnosis associated with the presentation includes Foot fracture Hand fracture Cellulitis Gout Plantar fasciitis Admission/Observation Consideration of admission/observation: Escalation of care including admission/observation considered Independent Interpretation Interpretation: I personally interpreted the XR L foot which was negative for fracture, dislocation, osteomyelitis, I agree with the radiologist's interpretation I personally interpreted the XR R hand which revealed scapholunate dissociation, I agree with the radiologist's interpretation I personally interpreted the XR R wrist which revealed scapholunate dissociation without fracture, dislocation, I agree with the radiologist's interpretation Radiology Impression Discussion of test interpretation with radiology: I have reviewed the radiologist's reading. Radiologist Impression: XR L foot FINDINGS: Three views of the left foot are submitted. Osseous mineralization is normal. An intramedullary emir is seen in the distal tibia. There is no acute fracture or dislocation. The joint spaces are preserved. The soft tissues are unremarkable. XR/XR foot LT min 3V IMPRESSION: No evidence of acute fracture of the left foot. Electronically signed by: Víctor Kennedy MD 06/29/2025 09:28 AM EST RP Dictated By: Víctor Kennedy MD Signed By: <Electronically signed by Víctor Kennedy MD in OV> 06/29/25 0928 XR R hand FINDINGS: Joint space narrowing, radiocarpal joint. 3.6 mm gap at the scapholunate joint. Metacarpal bones are intact. Phalanges are intact with normal alignment. 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 Recommend dedicated right wrist x-ray. Electronically signed by: Kash Tinsley MD 06/29/2025 11:07 AM EST RP Dictated By: Kash Rutledge MD Signed By: <Electronically signed by Kash Vigil MD in OV> 06/29/25 1107 XR R wrist FINDINGS: Three views of the right wrist, including a scaphoid view are submitted. Osseous mineralization is normal. There is no fracture or dislocation. Again seen is widening of the scapholunate space, consistent with old ligamentous injury. The soft tissues are unremarkable. XR/XR wrist RT w scaphoid IMPRESSION: Widening of the scapholunate space, consistent with old ligamentous injury. No acute fracture is identified. Electronically signed by: Víctor Kennedy MD 06/29/2025 11:57 AM EST Dictated By: Víctor Kennedy MD Signed By: <Electronically signed by Víctor Kennedy MD in OV> 06/29/25 1153 Independent Historian Clinical information obtained from an independent historian. History obtained from or confirmed by: Other (guardian Stephanie Chawla, [facility] worker Cristhian Pires) External Record Review External record reviewed: Inpatient record, Office record, Outpatient record, Prior outpatient labs and Prior outpatient radiology Chronic Conditions Patient?s care impacted by: Other (Schizophrenia, seizures, polysubstance use disorder,) Social Determinants Patient?s care significantly limited by Social Determinants of Health including: Other Social Determinant of Health Discharge Plan Discharge Clinical Impression: Cellulitis Patient Disposition: Home, Self-Care Additional Instructions: You were evaluated in the emergency department due to right hand pain, left foot pain. The XR of your hand/wrist reveals some widening of the space of the scapholunate area. A velcro wrist splint was applied. Please wear this brace for support until you follow up with orthopedics. I have placed referral to Orthopedics you can follow up for wrist pain. I have placed a referral to Podiatry see you can follow up for foot pain. You need to call their office as they will not call you. You are being discharged with a 7 day course of Keflex that you will take 4 times daily, and a 7 day course of doxycycline that you will take twice daily. Please ensure that you complete the entire course of antibiotics, do not miss a dose, do not finish faster than directed. To manage pain at home, you can take 500 mg of Tylenol, and 400 mg of ibuprofen every 6 hours and apply ice to the affected areas. Please follow up with your primary care doctor to ensure resolution of your symptoms. Please return to the emergency department if you experience fevers over 100.4?, worsening pain of your right hand, worsening pain of your left foot, chest pain, shortness of breath, nausea, vomiting or any new/worsening/concerning symptoms. Prescriptions: New cephalexin 500 mg capsule 500 mg PO QID 7 Days Qty: 28 0RF doxycycline hyclate 100 mg tablet 100 mg PO BID 7 Days Qty: 14 0RF aripiprazole [Abilify] 10 mg tablet 10 mg PO DAILY Qty: 90 0RF oxcarbazepine 150 mg tablet 150 mg PO BID Qty: 90 0RF haloperidol 5 mg tablet 5 mg PO DAILY Qty: 90 0RF phenytoin sodium extended [Dilantin Kapseal] 100 mg capsule 500 mg PO DAILY Qty: 300 0RF levetiracetam [Keppra] 250 mg tablet 250 mg PO DAILY Qty: 90 0RF haloperidol 10 mg tablet 10 mg PO DAILY Qty: 90 0RF benztropine 1 mg tablet 1 mg PO DAILY Qty: 90 0RF docusate sodium [Colace] 100 mg capsule 100 mg PO ONCE PRN (Reason: constipation) Qty: 90 0RF folic acid 1 mg tablet 1 mg PO DAILY Qty: 90 0RF albuterol sulfate [Ventolin HFA] 90 mcg/actuation HFA aerosol inhaler 2 inh inhalation Q4-6H PRN (Reason: shortness of breath or wheezing) Qty: 6.7 0RF No Action haloperidol 5 mg tablet 5 mg PO DAILY haloperidol 10 mg tablet 10 mg PO DAILY folic acid 1 mg tablet 1 tab PO DAILY acetaminophen 325 mg Tablet 650 mg PO Q4H PRN (Reason: Pain) albuterol sulfate 90 mcg/actuation Hfa Aerosol Inhaler 1 inh INHALATION QID PRN (Reason: Wheezing) aripiprazole 10 mg tablet 10 mg PO DAILY oxcarbazepine [Trileptal] 150 mg Tablet 150 mg PO BID phenytoin sodium extended [Dilantin Extended] 100 mg Capsule 500 mg PO DAILY benztropine 1 mg tablet 1 mg PO DAILY docusate sodium [Colace] 100 mg Capsule 100 mg PO DAILY PRN (Reason: Constipation) levetiracetam 250 mg tablet 250 mg PO BID Referrals: [facility] [place] Surgeons [Provider Group] [facility] [place] Pod[place]ry [Provider Group, Podiatry] Print Language: Swiss
--- NOTE | 2025-06-29 13:02 | ECG_ITS ---
Test Reason : cp Blood Pressure : */* mmHG Vent. Rate : 85 BPM Atrial Rate : 85 BPM P-R Int : 116 ms QRS Dur : 78 ms QT Int : 398 ms P-R-T Axes : 63 73 75 degrees QTcB Int : 473 ms Artifact in tracing Normal sinus rhythm Normal ECG When compared with ECG of 17-Sep-2024 13:28, No significant change was found Referred By: Susan Prakash Electronically Signed By: DANISHA SWEET
[2025-06-29 13:51] VITALS: BP 109/83; PULSE 99; RESP 20; TEMP 37.1; O2SAT 93
== END 2025-06-29 13:53 | disposition home or self-care (01) ==
PROVIDERS: Emergency Provider Emergency Medicine
DX: L03.116 Cellulitis of left lower limb (principal); M79.672 Pain in left foot; R60.0 Localized edema; M25.531 Pain in right wrist; M79.641 Pain in right hand; R07.9 Chest pain, unspecified
CPT/HCPCS: 73110; 73130; 73630; 93005; 99283

== ENCOUNTER → 2025-06-29 08:46 | Outpatient (BNV) | payer MEDICAID, SELFPAY | PROVIDERS: PCP Nurse Practitioner; Visit Provider Radiology Diagnostic Radiology | DX: M79.641 Pain in right hand (principal); R22.31 Localized swelling, mass and lump, right upper limb; Z03.89 Encounter for observation for other suspected diseases and conditions ruled out; M79.672 Pain in left foot | CPT/HCPCS: 73110; 73130; 73630 ==

== ENCOUNTER → 2025-06-29 13:02 | Outpatient (BNV) | payer MEDICAID, SELFPAY | PROVIDERS: Emergency Provider Emergency Medicine; Visit Provider Internal Medicine | DX: R07.9 Chest pain, unspecified (principal) | CPT/HCPCS: 93010 ==

== ENCOUNTER 2025-07-11 20:20 | Emergency (ER) | payer MEDICAID, SELFPAY ==
--- NOTE | ~2025-07-11 | CT_ITS ---
CLINICAL HISTORY: ? bleed fx CT maxillofacial without contrast Comparison: CT/REG/SR - CT HEAD/BRAIN WO IV CON - 07/11/25 21:[address]/SR - CT FACIAL BONES WO IV CON - 08/24/24 04:43 EST Findings: Depressed left zygomatic arch fracture is unchanged. No acute fractures or dislocations. Temporomandibular joints are intact. Mild mucosal thickening in the paranasal sinuses. Dislocated left lens is unchanged. Orbits are otherwise unremarkable. Visualized intracranial contents are within normal limits. Moderate to severe cervical degenerative changes. No foreign bodies. IMPRESSION: Mild left periorbital soft tissue swelling. No underlying acute injury. Additional findings above. This document has been electronically signed by: Sierra Dial MD on 07/11/2025 23:18:56
--- NOTE | ~2025-07-11 | CT_ITS ---
CLINICAL HISTORY: neck pain s p fall CT cervical spine without contrast Comparison: None provided Findings: Grade 1 anterolisthesis C2 over C3. Grade 1 retrolisthesis of C4 over C5, C5 over C6. No significant degenerative change. Mild osteopenia. No acute findings on limited view of the intracranial contents. Soft tissues of the neck are normal. Left apical pulmonary scarring. C2-3, C3-4, C4-5, C5-6, C6-7 and C7-T1 moderate to severe DJD. IMPRESSION: 1. Grade 1 anterolisthesis C2 over C3. 2. Grade 1 retrolisthesis of C4 over C5, C5 over C6. 3. Moderate to severe degenerative joint disease at C2-3, C3-4, C4-5, C5-6, C6-7 and C7-T1. 4. Mild osteopenia. 5. No acute osseous injury. This document has been electronically signed by: Yaya Gomez MD on 07/11/2025 22:53:00
--- NOTE | ~2025-07-11 | CT_ITS ---
CLINICAL HISTORY: fall CT abdomen and pelvis with contrast Comparison: CT abdomen and pelvis 11/09/2024 Findings: Lung findings are described in detail in a separate accompanying report. Liver, spleen, adrenal glands, kidneys, and pancreas are unremarkable. Gallbladder is nondistended. Small thick-walled hiatal hernia. Stomach is nondistended. Mild circumferential gastric wall thickening. Segmentally fluid-filled but otherwise nondistended small bowel. Increased stool burden throughout the colon. No appendicitis. Calcified but nonaneurysmal abdominal aorta and iliofemoral vessels. Mildly distended urinary bladder. Normal-sized prostate. No pathologically enlarged lymph nodes. No free fluid or free air. No acute osseous abnormality. No lytic or sclerotic osseous lesions. Grade 2 L5 on S1 anterolisthesis on the basis of bilateral L5 spondylolysis. Impression: 1. No acute on traumatic findings identified in the abdomen or pelvis. 2. Chronic/nonacute findings as above. This document has been electronically signed by: Juice Garcia MD on 07/11/2025 23:23:13
--- NOTE | ~2025-07-11 | CT_ITS ---
CLINICAL HISTORY: ? pe CT angiography chest with contrast. 3D Postprocessing. Comparison: CT/SR - CT CHEST WO IV CON - 12/24/2024 10:29 AM EDT, CT chest 11/09/2024 Findings: No evidence of acute pulmonary embolism. No thoracic aortic aneurysm or dissection. Normal heart size. No pericardial effusion. Multivessel coronary artery calcifications. Irregular scarring in the left lung apex. Background emphysema. Moderately extensive scattered bilateral parenchymal ground-glass densities. No pleural effusion. No pneumothorax. Central airways are patent. Mild bibasilar predominant bronchial wall thickening and mucous plugging. No pathologically enlarged lymph nodes. No acute findings within visualized lower neck. Visualized upper abdomen is unremarkable. Mild thickening through mid to distal esophagus. Small thick-walled hiatal hernia. Impression: 1. No evidence of acute pulmonary embolism. 2. Background of emphysema. 3. Scarring in left apex that is likely to be postinfectious given findings on prior comparison chest CT. 4. Additional findings as above. This document has been electronically signed by: Juice Garcia MD on 07/11/2025 23:41:13
--- NOTE | ~2025-07-11 | CT_ITS ---
CLINICAL HISTORY: head injury CT head without contrast Comparison: CT/SR - CT HEAD/BRAIN WO IV CON - 12/25/24 23:02 EDT Findings: No intra-axial mass, midline shift, hydrocephalus, or acute hemorrhage. Mild heterogeneous low attenuation in the periventricular white matter. There is no sinus or mastoid fluid. The orbits are within normal limits. Prior left temporal craniotomy. Re-identified dislocated left optical lens, axial image number 79 of 116 series 8. IMPRESSION: 1. Mild chronic periventricular microvascular ischemic disease 2. Status post left temporal craniotomy. 3. No acute intracranial findings. This document has been electronically signed by: Yaya Gomez MD on 07/11/2025 23:01:52
[2025-07-11 20:30] VITALS: BP 145/87; PULSE 113; RESP 24; TEMP 36.8; O2SAT 94; BMI 18.5
--- NOTE | 2025-07-11 20:38 | ECG_ITS ---
Test Reason : FALL Blood Pressure : */* mmHG Vent. Rate : 114 BPM Atrial Rate : 114 BPM P-R Int : 142 ms QRS Dur : 74 ms QT Int : 334 ms P-R-T Axes : 71 75 63 degrees QTcB Int : 460 ms Artifact Sinus tachycardia Otherwise normal ECG When compared with ECG of 29-Jun-2025 13:07, No significant change was found Referred By: Kamila Obando Electronically Signed By: Jean Carlos Eller
--- NOTE | 2025-07-11 20:42 | ED.FALL ---
HPI - Fall General Chief Complaint: Fall Stated Complaint: fall with head strike Time Seen by Provider: 07/11/25 20:33 History of Present Illness HPI Narrative: Pt is a 59 yo male with PMH left lung abscess, seizures, schizophrenia, polysubstance abuse to include IVDA, tobacco use, marijuana use currently living in a fci with a Yeung in place for his psychiatric meds. patient found outside of his apartment slipped on ice. Patient unable to get up. Question head strike. Very weak. EMS brought him in for further evaluation. Related Data Home Medications ?Medication ?Instructions ?Recorded ?Confirmed folic acid 1 mg tablet 1 tab PO DAILY 08/16/22 12/26/24 haloperidol 10 mg tablet 10 mg PO DAILY 08/16/22 12/26/24 haloperidol 5 mg tablet 5 mg PO DAILY 08/16/22 12/26/24 acetaminophen 325 mg tablet 650 mg PO Q4H PRN Pain 09/18/24 12/26/24 albuterol sulfate 90 mcg/actuation 1 inh inhalation QID PRN Wheezing 09/18/24 12/26/24 aerosol inhaler aripiprazole 10 mg tablet 10 mg PO DAILY 09/18/24 12/26/24 benztropine 1 mg tablet 1 mg PO DAILY 12/26/24 12/26/24 docusate sodium 100 mg capsule 100 mg PO DAILY PRN Constipation 12/26/24 12/26/24 (Colace) levetiracetam 250 mg tablet 250 mg PO BID 12/26/24 12/26/24 oxcarbazepine 150 mg tablet 150 mg PO BID 12/26/24 12/26/24 (Trileptal) phenytoin sodium extended 100 mg 500 mg PO DAILY 12/26/24 12/26/24 capsule (Dilantin Extended) Previous Rx's ?Medication ?Instructions ?Recorded albuterol sulfate 90 mcg/actuation 2 inh inhalation Q4-6H PRN 06/29/25 aerosol inhaler (Ventolin HFA) shortness of breath or wheezing #6.7 grams aripiprazole 10 mg tablet (Abilify) 10 mg PO DAILY #90 tabs 06/29/25 benztropine 1 mg tablet 1 mg PO DAILY #90 tabs 06/29/25 cephalexin 500 mg capsule 500 mg PO QID 7 days #28 caps 06/29/25 docusate sodium 100 mg capsule 100 mg PO ONCE PRN constipation 06/29/25 (Colace) #90 caps doxycycline hyclate 100 mg tablet 100 mg PO BID 7 days #14 tabs 06/29/25 folic acid 1 mg tablet 1 mg PO DAILY #90 tabs 06/29/25 haloperidol 10 mg tablet 10 mg PO DAILY #90 tabs 06/29/25 haloperidol 5 mg tablet 5 mg PO DAILY #90 tabs 06/29/25 levetiracetam 250 mg tablet 250 mg PO DAILY #90 tabs 06/29/25 (Keppra) oxcarbazepine 150 mg tablet 150 mg PO BID #90 tabs 06/29/25 phenytoin sodium extended 100 mg 500 mg (5 x 100 mg) PO DAILY #300 06/29/25 capsule (Dilantin Kapseal) caps Allergies Allergy/AdvReac Type Severity Reaction Status Date / Time No Known Allergies Allergy Mild NOT Verified 07/11/25 20:34 APPLICABLE Review of Systems Review of Systems: Positive head injury positive history of polysubstance abuse [facility] Past Medical History Attestation statement: The following information was validated with the patient. Medical History Malnourished Schizophrenia Seizures Polysubstance use disorder Generalized seizure Noncompliance with medication regimen Social History Social History Household Members: Other Housing: Unknown / Unable to assess Housing Other:: program Alcohol intake: never Patient Tobacco Use Status: Current someday Tobacco user Tobacco use type: Cigarette Cigarette Packs Per Day: 0.5 Cigarettes Per Day: 10.0 Substance Use Type: Marijuana Advance Directives: No Advance Directives Information Provided: No Advance Directives Date on File: 08/24/24 service: No Physical Exam Exam: Exam: Appearance: Alert. Oriented X3. Eyes: Pupils equal, round and reactive to light. positive abrasion to the forehead ENT: Pharynx normal. Neck: Normal inspection. Neck supple. No lymph nodes noted. No crepitus CVS: Normal heart rate and rhythm. Pulses normal. Normal S1 and S2 Respiratory: No respiratory distress. Breath sounds normal. No Wheezing. No rales Abdomen: Soft and nontender. No rigidity. No distention. good BS x4 Skin: Skin warm and dry. Normal skin color. Normal skin turgor. Extremities: No lower extremity edema. Neurovascular intact to all extremities. No Lacerations. No Rash Neuro: Oriented X 3. No motor deficit. No sensory deficit. Moving all extermities. No slurred speech Vital Signs: Vital Signs: Last Vital Signs Temp 98.4 F 07/11/25 23:50 Pulse 104 H 07/11/25 23:50 Resp 20 07/11/25 23:50 BP 129/87 07/11/25 23:50 Pulse Ox 95 07/11/25 23:50 O2 Del Method Room Air 07/11/25 23:50 BMI result Body Mass Index 18.5 Medications Administered Discontinued Medications Generic Name Dose Route Start Last Admin Trade Name Freq PRN Reason Stop Dose Admin Sodium Chloride 1,000 mls @ 999 mls/hr 07/11/25 20:45 07/11/25 21:58 Ns IV 07/11/25 21:45 Infused .Q1H1M MARYANNE Infusion Ceftriaxone Sodium 2 gm/ 50 mls @ 100 mls/hr 07/11/25 21:51 07/11/25 22:44 Sodium Chloride IV 07/11/25 22:20 Infused ONCE ONE Infusion Sodium Chloride 1,000 mls @ 999 mls/hr 07/11/25 23:45 07/12/25 00:46 Ns IV 07/12/25 00:45 Infused .Q1H1M MARYANNE Infusion Iohexol 85 ml 07/11/25 21:50 07/11/25 21:51 Iohexol 350 Mg/Ml 100 Ml Infus..Btl IV 07/11/25 21:51 85 ml ONCE ONE Administration Medical Decision Making Medical Decision Making [facility] Narrative: Patient initially presented today after a possible fall with head strike. Positive history of cocaine use positive history of polysubstance abuse. Positive history of seizure patient lives in a fci. Previous history of aspiration previous history of ulcers. Patient had an increase in respiratory rate had head injury. Went ahead and did a CT scan of the head CT C-spine CTA of the chest CT of the abdomen pelvis. There is no acute evidence of bleed there is no acute evidence of fracture there is no acute traumatic injury there is no blood clot there is no acute pathology in the abdomen after IV fluids patient's lactate came down nicely. I doubt patient has a significant sepsis. Patient's alcohol is less than 10. White count was elevated initially question secondary to stress. Patient electrolytes were normal. Except for the lactate. CPK 400 consistent with the fall no evidence for rhabdo creatinine is normal. Patient's urine showed no signs of infection. Tox screen was positive for cocaine and marijuana Differential Diagnosis Differential Diagnoses: The differential diagnosis associated with the presentation includes polysubstance abuse, head injury, dehydration, PE, pneumonia, sepsis, UTI, COVID flu RSV Admission/Observation Consideration of admission/observation: Escalation of care including admission/observation considered Lab Data MDM Lab Attestation statement: I reviewed the patient's lab results. 07/11/25 20:56 07/11/25 20:56 Labs: Lab Results 07/11/25 07/11/25 07/11/25 Range/Units 20:56 22:37 23:15 WBC 17.2 H (4.8-10.8) X10*3/uL RBC 4.61 (4.60-5.80) X10*6/uL Hgb 13.8 L (14.0-18.0) g/dl Hct 40.3 L (42.0-52.0) % MCV 87.4 (80.0-98.0) fL MCH 29.9 (27.0-33.0) pg MCHC 34.2 (31.0-36.0) g/dl RDW 14.0 (11.0-16.0) % Plt Count 332 (160-400) X10*3/uL MPV 9.5 (9.4-12.4) fL Immature Gran % (Auto) 0.5 H (0.0-0.4) % Neut % (Auto) 82.9 H (45-73) % Lymph % (Auto) 10.1 L (20-40) % Eaton % (Auto) 6.1 (2-11) % Eos % (Auto) 0.1 (0-4) % Baso % (Auto) 0.3 (0-2) % Lymph # (Auto) 1.7 (1.2-4.9) X10*3/uL Eaton # (Auto) 1.1 (0.1-1.2) X10*3/uL Eos # (Auto) 0.0 (0.0-0.4) X10*3/uL Baso # (Auto) 0.1 (0.0-0.2) X10*3/uL Abs Immat Gran (auto) 0.08 H (0.00-0.03) X10*3/uL Absolute Neuts (auto) 14.3 H (2.0-8.3) x10*3/uL Absolute Nucleated RBC 0.000 (0.0-0.012) X10*3/uL Nucleated RBC % (auto) 0.0 (0.0-0.2) /100WBC Sodium 139 (135-145) mmol/L Potassium 4.1 (3.3-5.1) mmol/L Chloride 104 (96-108) mmol/L Carbon Dioxide 23 (22-29) mmol/L Anion Gap 16 (12-20) BUN 15 (9-16) mg/dL Creatinine 0.87 (0.5-1.4) mg/dL Estim Creat Clear Calc 59.3 Estimated GFR > 60 Random Glucose 79 (60-115) mg/dL Lactic Acid 2.4 H* (0.5-2.0) mmol/L Lactic Acid F/U @ 2Hr 0.9 (0.5-2.0) mmol/L Calcium 9.0 D (8.4-10.2) mg/dL Total Bilirubin 0.3 (0.0-1.0) mg/dL Direct Bilirubin 0.1 (0.0-0.5) mg/dL AST 47 H (5-37) U/L ALT 33 (0-40) U/L Alkaline Phosphatase 113 (39-117) U/L Total Creatine Kinase 410 H (38-174) U/L Troponin I High Sens 15.9 D (<3.5-35.0) ng/L Total Protein 6.7 (6.5-8.0) g/dL Albumin 4.2 (3.5-5.0) g/dL Urine Color Yellow Urine Appearance Clear Urine pH 7.0 (5.0-9.0) Ur Specific [place] >= 1.030 H (1.005-1.025) Urine Protein Trace (Neg-Trace) mg/dL Urine Glucose (UA) Negative (Negative) mg/dL Urine Ketones 15 (Negative) mg/dL Urine Blood Negative (Negative) Urine Nitrite Negative (Negative) Ur Leukocyte Esterase Negative (Negative) Urine RBC 0-2 (0-2) /HPF Urine WBC 0-5 (0-5) /HPF Ur Squamous Epith Cells 0-2 (0-2) /HPF Urine Bacteria None Seen (None Seen) Hyaline Casts 3-5 (0-2) /LPF Urine Opiates Screen Not Detected (Not Detect) Ur Buprenorphine Scrn Not Detected (Not Detect) ng/mL Ur Oxycodone Screen Not Detected (Not Detect) ng/mL Urine Methadone Screen Not Detected (Not Detect) ng/mL Urine Fentanyl Screen Not Detected (Not Detect) Ur Barbiturates Screen Not Detected (Not Detect) Ur Phencyclidine Scrn Not Detected (Not Detect) Ur Amphetamines Screen Not Detected (Not Detect) U Benzodiazepines Scrn Not Detected (Not Detect) Urine Cocaine Screen POSITIVE H (Not Detect) U Marijuana (THC) Screen POSITIVE H (Not Detect) Ethyl Alcohol < 10 mg/dL Influenza Type A (PCR) (Negative) Influenza Type B (PCR) (Negative) RSV RNA Qual (PCR) (Negative) SARS-CoV-2 RNA (RT-PCR) (Negative) 07/12/25 Range/Units 00:15 WBC (4.8-10.8) X10*3/uL RBC (4.60-5.80) X10*6/uL Hgb (14.0-18.0) g/dl Hct (42.0-52.0) % MCV (80.0-98.0) fL MCH (27.0-33.0) pg MCHC (31.0-36.0) g/dl RDW (11.0-16.0) % Plt Count (160-400) X10*3/uL MPV (9.4-12.4) fL Immature Gran % (Auto) (0.0-0.4) % Neut % (Auto) (45-73) % Lymph % (Auto) (20-40) % Eaton % (Auto) (2-11) % Eos % (Auto) (0-4) % Baso % (Auto) (0-2) % Lymph # (Auto) (1.2-4.9) X10*3/uL Eaton # (Auto) (0.1-1.2) X10*3/uL Eos # (Auto) (0.0-0.4) X10*3/uL Baso # (Auto) (0.0-0.2) X10*3/uL Abs Immat Gran (auto) (0.00-0.03) X10*3/uL Absolute Neuts (auto) (2.0-8.3) x10*3/uL Absolute Nucleated RBC (0.0-0.012) X10*3/uL Nucleated RBC % (auto) (0.0-0.2) /100WBC Sodium (135-145) mmol/L Potassium (3.3-5.1) mmol/L Chloride (96-108) mmol/L Carbon Dioxide (22-29) mmol/L Anion Gap (12-20) BUN (9-16) mg/dL Creatinine (0.5-1.4) mg/dL Estim Creat Clear Calc Estimated GFR Random Glucose (60-115) mg/dL Lactic Acid (0.5-2.0) mmol/L Lactic Acid F/U @ 2Hr (0.5-2.0) mmol/L Calcium (8.4-10.2) mg/dL Total Bilirubin (0.0-1.0) mg/dL Direct Bilirubin (0.0-0.5) mg/dL AST (5-37) U/L ALT (0-40) U/L Alkaline Phosphatase (39-117) U/L Total Creatine Kinase (38-174) U/L Troponin I High Sens (<3.5-35.0) ng/L Total Protein (6.5-8.0) g/dL Albumin (3.5-5.0) g/dL Urine Color Urine Appearance Urine pH (5.0-9.0) Ur Specific Sheffield (1.005-1.025) Urine Protein (Neg-Trace) mg/dL Urine Glucose (UA) (Negative) mg/dL Urine Ketones (Negative) mg/dL Urine Blood (Negative) Urine Nitrite (Negative) Ur Leukocyte Esterase (Negative) Urine RBC (0-2) /HPF Urine WBC (0-5) /HPF Ur Squamous Epith Cells (0-2) /HPF Urine Bacteria (None Seen) Hyaline Casts (0-2) /LPF Urine Opiates Screen (Not Detect) Ur Buprenorphine Scrn (Not Detect) ng/mL Ur Oxycodone Screen (Not Detect) ng/mL Urine Methadone Screen (Not Detect) ng/mL Urine Fentanyl Screen (Not Detect) Ur Barbiturates Screen (Not Detect) Ur Phencyclidine Scrn (Not Detect) Ur Amphetamines Screen (Not Detect) U Benzodiazepines Scrn (Not Detect) Urine Cocaine Screen (Not Detect) U Marijuana (THC) Screen (Not Detect) Ethyl Alcohol mg/dL Influenza Type A (PCR) NEGATIVE (Negative) Influenza Type B (PCR) NEGATIVE (Negative) RSV RNA Qual (PCR) NEGATIVE (Negative) SARS-CoV-2 RNA (RT-PCR) NEGATIVE (Negative) Independent Interpretation I performed an independent interpretation of an: EKG ( my interpretation patient's EKG showed a sinus rhythm heart rate is 100 NE QRS QTC normal) and CT Scan ( no evidence of intracranial bleed on CT head.) Radiology Impression Discussion of test interpretation with radiology: I have reviewed the radiologist's reading. Chronic Conditions Patient?s care impacted by: Hypertension Polysubstance abuse Social Determinants Patient?s care significantly limited by Social Determinants of Health including: Inadequate housing, Low income, Alcoholism and drug addiction in family, Problems related to primary support group, Unemployment and Problems related to employment Discharge Plan Discharge Clinical Impression: Dehydration, Head injury Patient Disposition: Home, Self-Care Instructions: Dehydration (DC), Polysubstance Use Disorder (ED) Additional Instructions: Opiate use disorder You were seen in our Emergency Department today for treatment of opiate use disorder. You may have been dosed with medication for opiate use disorder (MOUD) in the form of suboxone or methadone. You may experience feeling some withdrawal symptoms and this is normal. The? dose in the Emergency Department is a starting dose and meant to be titrated up once you follow up with a clinic. Please do not feel discouraged, it is a process. The nurse has reviewed with you where to follow up and what information to bring with you, to continue treatment. You also may have been given naloxone (narcan) to take home with you. This medication is used to potentially treat opiate overdose. If you decide you want to stop or cut down on how much you?re using, you can call or walk into our outpatient Addiction Treatment office: [facility] (M-F 9am-5p) [address] [place] [address], [address] [phone] You may have been provided with safer injection?items, please take time to take care of YOU and your health. Use new supplies whenever possible to lessen the chances of infections and other illnesses.? ?If you need more supplies, please go [facility],? [address] [place] [address] [place] you can call or text to coordinate delivery of safer supplies. You were also provided a list of several treatment providers in the area.? If you experience any worsening symptoms you cannot control please return to the ED or call 911. Please follow up at your next appointment. Things to look out for are fevers, chest pain, shortness of breath, severe pain, dizziness, fainting or any other concerns. Alcohol use disorder You were seen in the Emergency Department today for treatment of alcohol use disorder.? You may have been given medications to help with your withdrawal symptoms.? Please do not drink alcohol with them. This is very dangerous and can cause respiratory depression or other adverse reactions depending on the medication. If you would like to cut down or stop your alcohol use please consider calling our outpatient Addiction Treatment office:? [facility] (M-F 9a-5p [address] [place] [address] [address] You have also been given a list of treatment providers in the area that can assist as well.? If you experience seizures, vomiting blood, black stools, falls, severe headache, chest pain, fevers, trouble breathing, hallucinations or any other concerns you need to call 911 or seek immediate care. Please stay hydrated. Prescriptions: No Action haloperidol 5 mg tablet 5 mg PO DAILY haloperidol 10 mg tablet 10 mg PO DAILY folic acid 1 mg tablet 1 tab PO DAILY acetaminophen 325 mg Tablet 650 mg PO Q4H PRN (Reason: Pain) albuterol sulfate 90 mcg/actuation Hfa Aerosol Inhaler 1 inh INHALATION QID PRN (Reason: Wheezing) aripiprazole 10 mg tablet 10 mg PO DAILY cephalexin 500 mg capsule 500 mg PO QID 7 Days Qty: 28 0RF doxycycline hyclate 100 mg tablet 100 mg PO BID 7 Days Qty: 14 0RF aripiprazole [Abilify] 10 mg tablet 10 mg PO DAILY Qty: 90 0RF oxcarbazepine 150 mg tablet 150 mg PO BID Qty: 90 0RF haloperidol 5 mg tablet 5 mg PO DAILY Qty: 90 0RF phenytoin sodium extended [Dilantin Kapseal] 100 mg capsule 500 mg PO DAILY Qty: 300 0RF levetiracetam [Keppra] 250 mg tablet 250 mg PO DAILY Qty: 90 0RF haloperidol 10 mg tablet 10 mg PO DAILY Qty: 90 0RF benztropine 1 mg tablet 1 mg PO DAILY Qty: 90 0RF docusate sodium [Colace] 100 mg capsule 100 mg PO ONCE PRN (Reason: constipation) Qty: 90 0RF folic acid 1 mg tablet 1 mg PO DAILY Qty: 90 0RF albuterol sulfate [Ventolin HFA] 90 mcg/actuation HFA aerosol inhaler 2 inh inhalation Q4-6H PRN (Reason: shortness of breath or wheezing) Qty: 6.7 0RF oxcarbazepine [Trileptal] 150 mg Tablet 150 mg PO BID phenytoin sodium extended [Dilantin Extended] 100 mg Capsule 500 mg PO DAILY benztropine 1 mg tablet 1 mg PO DAILY docusate sodium [Colace] 100 mg Capsule 100 mg PO DAILY PRN (Reason: Constipation) levetiracetam 250 mg tablet 250 mg PO BID Referrals: Physician,Unknown J [Primary Care Provider, Medical] - 07/14/25 Print Language: Mohawk
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
--- OUTSIDE RECORDS SUMMARY | 2025-07-11 20:49 | XMS_ITS | Clinical Summary ---
Author Organization [address] [facility] Address [address] [place] [address] Phone Care Team Providers Care Roofing Supervisor Name Role Phone Maxine Rodas [facility] Primary Care Provider Allergies No known active allergies Medications acetaminophen [...] Orientation Not on file Plan of Treatment Health Maintenance Due Date Last Done Comments Colorectal Cancer Screening: Colonoscopy 1966 Zoster Vaccines (1 of 2) 2016 Cholesterol Screening (Lipid Panel) 07/20/2024 Hepatitis C Screening 07/20/2024 Social Influencers of Health Screening 07/20/2024 Depression Screening 07/29/2024 COVID-19 Vaccine ( - season) 2025 05/22/2024, 05/10/2023, 12/09/2020, Additional history exists Influenza Vaccine (#1) 2025 , 07/12/2020, 04/15/2019, Additional history exists DTaP,Tdap,and Td Vaccines (5 - Td or Tdap) 07/04/2028 07/04/2018, 05/14/2017, 01/18/2015, Additional history exists RSV Immunization Adult Patients (1 - 1-dose 75+ series) 2041 Hepatitis A Vaccines Aged Out 07/08/2007 No long er eligible based on patient's age to complete this topic Hepatitis B Vaccines Completed 07/26/2008, 08/25/2007, 07/08/2007 HIV Screening Completed 09/14/2022 Pneumococcal Vaccine: 50+ Years Completed 11/26/2023, 05/31/2008 HIB Vaccines Aged Out No longer eligi [...] to complete this topic RSV Immunization Patients Under 20 months Aged Out No longer eligible based on patient's age to complete this topic Varicella Vaccines Aged Out No longer eligible based on patient's age to complete this topic Insurance MEDICA[place] - [place] Care Teams Roofing Supervisor Relationship Specialty Start Date End Date Maxine Rodas [place] [address] [place] [address] PCP - General Family Medicine 07/20/24
[2025-07-11 21:01] LABS: MANUAL DIFF FLAG NO
[2025-07-11 21:03] LABS: Hematocrit 40.3 % (42.0-52.0); Hemoglobin 13.8 g/dl (14.0-18.0); Imm Gran Abs Auto 0.08 X10*3/uL (0.00-0.03); Imm Gran Pct Auto 0.5 % (0.0-0.4); Lymphocytes Absolute Auto 1.7 X10*3/uL (1.2-4.9); Mean Corpuscular HGB Conc 34.2 g/dl (31.0-36.0); Mean Corpuscular Hemoglobin 29.9 pg (27.0-33.0); Mean Corpuscular Volume 87.4 fL (80.0-98.0); NRBC Abs Auto 0.000 X10*3/uL (0.0-0.012); NRBC Pct Auto 0.0 /100WBC (0.0-0.2); Platelet Count 332 X10*3/uL (160-400); Red Blood Count 4.61 X10*6/uL (4.60-5.80); White Blood Count 17.2 X10*3/uL (4.8-10.8)
[2025-07-11 21:19] LABS: Alanine Aminotransferase 33 U/L (0-40); Albumin Level 4.2 g/dL (3.5-5.0); Alkaline Phosphatase 113 U/L (39-117); Anion Gap 16 (12-20); Aspartate Amino Transferase 47 U/L (5-37); Blood Urea Nitrogen 15 mg/dL (9-16); Calcium 9.0 mg/dL (8.4-10.2); Carbon Dioxide 23 mmol/L (22-29); Chloride 104 mmol/L (96-108); Creatinine Clr Calc Pharmacy 59.3; Estimated Glomerular Filt Rate > 60; Potassium 4.1 mmol/L (3.3-5.1); Sodium 139 mmol/L (135-145); Total Protein 6.7 g/dL (6.5-8.0)
[2025-07-11 21:26] LABS: Troponin-I High Sensitivity 15.9 ng/L (<3.5-35.0)
[2025-07-11] MEDS: iohexoL 350 MG/ML 100 ML INFUS..BTL 85 ML IV (21:51)
[2025-07-11 21:58] VITALS: BP 148/90; PULSE 111; RESP 20; TEMP 36.8; O2SAT 95
[2025-07-11 23:00] LABS: Reflex Lactate? Lactic Acid Added
[2025-07-11 23:01] LABS: Appearance Urine Clear; Glucose Urine UA Negative (Negative); PH 7.0 (5.0-9.0); Specific Gravity - Urine >= 1.030 (1.005-1.025)
[2025-07-11 23:03] LABS: Cannabinoid Screen Urine POSITIVE (Not Detect)
[2025-07-11 23:50] VITALS: BP 129/87; PULSE 104; RESP 20; TEMP 36.9; O2SAT 95
[2025-07-11 23:53] LABS: ~Lactic Acid-LAB USE ONLY 0.9 mmol/L (0.5-2.0)
[2025-07-12 01:02] LABS: Resp Syncy Virus RNA Qual PCR NEGATIVE (Negative); SARS COV2 PCR INHOUSE NEGATIVE (Negative)
[2025-07-12 01:14] VITALS: BP 136/87; PULSE 95; RESP 22; TEMP 36.8; O2SAT 95
[2025-07-12 01:21] VITALS: BP 136/87; PULSE 95; RESP 22; TEMP 36.8; O2SAT 95
== END 2025-07-12 01:23 | disposition home or self-care (01) ==
PROVIDERS: Emergency Provider Emergency Medicine Emergency Medical Services
DX: S09.90XA Unspecified injury of head, initial encounter (principal); W00.0XXA Fall on same level due to ice and snow, initial encounter; E86.0 Dehydration; F19.10 Other psychoactive substance abuse, uncomplicated; F17.210 Nicotine dependence, cigarettes, uncomplicated; Z03.818 Encounter for observation for suspected exposure to other biological agents ruled out; Y93.89 Activity, other specified; Y92.199 Unspecified place in other specified residential institution as the place of occurrence of the external cause; Y99.9 Unspecified external cause status; Z79.899 Other long term (current) drug therapy
CPT/HCPCS: 36415; 70450; 70486; 71275; 72125; 74177; 80048; 80076; 80307; 81001; 82550; 83605; 84484; 85025; 87040; 87637; 93005; 96361; 96365; 99285; J0696; Q9967

== ENCOUNTER → 2025-07-11 20:35 | Outpatient (BNV) | payer MEDICAID, SELFPAY | PROVIDERS: Emergency Provider Emergency Medicine Emergency Medical Services; Visit Provider Radiology Diagnostic Radiology | DX: M47.812 Spondylosis without myelopathy or radiculopathy, cervical region (principal); Z04.3 Encounter for examination and observation following other accident; Z03.89 Encounter for observation for other suspected diseases and conditions ruled out; M79.89 Other specified soft tissue disorders; S09.90XA Unspecified injury of head, initial encounter; I67.82 Cerebral ischemia | CPT/HCPCS: 70450; 70486; 71275; 72125; 74177 ==

== ENCOUNTER → 2025-07-11 20:38 | Outpatient (BNV) | payer MEDICAID, SELFPAY | PROVIDERS: Emergency Provider Emergency Medicine Emergency Medical Services; Visit Provider Internal Medicine Cardiovascular Disease | DX: R00.0 Tachycardia, unspecified (principal) | CPT/HCPCS: 93010 ==

== ENCOUNTER 2025-07-19 14:35 | Emergency (ER) | payer MEDICAID, SELFPAY ==
--- NOTE | ~2025-07-19 | XR_ITS ---
EXAMINATION: XR HAND 3 OR MORE VIEWS LEFT, XR HAND 3 OR MORE VIEWS RIGHT HISTORY: hand pain COMPARISON: Comparison is made with the prior examination of the right hand dated 06/29/2025. FINDINGS: Six views of the bilateral hands are submitted. Osseous mineralization is normal. There is no fracture or dislocation. On the right, there is mild degenerative change of the MCP joint of the thumb. On the left, there is moderate degenerative change of the PIP joint of the ring finger. Again seen is widening of the scapholunate joint of the right hand, compatible with old ligamentous injury. The soft tissues are unremarkable. XR/XR hand LT min 3V IMPRESSION: 1. Mild degenerative change of the right MCP joint and the left 4th PIP joint. 2. Widening of the scapholunate joint of the right hand, compatible with old ligamentous injury. Electronically signed by: Víctor Kennedy MD 07/19/2025 03:33 PM EST
--- NOTE | ~2025-07-19 | XR_ITS ---
EXAMINATION: XR HAND 3 OR MORE VIEWS LEFT, XR HAND 3 OR MORE VIEWS RIGHT HISTORY: hand pain COMPARISON: Comparison is made with the prior examination of the right hand dated 06/29/2025. FINDINGS: Six views of the bilateral hands are submitted. Osseous mineralization is normal. There is no fracture or dislocation. On the right, there is mild degenerative change of the MCP joint of the thumb. On the left, there is moderate degenerative change of the PIP joint of the ring finger. Again seen is widening of the scapholunate joint of the right hand, compatible with old ligamentous injury. The soft tissues are unremarkable. XR/XR hand RT min 3V IMPRESSION: 1. Mild degenerative change of the right MCP joint and the left 4th PIP joint. 2. Widening of the scapholunate joint of the right hand, compatible with old ligamentous injury. Electronically signed by: Víctor Kennedy MD 07/19/2025 03:33 PM EST
--- NOTE | ~2025-07-19 | XR_ITS ---
EXAMINATION: XR CHEST 2 VIEWS HISTORY: chest pain COMPARISON: Comparison is made with the prior examination dated 12/25/2024. FINDINGS: PA and lateral views of the chest are submitted. There is scarring in the left upper lobe. The lungs are otherwise clear. There is no pleural effusion, pneumothorax, or pulmonary vascular congestion. The heart is normal in size. There is degenerative disc disease of the spine. There is an old healed fracture of the right clavicle. XR/XR chest 2V IMPRESSION: No acute cardiopulmonary abnormality. Electronically signed by: Víctor Kennedy MD 07/19/2025 03:30 PM OFELIA
[2025-07-19 14:39] VITALS: BP 136/77; PULSE 80; RESP 18; TEMP 36.6; O2SAT 98; BMI 17.7
--- NOTE | 2025-07-19 14:43 | ECG_ITS ---
Test Reason : CP Blood Pressure : */* mmHG Vent. Rate : 96 BPM Atrial Rate : 96 BPM P-R Int : 144 ms QRS Dur : 80 ms QT Int : 360 ms P-R-T Axes : 54 81 66 degrees QTcB Int : 454 ms Normal sinus rhythm Normal ECG When compared with ECG of 11-Jul-2025 21:13, No significant change was found Referred By: Deacon Maria Electronically Signed By: CHUYITA SON MD
--- NOTE | 2025-07-19 14:49 | ED.GENADULT ---
HPI - General Adult General Chief complaint: Extremity Injury, Upper Stated complaint: Blisters On Left Fingers, Chest Pain Time Seen by Provider: 07/19/25 16:11 Source: patient, RN notes reviewed and old records reviewed Mode of arrival: ambulatory Limitations: no limitations History of Present Illness ED Provider: Tricia HPI narrative: 60-year-old male with a past medical history significant for IV drug abuse, left lung abscess, seizure disorder, schizophrenia presents for evaluation of multiple complaints pain His primary complaint is blister sinus his fingers of the hands. He reports that they have been present for a couple of days after falling. He denies any significant prolonged exposure to the elements. However it appears that he was evaluated in the ED 8 days ago on 07/11/2025 after falling on the ice and being unable to get up. He was evaluated ultimately sent home. At the time the patient also had a CT angiography of the chest that did not show any evidence of pulmonary embolism but does show postinfectious scarring of the left upper lobe The patient denies any fevers, chills pain Denies any shortness of breath. He reports that his left chest only hurts with deep inspiration Related Data Home Medications ?Medication ?Instructions ?Recorded ?Confirmed folic acid 1 mg tablet 1 tab PO DAILY 08/16/22 12/26/24 haloperidol 10 mg tablet 10 mg PO DAILY 08/16/22 12/26/24 haloperidol 5 mg tablet 5 mg PO DAILY 08/16/22 12/26/24 acetaminophen 325 mg tablet 650 mg PO Q4H PRN Pain 09/18/24 12/26/24 albuterol sulfate 90 mcg/actuation 1 inh inhalation QID PRN Wheezing 09/18/24 12/26/24 aerosol inhaler aripiprazole 10 mg tablet 10 mg PO DAILY 09/18/24 12/26/24 benztropine 1 mg tablet 1 mg PO DAILY 12/26/24 12/26/24 docusate sodium 100 mg capsule 100 mg PO DAILY PRN Constipation 12/26/24 12/26/24 (Colace) levetiracetam 250 mg tablet 250 mg PO BID 12/26/24 12/26/24 oxcarbazepine 150 mg tablet 150 mg PO BID 12/26/24 12/26/24 (Trileptal) phenytoin sodium extended 100 mg 500 mg PO DAILY 12/26/24 12/26/24 capsule (Dilantin Extended) Previous Rx's ?Medication ?Instructions ?Recorded albuterol sulfate 90 mcg/actuation 2 inh inhalation Q4-6H PRN 06/29/25 aerosol inhaler (Ventolin HFA) shortness of breath or wheezing #6.7 grams aripiprazole 10 mg tablet (Abilify) 10 mg PO DAILY #90 tabs 06/29/25 benztropine 1 mg tablet 1 mg PO DAILY #90 tabs 06/29/25 cephalexin 500 mg capsule 500 mg PO QID 7 days #28 caps 06/29/25 docusate sodium 100 mg capsule 100 mg PO ONCE PRN constipation 06/29/25 (Colace) #90 caps doxycycline hyclate 100 mg tablet 100 mg PO BID 7 days #14 tabs 06/29/25 folic acid 1 mg tablet 1 mg PO DAILY #90 tabs 06/29/25 haloperidol 10 mg tablet 10 mg PO DAILY #90 tabs 06/29/25 haloperidol 5 mg tablet 5 mg PO DAILY #90 tabs 06/29/25 levetiracetam 250 mg tablet 250 mg PO DAILY #90 tabs 06/29/25 (Keppra) oxcarbazepine 150 mg tablet 150 mg PO BID #90 tabs 06/29/25 phenytoin sodium extended 100 mg 500 mg (5 x 100 mg) PO DAILY #300 06/29/25 capsule (Dilantin Kapseal) caps Allergies Allergy/AdvReac Type Severity Reaction Status Date / Time No Known Allergies Allergy Mild NOT Verified 07/19/25 14:44 APPLICABLE Review of Systems Constitutional: Constitutional: Denies body ache(s), Denies chills, Denies fever(s) and Denies headache(s) Eyes: Eyes: Denies blurry vision, Denies irritation and Denies itchy eyes ENT: Denies vertigo, Denies dizziness and Denies headache(s) Cardiovascular: Cardiovascular: Denies chest pain, Denies dyspnea and Denies dyspnea on exertion Respiratory: Respiratory: Reports cough, Reports pain with cough, Denies dyspnea and Denies dyspnea on exertion Gastrointestinal: Gastrointestinal: Denies abdominal pain, Denies nausea and Denies vomiting Musculoskeletal: Musculoskeletal: Denies back pain and Denies tingling Integumentary/Breasts: Skin/Breast: Denies rash and Reports wounds Neurologic: Denies vertigo, Denies dizziness, Denies headache(s) and Denies tingling Psychiatric: Psychiatric: Denies depression Allergic/Immunologic: Allergic/Immunologic: Denies itchy eyes PMFSH Past Medical History Medical History Malnourished Schizophrenia Seizures Polysubstance use disorder Generalized seizure Noncompliance with medication regimen Social History Social History Household Members: Other Housing: Unknown / Unable to assess Housing Other:: program Alcohol intake: never Patient Tobacco Use Status: Current someday Tobacco user Tobacco use type: Cigarette Cigarette Packs Per Day: 0.5 Cigarettes Per Day: 10.0 Substance Use Type: Marijuana Advance Directives: No Advance Directives Information Provided: No Advance Directives Date on File: 08/24/24 Do you have a plan to hurt others: No Plan service: No Physical Exam ED Vital Signs: Vital Signs - 24 hr 07/19/25 14:39 Temperature 98 F Pulse Rate 80 Respiratory Rate 18 Blood Pressure 136/77 Pulse Oximetry 98 Oxygen Delivery Method Room Air BMI result Body Mass Index 17.7 Const General: comfortable, no acute distress, alert and awake Nutritional Appearance: well nourished Orientation/consciousness: patient oriented x3 HENMT Head: Yes normocephalic and Yes atraumatic Eyes Eyelids: Yes eyelids normal Conjunctivae: conjunctivae normal Sclerae: sclerae normal Corneas: corneas normal Pupils: Equal, round and reactive pupils present EOM: EOMs intact bilaterally Neck Neck: Yes full ROM Resp Effort & Inspection: normal respiratory effort, able to speak in complete sentences, no audible wheezes and not labored Auscultation: clear to auscultation bilaterally Cardio Rate: regular rate Rhythm: regular rhythm GI Inspection: No distended Palpation (GI): Soft to palpation, not firm, nontender, no guarding and not rigid Skin Other: General skin exam: elasticity normal Neuro General: patient oriented x3 Cranial nerves: Yes CN's II-XII intact bilaterally, Yes Equal, round and reactive pupils present and Yes Bilaterally intact EOM present Cognition (Neuro): normal cognition Course Course Course Narrative: RME: 60-year-old male presents to ED for chest pain and also blackness on fingertips and feeling cold on left hand tips. Also right hand fingertips this coloring. History physical exam indicate 1st bite presentation. Labs x-ray was ordered Medical Decision Making Medical Decision Making MDM Narrative: 60-year-old male with past medical history as above presents for evaluation of blisters to his fingers on both hands. This appears most consistent with frostbite and the patient was seen here 8 days ago after slipping and falling outside of being unable to get up. He has blisters in various stages to all 10 fingers. There is some eschar to the fingertips predominantly on the right hand. The patient appears to still have adequate perfusion. There was no evidence of bacterial infection. He is able to flex and extend all digits. Radial pulses are 2+ and equal. The patient had negative blood cultures on his recent visit last week and therefore I think septic emboli is less likely. At this time, I think the appropriate treatment is to have the patient follow up with wound care and the patient will be provided with a referral to wound care. His chest pain with coughing seems somewhat chronic and the patient has had previous CT scans showing a left lung scarring. He had a CT angiography just 8 days ago that did not show any evidence of pulmonary thromboembolism. There was no evidence of consolidation either. The patient does have a mild leukocytosis but no fever, he denies any shortness of breath, I do not suspect that he has an active pneumonia. Given his cough and pleuritic pain we will get a viral panel to evaluate for influenza Differential Diagnosis Differential Diagnoses: The differential diagnosis associated with the presentation includes Chest pain Pneumonia Frostbite Blisters Septic emboli PE less likely Pneumonia Influenza Lab Data MDM Lab Attestation statement: I reviewed the [place]. [place] [address]. This is consistent with the patient's recent labs. There was no significant anemia. He has a normal platelet count. No electrolyte abnormalities warranting dimension. Troponin within normal limits. 07/19/25 15:01 07/19/25 15:01 Labs: Lab Results 07/19/25 07/19/25 Range/Units 15:01 16:39 WBC 15.4 H (4.8-10.8) X10*3/uL RBC 4.45 L (4.60-5.80) X10*6/uL Hgb 13.1 L (14.0-18.0) g/dl Hct 39.4 L (42.0-52.0) % MCV 88.5 (80.0-98.0) fL MCH 29.4 (27.0-33.0) pg MCHC 33.2 (31.0-36.0) g/dl RDW 14.9 (11.0-16.0) % Plt Count 367 (160-400) X10*3/uL MPV 9.9 (9.4-12.4) fL Immature Gran % (Auto) 0.5 H (0.0-0.4) % Neut % (Auto) 79.9 H (45-73) % Lymph % (Auto) 11.0 L (20-40) % Parmer % (Auto) 6.9 (2-11) % Eos % (Auto) 1.3 (0-4) % Baso % (Auto) 0.4 (0-2) % Lymph # (Auto) 1.7 (1.2-4.9) X10*3/uL Parmer # (Auto) 1.1 (0.1-1.2) X10*3/uL Eos # (Auto) 0.2 (0.0-0.4) X10*3/uL Baso # (Auto) 0.1 (0.0-0.2) X10*3/uL Abs Immat Gran (auto) 0.07 H (0.00-0.03) X10*3/uL Absolute Neuts (auto) 12.3 H (2.0-8.3) x10*3/uL Absolute Nucleated RBC 0.000 (0.0-0.012) X10*3/uL Nucleated RBC % (auto) 0.0 (0.0-0.2) /100WBC PT 11.4 (11.2-13.5) SEC INR 0.9 (0.9-1.1) APTT 28.0 (26.7-34.1) SEC Sodium 140 (135-145) mmol/L Potassium 4.1 (3.3-5.1) mmol/L Chloride 108 (96-108) mmol/L Carbon Dioxide 24 (22-29) mmol/L Anion Gap 12 (12-20) BUN 11 (9-16) mg/dL Creatinine 0.67 (0.5-1.4) mg/dL Estim Creat Clear Calc 73.8 Estimated GFR > 60 Random Glucose 118 H (60-115) mg/dL Lactic Acid 1.6 (0.5-2.0) mmol/L Calcium 8.7 (8.4-10.2) mg/dL Total Bilirubin 0.2 (0.0-1.0) mg/dL AST 21 (5-37) U/L ALT 18 (0-40) U/L Alkaline Phosphatase 115 (39-117) U/L Troponin I High Sens < 2.7 D (<3.5-35.0) ng/L Total Protein 6.4 L (6.5-8.0) g/dL Albumin 3.7 (3.5-5.0) g/dL Influenza Type A (PCR) NEGATIVE (Negative) Influenza Type B (PCR) NEGATIVE (Negative) RSV RNA Qual (PCR) NEGATIVE (Negative) SARS-CoV-2 RNA (RT-PCR) NEGATIVE (Negative) Independent Interpretation I performed an independent interpretation of an: EKG (Normal sinus rhythm with a rate of [address] segment elevation [place].) Radiology Impression Discussion of test interpretation with radiology: I have reviewed the radiologist's reading. Radiologist Impression: FINDINGS: Six views of the bilateral hands are submitted. Osseous mineralization is normal. There is no fracture or dislocation. On the right, there is mild degenerative change of the MCP joint of the thumb. On the left, there is moderate degenerative change of the PIP joint of the ring finger. Again seen is widening of the scapholunate joint of the right hand, compatible with old ligamentous injury. The soft tissues are unremarkable. XR/XR hand RT min 3V IMPRESSION: 1. Mild degenerative change of the right MCP joint and the left 4th PIP joint. 2. Widening of the scapholunate joint of the right hand, compatible with old ligamentous injury. Electronically signed by: Víctor Kennedy MD 07/19/2025 03:33 PM [facility] Discharge Plan Discharge Clinical Impression: Frostbite of both hands, Chest pain Patient Disposition: Home, Self-Care Instructions: Chest Pain (ED), Frostbite (ED) Additional Instructions: Your workup in the ER today was reassuring. The blisters and your finger are most consistent with frostbite likely from when you fell on the ice last week. Follow up with wound care to treat the blisters and wounds. Call tomorrow to schedule an appointment. Follow up with your primary doctor, return for new or worsening symptoms Prescriptions: No Action haloperidol 5 mg tablet 5 mg PO DAILY haloperidol 10 mg tablet 10 mg PO DAILY folic acid 1 mg tablet 1 tab PO DAILY acetaminophen 325 mg Tablet 650 mg PO Q4H PRN (Reason: Pain) albuterol sulfate 90 mcg/actuation Hfa Aerosol Inhaler 1 inh INHALATION QID PRN (Reason: Wheezing) aripiprazole 10 mg tablet 10 mg PO DAILY cephalexin 500 mg capsule 500 mg PO QID 7 Days Qty: 28 0RF doxycycline hyclate 100 mg tablet 100 mg PO BID 7 Days Qty: 14 0RF aripiprazole [Abilify] 10 mg tablet 10 mg PO DAILY Qty: 90 0RF oxcarbazepine 150 mg tablet 150 mg PO BID Qty: 90 0RF haloperidol 5 mg tablet 5 mg PO DAILY Qty: 90 0RF phenytoin sodium extended [Dilantin Kapseal] 100 mg capsule 500 mg PO DAILY Qty: 300 0RF levetiracetam [Keppra] 250 mg tablet 250 mg PO DAILY Qty: 90 0RF haloperidol 10 mg tablet 10 mg PO DAILY Qty: 90 0RF benztropine 1 mg tablet 1 mg PO DAILY Qty: 90 0RF docusate sodium [Colace] 100 mg capsule 100 mg PO ONCE PRN (Reason: constipation) Qty: 90 0RF folic acid 1 mg tablet 1 mg PO DAILY Qty: 90 0RF albuterol sulfate [Ventolin HFA] 90 mcg/actuation HFA aerosol inhaler 2 inh inhalation Q4-6H PRN (Reason: shortness of breath or wheezing) Qty: 6.7 0RF oxcarbazepine [Trileptal] 150 mg Tablet 150 mg PO BID phenytoin sodium extended [Dilantin Extended] 100 mg Capsule 500 mg PO DAILY benztropine 1 mg tablet 1 mg PO DAILY docusate sodium [Colace] 100 mg Capsule 100 mg PO DAILY PRN (Reason: Constipation) levetiracetam 250 mg tablet 250 mg PO BID Referrals: [facility] [place] Wound Care Management [Provider Group] Referral Note: frostbite finger tips Interventions: ED Discharge Assessment Last Done: 07/19/25 17:40 Discharge Date/Time: 07/19/25 17:46 Print Language: Egyptian
[2025-07-19 15:13] LABS: MANUAL DIFF FLAG NO
[2025-07-19 15:15] LABS: Hematocrit 39.4 % (42.0-52.0); Hemoglobin 13.1 g/dl (14.0-18.0); Imm Gran Abs Auto 0.07 X10*3/uL (0.00-0.03); Imm Gran Pct Auto 0.5 % (0.0-0.4); Lymphocytes Absolute Auto 1.7 X10*3/uL (1.2-4.9); Mean Corpuscular HGB Conc 33.2 g/dl (31.0-36.0); Mean Corpuscular Hemoglobin 29.4 pg (27.0-33.0); Mean Corpuscular Volume 88.5 fL (80.0-98.0); NRBC Abs Auto 0.000 X10*3/uL (0.0-0.012); NRBC Pct Auto 0.0 /100WBC (0.0-0.2); Platelet Count 367 X10*3/uL (160-400); Red Blood Count 4.45 X10*6/uL (4.60-5.80); White Blood Count 15.4 X10*3/uL (4.8-10.8)
[2025-07-19 15:24] LABS: INTERNATIONAL NORM RATIO 0.9 (0.9-1.1); Prothrombin Time 11.4 SEC (11.2-13.5)
[2025-07-19 15:26] LABS: Partial Thromboplastin Time 28.0 SEC (26.7-34.1)
[2025-07-19 15:28] LABS: Alanine Aminotransferase 18 U/L (0-40); Albumin Level 3.7 g/dL (3.5-5.0); Alkaline Phosphatase 115 U/L (39-117); Anion Gap 12 (12-20); Aspartate Amino Transferase 21 U/L (5-37); Blood Urea Nitrogen 11 mg/dL (9-16); Calcium 8.7 mg/dL (8.4-10.2); Carbon Dioxide 24 mmol/L (22-29); Chloride 108 mmol/L (96-108); Creatinine Clr Calc Pharmacy 73.8; Estimated Glomerular Filt Rate > 60; Potassium 4.1 mmol/L (3.3-5.1); Sodium 140 mmol/L (135-145); Total Protein 6.4 g/dL (6.5-8.0)
[2025-07-19 15:52] LABS: Troponin-I High Sensitivity < 2.7 ng/L (<3.5-35.0)
[2025-07-19 17:26] LABS: Resp Syncy Virus RNA Qual PCR NEGATIVE (Negative); SARS COV2 PCR INHOUSE NEGATIVE (Negative)
[2025-07-19 17:36] VITALS: BP 152/97; PULSE 76; RESP 16; TEMP 36.6; O2SAT 98
[2025-07-19 17:40] VITALS: BP 152/97; PULSE 76; RESP 16; TEMP 36.6; O2SAT 98
--- OUTSIDE RECORDS SUMMARY | 2025-07-19 18:32 | XMS_ITS | Encounter Summary ---
Author Organization [employer] Address [address] [facility] [address] [place] [address] Care Team Providers Care Solar Energy System Installer Name Role Phone Mary Perrin MD Primary Care Provider + Tho Ortega RN Unavailable [phone] Radha Rivero Unavailable Reason for Visit * Reason Comments Med Refill Encounter Details Date Type Department Care Team ([facility] st Contact Info) Description 09/13/2023 Refill [facility] [address] [place] [address] La Bower MD [address] [place] [address] Seizure disorder (CMS/HCC) Social History Tobacco Use [...] Care Team (Late st Contact Info) Description 08/19/2025 9:45 AM EST Office Visit [facility] [address] [place] [address] Mary Perrin MD [address] [place] [address] documented as of this encounter Visit Diagnoses Diagnosis Seizure disorder (CMS/HCC) (HCC) Unspecified epilepsy without mention of intractable epilepsy documented in this encounter Care Teams Solar Energy System Installer Relationship Specialty Start Date End Date Mary Perrin MD [address] [place] [address] PCP - General Family Medicine 04/07/18 Tho Ortega, RN [address] [place] [address] Registered Nurse Family Medicine 02/22/25 05/03/25 Radha Rivero 02/22/25 05/03/25 documented as of this encounter
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
--- OUTSIDE RECORDS SUMMARY | 2025-07-19 18:32 | XMS_ITS | Encounter Summary ---
Author Organization [employer] Address [address] [facility] [address] [place] [address] Care Team Providers Care Health Safety Coordinator Name Role Phone Mary Perrin MD Primary Care Provider + Tho Ortega RN Unavailable [phone] Radha Rivero Unavailable Encounter Details Date Type Department Care Team (Late st Contact Info) Description 10/23/2023 Telephone [facility] [address] [place] [address] Mary Perrin MD [address] [place] [address] Social History Tobacco Use Types Packs/Day Years [...] Description 08/19/2025 9:45 AM EST Office Visit [facility] [address] [place] [address] [phone] Mary Perrin MD [address] [place] [address] documented as of this encounter Visit Diagnoses Not on filedocumented in this encounter Care Teams Health Safety Coordinator Relationship Specialty Start Date End Date Mary Perrin MD [address] [place] [address] PCP - General Family Medicine 04/07/18 Tho Ortega, RN [address] [place] [address] Registered Nurse Family Medicine 02/22/25 05/03/25 Radha Rivero 02/22/25 05/03/25 documented as of this encounter
--- OUTSIDE RECORDS SUMMARY | 2025-07-19 18:32 | XMS_ITS | Encounter Summary ---
Author Organization [employer] Address [address] [facility] [address] [place] [address] Care Team Providers Care Quality Assurance Inspector Name Role Phone Mary Perrin MD Primary Care Provider + Tho Ortega RN Unavailable [phone] Radha Rivero Unavailable Reason for Visit * Reason Comments Med Refill Encounter Details Date Type Department Care Team ([facility] st Contact Info) Description 07/24/2023 Refill [facility] [address] [place] [address] La Bower MD [address] [place] [address] Seizure disorder (CMS/HCC) Social History Tobacco Use [...] Description 08/19/2025 9:45 AM EST Office Visit [facility] [address] [place] [phone] Mary Perrin MD [address] [place] [address] documented as of this encounter Visit Diagnoses Diagnosis Seizure disorder (CMS/HCC) (HCC) Unspecified epilepsy without mention of intractable epilepsy documented in this encounter Care Teams Quality Assurance Inspector Relationship Specialty Start Date End Date Mary Perrin MD [address] [place] [address] PCP - General Family Medicine 04/07/18 Tho Ortega, RN [address] [place] [address] Registered Nurse Family Medicine 02/22/25 05/03/25 Radha Rivero 02/22/25 05/03/25 documented as of this encounter
--- OUTSIDE RECORDS SUMMARY | 2025-07-19 18:32 | XMS_ITS | Clinical Summary ---
Author Organization [facility] Address [address] [place] [address] Phone Care Team Providers Care [employer]erox Machine Mechanic Name Role Phone Maxine Rodas [facility] Primary Care Provider [phone] Allergies No known active allergies Medications acetaminophen [...] topic Insurance MEDICAID - [place] Care Teams [employer]erox Machine Mechanic Relationship Specialty Start Date End Date Maxine Rodas FNP [address] [place] [address] PCP - General Family Medicine 07/20/24
--- OUTSIDE RECORDS SUMMARY | 2025-07-19 18:32 | XMS_ITS | Clinical Summary ---
Author Organization [employer] Address [address] [facility] [address] [place] [address] Care Team Providers Care Steamboat Pilot Name Role Phone Mary Perrin MD Primary Care Provider + Allergies No known active allergies Medications haloperidol (Haldol) 10 MG tablet take 1 tablet (10MG) by oral route once daily Active haloperidol (Haldol) 5 MG tablet take 1 tablet by oral route every day (take with 10 mg) 8 Active Misc. Devices (Cane) misc Active ARIPiprazole (Abilify) 10 MG tablet Take 10 mg by mouth in the morning. Active benztropine (Cogentin) 1 MG tablet Take 1 mg by mouth in the morning. Active LORazepam (Ativan) 1 MG tablet Take 1 mg by mouth every 6 (six) hours if needed for anxiety. Active albuterol 108 (90 Base) MCG/ACT inhalerIndicatio ns:Chronic cough Inhale 2 puffs every 6 (six) hours if needed for wheezing. 18 g 3 4 Active Acetaminophen Extra Strength 500 MG tabletIndication s:[place] of foot TAKE 2 TABLET BY ORAL ROUTE 3 TIMES EVERY DAY NEEDED FOR HIP OR SHOULDER PAIN 270 tablet 5 Active amoxicillin-clav ulanate (Augmentin) 875-125 MG tablet Take 1 tablet by mouth 2 times daily. 5 Active levETIRAcetam (Keppra) 1000 MG tabletIndication s:Seizure disorder (CMS/HCC) (HCC) Take 1 tablet (1,000 mg) by mouth 2 times daily. 60 tablet 1 5 Active folic acid (Folvite) 1 MG tabletIndication s:Seizure disorder (CMS/HCC) (HCC) TAKE 1 TABLET BY MOUTH EVERY MORNING 30 tablet 4 5 Active docusate sodium (Colace) 100 MG capsuleIndicatio ns:Slow transit constipation TAKE 1 CAPSULE BY MOUTH TWICE A DAY IF NEEDED FOR CONSTIPATION 60 capsule 5 5 Active Active Problems Problem Noted Date Diagnosed [...] care management by [facility] [place] of foot 06/29/2022 Assessment & Plan (02/10/2024 2:22 PM EDT): - missed appoitment with language asst, gave information to r/s appointment - advised [...] - he continues to live in a alf with meds administered through [facility], he is a arias of the [facility] Assessment & Plan (12/13/2022 1:31 PM [...] Counseled to avoid using drugs. Seizure disorder ([facility]) 07/29/1958 Assessment & Plan (12/08/2024 1:05 PM [...] pt will try to sleep at his alf daily - f/u with Dr. Flor - discussed [facility] pt importance of avoiding drug [...] Encounters Date Type Department Care Team Description 06/29/2025 Orders Only [facility] External Provider, [facility] 05/03/2025 Patient Outreach [address] [phone] Mary Perrin MD Care Coordination (C3 [facility] telephone call outreach) 04/26/2025 Patient Outreach [address] [address] Mary Perrin MD Care Coordination ([facility] telephone call outreach) 04/19/2025 Patient Outreach [address] [address] Mary Perrin MD Care Coordination (C3 [facility] telephone call outreach ) from Last 3 Months Immunizations Immunization Administration Dates Next Due Hep A, Adult 07/08/2007 Hep B, adult 07/26/2008,08/25/2007,07/08/2007 Influenza injectable quadriv alent IIV4 with preservative 04/15/2019,05/14/2017,05/04/2016 Influenza injectable quadriv alent preservative free 05/10/2023,07/12/2020 Influenza, seasonal, injecta ble, preservative free 10/12/2010 Moderna Covid-19 Vaccine 12+ 05/22/2024,05/10/20 23 Pfizer Covid-19 Vaccine 12+ 12/09/2020, Pneumococcal Conjugate PCV 20 11/26/2023 Pneumococcal Polysaccharide [...] 67 12/08/2024 10:37 AM EDT Temperature 36 C (96.8 F) 12/08/2024 10:37 AM EDT Respiratory Rate 20 [...] Description 08/19/2025 9:45 AM EST Office Visit [facility] MEDICINE [address] [place], [place] [phone] Mary Perrin MD [address] [place], [place] [phone] Health Maintenance Due Date Last Done Comments CT Colonography 1966 Colonoscopy 1966 Colorectal Cancer Screening 1966 FIT DNA/Cologuard 1966 FIT 1966 FOBT 1966 Sigmoidoscopy 1966 Disability Screening 1966 Alcohol/Substance Use Screening 1978 Hepatitis A Vaccines (2 of 2 - Risk 2-dose series) 01/07/2008 07/08/2007 Dental X-Ray: Bitewings 03/08/2012 03/07/2011 Dental Oral Exam 10/01/2012 04/02/2012, 03/07/2011 Dental Prophylaxis 10/01/2012 04/02/2012, 03/14/2011 RSV Patients and Patients Aged 60 years or older (1 - Risk 50-74 years 1-dose series) 2016 Zoster Vaccines (1 of 2) 2016 DTaP/Tdap/Td Vaccines (1 - Tdap) 07/05/2018 07/04/2018, 05/14/2017, 05/14/2017, Additional history exists Depression Screening 09/14/2023 09/14/2022, 09/14/19 23 SDOH Screening 02/02/2025 02/03/2024 COVID-19 Vaccine ( season) 2025 05/22/2024, 05/10/2023, 12/09/2020, Additional history exists Tobacco Screening 12/08/2025 12/08/2024 Dental X-Ray: Full Mouth 09/24/2026 09/23/2023, 02/26 Lipid Panel 09/14/2027 09/14/2022 Hepatitis B Vaccines Completed 07/26/2008, 08/25/2007, 07/08/2007 HIV Screening Completed 09/14/2022 Hepatitis C Screening Completed 09/14/2022 Pneumococcal Vaccine: 50+ Years Completed 11/26/2023, 05/31/2008 Influenza Vaccine Completed 05/04/2025, , 07/12/2020, Additional history exists HIB Vaccines Aged Out [...] Procedure Name Priority Date/Time Associated Diagnosis Comments XR FOOT 3+ VIEWS LEFT Routine 06/29/2025 9:19 AM EST PANORAMIC RADIOGRAPHIC IMAGE Routine 09/23/2023 [...] Recently Relevant to Health Maintenance Results * XR Foot 3+ Views Left (06/29/2025 9:19 AM EST) Anatomical Region Laterality Modality Lower Extremities, Foot Left Radiogra phic Imaging 06/29/2025 9:19 AM EST Narrative 06/29/2025 9:31 AM EST [address] [address] XRay Report Signed Patient: Abhijit Wright MR#: [id number] : 1965 Acct:[id number] Age/Sex: 60 / M ADM Date: 06/29/25 Loc: HO.ED Attending Dr: Ordering Physician: Kia Gallo Date of Service: 06/29/25 Procedure(s): XR foot LT min 3V Accession Number(s): [id number] cc: Kesha Pedraza; Kia Gallo Reason for Exam: pain, injury EXAMINATION: XR FOOT 3 OR MORE VIEWS LEFT HISTORY: pain, injury COMPARISON: There are no prior studies available for comparison. FINDINGS: Three views of the left foot are submitted. Osseous mineralization is normal. An intramedullary emir is seen in the distal tibia. There is no acute fracture or dislocation. The joint spaces are preserved. The soft tissues are unremarkable. XR/XR foot LT min 3V IMPRESSION: No evidence of acute fracture of the left foot. Electronically signed by: Víctor Kennedy MD 06/29/2025 09:28 AM EST Dictated By: Víctor Kennedy MD Signed By: <Electronically signed by Víctor Kennedy MD in OV> 06/29/25927 DD/ 8 TD/TT: 06/29/25925 Master Motorcycle Technician: Procedure Note Donotuseinterpreter, Image - 06/29/[address] [address] XRay Report Signed Patient: Theresa Wright#: [id number] : 1965Acct:[id number] Age/Sex: 60 / MADM Date: 06/29/25 Loc: HO.ED Attending Dr: Ordering Physician: Kia Gallo Date of Service: 06/29/25 Procedure(s): XR foot LT min 3V Accession Number(s): [id number] cc: Kesha Pedraza; Kia Gallo Reason for Exam: pain, injury EXAMINATION: XR FOOT 3 OR MORE VIEWS LEFT HISTORY: pain, injury COMPARISON: There are no prior studies available for comparison. FINDINGS: Three views of the left foot are submitted. Osseous mineralization is normal. An intramedullary emir is seen in the distal tibia. There is no acute fracture or dislocation. The joint spaces are preserved. The soft tissues are unremarkable. XR/XR foot LT min 3V IMPRESSION: No evidence of acute fracture of the left foot. Electronically signed by: Víctor Kennedy MD 06/29/2025 09:28 AM EST Dictated By: Víctor Kennedy MD Signed By: <Electronically signed by Víctor Kennedy MD in OV> 06/29/25927 DD/ 8 TD/TT: 06/29/25925 Master Motorcycle Technician: [facility] External Provider IMG XR PROCEDURES Final Result * (ABNORMAL) Lipid Panel with Reflex to Direct LDL (09/14/2022 11:11 AM EST) Cholesterol, Total 217(H) <200 mg/dL [facility] HDL Cholesterol 105 > OR = 40 mg/dL [facility] Triglycerides 74 <150 mg/dL [facility] LDL Cholesterol 96 mg/dL (calc) [facility] [place] [facility] Comment: Reference range: <100 Desirable range <100 mg/dL for primary prevention; <70 mg/dL for patients with CHD or diabetic patients with > or = 2 CHD risk factors. LDL-C is now calculated using the Brent calculation, which is a validated novel method providing better accuracy than the Friedewald equation in the estimation of LDL-C. Jovan MAYNARD et al. KRISHNA. 2013;310(19): 0272-6766 (http://Frankly Chat.Kudan/faq/NTL874) Chol/HDLC Ratio 2.1 <5.0 (calc) [facility] [place] [facility] Non-HDL Cholesterol 112 <130 mg/dL (calc) [facility] [place] [facility] Comment: For patients with diabetes plus 1 [...] BLOOD ORDERABLES Fin al Result [facility] [address], [place] [address] [facility] [place] [facility] [address] [facility], (Nl[address]) [place] [address] * (ABNORMAL) Hepatitis Panel, General (09/14/2022 11:11 AM EST) Hepatitis A Antibody Total REACTIVE( A) NON-REACT BARAK [facility] [place] [facility] Comment: For additional information, please refer to http://Frankly Chat.Kidblog/faq/SUM784 (This link is being provided for informational/ educational purposes only.) Hepatitis B Surface Antibody QL REACTIVE( A) NON-REACT BARAK [facility] [place] [facility] Hepatitis B Surface Ag NON-REACT BARAK NON-REACT BARAK [facility] [place] [facility] Hepatitis B Core Antibody Total NON-REACT BARAK NON-REACT BARAK [facility] [place] [facility] Hepatitis C Antibody NON-REACT BARAK NON-REACT BARAK [facility] [place] [facility] Index 0.02 <1.00 [facility] [place] [facility] Comment: HCV antibody was non-reactive. There is no laboratory evidence of HCV infection. In most cases, no further action is required. However, if recent HCV exposure is suspected, a test for HCV RNA (test code 15379) is suggested. For additional information please refer to http://Frankly Chat.Kidblog/faq/WRE73n2 (This link is being provided for informational/ educational purposes only.) 09/14/2022 11:1 1 AM EST 09/14/2022 11:12 AM EST Narrative [facility] - 09/19/2022 11:02 PM EST FASTING:UNKNOWN COLLECTION KIT GIVEN TO PATIENT. PATIENT ADVISED TO RETURN. FASTING: UNKNOWN us Mary Perrin MD LAB BLOOD ORDERABLES Fin al Result [facility] [address] [facility] [place] [address] [facility] [place] [facility] [address] [facility], ([address]) [place] [address] * HIV-1/2 Antigen and Antibodies, Fourth Generation, with Reflexes (09/14/2022 11:11 AM EST) HIV Antigen/Antibody, 4th Generation NON-REAC TIVE NON-REAC TIVE [facility] [place] [facility] Comment: HIV-1 antigen and HIV-1/HIV-2 antibodies were not detected. There is no laboratory evidence of HIV infection. PLEASE NOTE: This information has been disclosed to you from records whose confidentiality may be protected by state law. If your state requires such protection, then the state law prohibits you from making any further disclosure of the information without the specific written consent of the person to whom it pertains, or as otherwise permitted by law. A general authorization for the release of medical or other information is NOT sufficient for this purpose. For additional information please refer to http://Frankly Chat.Kidblog/faq/GMY971 (This link is being provided for informational/ [...] [facility], [address], [place] [address] [facility] [place] [facility] [address] [facility], (N[address]) [place] [address] from Last 3 Months or Most Recently Relevant to Health Maintenance [place] [address] [address] [place] [address] C3 DENTAL-[facility] MEDICAID STAND ADULT Care Teams Steamboat Pilot Relationship Specialty Start Date End Date Mary Perrin MD [address] [place] [phone] PCP - General Family Medicine 04/07/18
--- OUTSIDE RECORDS SUMMARY | 2025-07-19 18:32 | XMS_ITS | Encounter Summary ---
Author Organization [employer] Address [address] [facility] 7[address] [place] [address] Care Team Providers Care Rewinder Operator Name Role Phone Mary Perrin MD Primary Care Provider + Tho Ortega RN Unavailable [phone] Radha Rivero Unavailable Encounter Details Date Type Department Care Team (Latest Contact Info) Description 05/22/2023 Research Encounter [facility] MED & PEDS [address] [place] [address] Mary Perrin MD [address] [place] [address] ERRONEOUS ENCOUNTER--DISREGARD Social History Tobacco Use Types [...] Description 08/19/2025 9:45 AM EST Office Visit [facility] MEDICINE [address] [place] [phone] Mary Perrin MD [address] [place] [phone] documented as of this encounter Visit Diagnoses Diagnosis ERRONEOUS ENCOUNTER--DISREGARD documented in this encounter Care Teams Rewinder Operator Relationship Specialty Start Date End Date Mary Perrin MD [address] [place], [place] [phone] PCP - General Family Medicine 04/07/18 Tho Ortega, RN [address] [place] [phone] Registered Nurse Family Medicine 02/22/25 05/03/25 Radha Rivero 02/22/25 05/03/25 documented as of this encounter
== END 2025-07-19 17:46 | disposition home or self-care (01) ==
PROVIDERS: Physician Assistant; Emergency Provider Emergency Medicine
DX: R23.8 Other skin changes (principal); R07.1 Chest pain on breathing; T33.532A Superficial frostbite of left finger(s), initial encounter; T33.531A Superficial frostbite of right finger(s), initial encounter; X31.XXXA Exposure to excessive natural cold, initial encounter; M79.642 Pain in left hand; M79.641 Pain in right hand; Y93.9 Activity, unspecified; Y92.9 Unspecified place or not applicable; Y99.8 Other external cause status; F17.210 Nicotine dependence, cigarettes, uncomplicated; Z79.899 Other long term (current) drug therapy; Z03.818 Encounter for observation for suspected exposure to other biological agents ruled out
CPT/HCPCS: 36415; 71046; 73130; 80053; 83605; 84484; 85025; 85610; 85730; 87040; 87637; 93005; 99283; 99284

== ENCOUNTER → 2025-07-19 14:43 | Outpatient (BNV) | payer MEDICAID, SELFPAY | PROVIDERS: Visit Provider Internal Medicine Cardiovascular Disease | DX: R07.9 Chest pain, unspecified (principal) | CPT/HCPCS: 93010 ==

== ENCOUNTER → 2025-07-19 15:06 | Outpatient (BNV) | payer MEDICAID, SELFPAY | PROVIDERS: Visit Provider Radiology Diagnostic Radiology | DX: R07.9 Chest pain, unspecified (principal); M19.041 Primary osteoarthritis, right hand; M19.042 Primary osteoarthritis, left hand | CPT/HCPCS: 71046; 73130 ==